=== PATIENT | male | born 1960 | race Two or more races ===

== ENCOUNTER 2020-07-10 11:30 | Emergency (ER) | payer MEDICAID, SELFPAY ==
--- NOTE | ~2020-07-10 | XR_ITS ---
EXAMINATION: LEFT SHOULDER AND LUMBAR SPINE X-RAY CLINICAL INFORMATION: Fall COMPARISON: Lumbar spine x-ray February 2011 TECHNIQUE: 3 views of the left shoulder and 3 views of the lumbar spine FINDINGS: Left shoulder: Bone alignment is normal. No fracture or dislocation is seen. Joint spaces are normal. Soft tissues are normal. Lumbar spine: There is mild curvature of the mid lumbar spine to the right. Bone alignment is otherwise normal. There is slight loss of the superior endplate of the L3 vertebral body questionable for a mild compression fracture. This does not appear acute but is new in the interval from 2011 exam. There is evidence of degenerative disc disease at L1-L2, L4-L5 and L5-S1. There is lower lumbar spine facet arthritis. There is evidence of atherosclerotic disease. XR/XR lumbar spine 2-3V IMPRESSION: Left shoulder: Unremarkable exam. Lumbar spine: Question mild L3 vertebral body compression fracture. This does not appear acute but is new in the interval from 2010. Multilevel degenerative disc disease and facet arthritis.
--- NOTE | ~2020-07-10 | US_ITS ---
EXAMINATION: US SCROTUM CLINICAL INFORMATION: Left testicle pain and swelling. COMPARISON: None TECHNIQUE: A sonogram of the scrotum was performed assessing marc-scale appearance and color Doppler flow. Spectral Doppler analysis of the arterial and venous flow were performed in the testes bilaterally. FINDINGS: RIGHT: Right testicle measures 4.4 x 1.7 x 2.4 cm, volume 9.5 mL. The right testis is diffusely heterogeneous. Question old injury. Spectral Doppler analysis of the arterial and venous flow is normal in the right testis. Right epididymal head is normal in size. No right hydrocele is seen. Right epididymal Doppler flow is normal. There are numerous varicose vessels visualized throughout the right scrotum consistent with varicocele. LEFT: Left testicle measures 4.5 x 2.7 x 3.1 cm, volume 20.1 mL. No focal testicular parenchymal lesions are visualized. Spectral Doppler analysis of the arterial and venous flow is increased in the left testis. Left epididymal head is enlarged in size. There is a small left epididymal head cyst measuring 0.3 x 0.3 x 0.4 cm. There is a small left hydrocele. No varicocele is seen. Left epididymal Doppler flow is increased. US/US scrotum doppler IMPRESSION: Enlarged left testis and epididymis with increased vascularity in the left testis and epididymis likely secondary to injury and/or inflammatory process. There is no testicular fracture or intratesticular hematoma. Heterogenous right testis with areas of ill-defined geographic areas suggestive of old injury. The vascularity appears normal. Normal right epididymis. Right varicocele. Small left hydrocele. Left epididymal head cyst. There is no scrotal wall thickening.
--- NOTE | ~2020-07-10 | XR_ITS ---
EXAMINATION: LEFT SHOULDER AND LUMBAR SPINE X-RAY CLINICAL INFORMATION: Fall COMPARISON: Lumbar spine x-ray February 2011 TECHNIQUE: 3 views of the left shoulder and 3 views of the lumbar spine FINDINGS: Left shoulder: Bone alignment is normal. No fracture or dislocation is seen. Joint spaces are normal. Soft tissues are normal. Lumbar spine: There is mild curvature of the mid lumbar spine to the right. Bone alignment is otherwise normal. There is slight loss of the superior endplate of the L3 vertebral body questionable for a mild compression fracture. This does not appear acute but is new in the interval from 2011 exam. There is evidence of degenerative disc disease at L1-L2, L4-L5 and L5-S1. There is lower lumbar spine facet arthritis. There is evidence of atherosclerotic disease. XR/XR shoulder LT min 2V IMPRESSION: Left shoulder: Unremarkable exam. Lumbar spine: Question mild L3 vertebral body compression fracture. This does not appear acute but is new in the interval from 2010. Multilevel degenerative disc disease and facet arthritis.
--- NOTE | ~2020-07-10 | US_ITS ---
EXAMINATION: US SCROTUM CLINICAL INFORMATION: Left testicle pain and swelling. COMPARISON: None TECHNIQUE: A sonogram of the scrotum was performed assessing marc-scale appearance and color Doppler flow. Spectral Doppler analysis of the arterial and venous flow were performed in the testes bilaterally. FINDINGS: RIGHT: Right testicle measures 4.4 x 1.7 x 2.4 cm, volume 9.5 mL. The right testis is diffusely heterogeneous. Question old injury. Spectral Doppler analysis of the arterial and venous flow is normal in the right testis. Right epididymal head is normal in size. No right hydrocele is seen. Right epididymal Doppler flow is normal. There are numerous varicose vessels visualized throughout the right scrotum consistent with varicocele. LEFT: Left testicle measures 4.5 x 2.7 x 3.1 cm, volume 20.1 mL. No focal testicular parenchymal lesions are visualized. Spectral Doppler analysis of the arterial and venous flow is increased in the left testis. Left epididymal head is enlarged in size. There is a small left epididymal head cyst measuring 0.3 x 0.3 x 0.4 cm. There is a small left hydrocele. No varicocele is seen. Left epididymal Doppler flow is increased. US/US scrotum IMPRESSION: Enlarged left testis and epididymis with increased vascularity in the left testis and epididymis likely secondary to injury and/or inflammatory process. There is no testicular fracture or intratesticular hematoma. Heterogenous right testis with areas of ill-defined geographic areas suggestive of old injury. The vascularity appears normal. Normal right epididymis. Right varicocele. Small left hydrocele. Left epididymal head cyst. There is no scrotal wall thickening.
[2020-07-10 11:42] VITALS: BP 168/77; PULSE 72; RESP 8; TEMP 36.8; O2SAT 96; BMI 39.1
[2020-07-10 14:00] VITALS: PULSE 89; RESP 18
--- NOTE | 2020-07-10 14:58 | ED_ITS ---
HPI - General Adult General Chief complaint: General Medical Stated complaint: BACK PAIN S/P FALL 5 DAYS AGO Time Seen by Provider: 07/10/20 11:34 History of Present Illness HPI narrative: Patient complains of pain in his lower back, left testicle and left shoulder after a fall where he tripped and fell down stairs a few days ago He did hit his head he has no neck pain he has no numbness weakness paresthesias he has no changes to bowel or bladder he has no burning with urination or f requency no fever no chills Related Data Previous Rx's Medication Instructions Recorded levofloxacin 500 mg PO DAILY 10 Days #10 tab 07/10/20 Allergies Allergy/AdvReac Type Severity Reaction Status Date / Time Penicillins [PENICILLINS] Allergy Unknown RASH Verified 07/10/20 11:45 Review of Systems Review of Systems: Positive for back pain left shoulder pain and left testicular pain and swelling The head is normocephalic atraumatic Neck is supple and nontender The chest is clear to auscultation without tenderness to the chest wall The abdomen soft nontender B genital exam the left testicle is swollen and tender, no hernia palpated The back head lower lumbar tenderness including midline tenderness, no CVA tenderness, no ecchymosis no rash no wound no redness Extremities is full range of motion in right arm both legs, gait is normal The left shoulder had some tenderness but no obvious deformity no ecchymosis and range of motion was almost full but limited on extension and abduction and external rotation Skin no rashes Neuro motor is 5/5 x4, gait and balance are normal, patient has symmetric and normal sensation in extremities PMFSH Past Medical History Medical History (Updated 07/10/20 @ 18:42 by JENARO Rebolledo) Diabetes High blood pressure High cholesterol Social History Social History Advance Directives: No Advance Directives Information Provided: No Physical Exam Vital Signs: Vital Signs: Last Vital Signs Temp 97.8 F 07/10/20 17:11 Pulse 65 07/10/20 17:11 Resp 16 07/10/20 17:11 BP 112/51 L 07/10/20 17:11 Pulse Ox 97 07/10/20 17:11 Body Mass Index 39.1 Course Course Course Narrative: Ultrasound showed epididymal inflammation and enlarged left testicle and epididymis with increased vascularity secondary to inflammation or inflammatory process Urine was positive with white cells so patient will be treated for possible epididymitis versus bruising to the testicle, there was no hematoma seen Lumbar spine x-ray did show a possible compression fracture so patient will be treated with analgesics Plan is to treat with antibiotics refer to urology for the epididymitis Follow with primary care doctor for compression fracture in the back At 18:00 case was signed out to physician dulce to confirm normal BUN and creatinine, normal renal from [facility] and patient will be discharged on Levaquin 500 pending renal function Medical Decision Making Lab Data Lab results reviewed: Yes I reviewed the patient's lab results. Result diagrams: 07/10/20 18:08 Labs: Lab Results 07/10/20 Range/Units 16:57 Urine Color YELLOW Urine Appearance CLEAR Urine pH 7.0 (5.0-8.0) Ur Specific Reasnor 1.015 (1.005-1.025) Urine Protein NEG (NEG-TRACE) MG/DL Urine Glucose (UA) NEG (NEG) MG/DL Urine Ketones NEG (NEG) MG/DL Urine Blood 2+ H (NEG) Urine Nitrite NEG (NEG) Ur Leukocyte Esterase 1+ H (NEG) Urine RBC 5-9 H (0) /HPF Urine WBC 10-14 H (0-4) /HPF Ur Squamous Epith Cells 1+ /LPF Urine Bacteria 3+ /LPF Discharge Plan Discharge Clinical Impression: Acute epididymitis Closed compression fracture of lumbosacral spine Qualifiers: Encounter type: initial encounter Qualified Code(s): S32.000A - Wedge compression fracture of unspecified lumbar vertebra, initial encounter for closed fracture Patient Disposition: Home, Self-Care Additional Instructions: We are starting antibiotics for epididymitis which is an infection We are giving pain medicine for the back pain Follow closely with primary doctor for physical therapy for the back and re- evaluation of the epididymitis Follow with urologist if you can get an appointment Return to ER any time for worsening pain fever vomiting any worse condition or any concerns you can use Tylenol or if needed oxycodone for pain Prescriptions: New levofloxacin 500 mg tablet 500 mg PO DAILY 10 Days Qty: 10 RF: 0 Referrals: Tyrone Hernández MD [Physician] - 2 days (Patient with left testicle pain and swelling with ultrasound showing epididymal inflammation being treated with Levaquin)
--- NOTE | 2020-07-10 16:10 | PC.NURSE ---
provider at bedside for re eval. pt up adlib to bathroom and back to room without any difficulty.
[2020-07-10 17:04] LABS: Glucose Urine UA NEG (NEG); Leukocyte Esterase Urine 1+ (NEG); Nitrite Urine NEG (NEG); Specific Gravity - Urine 1.015 (1.005-1.025); UACC Culture Trigger YES; Urine Blood 2+ (NEG); Urine Ketones NEG (NEG); Urine Protein NEG (NEG-TRACE)
[2020-07-10 17:09] LABS: Appearance Urine CLEAR; Color Urine YELLOW
[2020-07-10 17:11] VITALS: BP 112/51; PULSE 65; RESP 16; TEMP 36.6; O2SAT 97
[2020-07-10 17:14] LABS: Bacteria Urine 3+ /LPF; Squamous Epithelial Cell Urine 1+ /LPF
--- NOTE | 2020-07-10 17:15 | PC.NURSE ---
PT ASLEEP UPON ENTERING ROOM. EASILY AROUSED. VSS. WAITING URINE.
[2020-07-10 18:44] LABS: Blood Urea Nitrogen 9 mg/dL (9-16); Creatinine Clr Calc Pharmacy 125.7; Estimated Glomerular Filt Rate > 60
[2020-07-10] MEDS: levoFLOXacin 500 MG TABLET PO (19:32)
== END 2020-07-10 19:40 | disposition home or self-care (01) ==
PROVIDERS: Physician Assistant Medical; Emergency Provider Emergency Medicine
DX: S32.000A Wedge compression fracture of unspecified lumbar vertebra, initial encounter for closed fracture (principal); W10.8XXA Fall (on) (from) other stairs and steps, initial encounter; N45.1 Epididymitis; E11.9 Type 2 diabetes mellitus without complications; I10 Essential (primary) hypertension; Y93.89 Activity, other specified; Y92.018 Other place in single-family (private) house as the place of occurrence of the external cause; Y99.9 Unspecified external cause status
CPT/HCPCS: 36415; 72100; 73030; 76870; 81001; 81003; 82565; 84520; 87086; 87088; 87186; 93975; 99284

== ENCOUNTER 2020-11-22 15:08 | Outpatient (REF) | payer MEDICAID, SELFPAY ==
--- NOTE | ~2020-11-22 | MR_ITS ---
EXAMINATION: MR SHOULDER WITHOUT CONTRAST, LEFT CLINICAL INFORMATION: Pain over biceps insertion. Patient reports shoulder pain. COMPARISON: None. TECHNIQUE: MRI of the left shoulder was performed on a high-field 1.5 [employer]ia MRI scanner. FINDINGS: ROTATOR CUFF: Supraspinatus: There is a large insertional tear involving most, if not all, of the tendon anterior to posterior. There may be some posterior fibers still intact. The tear results in a tendon retraction and a resultant tendon gap measuring 3.5 cm medial to lateral and 3 cm anterior to posterior. There is no significant atrophy or fatty infiltration of the muscle. Scapularis: There is a full-thickness near-complete tear of the subscapularis tendon. Inferior fibers are still intact. The torn portion of the tendon is retracted approximately 1.9 cm medial to lateral with the distance of the tendon gap superior to inferior measuring approximately 1.7 cm. Mild atrophy and fatty infiltration of the muscle. Infraspinatus: Tendon intact. Mild atrophy and fatty infiltration of the muscle. Teres minor: Tendon intact. Mild atrophy and fatty infiltration of the muscle. BICEPS TENDON: There is medial intra-articular dislocation of the biceps likely related at least in part to the subscapularis tear. There is heterogeneity of the tendon at the level of the lesser tuberosity which is compatible with tendinosis and/or partial tearing. CORACOACROMIAL ARCH: There is mild arthrosis of the acromioclavicular joint. There is no subacromial spur. There is mild concavity of the undersurface of the acromion. BURSA: There is fluid in the bursa communicating with the joint through the rotator cuff tear. LABRUM/CAPSULE: Normal. GLENOHUMERAL JOINT: The humeral head is subluxed cephalad related to the rotator cuff defect nearly abutting the undersurface of the acromion. There is some cartilage loss throughout the humeral head without any focal defect. Findings indicative of mild glenohumeral arthrosis. There is a joint effusion and synovitis. MR/MR shoulder LT wo con IMPRESSION: Large insertional full-thickness tear involving most, if not all, of the supraspinatus tendon with minimal atrophy and fatty infiltration of the muscle. Near-complete insertional tear of the subscapularis tendon with mild atrophy and fatty infiltration of the muscle. Mild atrophy and fatty infiltration of the infraspinatus and teres minor muscles. Mild arthrosis of the acromioclavicular joint. Medially dislocated biceps likely at least in part related to subscapularis tear. Tendinosis and/or partial tearing of the biceps tendon at the level of the lesser tuberosity. No full-thickness tear or tendon retraction.
== END 2020-11-22 15:09 | disposition home or self-care (01) ==
LOC: HO.MRI 15:08
PROVIDERS: Visit Provider Emergency Medicine
DX: S46.212A Strain of muscle, fascia and tendon of other parts of biceps, left arm, initial encounter (principal)
CPT/HCPCS: 73221

== ENCOUNTER 2020-11-28 12:17 | Outpatient (REF) | payer MEDICAID, SELFPAY ==
--- NOTE | ~2020-11-28 | MR_ITS ---
EXAMINATION: MR HUMERUS WITHOUT CONTRAST, LEFT CLINICAL INFORMATION: Pain over biceps insertion point. Patient reports fall injury 2 months ago, left shoulder pain, decreased range of motion. COMPARISON: MR left shoulder 11/22/2020 TECHNIQUE: MRI of the humerus was performed using routine sequences on a high-field scanner. There is some motion artifact on multiple sequences. FINDINGS: The large tear of the supraspinatus tendon, full-thickness insertional tear of the subscapularis tendon, and moderate glenohumeral joint effusion are again noted but better evaluated on the previous MRI of the left shoulder. The proximal biceps tendon at the level of the proximal humerus and intra-articular portion is not clearly seen. This could be related to the significant motion artifact on the axial images as well as the large [id number]. I cannot exclude progression of a tear of the proximal tendon. This was previously medially dislocated and partially torn. The rest of the biceps muscle and tendon are intact to the radial tuberosity insertion site. There is some anterior subcutaneous edema, some which appears to be surrounding a superficial vein in the anterior upper arm, raises the possibility of superficial thrombophlebitis. MR/MR humerus LT wo con IMPRESSION: 1. Large tear of the supraspinatus tendon, full-thickness insertional tear of the subscapularis tendon, and moderate glenohumeral joint effusion are again noted but are better evaluated on the prior MRI of the shoulder. 2. The previously medially dislocated and partially torn long head of the biceps tendon is not well visualized on the present exam. This could be related to motion artifact and the large [id number] imaging. Progression of a tear cannot be excluded. A repeat MRI of the left shoulder may be helpful in further evaluation if clinically indicated. The rest of the biceps muscle and tendon appear intact to the radial tuberosity insertion site. 3. Findings suspicious of superficial thrombophlebitis involving an anterior subcutaneous vein.
== END 2020-11-28 12:18 | disposition home or self-care (01) ==
LOC: HO.MRI 12:17
PROVIDERS: Visit Provider Emergency Medicine
DX: S46.212A Strain of muscle, fascia and tendon of other parts of biceps, left arm, initial encounter (principal)
CPT/HCPCS: 73218

== ENCOUNTER 2022-04-17 09:38 | Inpatient (IN) | payer MEDICAID, SELFPAY ==
--- NOTE | ~2022-04-17 | XR_ITS ---
EXAMINATION: LEFT HIP AND AP PORTABLE CHEST. CLINICAL INFORMATION: Pain status post fall COMPARISON: None TECHNIQUE: AP portable chest. AP pelvis and 2 views of the left hip. FINDINGS: There is a comminuted intertrochanteric fracture of the left hip with some medial angulation of the major fracture fragment. No dislocation is evident. Hip spaces maintained. There is no evidence of acute fracture or diastases of the pelvis. Frontal view of the chest does not demonstrate any evidence of acute parenchymal disease, pneumothorax or pleural effusion. Heart normal size. No evidence of pulmonary edema. XR/XR hip LT w PEL1V IMPRESSION: Comminuted intertrochanteric fracture of the left hip. No acute parenchymal disease within the chest.
--- NOTE | ~2022-04-17 | XR_ITS ---
EXAMINATION: LEFT HIP AND AP PORTABLE CHEST. CLINICAL INFORMATION: Pain status post fall COMPARISON: None TECHNIQUE: AP portable chest. AP pelvis and 2 views of the left hip. FINDINGS: There is a comminuted intertrochanteric fracture of the left hip with some medial angulation of the major fracture fragment. No dislocation is evident. Hip spaces maintained. There is no evidence of acute fracture or diastases of the pelvis. Frontal view of the chest does not demonstrate any evidence of acute parenchymal disease, pneumothorax or pleural effusion. Heart normal size. No evidence of pulmonary edema. XR/XR chest 1V IMPRESSION: Comminuted intertrochanteric fracture of the left hip. No acute parenchymal disease within the chest.
--- NOTE | 2022-04-17 09:47 | ED_ITS ---
HPI - Fall General Chief Complaint: Extremity Injury, Lower Stated Complaint: Fall (16hours on floor), heroine use per EMS Time Seen by Provider: 04/17/22 09:45 Source: patient and EMS Mode of arrival: EMS Limitations: no limitations History of Present Illness HPI Narrative: 61-year-old male with history of IVDA, DM, history of UTI & epididymitis, history of falls who presents to the ER from home via EMS c/o severe left hip pain after he fell last night. Patient reports he was in his kitchen and went to open the fridge when he accidentally fell backwards onto his left hip. He was unable to get up off the floor and states he has been on the floor for 16 hours. He found a bag of heroin in his sweatpants pocket this morning and snorted it, he usually injects. His girlfriend found him on the kitchen floor and called 911. Patient states while on the floor he has not voided at all. He denies hitting his head, losing consciousness or sustaining any other injuries. MD complaint: fall Onset (ago): hour(s) (16) Fall from: standing Fall witnessed: no Place fall occurred: home Loss of consciousness: none Prolonged down time: yes Symptoms prior to fall: none Context: tripped/slipped and history of frequent falls Location of injury - extremities: left: thigh Severity: severe Severity scale (1-10): 10 Quality: sharp and aching Associated symptoms (after fall): unable to walk Related Data Home Medications Medication Instructions Recorded Confirmed amlodipine 10 mg tablet 1 tab PO DAILY 04/17/22 04/17/22 Allergies Allergy/AdvReac Type Severity Reaction Status Date / Time Penicillins [PENICILLINS] Allergy Unknown RASH Verified 07/10/20 11:45 Review of Systems Review of Systems: Constitutional: No Fever, No Chills ENT/Mouth: No sore throat, No Rhinorrhea, No Swallowing Difficulty Eyes: No Eye Pain, No Swelling, No Redness Cardiovascular: No Chest Pain, No SOB, No Orthopnea, No Edema Respiratory: No Cough, No Sputum, No Wheezing, No dyspnea Gastrointestinal: No Nausea, No Vomiting, No Diarrhea, No abdominal Pain Genitourinary: No Dysuria, No Urinary Frequency, No Hematuria Musculoskeletal: + joint pain, No Myalgias Skin: +Skin Lesions, No rash Neuro: No Weakness, No Numbness, No Dizziness, No Headache Psych: No Anxiety/Panic, No Depression Heme/Lymph: No Bruising, No Lymphadenopathy Endocrine: No Polyuria, No Polydipsia [facility] Past Medical History Medical History (Updated 04/17/22 @ 11:22 by JENARO Edmondson) Diabetes High blood pressure High cholesterol Social History Social History Advance Directives: No Physical Exam Vital Signs: Vital Signs: Last Vital Signs Temp 98.8 F 04/17/22 10:38 Pulse 73 04/17/22 10:38 Resp 14 04/17/22 10:38 BP 168/87 H 04/17/22 10:38 Pulse Ox 96 04/17/22 10:38 O2 Del Method 04/17/22 10:38 BMI result Body Mass Index 25.0 Appearance: Alert. Oriented X3. No acute distress. Intermittently falling asleep during interview. Eyes: Pupils equal, round and reactive to light. ENT: Pharynx normal. Neck: Normal inspection. Neck supple. CVS: Normal heart rate and rhythm. Pulses normal. Respiratory: No respiratory distress. Breath sounds normal. Abdomen: well healed horizontal surgical scar over the epigastric area, obese Soft and nontender. +BS x4 Skin: Skin warm and dry. Normal skin color. Normal skin turgor. No rashes. Extremities: left leg is shortened and externally rotated. hyperpigmentation of the bilateral lower legs with chronic venous stasis changes. bilateral UE with track martinez. Neuro: Oriented X 3. Course Course Course Narrative: 61 yo male with history of IVDA, DM on oral agents, HTN, coming in from home after a fall yesterday onto his left hip resulting in severe hip pain, unable to get up and ambulate. He was on the floor for 16 hours per EMS. He admits to using heroin today. He is falling asleep during interview but screams out in pain with any movement on the stretcher. On exam he has an externally rotated and shortened left lower extremity concern for hip fracture. X-rays and labs are pending. Reevaluation(s) Reevaluation #1: X-ray showing a comminuted inter trochanteric fracture of the left hip. Images were sent to orthopedic PA. medical workup still pending. Difficult stick to IV drug use. Reevaluation #2: Labs show elevated liver enzymes and bilirubin. No right upper quadrant pain, nontender on examination.. Will hold off on imaging for now. Will check hepatitis panel, given his IVDA. Orthopedics came to evaluate the patient at the bedside. Recommending medical admission. Hospitalist Darion texted for admission. Medications Administered Discontinued Medications Generic Name Dose Route Start Last Admin Trade Name Marcioq PRN Reason Stop Dose Admin Acetaminophen 975 mg 04/17/22 09:58 04/17/22 11:49 Acetaminophen 325 Mg Tablet PO 04/17/22 09:59 975 mg ONCE ONE Administration Sodium Chloride 1,000 mls @ 999 mls/hr 04/17/22 10:00 04/17/22 12:38 Ns IVCONT 04/17/22 11:00 Infused .Q1H1M GISSELL Infusion Medical Decision Making Consult Healthcare Provider Orthopedic JENARO Albright Lab Data MDM Lab Attestation statement: I reviewed the patient's lab results. Result Diagrams: 04/17/22 11:08 04/17/22 11:08 Labs: Lab Results 04/17/22 04/17/22 04/17/22 Range/Units 11:00 11:08 11:08 WBC 6.3 (4.8-10.8) X10*3/uL RBC 4.65 (4.60-5.80) X10*6/uL Hgb 13.8 L (14.0-18.0) g/dl Hct 41.9 L (42.0-52.0) % MCV 90.1 (80.0-98.0) fL MCH 29.7 (27.0-33.0) pg MCHC 32.9 (31.0-36.0) g/dl RDW 15.0 (11.0-16.0) % Plt Count 105 L (160-400) X10*3/uL MPV 9.8 (9.4-12.4) fL Immature Gran % (Auto) 0.5 H (0.0-0.4) % Neut % (Auto) 75.4 H (45-73) % Lymph % (Auto) 13.3 L (20-40) % Burnet % (Auto) 10.1 (2-11) % Eos % (Auto) 0.2 (0-4) % Baso % (Auto) 0.5 (0-2) % Lymph # (Auto) 0.8 L (1.2-4.9) X10*3/uL Burnet # (Auto) 0.6 (0.1-1.2) X10*3/uL Eos # (Auto) 0.0 (0.0-0.4) X10*3/uL Baso # (Auto) 0.0 (0.0-0.2) X10*3/uL Abs Immat Gran (auto) 0.03 (0.00-0.03) X10*3/uL Absolute Neuts (auto) 4.7 (2.0-8.3) x10*3/uL Absolute Nucleated RBC 0.000 (0.0-0.012) X10*3/uL Nucleated RBC % (auto) 0.0 (0.0-0.2) /100WBC Sodium 135 (135-145) mmol/L Potassium 3.9 (3.3-5.1) mmol/L Chloride 105 (96-108) mmol/L Carbon Dioxide 23 (22-29) mmol/L Anion Gap 11 L (12-20) BUN 11 (9-16) mg/dL Creatinine 0.75 (0.5-1.4) mg/dL Estim Creat Clear Calc 95.7 Estimated GFR > 60 Random Glucose 113 (60-115) mg/dL Calcium 8.4 (8.4-10.2) mg/dL Magnesium 1.8 (1.6-2.6) mg/dL Total Bilirubin 2.0 H (0.0-1.0) mg/dL Direct Bilirubin 1.0 H (0.0-0.5) mg/dL AST 39 H (5-37) U/L ALT 27 (0-40) U/L Alkaline Phosphatase 146 H (39-117) U/L Total Creatine Kinase 230 H (38-174) U/L Total Protein 8.1 H (6.5-8.0) g/dL Albumin 2.9 L (3.5-5.0) g/dL Ethyl Alcohol mg/dL COVID-19 ([facility]) Negative (Negative) COVID-19 Clin Com See Note 04/17/22 Range/Units 11:08 WBC (4.8-10.8) X10*3/uL RBC (4.60-5.80) X10*6/uL Hgb (14.0-18.0) g/dl Hct (42.0-52.0) % MCV (80.0-98.0) fL MCH (27.0-33.0) pg MCHC (31.0-36.0) g/dl RDW (11.0-16.0) % Plt Count (160-400) X10*3/uL MPV (9.4-12.4) fL Immature Gran % (Auto) (0.0-0.4) % Neut % (Auto) (45-73) % Lymph % (Auto) (20-40) % Burnet % (Auto) (2-11) % Eos % (Auto) (0-4) % Baso % (Auto) (0-2) % Lymph # (Auto) (1.2-4.9) X10*3/uL Burnet # (Auto) (0.1-1.2) X10*3/uL Eos # (Auto) (0.0-0.4) X10*3/uL Baso # (Auto) (0.0-0.2) X10*3/uL Abs Immat Gran (auto) (0.00-0.03) X10*3/uL Absolute Neuts (auto) (2.0-8.3) x10*3/uL Absolute Nucleated RBC (0.0-0.012) X10*3/uL Nucleated RBC % (auto) (0.0-0.2) /100WBC Sodium (135-145) mmol/L Potassium (3.3-5.1) mmol/L Chloride (96-108) mmol/L Carbon Dioxide (22-29) mmol/L Anion Gap (12-20) BUN (9-16) mg/dL Creatinine (0.5-1.4) mg/dL Estim Creat Clear Calc Estimated GFR Random Glucose (60-115) mg/dL Calcium (8.4-10.2) mg/dL Magnesium (1.6-2.6) mg/dL Total Bilirubin (0.0-1.0) mg/dL Direct Bilirubin (0.0-0.5) mg/dL AST (5-37) U/L ALT (0-40) U/L Alkaline Phosphatase (39-117) U/L Total Creatine Kinase (38-174) U/L Total Protein (6.5-8.0) g/dL Albumin (3.5-5.0) g/dL Ethyl Alcohol < 10 mg/dL COVID-19 ([facility]) (Negative) COVID-19 Clin Com Independent Interpretation I performed an independent interpretation of an: EKG Interpretation: Normal sinus rhythm, nonspecific ST and T-wave abnormality, heart rate 63 beats per minute, prolonged QT 464 ms, some artifact present Radiology Impression Discussion of test interpretation with radiology: I have reviewed the radiologist's reading. Radiologist Impression: Comminuted intertrochanteric fracture of the left hip. Prescription Management I considered prescription management with: Pain Medication Holding off on IV narcotics given heroin use. Lethargic. Critical Care Time Critical Care Time Critical Care Time: No Discharge Plan Discharge Clinical Impression: Closed intertrochanteric fracture of left hip Patient Disposition: Admitted As Inpatient
--- NOTE | 2022-04-17 10:13 | ECG_ITS ---
Test Reason : weak Blood Pressure : / mmHG Vent. Rate : 063 BPM Atrial Rate : 063 BPM P-R Int : 158 ms QRS Dur : 098 ms QT Int : 464 ms P-R-T Axes : 088 032 061 degrees QTc Int : 474 ms Normal sinus rhythm Nonspecific ST and T wave abnormality Prolonged QT Abnormal ECG No previous ECGs available Referred By: Taisha Harris Electronically Signed By:Alan Oropeza
--- NOTE | 2022-04-17 10:25 | PHA.MEDREC ---
Pharmacy Consult ? Medication Reconciliation Pharmacy has completed the medication reconciliation. Pt donavon historian, tells me he only takes one medication for blood pressure. Has not filled since January for 30 day supply.
--- NOTE | 2022-04-17 10:36 | PC.NURSE ---
pt comes to ED via EMS post fall with floor time of approximately 16 hours. Pt taken to radiology - badly broken hip. PA notified. Pt moved to bed 17. Will continue to monitor.
[2022-04-17 10:38] VITALS: BP 168/87; PULSE 73; RESP 14; TEMP 37.1; O2SAT 96; BMI 25.0
[2022-04-17 11:12] LABS: MANUAL DIFF FLAG NO
[2022-04-17 11:16] LABS: Basophils Percent Auto 0.5 % (0-2); Eosinophils Percent Auto 0.2 % (0-4); Hematocrit 41.9 % (42.0-52.0); Hemoglobin 13.8 g/dl (14.0-18.0); Imm Gran Abs Auto 0.03 X10*3/uL (0.00-0.03); Imm Gran Pct Auto 0.5 % (0.0-0.4); Lymphocytes Absolute Auto 0.8 X10*3/uL (1.2-4.9); Lymphocytes Percent Auto 13.3 % (20-40); Mean Corpuscular HGB Conc 32.9 g/dl (31.0-36.0); Mean Corpuscular Hemoglobin 29.7 pg (27.0-33.0); Mean Corpuscular Volume 90.1 fL (80.0-98.0); Mean Platelet Volume 9.8 fL (9.4-12.4); Monocytes Absolute Auto 0.6 X10*3/uL (0.1-1.2); Monocytes Percent Auto 10.1 % (2-11); Neutrophils Absolute Auto 4.7 x10*3/uL (2.0-8.3); Neutrophils Percent Auto 75.4 % (45-73); Platelet Count 105 X10*3/uL (160-400); Red Blood Count 4.65 X10*6/uL (4.60-5.80); White Blood Count 6.3 X10*3/uL (4.8-10.8)
[2022-04-17] MEDS: 0.9 % Sodium Chloride 1,000 ML 999 ML IVCONT (11:18)
[2022-04-17 11:31] LABS: COVID-19 Test Negative (Negative); IDNOW Serial# BCCEAD1C
[2022-04-17 11:36] LABS: Alanine Aminotransferase 27 U/L (0-40); Albumin Level 2.9 g/dL (3.5-5.0); Alkaline Phosphatase 146 U/L (39-117); Anion Gap 11 (12-20); Aspartate Amino Transferase 39 U/L (5-37); Blood Urea Nitrogen 11 mg/dL (9-16); Calcium 8.4 mg/dL (8.4-10.2); Carbon Dioxide 23 mmol/L (22-29); Chloride 105 mmol/L (96-108); Creatinine Clr Calc Pharmacy 95.7; Estimated Glomerular Filt Rate > 60; Glucose Random 113 mg/dL (60-115); Magnesium 1.8 mg/dL (1.6-2.6); Potassium 3.9 mmol/L (3.3-5.1); Sodium 135 mmol/L (135-145); Total Protein 8.1 g/dL (6.5-8.0)
[2022-04-17 11:48] LABS: Ethanol < 10 mg/dL
[2022-04-17] MEDS: Acetaminophen 325 MG TABLET 975 MG PO (11:49)
--- NOTE | 2022-04-17 12:12 | MHC.EDTECH ---
Aislinn placed a condom catheter on patient. Patient has a broken hip and the nurse felt this would help keep him out of pain.
--- NOTE | 2022-04-17 12:40 | PM.CNOR ---
History of Present Illness HPI Consult date: 04/17/22 Chief complaint: Hip Fx, IVDA Narrative: 61 yo male brought to the ED via EMS s/p fall 1 day ago. Per ED records he was in the kitchen and he fell, he was down for about 16 hours when his found him. He was unable to get up due to the pain . EMS was called and transported him to the ED. Workup in the ED was significant for subtrochanteric fracture of the left femur. He mentioned he did use a bag of heroin just prior to arrival. He states he lives at home with his and uses a cane for ambulation. He was admitted to the medical servie for further workup and orthopedics was consulted for further recommendations. Review of Systems Constitutional: Comments: per [facility] Past Medical History Medical History Diabetes High blood pressure High cholesterol Social History Social History (Updated 04/17/22 @ 15:14 by Eve Davila MD) Household Members: Spouse Housing: Apartment Do you presently have visiting nurse or other home services: No Patient Tobacco Use Status: Current everyday Tobacco user Smoked in Last 30 Days: Yes Patient Interested in Nicotine Replacement: No Use of substances other than those prescribed or required for medical reasons: Yes Substance Use Type: Opiates Substance Use Frequency: Daily Last Used Substance Other:: 04/16 Currently Displaying Signs/Symptoms of Drug Intoxication Withdrawal: No Have you been hit, kicked, punched, or otherwise hurt by someone within the past year? If so, by whom?: No Do you feel safe in your current relationship?: Yes Is there a partner from a previous relationship who is making you feel unsafe now?: No Advance Directives: No Do you have thoughts of harming others: None Do you have a plan to hurt others: No Plan Recently lost weight without trying: Unsure Nutrition Risks: No Nutritional Risk Meds Allergies Allergy/AdvReac Type Severity Reaction Status Date / Time Penicillins [PENICILLINS] Allergy Unknown RASH Verified 07/10/20 11:45 Active Medications: Current Medications Amlodipine Besylate (Amlodipine Besylate 10 Mg Tablet) 10 mg PO DAILY GISSELL; Protocol Pharmacy Consult (Consult Rx Perform Med Rec) 1 each MISCELLANE ONCE PRN PRN Reason: Consult order Home Medications Medication Instructions Recorded Confirmed Last Taken Type amlodipine 10 mg tablet 1 tab PO DAILY 04/17/22 04/17/22 Unknown History Physical Exam Vital Signs: Vital Signs: Last Vital Signs Temp 98.8 F 04/17/22 10:38 Pulse 73 04/17/22 10:38 Resp 14 04/17/22 10:38 BP 168/87 H 04/17/22 10:38 Pulse Ox 96 04/17/22 10:38 O2 Del Method 04/17/22 10:38 BMI result Body Mass Index 25.0 Const: General: cooperative, healthy appearing, comfortable and no acute distress Extrem: Other: Left lef normal to inspection, slightly edematous to the lower extremities with pulses intact. Pain with palpation to the left hip and painwith log roll. Unable to slr. Results Labs Result Diagrams: 04/17/22 11:08 04/17/22 11:08 Labs: Abnormal lab results 04/17/22 04/17/22 Range/Units 11:08 11:08 Hgb 13.8 L (14.0-18.0) g/dl Hct 41.9 L (42.0-52.0) % Plt Count 105 L (160-400) X10*3/uL Immature Gran % (Auto) 0.5 H (0.0-0.4) % Neut % (Auto) 75.4 H (45-73) % Lymph % (Auto) 13.3 L (20-40) % Lymph # (Auto) 0.8 L (1.2-4.9) X10*3/uL Anion Gap 11 L (12-20) Total Bilirubin 2.0 H (0.0-1.0) mg/dL Direct Bilirubin 1.0 H (0.0-0.5) mg/dL AST 39 H (5-37) U/L Alkaline Phosphatase 146 H (39-117) U/L Total Creatine Kinase 230 H (38-174) U/L Total Protein 8.1 H (6.5-8.0) g/dL Albumin 2.9 L (3.5-5.0) g/dL H & H 04/17/22 Range/Units 11:08 Hgb 13.8 L (14.0-18.0) g/dl Hct 41.9 L (42.0-52.0) % All other labs normal. Assessment and Plan (1) Closed intertrochanteric fracture of left hip: Status: Acute Plan I discussed the case with Dr Miner and explained the extent of the injury to the patient and options available which include surgical intervention. I explained the procedure in detail along with the length of recovery and rehab course. I explained the risk, benefits and alternatives. Risk including, but not limited to infection, blood clots, bleeding, non union or malunion and nerve/tissue damage to surrounding areas. I answered all their questions and with their understanding they have consented to move forward with Operative Fixation of the left hip . The patient will be T&S, med clearance obtained and NPO after midnight. Time Spent With Patient Time: Total time managing care of this patient today __20__ minutes. Procedures Date of Service Date of Service: 04/17/22
--- NOTE | 2022-04-17 15:11 | PM.IMHP ---
History of Present Illness Date of Service: 04/17/22 Chief Complaint: fall, L hip pain 61yo M with hx IDU, DM2, HTN, recurrent falls brought in by EMS with severe L hip pain after he fell in the kitchen last night after opening the refrigerator. No lightheadness or syncope and he did not hit is head. He was unable to get off the floor and was down on the ground for nearly 16 hours. He is in the habit of injecting 1 bag of heroin daily. He found a bag in his sweatpants pocket this morning and snorted it. His girlfriend eventually found him on the floor and called EMS. Endorses hip pain. Denies chest pain, cough, skin abscess or rash, fever, or chills. In the ED, he was found to have a L subtrochanteric femur fracture. Review of Systems Review of Systems: Yes all other systems are reviewed and are negative [facility] Medical History Diabetes High blood pressure High cholesterol Pertinent family history: Patient denies FHx of DM2 but he is not a good historian. Social History (Updated 04/17/22 @ 15:14 by Eve Davila MD) Use of substances other than those prescribed or required for medical reasons: Yes Substance Use Type: Heroin and IV Drugs Advance Directives: No Meds Allergies Allergy/AdvReac Type Severity Reaction Status Date / Time Penicillins [PENICILLINS] Allergy Unknown RASH Verified 07/10/20 11:45 Active Medications: Current Medications Amlodipine Besylate (Amlodipine Besylate 10 Mg Tablet) 10 mg PO DAILY GISSELL; Protocol Pharmacy Consult (Consult Rx Perform Med Rec) 1 each MISCELLANE ONCE PRN PRN Reason: Consult order Home Medications Medication Instructions Recorded Confirmed Last Taken Type amlodipine 10 mg tablet 1 tab PO DAILY 04/17/22 04/17/22 Unknown History Physical Exam Vital Signs and Narrative: Vital Signs: Last Vital Signs Temp 98.8 F 04/17/22 10:38 Pulse 73 04/17/22 10:38 Resp 14 04/17/22 10:38 BP 168/87 H 04/17/22 10:38 Pulse Ox 96 04/17/22 10:38 O2 Del Method 04/17/22 10:38 BMI result Body Mass Index 25.0 Gen: in no acute distress HEENT: sclera anicteric, moist mucus membranes Neck: supple Lungs: clear to auscultation bilaterally Heart: regular rate and rhythm, no murmurs Abd: soft, non-tender, non-distended Ext: no edema, L hip tenderness Skin: warm/well-perfused, multiple needle tracks/scars Neuro: alert and oriented x3, no focal findings Psych: appropriate affect Results Labs CBC and Chem 7: 04/17/22 11:08 04/17/22 11:08 Labs: Laboratory Results - last 24 hr 04/17/22 04/17/22 04/17/22 11:00 11:08 11:08 MCV 90.1 MCH 29.7 MCHC 32.9 RDW 15.0 Plt Count 105 L MPV 9.8 Immature Gran % (Auto) 0.5 H Neut % (Auto) 75.4 H Lymph % (Auto) 13.3 L [place] % (Auto) 10.1 Eos % (Auto) 0.2 Baso % (Auto) 0.5 Lymph # (Auto) 0.8 L [place] # (Auto) 0.6 Eos # (Auto) 0.0 Baso # (Auto) 0.0 Abs Immat Gran (auto) 0.03 Absolute Neuts (auto) 4.7 Absolute Nucleated RBC 0.000 Nucleated RBC % (auto) 0.0 Anion Gap 11 L Estim Creat Clear Calc 95.7 Estimated GFR > 60 Random Glucose 113 Calcium 8.4 Magnesium 1.8 Total Bilirubin 2.0 H Direct Bilirubin 1.0 H AST 39 H ALT 27 Alkaline Phosphatase 146 H Total Creatine Kinase 230 H Total Protein 8.1 H Albumin 2.9 L Ethyl Alcohol COVID-19 ([place]) Negative COVID-19 Clin Com See Note 04/17/22 11:08 MCV MCH MCHC RDW Plt Count MPV Immature Gran % (Auto) Neut % (Auto) Lymph % (Auto) [place] % (Auto) Eos % (Auto) Baso % (Auto) Lymph # (Auto) [place] # (Auto) Eos # (Auto) Baso # (Auto) Abs Immat Gran (auto) Absolute Neuts (auto) Absolute Nucleated RBC Nucleated RBC % (auto) Anion Gap Estim Creat Clear Calc Estimated GFR Random Glucose Calcium Magnesium Total Bilirubin Direct Bilirubin AST ALT Alkaline Phosphatase Total Creatine Kinase Total Protein Albumin Ethyl Alcohol < 10 COVID-19 ([place]) COVID-19 Clin Com Imaging Radiologist's Impressions: Impressions Chest X-Ray 04/17/22 10:19 IMPRESSION: Comminuted intertrochanteric fracture of the left hip. No acute parenchymal disease within the chest. Hip/Pelvis X-Ray 04/17/22 10:19 IMPRESSION: Comminuted intertrochanteric fracture of the left hip. No acute parenchymal disease within the chest. Assessment and Plan (1) Closed intertrochanteric fracture of left hip: Status: Acute Plan 61yo M with HTN, ?DM2, IDU presenting with subtrochanteric femur fracture on the left hip after falling. Daily injection heroin abuse. # subtrochanteric femur fx - admit to M/S, NPO after midnight for operative fixation in AM, pain control with APAP/oxycodone/morphine, PT and extended VTE ppx after operative fixation # HTN - amlodipine # DM2 - not on meds and pt states he doesn't have a PCP. check A1c, give correction-dose lispro # opioid abuse - screen HBV/HCV/HIV. Addiction Medicine consult. monitor for withdrawl # VTE ppx: SCDs # code: full I anticipate that the patient will stay at least 2 midnights as an inpatient in the hospital due to the above reasons. It is neither reasonable nor safe to care for them in a less acute setting. Time Spent With Patient Time: Total time managing care of this patient today ____ minutes. Quality Stroke Does the patient have a stroke diagnosis?: No VTE Prior VTE?: No VTE Risk Level:: Medical - moderate - high VTE Device Contraindication: N/A - Device Ordered VTE Drug Contraindication: N/A - Med Ordered
[2022-04-17 15:45] LABS: Appearance Urine Clear; Color Urine Yellow; Glucose Urine UA Negative (Negative); Leukocyte Esterase Urine Small (1+) (Negative); Nitrite Urine Positive (Negative); UMIC TRIGGER UACC YES; Urine Blood Small (1+) (Negative); Urine Ketones Negative (Negative); Urine Protein Negative (Neg-Trace)
[2022-04-17 15:53] LABS: Amphetamine Screen Urine Not Detected (Not Detect); Barbiturates, Urine Not Detected (Not Detect); Benzodiazepines Screen Urine Not Detected (Not Detect); Cannabinoid Screen Urine Not Detected (Not Detect); Cocaine Screen Urine POSITIVE (Not Detect); Fentanyl, urine POSITIVE (Not Detect); Opiate Screen Urine Not Detected (Not Detect); Phencyclidine Screen Urine Not Detected (Not Detect)
[2022-04-17 15:57] LABS: Bacteria Urine 4+ (None Seen); Hyaline Casts Urine 0-2 /LPF (0-2); Squamous Epithelial Cell Urine 0-2 /HPF (0-2); UACC Culture Trigger YES
[2022-04-17 16:00] VITALS: BP 168/89; PULSE 60; RESP 16; TEMP 36.8; O2SAT 95
[2022-04-17 16:02] LABS: Estimated Average Glucose 91 mg/dL; Hemoglobin A1c % 4.8 %
[2022-04-17 16:31] LABS: Glucose, Whole Blood 106 mg/dL (60-115)
--- NOTE | 2022-04-17 16:51 | HO.ADDICTCON ---
History of Present Illness Date of Service: 04/17/2022 Chief Complaint: Hip Fx, IVDA Reason for Consult: opioid use HPI Narrative: Patient is a 61 year old male currently medically admitted with femur fracture. Patient reported heroin use to provider and consult requested. Patient seen in room 17 of main ED while awaiting transfer to medical floor. Awake, alert and enaged in interview. Patient reports he is currently using btwn 1-2 bundles of heroin IV QD. Previously in treatment for OUD with methadone (unclear when--within the last several months) and states his dose was as 65mg QD Reporting withdrawal sx including chills, and sweats, restlessness, anxiety, nausea--patient also appearing uncomfortable when seen by this verse writer. Review of Systems Constitutional: Reports as per HPI Diagnostics Vital Signs (24Hr): Vital Signs - 24 hr 04/17/22 10:38 04/17/22 16:00 Temperature 98.8 F 98.3 F Pulse Rate 73 60 Respiratory Rate 14 16 Blood Pressure 168/87 H 168/89 H Pulse Oximetry 96 95 Oxygen Delivery Method Room Air Room Air BMI result Body Mass Index 25.0 Labs Results: 04/17/22 11:08 04/17/22 11:08 Labs: Laboratory Results - last 48 hr 04/17/22 04/17/22 04/17/22 11:00 11:08 11:08 WBC 6.3 RBC 4.65 Hgb 13.8 L Hct 41.9 L MCV 90.1 MCH 29.7 MCHC 32.9 RDW 15.0 Plt Count 105 L MPV 9.8 Immature Gran % (Auto) 0.5 H Neut % (Auto) 75.4 H Lymph % (Auto) 13.3 L [place] % (Auto) 10.1 Eos % (Auto) 0.2 Baso % (Auto) 0.5 Lymph # (Auto) 0.8 L [place] # (Auto) 0.6 Eos # (Auto) 0.0 Baso # (Auto) 0.0 Abs Immat Gran (auto) 0.03 Absolute Neuts (auto) 4.7 Absolute Nucleated RBC 0.000 Nucleated RBC % (auto) 0.0 Sodium 135 Potassium 3.9 Chloride 105 Carbon Dioxide 23 Anion Gap 11 L BUN 11 Creatinine 0.75 Estim Creat Clear Calc 95.7 Estimated GFR > 60 POC Glucose Random Glucose 113 Estimat Average Glucose Hemoglobin A1c % Calcium 8.4 Magnesium 1.8 Total Bilirubin 2.0 H Direct Bilirubin 1.0 H AST 39 H ALT 27 Alkaline Phosphatase 146 H Total Creatine Kinase 230 H Total Protein 8.1 H Albumin 2.9 L Urine Color Urine Appearance Urine pH Ur Specific [place] Urine Protein Urine Glucose (UA) Urine Ketones Urine Blood Urine Nitrite Ur Leukocyte Esterase Urine RBC Urine WBC Ur Squamous Epith Cells Urine Bacteria Hyaline Casts Urine Opiates Screen Urine Fentanyl Screen Ur Barbiturates Screen Ur Phencyclidine Scrn Ur Amphetamines Screen U Benzodiazepines Scrn Urine Cocaine Screen U Marijuana (THC) Screen Ethyl Alcohol COVID-19 ([place]) Negative COVID-19 [place] Com See Note 04/17/22 04/17/22 04/17/22 11:08 11:08 15:21 WBC RBC Hgb Hct MCV MCH MCHC RDW Plt Count MPV Immature Gran % (Auto) Neut % (Auto) Lymph % (Auto) [place] % (Auto) Eos % (Auto) Baso % (Auto) Lymph # (Auto) [place] # (Auto) Eos # (Auto) Baso # (Auto) Abs Immat Gran (auto) Absolute Neuts (auto) Absolute Nucleated RBC Nucleated RBC % (auto) Sodium Potassium Chloride Carbon Dioxide Anion Gap BUN Creatinine Estim Creat Clear Calc Estimated GFR POC Glucose Random Glucose Estimat Average Glucose 91 Hemoglobin A1c % 4.8 Calcium Magnesium Total Bilirubin Direct Bilirubin AST ALT Alkaline Phosphatase Total Creatine Kinase Total Protein Albumin Urine Color Yellow Urine Appearance Clear Urine pH 7.0 Ur Specific [place] 1.010 Urine Protein Negative Urine Glucose (UA) Negative Urine Ketones Negative Urine Blood Small (1+) H Urine Nitrite Positive H Ur Leukocyte Esterase Small (1+) H Urine RBC 3-5 H Urine WBC 6-10 H Ur Squamous Epith Cells 0-2 Urine Bacteria 4+ Hyaline Casts 0-2 Urine Opiates Screen Urine Fentanyl Screen Ur Barbiturates Screen Ur Phencyclidine Scrn Ur Amphetamines Screen U Benzodiazepines Scrn Urine Cocaine Screen U Marijuana (THC) Screen Ethyl Alcohol < 10 COVID-19 ([place]) COVID-19 [place] Com 04/17/22 04/17/22 15:21 16:26 WBC RBC Hgb Hct MCV MCH MCHC RDW Plt Count MPV Immature Gran % (Auto) Neut % (Auto) Lymph % (Auto) [place] % (Auto) Eos % (Auto) Baso % (Auto) Lymph # (Auto) [place] # (Auto) Eos # (Auto) Baso # (Auto) Abs Immat Gran (auto) Absolute Neuts (auto) Absolute Nucleated RBC Nucleated RBC % (auto) Sodium Potassium Chloride Carbon Dioxide Anion Gap BUN Creatinine Estim Creat Clear Calc Estimated GFR POC Glucose 106 Random Glucose Estimat Average Glucose Hemoglobin A1c % Calcium Magnesium Total Bilirubin Direct Bilirubin AST ALT Alkaline Phosphatase Total Creatine Kinase Total Protein Albumin Urine Color Urine Appearance Urine pH Ur Specific [place] Urine Protein Urine Glucose (UA) Urine Ketones Urine Blood Urine Nitrite Ur Leukocyte Esterase Urine RBC Urine WBC Ur Squamous Epith Cells Urine Bacteria Hyaline Casts Urine Opiates Screen Not Detected Urine Fentanyl Screen POSITIVE H Ur Barbiturates Screen Not Detected Ur Phencyclidine Scrn Not Detected Ur Amphetamines Screen Not Detected U Benzodiazepines Scrn Not Detected Urine Cocaine Screen POSITIVE H U Marijuana (THC) Screen Not Detected Ethyl Alcohol COVID-19 ([place]) COVID-19 Clin Com Imaging Radiology Impressions: ITS Impressions Chest X-Ray 04/17/22 10:19 IMPRESSION: Comminuted intertrochanteric fracture of the left hip. No acute parenchymal disease within the chest. Hip/Pelvis X-Ray 04/17/22 10:19 IMPRESSION: Comminuted intertrochanteric fracture of the left hip. No acute parenchymal disease within the chest. Mental Status Exam Mental Status Exam Patient Appearance: Unkempt Level of Consciousness: Awake and Appropriate Patient Behavior: Appropriate Mood Description: Anxious Affect Description: Anxious Medications Medications Current Medications Acetaminophen (Acetaminophen 325 Mg Tablet) 650 mg PO Q6H PRN PRN Reason: Pain, Mild (Pain Scale 1-3) Amlodipine Besylate (Amlodipine Besylate 10 Mg Tablet) 10 mg PO DAILY [facility]; Protocol Dextrose (Dextrose 50 % 25 Gm/50 Ml Syringe) 25 gm IVPUSH Q15M PRN; Protocol PRN Reason: per Hypoglycemia Standing Ord. Glucose (Glucose Gel 15 Gm Gel..Gram.) 15 gm PO Q15M PRN; Protocol PRN Reason: per Hypoglycemia Standing Ord. Insulin Human Lispro (Insulin Lispro 100 Unit/Ml 3 Ml Vial) 0 unit SUBCUT QIDACHS [facility]; Protocol Last Admin: 04/17/22 16:50 Dose: Not Given Methadone HCl (Methadone Hcl 20 Mg/2 Ml Oral.Conc) 30 mg PO DAILY [facility] Morphine Sulfate (Morphine Sulfate 4 Mg/Ml Cartridge) 4 mg IVPUSH Q4H PRN; Protocol PRN Reason: Pain, Severe (Pain Scale 7-10) Ondansetron HCl (Ondansetron Hcl 4 Mg/2 Ml Vial) 4 mg IVPUSH Q8H PRN PRN Reason: Nausea and Vomiting Oxycodone HCl (Oxycodone Hcl Immed Release 5 Mg Tablet) 5 mg PO Q6H PRN PRN Reason: Pain, Severe (Pain Scale 7-10) Pharmacy Consult (Consult Rx Perform Med Rec) 1 each MISCELLANE ONCE PRN PRN Reason: Consult order Sodium Chloride (0.9 % Sodium Chloride Flush 3 Ml Syringe) 3 ml IVFLUSH QSHIFT GISSELL Last Admin: 04/17/22 15:20 Dose: Not Given Allergies Allergies Allergy/AdvReac Type Severity Reaction Status Date / Time Penicillins [PENICILLINS] Allergy Unknown RASH Verified 07/10/20 11:45 Assessment & Plan Assessment & Plan (1) Opioid use disorder: Status: Acute Code(s): F11.90 - Opioid use, unspecified, uncomplicated Assessment and Plan: methadone 30mg now and tomorrow AM will continue to follow Total time managing care of this patient today _30___ minutes. PMFSH Past Medical History Medical History Diabetes High blood pressure High cholesterol Social History Social History (Updated 04/17/22 @ 15:14 by Eve Davila MD) Use of substances other than those prescribed or required for medical reasons: Yes Substance Use Type: Heroin and IV Drugs Advance Directives: No
[2022-04-17] MEDS: methADONE HCl 20 MG/2 ML ORAL.CONC 30 MG PO (17:21)
[2022-04-17] MEDS: 0.9 % Sodium Chloride Flush 3 ML SYRINGE IVFLUSH (17:22)
[2022-04-17 20:00] VITALS: BP 150/82; PULSE 67; RESP 20; TEMP 37.2; O2SAT 96
[2022-04-17 21:02] VITALS: RESP 18
[2022-04-17] MEDS: Morphine Sulfate 4 MG/ML CARTRIDGE IVPUSH (21:02)
[2022-04-17 21:03] LABS: Glucose, Whole Blood 118 mg/dL (60-115)
[2022-04-17 23:47] VITALS: BP 148/82; PULSE 65; RESP 18; TEMP 36.5; O2SAT 95
[2022-04-18] MEDS: Morphine Sulfate 4 MG/ML CARTRIDGE IVPUSH ×5 (01:17→22:04)
[2022-04-18 03:33] VITALS: BP 147/74; PULSE 67; RESP 16; TEMP 36.7; O2SAT 95
[2022-04-18 06:15] LABS: Hematocrit 40.3 % (42.0-52.0); Hemoglobin 13.5 g/dl (14.0-18.0); Mean Corpuscular HGB Conc 33.5 g/dl (31.0-36.0); Mean Corpuscular Hemoglobin 29.8 pg (27.0-33.0); Mean Platelet Volume 9.8 fL (9.4-12.4); Platelet Count 111 X10*3/uL (160-400); Red Blood Count 4.53 X10*6/uL (4.60-5.80); Red Cell Distribution Width 15.2 % (11.0-16.0); White Blood Count 8.2 X10*3/uL (4.8-10.8)
[2022-04-18 06:21] LABS: Anion Gap 12 (12-20); Blood Urea Nitrogen 11 mg/dL (9-16); Calcium 7.9 mg/dL (8.4-10.2); Carbon Dioxide 18 mmol/L (22-29); Chloride 110 mmol/L (96-108); Creatinine Clr Calc Pharmacy 102.5; Estimated Glomerular Filt Rate > 60; Glucose Random 108 mg/dL (60-115); Potassium 3.7 mmol/L (3.3-5.1); Sodium 136 mmol/L (135-145)
[2022-04-18 07:22] VITALS: BP 194/97; PULSE 61; RESP 18; TEMP 36.6; O2SAT 97
[2022-04-18 08:16] LABS: Glucose, Whole Blood 108 mg/dL (60-115)
--- NOTE | 2022-04-18 09:35 | MHC.CM.PN ---
PATIENT LIVES WITH SIGNIFICANT TOHER. HE IS INDEPENDENT WITH DLS. NO DME OR VNA NO COVID VACCINES HE IS ASKING FOR HIS METHADONE. RN AWARE. CM FOLLOWING
[2022-04-18] MEDS: methADONE HCl 20 MG/2 ML ORAL.CONC 30 MG PO (09:38)
[2022-04-18] MEDS: amLODIPine Besylate 10 MG TABLET PO (09:39)
[2022-04-18] MEDS: 0.9 % Sodium Chloride Flush 3 ML SYRINGE IVFLUSH ×2 (09:39→15:47)
[2022-04-18 10:40] LABS: HIV Num 1 7.13 S/CO (0.00-0.99)
--- NOTE | 2022-04-18 11:10 | MHC.RECOVRN ---
Attempted to meet with pt in 376 to discuss methadone initiation and assess for withdrawal. Pt sleeping soundly, snoring, does not wake to voice. Pt left to rest, will follow up later. Vicky Zeng APRN aware.
[2022-04-18 11:24] LABS: Glucose, Whole Blood 127 mg/dL (60-115)
[2022-04-18 11:35] VITALS: BP 182/80; PULSE 72; TEMP 36.2; O2SAT 94
[2022-04-18 12:39] LABS: HIV Num 3 6.93 S/CO
[2022-04-18 12:40] LABS: HIV AB/AG Reactive (Nonreactive)
--- NOTE | 2022-04-18 13:03 | P.PNIM_ITS ---
Subjective Subjective Date of Service: 04/18/22 Interval History: L groin pain controlled OR postponed til tomorrow due to +Utox Review of Systems Review of Systems: Yes all other systems are reviewed and are negative Physical Exam Vital Signs: Vital Signs: Last Vital Signs Temp 97.1 F 04/18/22 11:35 Pulse 72 04/18/22 11:35 Resp 18 04/18/22 07:22 BP 182/80 H 04/18/22 11:35 Pulse Ox 94 04/18/22 11:35 O2 Del Method 04/18/22 11:35 BMI result Body Mass Index 25.0 Gen: in no acute distress HEENT: sclera anicteric, moist mucus membranes Neck: supple Lungs: clear to auscultation bilaterally Heart: regular rate and rhythm, no murmurs Abd: soft, non-tender, non-distended Ext: no edema, L hip tenderness Skin: warm/well-perfused, multiple needle tracks/scars Neuro: alert and oriented x3, no focal findings Psych: appropriate affect Objective Data Active Medications Acetaminophen (Acetaminophen 325 Mg Tablet) 650 mg PO Q6H PRN PRN Reason: Pain, Mild (Pain Scale 1-3) Amlodipine Besylate (Amlodipine Besylate 10 Mg Tablet) 10 mg PO DAILY [facility]; Protocol Last Admin: 04/18/22 09:39 Dose: 10 mg Documented By: JESSE Dextrose (Dextrose 50 % 25 Gm/50 Ml Syringe) 25 gm IVPUSH Q15M PRN; Protocol PRN Reason: per Hypoglycemia Standing Ord. Glucose (Glucose Gel 15 Gm Gel..Gram.) 15 gm PO Q15M PRN; Protocol PRN Reason: per Hypoglycemia Standing Ord. Insulin Human Lispro (Insulin Lispro 100 Unit/Ml 3 Ml Vial) 0 unit SUBCUT QIDACHS [facility]; Protocol Last Admin: 04/18/22 11:21 Dose: Not Given Documented By: JESSE Non-Admin Reason: No Insulin Coverage Methadone HCl (Methadone Hcl 20 Mg/2 Ml Oral.Conc) 30 mg PO DAILY [facility] Last Admin: 04/18/22 09:38 Dose: 30 mg Documented By: JESSE Morphine Sulfate (Morphine Sulfate 4 Mg/Ml Cartridge) 4 mg IVPUSH Q4H PRN; Protocol PRN Reason: Pain, Severe (Pain Scale 7-10) Last Admin: 04/18/22 05:20 Dose: 4 mg Documented By: VALERIE Ondansetron HCl (Ondansetron Hcl 4 Mg/2 Ml Vial) 4 mg IVPUSH Q8H PRN PRN Reason: Nausea and Vomiting Oxycodone HCl (Oxycodone Hcl Immed Release 5 Mg Tablet) 5 mg PO Q6H PRN PRN Reason: Pain, Severe (Pain Scale 7-10) Pharmacy Consult (Consult Rx Perform Med Rec) 1 each MISCELLANE ONCE PRN PRN Reason: Consult order Sodium Chloride (0.9 % Sodium Chloride Flush 3 Ml Syringe) 3 ml IVFLUSH QSHIFT [facility] Last Admin: 04/18/22 09:39 Dose: 3 ml Documented By: JESSE Labs CBC & Chem 7: 04/18/22 05:25 04/18/22 05:25 Labs: Laboratory Results - last 24 hr 04/17/22 04/17/22 04/17/22 11:08 15:21 15:21 MCV MCH MCHC RDW Plt Count MPV Absolute Nucleated RBC Nucleated RBC % (auto) Anion Gap Estim Creat Clear Calc Estimated GFR POC Glucose Random Glucose Estimat Average Glucose 91 Hemoglobin A1c % 4.8 Calcium Urine Color Yellow Urine Appearance Clear Urine pH 7.0 Ur Specific [place] 1.010 Urine Protein Negative Urine Glucose (UA) Negative Urine Ketones Negative Urine Blood Small (1+) H Urine Nitrite Positive H Ur Leukocyte Esterase Small (1+) H Urine RBC 3-5 H Urine WBC 6-10 H Ur Squamous Epith Cells 0-2 Urine Bacteria 4+ Hyaline Casts 0-2 Urine Opiates Screen Not Detected Urine Fentanyl Screen POSITIVE H Ur Barbiturates Screen Not Detected Ur Phencyclidine Scrn Not Detected Ur Amphetamines Screen Not Detected U Benzodiazepines Scrn Not Detected Urine Cocaine Screen POSITIVE H U Marijuana (THC) Screen Not Detected HIV 1&2 Ab/P24 Ag 4thGn 04/17/22 04/17/22 04/18/22 16:26 20:53 05:25 MCV 89.0 MCH 29.8 MCHC 33.5 RDW 15.2 Plt Count 111 L MPV 9.8 Absolute Nucleated RBC 0.000 Nucleated RBC % (auto) 0.0 Anion Gap Estim Creat Clear Calc Estimated GFR POC Glucose 106 118 H Random Glucose Estimat Average Glucose Hemoglobin A1c % Calcium Urine Color Urine Appearance Urine pH Ur Specific [place] Urine Protein Urine Glucose (UA) Urine Ketones Urine Blood Urine Nitrite Ur Leukocyte Esterase Urine RBC Urine WBC Ur Squamous Epith Cells Urine Bacteria Hyaline Casts Urine Opiates Screen Urine Fentanyl Screen Ur Barbiturates Screen Ur Phencyclidine Scrn Ur Amphetamines Screen U Benzodiazepines Scrn Urine Cocaine Screen U Marijuana (THC) Screen HIV 1&2 Ab/P24 Ag 4thGn 04/18/22 04/18/22 04/18/22 05:25 05:25 07:25 MCV MCH MCHC RDW Plt Count MPV Absolute Nucleated RBC Nucleated RBC % (auto) Anion Gap 12 Estim Creat Clear Calc 102.5 Estimated GFR > 60 POC Glucose 108 Random Glucose 108 Estimat Average Glucose Hemoglobin A1c % Calcium 7.9 L Urine Color Urine Appearance Urine pH Ur Specific [place] Urine Protein Urine Glucose (UA) Urine Ketones Urine Blood Urine Nitrite Ur Leukocyte Esterase Urine RBC Urine WBC Ur Squamous Epith Cells Urine Bacteria Hyaline Casts Urine Opiates Screen Urine Fentanyl Screen Ur Barbiturates Screen Ur Phencyclidine Scrn Ur Amphetamines Screen U Benzodiazepines Scrn Urine Cocaine Screen U Marijuana (THC) Screen HIV 1&2 Ab/P24 Ag 4thGn Reactive H 04/18/22 11:20 MCV MCH MCHC RDW Plt Count MPV Absolute Nucleated RBC Nucleated RBC % (auto) Anion Gap Estim Creat Clear Calc Estimated GFR POC Glucose 127 H Random Glucose Estimat Average Glucose Hemoglobin A1c % Calcium Urine Color Urine Appearance Urine pH Ur Specific [place] Urine Protein Urine Glucose (UA) Urine Ketones Urine Blood Urine Nitrite Ur Leukocyte Esterase Urine RBC Urine WBC Ur Squamous Epith Cells Urine Bacteria Hyaline Casts Urine Opiates Screen Urine Fentanyl Screen Ur Barbiturates Screen Ur Phencyclidine Scrn Ur Amphetamines Screen U Benzodiazepines Scrn Urine Cocaine Screen U Marijuana (THC) Screen HIV 1&2 Ab/P24 Ag 4thGn Microbiology Microbiology Results: Microbiology 04/17/22 15:58 Urine Culture - Preliminary Urine clean catch - Urine marc top Culture in progress. Assessment and Plan (1) Closed intertrochanteric fracture of left hip: Status: Acute (2) Opioid use disorder: Status: Acute Plan d#2 61yo M with HTN, IDU presenting with subtrochanteric femur fracture on the left hip after falling.? Daily injection heroin abuse. # subtrochanteric femur fx - NPO after midnight for operative fixation in AM, pain control with APAP/oxycodone/morphine, PT and extended VTE ppx after operative fixation # HTN - amlodipine # opioid abuse - screen HBV/HCV/HIV pending [preliminary HIV Ab/Ag positive, awaiting immmunodifferentiation + RNA for confirmation]. Addiction Medicine consulted- started on methadone # VTE ppx: SCDs Time Spent With Patient Time: Total time managing care of this patient today ____ minutes. Quality Stroke Does the patient have a stroke diagnosis?: No VTE Prior VTE?: No VTE Risk Level:: Medical - moderate - high VTE Device Contraindication: N/A - Device Ordered VTE Drug Contraindication: N/A - Med Ordered
--- NOTE | 2022-04-18 15:09 | MHC.CM.PN ---
PLAN IS SURGICAL INTERVENTION ON Friday04/19/22
[2022-04-18 16:00] VITALS: BP 170/90; PULSE 68; RESP 18; TEMP 36.7; O2SAT 95
--- NOTE | 2022-04-18 18:03 | HO.ADDICTPRO ---
Subjective Subjective Date of Service: 04/18/22 Reason For Visit: Hip Fx, IVDA Interim History: Patient seen in follow up Asleep upon arrival, but wakes to voice Methadone 30mg QD started yesterday while in ED. patient reports it's not working , then appears to fall back to sleep. Opens eyes and asks when lunch is coming Did not appear to be experiencing any discomfort--not diaphoretic, not restless, and sleeping soundly for most of the morning per RN. Review of Systems Constitutional: Reports as per HPI Mental Status Exam Mental Status Exam Level of Consciousness: Drowsy Diagnostics Vital Signs (24Hr): Vital Signs - 24 hr 04/17/22 20:00 04/17/22 21:02 04/17/22 23:47 Temperature 99.0 F 97.7 F Pulse Rate 67 65 Respiratory Rate 20 18 18 Blood Pressure 150/82 H 148/82 H Pulse Oximetry 96 95 Oxygen Delivery Method Room Air Room Air 04/18/22 03:33 04/18/22 07:22 04/18/22 11:35 Temperature 98.1 F 97.9 F 97.1 F Pulse Rate 67 61 72 Respiratory Rate 16 18 Blood Pressure 147/74 H 194/97 H 182/80 H Pulse Oximetry 95 97 94 Oxygen Delivery Method Room Air Room Air Room Air 04/18/22 16:00 04/18/22 16:00 Temperature 98.1 F 98.1 F Pulse Rate 68 68 Respiratory Rate 18 18 Blood Pressure 170/90 H 170/90 H Pulse Oximetry 95 95 Oxygen Delivery Method Room Air Room Air BMI result Body Mass Index 25.0 Labs Results: 04/18/22 05:25 04/18/22 05:25 Labs: Laboratory Results - last 48 hr 04/17/22 04/17/22 04/17/22 11:00 11:08 11:08 WBC 6.3 RBC 4.65 Hgb 13.8 L Hct 41.9 L MCV 90.1 MCH 29.7 MCHC 32.9 RDW 15.0 Plt Count 105 L MPV 9.8 Immature Gran % (Auto) 0.5 H Neut % (Auto) 75.4 H Lymph % (Auto) 13.3 L [place] % (Auto) 10.1 Eos % (Auto) 0.2 Baso % (Auto) 0.5 Lymph # (Auto) 0.8 L [place] # (Auto) 0.6 Eos # (Auto) 0.0 Baso # (Auto) 0.0 Abs Immat Gran (auto) 0.03 Absolute Neuts (auto) 4.7 Absolute Nucleated RBC 0.000 Nucleated RBC % (auto) 0.0 Sodium 135 Potassium 3.9 Chloride 105 Carbon Dioxide 23 Anion Gap 11 L BUN 11 Creatinine 0.75 Estim Creat Clear Calc 95.7 Estimated GFR > 60 POC Glucose Random Glucose 113 Estimat Average Glucose Hemoglobin A1c % Calcium 8.4 Magnesium 1.8 Total Bilirubin 2.0 H Direct Bilirubin 1.0 H AST 39 H ALT 27 Alkaline Phosphatase 146 H Total Creatine Kinase 230 H Total Protein 8.1 H Albumin 2.9 L Urine Color Urine Appearance Urine pH Ur Specific [place] Urine Protein Urine Glucose (UA) Urine Ketones Urine Blood Urine Nitrite Ur Leukocyte Esterase Urine RBC Urine WBC Ur Squamous Epith Cells Urine Bacteria Hyaline Casts Urine Opiates Screen Urine Fentanyl Screen Ur Barbiturates Screen Ur Phencyclidine Scrn Ur Amphetamines Screen U Benzodiazepines Scrn Urine Cocaine Screen U Marijuana (THC) Screen Ethyl Alcohol COVID-19 ([place]) Negative COVID-19 Clin Com See Note HIV 1&2 Ab/P24 Ag 4thGn 04/17/22 04/17/22 04/17/22 11:08 11:08 15:21 WBC RBC Hgb Hct MCV MCH MCHC RDW Plt Count MPV Immature Gran % (Auto) Neut % (Auto) Lymph % (Auto) [place] % (Auto) Eos % (Auto) Baso % (Auto) Lymph # (Auto) [place] # (Auto) Eos # (Auto) Baso # (Auto) Abs Immat Gran (auto) Absolute Neuts (auto) Absolute Nucleated RBC Nucleated RBC % (auto) Sodium Potassium Chloride Carbon Dioxide Anion Gap BUN Creatinine Estim Creat Clear Calc Estimated GFR POC Glucose Random Glucose Estimat Average Glucose 91 Hemoglobin A1c % 4.8 Calcium Magnesium Total Bilirubin Direct Bilirubin AST ALT Alkaline Phosphatase Total Creatine Kinase Total Protein Albumin Urine Color Yellow Urine Appearance Clear Urine pH 7.0 Ur Specific [place] 1.010 Urine Protein Negative Urine Glucose (UA) Negative Urine Ketones Negative Urine Blood Small (1+) H Urine Nitrite Positive H Ur Leukocyte Esterase Small (1+) H Urine RBC 3-5 H Urine WBC 6-10 H Ur Squamous Epith Cells 0-2 Urine Bacteria 4+ Hyaline Casts 0-2 Urine Opiates Screen Urine Fentanyl Screen Ur Barbiturates Screen Ur Phencyclidine Scrn Ur Amphetamines Screen U Benzodiazepines Scrn Urine Cocaine Screen U Marijuana (THC) Screen Ethyl Alcohol < 10 COVID-19 ([place]) COVID-19 Clin Com HIV 1&2 Ab/P24 Ag 4thGn 04/17/22 04/17/22 04/17/22 15:21 16:26 20:53 WBC RBC Hgb Hct MCV MCH MCHC RDW Plt Count MPV Immature Gran % (Auto) Neut % (Auto) Lymph % (Auto) [place] % (Auto) Eos % (Auto) Baso % (Auto) Lymph # (Auto) [place] # (Auto) Eos # (Auto) Baso # (Auto) Abs Immat Gran (auto) Absolute Neuts (auto) Absolute Nucleated RBC Nucleated RBC % (auto) Sodium Potassium Chloride Carbon Dioxide Anion Gap BUN Creatinine Estim Creat Clear Calc Estimated GFR POC Glucose 106 118 H Random Glucose Estimat Average Glucose Hemoglobin A1c % Calcium Magnesium Total Bilirubin Direct Bilirubin AST ALT Alkaline Phosphatase Total Creatine Kinase Total Protein Albumin Urine Color Urine Appearance Urine pH Ur Specific [place] Urine Protein Urine Glucose (UA) Urine Ketones Urine Blood Urine Nitrite Ur Leukocyte Esterase Urine RBC Urine WBC Ur Squamous Epith Cells Urine Bacteria Hyaline Casts Urine Opiates Screen Not Detected Urine Fentanyl Screen POSITIVE H Ur Barbiturates Screen Not Detected Ur Phencyclidine Scrn Not Detected Ur Amphetamines Screen Not Detected U Benzodiazepines Scrn Not Detected Urine Cocaine Screen POSITIVE H U Marijuana (THC) Screen Not Detected Ethyl Alcohol COVID-19 ([place]) COVID-19 Clin Com HIV 1&2 Ab/P24 Ag 4thGn 04/18/22 04/18/22 04/18/22 05:25 05:25 05:25 WBC 8.2 RBC 4.53 L Hgb 13.5 L Hct 40.3 L MCV 89.0 MCH 29.8 MCHC 33.5 RDW 15.2 Plt Count 111 L MPV 9.8 Immature Gran % (Auto) Neut % (Auto) Lymph % (Auto) [place] % (Auto) Eos % (Auto) Baso % (Auto) Lymph # (Auto) [place] # (Auto) Eos # (Auto) Baso # (Auto) Abs Immat Gran (auto) Absolute Neuts (auto) Absolute Nucleated RBC 0.000 Nucleated RBC % (auto) 0.0 Sodium 136 Potassium 3.7 Chloride 110 H Carbon Dioxide 18 L Anion Gap 12 BUN 11 Creatinine 0.70 Estim Creat Clear Calc 102.5 Estimated GFR > 60 POC Glucose Random Glucose 108 Estimat Average Glucose Hemoglobin A1c % Calcium 7.9 L Magnesium Total Bilirubin Direct Bilirubin AST ALT Alkaline Phosphatase Total Creatine Kinase Total Protein Albumin Urine Color Urine Appearance Urine pH Ur Specific [place] Urine Protein Urine Glucose (UA) Urine Ketones Urine Blood Urine Nitrite Ur Leukocyte Esterase Urine RBC Urine WBC Ur Squamous Epith Cells Urine Bacteria Hyaline Casts Urine Opiates Screen Urine Fentanyl Screen Ur Barbiturates Screen Ur Phencyclidine Scrn Ur Amphetamines Screen U Benzodiazepines Scrn Urine Cocaine Screen U Marijuana (THC) Screen Ethyl Alcohol COVID-19 ([place]) COVID-19 Clin Com HIV 1&2 Ab/P24 Ag 4thGn Reactive H 04/18/22 04/18/22 04/18/22 07:25 11:20 16:19 WBC RBC Hgb Hct MCV MCH MCHC RDW Plt Count MPV Immature Gran % (Auto) Neut % (Auto) Lymph % (Auto) [place] % (Auto) Eos % (Auto) Baso % (Auto) Lymph # (Auto) [place] # (Auto) Eos # (Auto) Baso # (Auto) Abs Immat Gran (auto) Absolute Neuts (auto) Absolute Nucleated RBC Nucleated RBC % (auto) Sodium Potassium Chloride Carbon Dioxide Anion Gap BUN Creatinine Estim Creat Clear Calc Estimated GFR POC Glucose 108 127 H 138 H Random Glucose Estimat Average Glucose Hemoglobin A1c % Calcium Magnesium Total Bilirubin Direct Bilirubin AST ALT Alkaline Phosphatase Total Creatine Kinase Total Protein Albumin Urine Color Urine Appearance Urine pH Ur Specific [place] Urine Protein Urine Glucose (UA) Urine Ketones Urine Blood Urine Nitrite Ur Leukocyte Esterase Urine RBC Urine WBC Ur Squamous Epith Cells Urine Bacteria Hyaline Casts Urine Opiates Screen Urine Fentanyl Screen Ur Barbiturates Screen Ur Phencyclidine Scrn Ur Amphetamines Screen U Benzodiazepines Scrn Urine Cocaine Screen U Marijuana (THC) Screen Ethyl Alcohol COVID-19 ([place]) COVID-19 Clin Com HIV 1&2 Ab/P24 Ag 4thGn Imaging Radiology Impressions: ITS Impressions Chest X-Ray 04/17/22 10:19 IMPRESSION: Comminuted intertrochanteric fracture of the left hip. No acute parenchymal disease within the chest. Hip/Pelvis X-Ray 04/17/22 10:19 IMPRESSION: Comminuted intertrochanteric fracture of the left hip. No acute parenchymal disease within the chest. Medications Medications Current Medications Acetaminophen (Acetaminophen 325 Mg Tablet) 650 mg PO Q6H PRN PRN Reason: Pain, Mild (Pain Scale 1-3) Amlodipine Besylate (Amlodipine Besylate 10 Mg Tablet) 10 mg PO DAILY [facility]; Protocol Last Admin: 04/18/22 09:39 Dose: 10 mg Methadone HCl (Methadone Hcl 20 Mg/2 Ml Oral.Conc) 30 mg PO DAILY [facility] Last Admin: 04/18/22 09:38 Dose: 30 mg Morphine Sulfate (Morphine Sulfate 4 Mg/Ml Cartridge) 4 mg IVPUSH Q4H PRN; Protocol PRN Reason: Pain, Severe (Pain Scale 7-10) Last Admin: 04/18/22 13:54 Dose: 4 mg Ondansetron HCl (Ondansetron Hcl 4 Mg/2 Ml Vial) 4 mg IVPUSH Q8H PRN PRN Reason: Nausea and Vomiting Oxycodone HCl (Oxycodone Hcl Immed Release 5 Mg Tablet) 5 mg PO Q6H PRN PRN Reason: Pain, Severe (Pain Scale 7-10) Pharmacy Consult (Consult Rx Perform Med Rec) 1 each MISCELLANE ONCE PRN PRN Reason: Consult order Sodium Chloride (0.9 % Sodium Chloride Flush 3 Ml Syringe) 3 ml IVFLUSH QSHIFT [facility] Last Admin: 04/18/22 15:47 Dose: 3 ml Allergies Allergies Allergy/AdvReac Type Severity Reaction Status Date / Time Penicillins [PENICILLINS] Allergy Unknown RASH Verified 07/10/20 11:45 Assessment & Plan Assessment & Plan (1) Opioid use disorder: Status: Acute Code(s): F11.90 - Opioid use, unspecified, uncomplicated Assessment and Plan: continue methadone at current dose--no increase will continue to follow Total time managing care of this patient today ___15_ minutes.
[2022-04-18 19:32] VITALS: BP 174/88; PULSE 68; RESP 18; TEMP 36.7; O2SAT 96
--- NOTE | 2022-04-18 21:59 | PC.NURSE ---
elevated BP,patient takes amlodipine at home which is not ordered,Dr. Alcantar notified
[2022-04-18] MEDS: oxyCODONE HCl Immed Release 5 MG TABLET PO (22:49)
[2022-04-18 23:39] VITALS: BP 186/86; PULSE 79; RESP 18; TEMP 36.3; O2SAT 96
[2022-04-19] VITALS (28 sets, daily range): BP systolic 76–189; BP diastolic 43–111; PULSE 66–128; RESP 12–29; TEMP 36.1–37.4; O2SAT 92–98; BMI 35.9
[2022-04-19] MEDS: HYDROmorphone HCl 0.5 MG/0.5 ML SYRINGE IVPUSH ×4 (00:33→19:33)
[2022-04-19] MEDS: 0.9 % Sodium Chloride Flush 3 ML SYRINGE IVFLUSH ×2 (00:33→08:58)
[2022-04-19] MEDS: Morphine Sulfate 4 MG/ML CARTRIDGE IVPUSH ×3 (03:33→21:49)
[2022-04-19 06:28] LABS: Hematocrit 44.6 % (42.0-52.0); Hemoglobin 15.2 g/dl (14.0-18.0); Mean Corpuscular HGB Conc 34.1 g/dl (31.0-36.0); Mean Corpuscular Hemoglobin 29.8 pg (27.0-33.0); Mean Corpuscular Volume 87.5 fL (80.0-98.0); Mean Platelet Volume 10.1 fL (9.4-12.4); Platelet Count 117 X10*3/uL (160-400); White Blood Count 11.3 X10*3/uL (4.8-10.8)
[2022-04-19 06:48] LABS: Alanine Aminotransferase 25 U/L (0-40); Albumin Level 2.8 g/dL (3.5-5.0); Alkaline Phosphatase 144 U/L (39-117); Anion Gap 15 (12-20); Aspartate Amino Transferase 37 U/L (5-37); Bilirubin Total 1.5 mg/dL (0.0-1.0); Blood Urea Nitrogen 12 mg/dL (9-16); Calcium 8.1 mg/dL (8.4-10.2); Carbon Dioxide 15 mmol/L (22-29); Chloride 107 mmol/L (96-108); Creatinine Clr Calc Pharmacy 108.7; Estimated Glomerular Filt Rate > 60; Glucose Random 117 mg/dL (60-115); Potassium 4.2 mmol/L (3.3-5.1); Sodium 133 mmol/L (135-145); Total Protein 8.4 g/dL (6.5-8.0)
--- NOTE | 2022-04-19 08:16 | PM.EVENT ---
Event Note Date of Service: 04/19/22 Event Note: Met with patient this morning continues to have left hip pain I explained to him the r/b/a to the procedure and explained the use of IVDU can have on post op healing ie infection. He will remain NPO. PLan for IMn later today. Time Spent With Patient Time: Total time managing care of this patient today ____ minutes.
[2022-04-19] MEDS: methADONE HCl 20 MG/2 ML ORAL.CONC 30 MG PO (08:57)
[2022-04-19] MEDS: amLODIPine Besylate 10 MG TABLET PO (08:57)
[2022-04-19 09:34] LABS: HBS Num1 279.37 mIU/mL (0-7.99); HBc Num1 0.43 S/CO (0.00-0.79); HBsAGNum1 0.35 S/CO (0.00-0.99); Hepatitis A Antibody IgM 0.23 Index (0-0.79); Hepatitis B Core Antibody Nonreactive (Nonreactive); Hepatitis B Surface Antigen Negative (Negative); ~Hepatitis A Antibody IgM Nonreactive (Nonreactive); ~Hepatitis B Surface Antibody REACTIVE (Nonreactive); ~Hepatitis C Antibody Reactive (Nonreactive)
[2022-04-19] MEDS: oxyCODONE HCl Immed Release 5 MG TABLET PO (10:43)
--- NOTE | 2022-04-19 11:20 | HO.PM.IMPN ---
Subjective Subjective Date of Service: 04/19/22 Interval History: pain + opioid withdrawal controlled to OR today Review of Systems Review of Systems: Yes all other systems are reviewed and are negative Physical Exam Vital Signs: Vital Signs: Last Vital Signs Temp 97.4 F 04/19/22 07:44 Pulse 76 04/19/22 07:44 Resp 18 04/19/22 07:44 BP 189/98 H 04/19/22 07:44 Pulse Ox 93 04/19/22 07:44 O2 Del Method 04/19/22 07:44 BMI result Body Mass Index 25.0 Gen: in no acute distress HEENT: sclera anicteric, moist mucus membranes Neck: supple Lungs: clear to auscultation bilaterally Heart: regular rate and rhythm, no murmurs Abd: soft, non-tender, non-distended Ext: no edema, L hip tenderness Skin: warm/well-perfused, multiple needle tracks/scars Neuro: alert and oriented x3, no focal findings Psych: appropriate affect Objective Data Active Medications Acetaminophen (Acetaminophen 325 Mg Tablet) 650 mg PO Q6H PRN PRN Reason: Pain, Mild (Pain Scale 1-3) Amlodipine Besylate (Amlodipine Besylate 10 Mg Tablet) 10 mg PO DAILY [facility]; Protocol Last Admin: 04/19/22 08:57 Dose: 10 mg Documented By: GRACE Lactated Ringer's (Lr) 1,000 mls @ 125 mls/hr IVCONT .Q8H [facility] Last Admin: 04/19/22 08:57 Dose: 125 mls/hr Documented By: GRACE Methadone HCl (Methadone Hcl 20 Mg/2 Ml Oral.Conc) 30 mg PO DAILY [facility] Last Admin: 04/19/22 08:57 Dose: 30 mg Documented By: GRACE Morphine Sulfate (Morphine Sulfate 4 Mg/Ml Cartridge) 4 mg IVPUSH Q4H PRN; Protocol PRN Reason: Pain, Severe (Pain Scale 7-10) Last Admin: 04/19/22 08:57 Dose: 4 mg Documented By: GRACE Ondansetron HCl (Ondansetron Hcl 4 Mg/2 Ml Vial) 4 mg IVPUSH Q8H PRN PRN Reason: Nausea and Vomiting Oxycodone HCl (Oxycodone Hcl Immed Release 5 Mg Tablet) 5 mg PO Q6H PRN PRN Reason: Pain, Severe (Pain Scale 7-10) Last Admin: 04/19/22 10:43 Dose: 5 mg Documented By: GRACE Pharmacy Consult (Consult Rx Perform Med Rec) 1 each MISCELLANE ONCE PRN PRN Reason: Consult order Sodium Chloride (0.9 % Sodium Chloride Flush 3 Ml Syringe) 3 ml IVFLUSH QSHIFT [facility] Last Admin: 04/19/22 08:58 Dose: 3 ml Documented By: GRACE Labs CBC & Chem 7: 04/19/22 05:52 04/19/22 05:52 Labs: Laboratory Results - last 24 hr 04/18/22 04/18/22 04/18/22 05:25 11:20 16:19 MCV MCH MCHC RDW Plt Count MPV Absolute Nucleated RBC Nucleated RBC % (auto) Anion Gap Estim Creat Clear Calc Estimated GFR POC Glucose 127 H 138 H Random Glucose Calcium Total Bilirubin AST ALT Alkaline Phosphatase Total Protein Albumin HIV 1&2 Ab/P24 Ag 4thGn Reactive H 04/18/22 04/19/22 04/19/22 20:27 05:52 05:52 MCV 87.5 MCH 29.8 MCHC 34.1 RDW 15.0 Plt Count 117 L MPV 10.1 Absolute Nucleated RBC 0.000 Nucleated RBC % (auto) 0.0 Anion Gap 15 Estim Creat Clear Calc 108.7 Estimated GFR > 60 POC Glucose 114 Random Glucose 117 H Calcium 8.1 L Total Bilirubin 1.5 H AST 37 ALT 25 Alkaline Phosphatase 144 H Total Protein 8.4 H Albumin 2.8 L HIV 1&2 Ab/P24 Ag 4thGn 04/19/22 08:53 MCV MCH MCHC RDW Plt Count MPV Absolute Nucleated RBC Nucleated RBC % (auto) Anion Gap Estim Creat Clear Calc Estimated GFR POC Glucose 119 H Random Glucose Calcium Total Bilirubin AST ALT Alkaline Phosphatase Total Protein Albumin HIV 1&2 Ab/P24 Ag 4thGn Microbiology Microbiology Results: Microbiology 04/17/22 15:58 Urine Culture - Preliminary Urine clean catch - Urine marc top Culture in progress. Assessment and Plan (1) Closed intertrochanteric fracture of left hip: Status: Acute (2) Opioid use disorder: Status: Acute Plan d#3 61yo M with HTN, IDU presenting with subtrochanteric femur fracture on the left hip after falling.? Daily injection heroin abuse. # subtrochanteric femur fx - operative fixation today, pain control with APAP/oxycodone/morphine, PT and extended VTE ppx after operative fixation # HTN - amlodipine # preliminary HIV Ab/Ag screen positive - confirmatory immunoassay + RNA pending. per [facility] records, pt had negative HIV Ab/Ag on 07/18/21/ # opioid abuse - screen HBV/HCV pending - Addiction Medicine consulted- started on methadone # VTE ppx: SCDs Time Spent With Patient Time: Total time managing care of this patient today _26_ minutes. Quality Stroke Does the patient have a stroke diagnosis?: No VTE Prior VTE?: No VTE Risk Level:: Medical - moderate - high VTE Device Contraindication: N/A - Device Ordered VTE Drug Contraindication: N/A - Med Ordered
--- NOTE | 2022-04-19 12:11 | MHC.CM.PN ---
PT NOT YET READY FOR DC PLAN IS FOR OR TODAY DCP TBD PENDING PT EVAL [facility] AND [facility] REFERRALS OUT
--- NOTE | 2022-04-19 12:20 | PC.NURSE ---
no iv access upon arrival to preop. attempts on floor x2 for 2 rn's each - warming bilateral upper extremeties and bilat lower extremeties
--- NOTE | 2022-04-19 13:56 | PC.NURSE ---
unable to gain peripheral iv access by rns x [address] Kyle attempt x1 to R nect peripheral, therefore time out called per protocol after consent obtained from pt for central line insertion. Dr. Kyle performed L subclavian TLC inserted under ultrasound guidance at bedside. Felipe chinchilla RN and this RN at bedside as assist. dressing placed by Dr. Kyle with biopatch. all ports draw and fllush. stat pcxr ordered & done & visualized by Dr. Kyle. Ok to use per Dr. Kyle. LR w.o. per Dr. Kyle's verbal order. Dr. Miner at bedside, pt marked per protocol & consent obtained.
--- NOTE | 2022-04-19 14:56 | MHC.SHP ---
Pre-Procedural Eval Section A Date of Service: 04/19/22 The patient is an INPATIENT: Yes Changes since office visit: No Cold of Flu in the past 2 weeks, No New Medical Problems, No Changes in Medication and No Patient answered all questions The History & Physical has been completed within 30 days and I have reviewed it.: Yes Section B Chief Complaint: Hip Fx, IVDA Allergies: Allergies Allergy/AdvReac Type Severity Reaction Status Date / Time Penicillins [PENICILLINS] Allergy Unknown RASH Verified 07/10/20 11:45 Plan I have reviewed the history and physical and performed a pertinent physical examination on my patient. No changes have occurred unless specified. Time Spent With Patient Time: Total time managing care of this patient today ____ minutes.
--- NOTE | 2022-04-19 14:57 | PM.OP ---
Brief Operative Note Date of Service: 04/19/22 Pre-op diagnosis: Right hip fracture Post-op diagnosis: same Procedure: IMN right hip Implants: Strykler 125 deg [id number], 110mm hip screw and 40 mm distal interlock Surgeon: Calvin Miner MD Anesthesia: local and spinal Was an [employer] used for this Procedure?: No Estimated blood loss (mL): 150 IV fluids (mL): 500 Pathology: none sent Condition: stable Disposition: PACU
--- NOTE | 2022-04-19 15:32 | PC.NURSE ---
IV access infiltrated. 2 attempts each by 2 nurses to insert IV with no success. Short Stay aware.
--- NOTE | 2022-04-19 15:33 | HO.ANESPROP2 ---
HPI - Anesthesia Eval Consult details Narrative: For IM Nail, left hip fx PMFSH Active Problems Active Problems: All Active Problems (Updated 04/17/22 @ 16:57 by Vicky Zeng CNP) Opioid use disorder (Acute) Closed intertrochanteric fracture of left hip (Acute) Past Medical History Medical History Diabetes High blood pressure High cholesterol Family History Family history of problems with anesthesia: No Surgical History History of Problems with Anesthesia: No Social History Social History (Updated 04/17/22 @ 15:14 by Eve Davila MD) Household Members: Spouse Housing: Apartment Do you presently have visiting nurse or other home services: No Patient Tobacco Use Status: Current everyday Tobacco user Cigarettes Per Day: 6 Substance Use Type: Opiates service: No Current occupational status: unemployed Meds Allergies Allergy/AdvReac Type Severity Reaction Status Date / Time Penicillins [PENICILLINS] Allergy Unknown RASH Verified 07/10/20 11:45 Active Medications: Current Medications Acetaminophen (Acetaminophen 325 Mg Tablet) 650 mg PO Q6H PRN PRN Reason: Pain, Mild (Pain Scale 1-3) Amlodipine Besylate (Amlodipine Besylate 10 Mg Tablet) 10 mg PO DAILY [facility]; Protocol Last Admin: 04/19/22 08:57 Dose: 10 mg Lactated Ringer's (Lr) 1,000 mls @ 125 mls/hr IVCONT .Q8H [facility] Last Admin: 04/19/22 13:35 Dose: Not Given Methadone HCl (Methadone Hcl 20 Mg/2 Ml Oral.Conc) 30 mg PO DAILY [facility] Last Admin: 04/19/22 08:57 Dose: 30 mg Morphine Sulfate (Morphine Sulfate 4 Mg/Ml Cartridge) 4 mg IVPUSH Q4H PRN; Protocol PRN Reason: Pain, Severe (Pain Scale 7-10) Last Admin: 04/19/22 08:57 Dose: 4 mg Ondansetron HCl (Ondansetron Hcl 4 Mg/2 Ml Vial) 4 mg IVPUSH Q8H PRN PRN Reason: Nausea and Vomiting Oxycodone HCl (Oxycodone Hcl Immed Release 5 Mg Tablet) 5 mg PO Q6H PRN PRN Reason: Pain, Severe (Pain Scale 7-10) Last Admin: 04/19/22 10:43 Dose: 5 mg Pharmacy Consult (Consult Rx Perform Med Rec) 1 each MISCELLANE ONCE PRN PRN Reason: Consult order Sodium Chloride (0.9 % Sodium Chloride Flush 3 Ml Syringe) 3 ml IVFLUSH [facility] Last Admin: 04/19/22 08:58 Dose: 3 ml Home Medications Medication Instructions Recorded Confirmed Last Taken Type amlodipine 10 mg tablet 1 tab PO DAILY 04/17/22 04/17/22 Unknown History Exam Exam Date and Time: April 19, 2022 1533 Height,Weight and Vital Signs: Height 5 ft 6 in Weight 101.151 kg Last Vital Signs Temp 97.5 F 04/19/22 12:12 Pulse 72 04/19/22 12:12 Resp 18 04/19/22 12:12 BP 159/91 H 04/19/22 12:12 Pulse Ox 93 04/19/22 12:12 O2 Del Method 04/19/22 12:12 Pertinent Lab Results Pertinent Lab Results: Laboratory Tests 04/17/22 04/17/22 04/17/22 11:00 11:08 11:08 WBC 6.3 RBC 4.65 Hgb 13.8 L Hct 41.9 L MCV 90.1 MCH 29.7 MCHC 32.9 RDW 15.0 Plt Count 105 L MPV 9.8 Immature Gran % (Auto) 0.5 H Neut % (Auto) 75.4 H Lymph % (Auto) 13.3 L [place] % (Auto) 10.1 Eos % (Auto) 0.2 Baso % (Auto) 0.5 Lymph # (Auto) 0.8 L [place] # (Auto) 0.6 Eos # (Auto) 0.0 Baso # (Auto) 0.0 Abs Immat Gran (auto) 0.03 Absolute Neuts (auto) 4.7 Absolute Nucleated RBC 0.000 Nucleated RBC % (auto) 0.0 Sodium 135 Potassium 3.9 Chloride 105 Carbon Dioxide 23 Anion Gap 11 L BUN 11 Creatinine 0.75 Estim Creat Clear Calc 95.7 Estimated GFR > 60 POC Glucose Random Glucose 113 Estimat Average Glucose Hemoglobin A1c % Calcium 8.4 Magnesium 1.8 Total Bilirubin 2.0 H Direct Bilirubin 1.0 H AST 39 H ALT 27 Alkaline Phosphatase 146 H Total Creatine Kinase 230 H Total Protein 8.1 H Albumin 2.9 L Urine Color Urine Appearance Urine pH Ur Specific [place] Urine Protein Urine Glucose (UA) Urine Ketones Urine Blood Urine Nitrite Ur Leukocyte Esterase Urine RBC Urine WBC Ur Squamous Epith Cells Urine Bacteria Hyaline Casts Urine Opiates Screen Urine Fentanyl Screen Ur Barbiturates Screen Ur Phencyclidine Scrn Ur Amphetamines Screen U Benzodiazepines Scrn Urine Cocaine Screen U Marijuana (THC) Screen Ethyl Alcohol COVID-19 ([place]) Negative COVID-19 Clin Com See Note Hepatitis A IgM Ab Hep Bs Antigen Hep Bs Antibody Hep B Core Total Ab Hepatitis C Ab (EIA) HIV 1&2 Ab/P24 Ag 4thGn 04/17/22 04/17/22 04/17/22 11:08 11:08 11:08 WBC RBC Hgb Hct MCV MCH MCHC RDW Plt Count MPV Immature Gran % (Auto) Neut % (Auto) Lymph % (Auto) [place] % (Auto) Eos % (Auto) Baso % (Auto) Lymph # (Auto) [place] # (Auto) Eos # (Auto) Baso # (Auto) Abs Immat Gran (auto) Absolute Neuts (auto) Absolute Nucleated RBC Nucleated RBC % (auto) Sodium Potassium Chloride Carbon Dioxide Anion Gap BUN Creatinine Estim Creat Clear Calc Estimated GFR POC Glucose Random Glucose Estimat Average Glucose 91 Hemoglobin A1c % 4.8 Calcium Magnesium Total Bilirubin Direct Bilirubin AST ALT Alkaline Phosphatase Total Creatine Kinase Total Protein Albumin Urine Color Urine Appearance Urine pH Ur Specific [place] Urine Protein Urine Glucose (UA) Urine Ketones Urine Blood Urine Nitrite Ur Leukocyte Esterase Urine RBC Urine WBC Ur Squamous Epith Cells Urine Bacteria Hyaline Casts Urine Opiates Screen Urine Fentanyl Screen Ur Barbiturates Screen Ur Phencyclidine Scrn Ur Amphetamines Screen U Benzodiazepines Scrn Urine Cocaine Screen U Marijuana (THC) Screen Ethyl Alcohol < 10 COVID-19 ([place]) COVID-19 Clin Com Hepatitis A IgM Ab Nonreactive Hep Bs Antigen Negative Hep Bs Antibody REACTIVE Hep B Core Total Ab Nonreactive Hepatitis C Ab (EIA) Reactive H HIV 1&2 Ab/P24 Ag 4thGn 04/17/22 04/17/22 04/17/22 15:21 15:21 16:26 WBC RBC Hgb Hct MCV MCH MCHC RDW Plt Count MPV Immature Gran % (Auto) Neut % (Auto) Lymph % (Auto) [place] % (Auto) Eos % (Auto) Baso % (Auto) Lymph # (Auto) [place] # (Auto) Eos # (Auto) Baso # (Auto) Abs Immat Gran (auto) Absolute Neuts (auto) Absolute Nucleated RBC Nucleated RBC % (auto) Sodium Potassium Chloride Carbon Dioxide Anion Gap BUN Creatinine Estim Creat Clear Calc Estimated GFR POC Glucose 106 Random Glucose Estimat Average Glucose Hemoglobin A1c % Calcium Magnesium Total Bilirubin Direct Bilirubin AST ALT Alkaline Phosphatase Total Creatine Kinase Total Protein Albumin Urine Color Yellow Urine Appearance Clear Urine pH 7.0 Ur Specific [place] 1.010 Urine Protein Negative Urine Glucose (UA) Negative Urine Ketones Negative Urine Blood Small (1+) H Urine Nitrite Positive H Ur Leukocyte Esterase Small (1+) H Urine RBC 3-5 H Urine WBC 6-10 H Ur Squamous Epith Cells 0-2 Urine Bacteria 4+ Hyaline Casts 0-2 Urine Opiates Screen Not Detected Urine Fentanyl Screen POSITIVE H Ur Barbiturates Screen Not Detected Ur Phencyclidine Scrn Not Detected Ur Amphetamines Screen Not Detected U Benzodiazepines Scrn Not Detected Urine Cocaine Screen POSITIVE H U Marijuana (THC) Screen Not Detected Ethyl Alcohol COVID-19 ([place]) COVID-19 Clin Com Hepatitis A IgM Ab Hep Bs Antigen Hep Bs Antibody Hep B Core Total Ab Hepatitis C Ab (EIA) HIV 1&2 Ab/P24 Ag 4thGn 04/17/22 04/18/22 04/18/22 20:53 05:25 05:25 WBC 8.2 RBC 4.53 L Hgb 13.5 L Hct 40.3 L MCV 89.0 MCH 29.8 MCHC 33.5 RDW 15.2 Plt Count 111 L MPV 9.8 Immature Gran % (Auto) Neut % (Auto) Lymph % (Auto) [place] % (Auto) Eos % (Auto) Baso % (Auto) Lymph # (Auto) [place] # (Auto) Eos # (Auto) Baso # (Auto) Abs Immat Gran (auto) Absolute Neuts (auto) Absolute Nucleated RBC 0.000 Nucleated RBC % (auto) 0.0 Sodium 136 Potassium 3.7 Chloride 110 H Carbon Dioxide 18 L Anion Gap 12 BUN 11 Creatinine 0.70 Estim Creat Clear Calc 102.5 Estimated GFR > 60 POC Glucose 118 H Random Glucose 108 Estimat Average Glucose Hemoglobin A1c % Calcium 7.9 L Magnesium Total Bilirubin Direct Bilirubin AST ALT Alkaline Phosphatase Total Creatine Kinase Total Protein Albumin Urine Color Urine Appearance Urine pH Ur Specific [place] Urine Protein Urine Glucose (UA) Urine Ketones Urine Blood Urine Nitrite Ur Leukocyte Esterase Urine RBC Urine WBC Ur Squamous Epith Cells Urine Bacteria Hyaline Casts Urine Opiates Screen Urine Fentanyl Screen Ur Barbiturates Screen Ur Phencyclidine Scrn Ur Amphetamines Screen U Benzodiazepines Scrn Urine Cocaine Screen U Marijuana (THC) Screen Ethyl Alcohol COVID-19 ([place]) COVID-19 Clin Com Hepatitis A IgM Ab Hep Bs Antigen Hep Bs Antibody Hep B Core Total Ab Hepatitis C Ab (EIA) HIV 1&2 Ab/P24 Ag 4thGn 04/18/22 04/18/22 04/18/22 05:25 07:25 11:20 WBC RBC Hgb Hct MCV MCH MCHC RDW Plt Count MPV Immature Gran % (Auto) Neut % (Auto) Lymph % (Auto) [place] % (Auto) Eos % (Auto) Baso % (Auto) Lymph # (Auto) [place] # (Auto) Eos # (Auto) Baso # (Auto) Abs Immat Gran (auto) Absolute Neuts (auto) Absolute Nucleated RBC Nucleated RBC % (auto) Sodium Potassium Chloride Carbon Dioxide Anion Gap BUN Creatinine Estim Creat Clear Calc Estimated GFR POC Glucose 108 127 H Random Glucose Estimat Average Glucose Hemoglobin A1c % Calcium Magnesium Total Bilirubin Direct Bilirubin AST ALT Alkaline Phosphatase Total Creatine Kinase Total Protein Albumin Urine Color Urine Appearance Urine pH Ur Specific [place] Urine Protein Urine Glucose (UA) Urine Ketones Urine Blood Urine Nitrite Ur Leukocyte Esterase Urine RBC Urine WBC Ur Squamous Epith Cells Urine Bacteria Hyaline Casts Urine Opiates Screen Urine Fentanyl Screen Ur Barbiturates Screen Ur Phencyclidine Scrn Ur Amphetamines Screen U Benzodiazepines Scrn Urine Cocaine Screen U Marijuana (THC) Screen Ethyl Alcohol COVID-19 ([place]) COVID-19 Clin Com Hepatitis A IgM Ab Hep Bs Antigen Hep Bs Antibody Hep B Core Total Ab Hepatitis C Ab (EIA) HIV 1&2 Ab/P24 Ag 4thGn Reactive H 04/18/22 04/18/22 04/19/22 16:19 20:27 05:52 WBC 11.3 H RBC 5.10 Hgb 15.2 Hct 44.6 MCV 87.5 MCH 29.8 MCHC 34.1 RDW 15.0 Plt Count 117 L MPV 10.1 Immature Gran % (Auto) Neut % (Auto) Lymph % (Auto) [place] % (Auto) Eos % (Auto) Baso % (Auto) Lymph # (Auto) [place] # (Auto) Eos # (Auto) Baso # (Auto) Abs Immat Gran (auto) Absolute Neuts (auto) Absolute Nucleated RBC 0.000 Nucleated RBC % (auto) 0.0 Sodium Potassium Chloride Carbon Dioxide Anion Gap BUN Creatinine Estim Creat Clear Calc Estimated GFR POC Glucose 138 H 114 Random Glucose Estimat Average Glucose Hemoglobin A1c % Calcium Magnesium Total Bilirubin Direct Bilirubin AST ALT Alkaline Phosphatase Total Creatine Kinase Total Protein Albumin Urine Color Urine Appearance Urine pH Ur Specific [place] Urine Protein Urine Glucose (UA) Urine Ketones Urine Blood Urine Nitrite Ur Leukocyte Esterase Urine RBC Urine WBC Ur Squamous Epith Cells Urine Bacteria Hyaline Casts Urine Opiates Screen Urine Fentanyl Screen Ur Barbiturates Screen Ur Phencyclidine Scrn Ur Amphetamines Screen U Benzodiazepines Scrn Urine Cocaine Screen U Marijuana (THC) Screen Ethyl Alcohol COVID-19 ([place]) COVID-19 Clin Com Hepatitis A IgM Ab Hep Bs Antigen Hep Bs Antibody Hep B Core Total Ab Hepatitis C Ab (EIA) HIV 1&2 Ab/P24 Ag 4thGn 04/19/22 04/19/22 05:52 08:53 WBC RBC Hgb Hct MCV MCH MCHC RDW Plt Count MPV Immature Gran % (Auto) Neut % (Auto) Lymph % (Auto) [place] % (Auto) Eos % (Auto) Baso % (Auto) Lymph # (Auto) [place] # (Auto) Eos # (Auto) Baso # (Auto) Abs Immat Gran (auto) Absolute Neuts (auto) Absolute Nucleated RBC Nucleated RBC % (auto) Sodium 133 L Potassium 4.2 Chloride 107 Carbon Dioxide 15 L Anion Gap 15 BUN 12 Creatinine 0.66 Estim Creat Clear Calc 108.7 Estimated GFR > 60 POC Glucose 119 H Random Glucose 117 H Estimat Average Glucose Hemoglobin A1c % Calcium 8.1 L Magnesium Total Bilirubin 1.5 H Direct Bilirubin AST 37 ALT 25 Alkaline Phosphatase 144 H Total Creatine Kinase Total Protein 8.4 H Albumin 2.8 L Urine Color Urine Appearance Urine pH Ur Specific [place] Urine Protein Urine Glucose (UA) Urine Ketones Urine Blood Urine Nitrite Ur Leukocyte Esterase Urine RBC Urine WBC Ur Squamous Epith Cells Urine Bacteria Hyaline Casts Urine Opiates Screen Urine Fentanyl Screen Ur Barbiturates Screen Ur Phencyclidine Scrn Ur Amphetamines Screen U Benzodiazepines Scrn Urine Cocaine Screen U Marijuana (THC) Screen Ethyl Alcohol COVID-19 ([place]) COVID-19 Clin Com Hepatitis A IgM Ab Hep Bs Antigen Hep Bs Antibody Hep B Core Total Ab Hepatitis C Ab (EIA) HIV 1&2 Ab/P24 Ag 4thGn Airway Mallampati Class: I TM Dist: >3cm Neck ROM: Full Loose/Missing/Broken Teeth: Yes Heart: ok Lungs: ok Assessment and Plan Assessment Anesthesia Assessment: Anesthesia Plan Discussed and Chart Reviewed Final Anesthetic Review Family History of Problems with Anesthesia: No History of Problems with Anesthesia: No NPO: Yes ASA Class: III Final Preanesthetic Review: No Changes in Pt Med Stat, Meds/Allgs Chart Reviewed, Consent Obtained/Reviewed and Anes Risks/Benef Reviewed Patient Risk: Intermediate Procedure Risk: Low Anesthetic Plan Anesthetic Plan: Spinal (Mult attempts at IV access, including right EJ. Unable. Central line placed in [place] (separate procedure).) and Agree w/ Assess. and Plan Disposition: Standard PACU
[2022-04-19] MEDS: Phenylephrine HCL 20 MG in 0.9 % Sodium Chloride 250 ML 38.24 MG IVCONT (15:44)
--- NOTE | 2022-04-19 16:08 | MHC.RECOVRN ---
Attempted to meet with pt. Pt off unit.
--- NOTE | 2022-04-19 16:47 | PM.ANESPN ---
Subjective Subjective Date of Service: 04/19/22 Interval history: Mr. Mathis went into Afib during surgery. He's stable in PACU, HR 90-105 in Afib. Good BP. I echo'd him, LV and RV look fairly normal, valvular dopplers unremarkable, unable to image atria. IVC 2.0cm w 25% insp collapse. I spoke with Dr. Oropeza. He suggests taking no action now. Can't give amiodarone bec QTc is too long. The patient is already on the medical service. Will tx to [facility]. I spoke with JENARO Park. Dr. Oropeza is hoping that he will convert back to SR on his own. Physical Exam Vital Signs: Vital Signs: Last Vital Signs Temp 97 F 04/19/22 16:36 Pulse 102 H 04/19/22 16:36 Resp 16 04/19/22 16:36 BP 140/89 H 04/19/22 16:36 Pulse Ox 95 04/19/22 16:36 O2 Del Method 04/19/22 16:36 BMI result Body Mass Index 35.9 Progress Note: A&P Time Spent With Patient Time: Total time managing care of this patient today ____ minutes. Progress Note: Quality Stroke Does the patient have a stroke diagnosis?: No Procedures Date of Service Date of Service: 04/19/22
--- NOTE | 2022-04-19 16:54 | PM.PROC ---
Brief Operative Note Date of procedure: 04/19/22 Pre-op diagnosis: Lack of venous access Post-op diagnosis: same Procedure: PROCEDURE:? Insertion left supraclavicular subclavian central venous line. INDICATION:? Lack of IV access. Preop IM Nail for left hip fracture. ANESTHESIA:? Local PROCEDURE:? Vascular ultrasound was used to examine the left side.? A large compressible subclavaian vein was noted, as was the subclav artery. The left upper chest and neck were widely prepped and draped in full sterile fashion.? Local anesthesia was applied to the infraclavic subclavian area.? The left subclav vein was unable to be cannulated on two passes of the 18 gauge thin wall.? The infraclavic approach was abandoned. The supraclavic subclav vein was located again via US. Local was applied to the insertion site. The supraclavic subclav vein was cannulated on the first pass of the 18 g thin wall under US guidance. The wire was threaded and then a 7 Thai, 20 cm triple-lumen catheter was advanced into the vein up to 17cm via the Seldinger technique without incident.? There was good blood return x3.? The 2-piece fixation device was attached to the catheter and then sutured x2 with 3 0 silk.? A Biopatch and dry sterile dressing were applied. CXR showed the line in good position with no PTX. The patient tolerated the procedure well w no complications. Anesthesia: local Surgeon: Thuan Kyle
[2022-04-19] MEDS: Lactated Ringers 1,000 ML 125 ML IVCONT (21:58)
[2022-04-20] VITALS (8 sets, daily range): BP systolic 140–178; BP diastolic 60–96; PULSE 68–95; RESP 15–18; TEMP 36.1–36.9; O2SAT 91–94
--- NOTE | 2022-04-20 | ECG_ITS ---
Test Reason : cp Blood Pressure : / mmHG Vent. Rate : 057 BPM Atrial Rate : 057 BPM P-R Int : 156 ms QRS Dur : 102 ms QT Int : 510 ms P-R-T Axes : 002 -04 111 degrees QTc Int : 496 ms Sinus bradycardia Minimal voltage criteria for LVH, may be normal variant ( [place] product ) Inferior infarct , age undetermined ST & T wave abnormality, consider anterolateral ischemia Abnormal ECG When compared with ECG of 19-APR-2022 15:25, No significant changes seen Referred By: Eve Davila Electronically Signed By:IVANNA CASTELLANOS MD
[2022-04-20] MEDS: Morphine Sulfate 4 MG/ML CARTRIDGE IVPUSH ×6 (01:53→23:53)
--- NOTE | 2022-04-20 02:07 | PC.NURSE ---
Patient transferred to Room 450 from PACU around 2044, patient is alert and oriented x4, reports 10/10 left hip pain, medicated per mar, IVF started per mar.
[2022-04-20] MEDS: Lactated Ringers 1,000 ML 125 ML IVCONT ×3 (05:39→20:16)
[2022-04-20 07:06] LABS: Hematocrit 41.1 % (42.0-52.0); Mean Corpuscular HGB Conc 34.1 g/dl (31.0-36.0); Mean Corpuscular Hemoglobin 29.9 pg (27.0-33.0); Mean Corpuscular Volume 87.8 fL (80.0-98.0); Mean Platelet Volume 10.1 fL (9.4-12.4); Platelet Count 141 X10*3/uL (160-400); Red Blood Count 4.68 X10*6/uL (4.60-5.80); Red Cell Distribution Width 15.2 % (11.0-16.0); White Blood Count 12.6 X10*3/uL (4.8-10.8)
[2022-04-20 08:10] LABS: Anion Gap 11 (12-20); Blood Urea Nitrogen 13 mg/dL (9-16); Calcium 7.9 mg/dL (8.4-10.2); Carbon Dioxide 21 mmol/L (22-29); Chloride 107 mmol/L (96-108); Creatinine Clr Calc Pharmacy 136.2; Estimated Glomerular Filt Rate > 60; Glucose Random 110 mg/dL (60-115); Magnesium 1.8 mg/dL (1.6-2.6); Potassium 3.2 mmol/L (3.3-5.1); Sodium 136 mmol/L (135-145)
--- NOTE | 2022-04-20 09:51 | HO.POSTANES ---
Post Anesthesia Evaluation Post Anesthesia Evaluation Vital Signs: Vital Signs Temp Pulse Resp BP Pulse Ox O2 Del Method 04/20/22 07:16 97.4 F 93 16 166/96 H 92 Room Air 04/20/22 05:41 18 04/20/22 02:50 98.5 F 95 15 144/81 H 91 L Room Air 04/20/22 01:53 16 04/19/22 23:35 99.4 F 96 16 164/98 H 95 Room Air Anesthesia: Spinal Mental Status: Awake Pain Control: Satisfactory (requires higher doses) Nausea/Vomiting: None Hydration: Adequate Anesthesia-Related Issues: No Anes. Related Issues
[2022-04-20] MEDS: methADONE HCl 20 MG/2 ML ORAL.CONC 30 MG PO (10:33)
--- NOTE | 2022-04-20 11:24 | HO.PM.IMPN ---
Subjective Subjective Date of Service: 04/20/22 Interval History: Hip pain improved after IMN L hip Went into AF with ventricular rate in 90s-100s in PACU, converted to NSR Denies hx AF No palpitations or lightheadedness Review of Systems Review of Systems: Yes all other systems are reviewed and are negative Physical Exam Vital Signs: Vital Signs: Last Vital Signs Temp 97.4 F 04/20/22 07:16 Pulse 93 04/20/22 07:16 Resp 16 04/20/22 07:16 BP 166/96 H 04/20/22 07:16 Pulse Ox 92 04/20/22 07:16 O2 Del Method 04/20/22 07:16 BMI result Body Mass Index 35.9 Gen: in no acute distress HEENT: sclera anicteric, moist mucus membranes Neck: supple Lungs: clear to auscultation bilaterally Heart: regular rate and rhythm, no murmurs Abd: soft, non-tender, non-distended Ext: no edema, L hip dressing dry Skin: warm/well-perfused, multiple needle tracks/scars Neuro: alert and oriented x3, no focal findings Psych: appropriate affect Objective Data Active Medications Acetaminophen (Acetaminophen 325 Mg Tablet) 650 mg PO Q6H PRN PRN Reason: Pain, Mild (Pain Scale 1-3) Fentanyl (Fentanyl Citrate/Pf 100 Mcg/2 Ml Vial) 50 mcg IVPUSH Q5M PRN; Protocol PRN Reason: Pain, Severe (Pain Scale 7-10) Hydromorphone HCl (Hydromorphone Hcl 0.5 Mg/0.5 Ml Syringe) 0.5 mg IVPUSH Q5M PRN; Protocol PRN Reason: Pain, Severe (Pain Scale 7-10) Last Admin: 04/19/22 19:33 Dose: 0.5 mg Documented By: DEBRA Lactated Ringer's (Lr) 1,000 mls @ 125 mls/hr IVCONT .Q8H [facility] Last Admin: 04/20/22 05:39 Dose: 125 mls/hr Documented By: KALPANA Methadone HCl (Methadone Hcl 20 Mg/2 Ml Oral.Conc) 30 mg PO DAILY [facility] Last Admin: 04/20/22 10:33 Dose: 30 mg Documented By: SUYAPA Metoprolol Succinate (Metoprolol Succinate Er 25 Mg Tab.Er.24h) 25 mg PO BID [facility]; Protocol Last Admin: 04/20/22 10:34 Dose: 25 mg Documented By: SUYAPA Morphine Sulfate (Morphine Sulfate 4 Mg/Ml Cartridge) 4 mg IVPUSH Q4H PRN; Protocol PRN Reason: Pain, Severe (Pain Scale 7-10) Last Admin: 04/20/22 05:41 Dose: 4 mg Documented By: KALPANA Ondansetron HCl (Ondansetron Hcl 4 Mg/2 Ml Vial) 4 mg IVPUSH Q8H PRN PRN Reason: Nausea and Vomiting Ondansetron HCl (Ondansetron Hcl 4 Mg/2 Ml Vial) 4 mg IVPUSH ONCE PRN PRN Reason: Nausea and Vomiting Oxycodone HCl (Oxycodone Hcl Immed Release 5 Mg Tablet) 5 mg PO Q6H PRN PRN Reason: Pain, Severe (Pain Scale 7-10) Last Admin: 04/19/22 10:43 Dose: 5 mg Documented By: GRACE Pharmacy Consult (Consult Rx Perform Med Rec) 1 each MISCELLANE ONCE PRN PRN Reason: Consult order Sodium Chloride (0.9 % Sodium Chloride Flush 3 Ml Syringe) [facility] Admin: 04/20/22 10:33 Dose: Not Given Documented By: SUYAPA Non-Admin Reason: IV Running Labs CBC & Chem 7: 04/20/22 06:07 04/20/22 06:07 Labs: Laboratory Results - last 24 hr 04/17/22 04/20/22 04/20/22 11:08 06:07 06:07 MCV 87.8 MCH 29.9 MCHC 34.1 RDW 15.2 Plt Count 141 L MPV 10.1 Absolute Nucleated RBC 0.000 Nucleated RBC % (auto) 0.0 Anion Gap 11 L Estim Creat Clear Calc 136.2 Estimated GFR > 60 Random Glucose 110 Calcium 7.9 L Magnesium 1.8 Hepatitis A IgM Ab Nonreactive Hep Bs Antigen Negative Hep Bs Antibody REACTIVE Hep B Core Total Ab Nonreactive Hepatitis C Ab (EIA) Reactive H Microbiology Microbiology Results: Microbiology 04/17/22 15:58 Urine Culture - Preliminary Urine clean catch - Urine marc top Gram negative sebastien Assessment and Plan (1) Closed intertrochanteric fracture of left hip: Status: Acute (2) Opioid use disorder: Status: Acute Plan d#4 61yo M with HTN, IDU presenting with subtrochanteric femur fracture on the left hip after falling.? Daily injection heroin abuse. # subtrochanteric femur fx - POD#1 IMN L femur - pain control with APAP/oxycodone/morphine - PT and extended VTE ppx after cleared by Ortho # paroxysmal AF - converted to NSR. Metoprolol succinate, echocardiogram, cardiology consultation. # hypoK - replete, recheck level in AM # HTN - changed amlodipine to metoprolol succinate # preliminary HIV Ab/Ag screen positive - confirmatory immunoassay + RNA pending. per [facility] records, pt had negative HIV Ab/Ag on 07/18/21 # HCV Ab positive - RNA pending # opioid abuse - Addiction Medicine consulted- started on methadone # VTE ppx: SCDs Time Spent With Patient Time: Total time managing care of this patient today _26___ minutes. Quality Stroke Does the patient have a stroke diagnosis?: No VTE Prior VTE?: No VTE Risk Level:: Medical - moderate - high VTE Device Contraindication: N/A - Device Ordered VTE Drug Contraindication: N/A - Med Ordered
--- NOTE | 2022-04-20 13:09 | PM.CNCAR ---
History of Present Illness History of Present Illness Date of Service: 04/20/22 Requesting physician: Thuan Kyle Chief complaint: Hip Fx, IVDA, PAF Narrative: [age] gentleman who came for closed intertrochanteric fracture of the left hip. He is status post surgery at this stage. In the PACU he developed atrial fibrillation with rapid ventricular response. He was given amiodarone 150 mg x1. It appears that since he has been on the floor he has reverted back to sinus rhythm. He is denying any chest pain or shortness of breath. He has history of hypertension and takes amlodipine at home. Overall denying any active cardiovascular issues at this stage. [facility] Past Medical History Medical History Diabetes High blood pressure High cholesterol Social History Social History (Updated 04/17/22 @ 15:14 by Eve Davila MD) Household Members: Spouse Housing: Apartment Do you presently have visiting nurse or other home services: No Patient Tobacco Use Status: Current everyday Tobacco user Cigarettes Per Day: 6 Substance Use Type: Opiates service: No Current occupational status: unemployed Meds Allergies Allergy/AdvReac Type Severity Reaction Status Date / Time Penicillins [PENICILLINS] Allergy Unknown RASH Verified 07/10/20 11:45 Active Medications: Current Medications Acetaminophen (Acetaminophen 325 Mg Tablet) 650 mg PO Q6H PRN PRN Reason: Pain, Mild (Pain Scale 1-3) Fentanyl (Fentanyl Citrate/Pf 100 Mcg/2 Ml Vial) 50 mcg IVPUSH Q5M PRN; Protocol PRN Reason: Pain, Severe (Pain Scale 7-10) Hydromorphone HCl (Hydromorphone Hcl 0.5 Mg/0.5 Ml Syringe) 0.5 mg IVPUSH Q5M PRN; Protocol PRN Reason: Pain, Severe (Pain Scale 7-10) Last Admin: 04/19/22 19:33 Dose: 0.5 mg Lactated Ringer's (Lr) 1,000 mls @ 125 mls/hr IVCONT .Q8H [facility] Last Admin: 04/20/22 05:39 Dose: 125 mls/hr Methadone HCl (Methadone Hcl 20 Mg/2 Ml Oral.Conc) 30 mg PO DAILY [facility] Last Admin: 04/20/22 10:33 Dose: 30 mg Metoprolol Succinate (Metoprolol Succinate Er 25 Mg Tab.Er.24h) 25 mg PO BID [facility]; Protocol Last Admin: 04/20/22 10:34 Dose: 25 mg Morphine Sulfate (Morphine Sulfate 4 Mg/Ml Cartridge) 4 mg IVPUSH Q4H PRN; Protocol PRN Reason: Pain, Severe (Pain Scale 7-10) Last Admin: 04/20/22 11:32 Dose: 4 mg Ondansetron HCl (Ondansetron Hcl 4 Mg/2 Ml Vial) 4 mg IVPUSH Q8H PRN PRN Reason: Nausea and Vomiting Ondansetron HCl (Ondansetron Hcl 4 Mg/2 Ml Vial) 4 mg IVPUSH ONCE PRN PRN Reason: Nausea and Vomiting Oxycodone HCl (Oxycodone Hcl Immed Release 5 Mg Tablet) 5 mg PO Q6H PRN PRN Reason: Pain, Severe (Pain Scale 7-10) Last Admin: 04/19/22 10:43 Dose: 5 mg Pharmacy Consult (Consult Rx Perform Med Rec) 1 each MISCELLANE ONCE PRN PRN Reason: Consult order Sodium Chloride (0.9 % Sodium Chloride Flush 3 Ml Syringe) 3 ml IVFLUSH QSHIFT [facility] Last Admin: 04/20/22 10:33 Dose: Not Given Home Medications Medication Instructions Recorded Confirmed Last Taken Type amlodipine 10 mg tablet 1 tab PO DAILY 04/17/22 04/17/22 Unknown History Physical Exam Vital Signs: Vital Signs: Last Vital Signs Temp 97.4 F 04/20/22 07:16 Pulse 93 04/20/22 07:16 Resp 16 04/20/22 07:16 BP 166/96 H 04/20/22 07:16 Pulse Ox 92 04/20/22 07:16 O2 Del Method 04/20/22 07:16 BMI result Body Mass Index 35.9 GENERAL APPEARANCE: in no acute distress, pleasant. NECK: no carotid bruit, no jugular venous distention. SKIN: no suspicious lesions, warm and dry. HEART: no murmurs, regular rate and rhythm. LUNGS: clear to auscultation bilaterally. ABDOMEN: soft, nontender. EXTREMITIES: no edema. PERIPHERAL PULSES: equal. NEUROLOGIC: No gross deficits, AAO X 3 Objective Labs and Meds Result diagrams: 04/20/22 06:07 04/20/22 06:07 Lab results: Laboratory Results - last 24 hr 04/20/22 04/20/22 06:07 06:07 WBC 12.6 H RBC 4.68 Hgb 14.0 Hct 41.1 L MCV 87.8 MCH 29.9 MCHC 34.1 RDW 15.2 Plt Count 141 L MPV 10.1 Absolute Nucleated RBC 0.000 Nucleated RBC % (auto) 0.0 Sodium 136 Potassium 3.2 L D Chloride 107 Carbon Dioxide 21 L Anion Gap 11 L BUN 13 Creatinine 0.65 Estim Creat Clear Calc 136.2 Estimated GFR > 60 Random Glucose 110 Calcium 7.9 L Magnesium 1.8 Imaging Radiologist's impression: Impressions Chest X-Ray 04/19/22 13:50 IMPRESSION: 1. Left subclavian central venous catheter terminates over the mid SVC. No pneumothorax. 2. Bronchial wall thickening noted which could be associated with a small airways process. Guidance Fluoroscopy 04/19/22 15:11 IMPRESSION: Imaging guidance utilized for procedure. For details regarding procedure and findings please refer to the operative report. Assessment and Plan (1) PAF (paroxysmal atrial fibrillation): Status: Acute Plan 61-year-old gentleman who developed paroxysmal atrial fibrillation after surgery for left hip fracture. He was given 150 mg of amiodarone in the PACU. It appears he has reverted back to sinus rhythm at this stage. His overall chads Vasc score is 1. Does not need anticoagulation at this stage. His blood pressure is elevated. He is on amlodipine which should be continued. Would recommend starting him on carvedilol 3.125 mg twice a day. Can be discharged from cardiovascular point of view and can follow up with us in the office. Thank you for allowing me to participate in the care of your patient. Please feel free to contact me if you have any questions. Time Spent With Patient Time: Total time managing care of this patient today ____ minutes. Procedures Date of Service Date of Service: 04/20/22
[2022-04-20] MEDS: Enoxaparin Sodium 40 MG/0.4 ML SYRINGE SUBCUT (15:57)
--- NOTE | 2022-04-21 | ECG_ITS ---
Test Reason : cp Blood Pressure : / mmHG Vent. Rate : 063 BPM Atrial Rate : 063 BPM P-R Int : 156 ms QRS Dur : 098 ms QT Int : 490 ms P-R-T Axes : -03 012 106 degrees QTc Int : 501 ms Normal sinus rhythm Minimal voltage criteria for LVH, may be normal variant ( [place] product ) T wave abnormality, consider anterolateral ischemia Prolonged QT Abnormal ECG When compared with ECG of 19-APR-2022 15:25, Sinus rhythm has replaced Atrial fibrillation Vent. rate has decreased BY [address] less depressed in Anterior leads T wave inversion now evident in Anterior leads Referred By: Eve Davila Electronically Signed By:IVANNA CASTELLANOS MD
--- NOTE | 2022-04-21 00:06 | PM.PNORT ---
Subjective Subjective Date of Service: 04/21/22 Interval history: POD1 left hip IMN no overnight events resting in bed, has pain. worked with PT but limited woth what he was anle to tolerate Physical Exam Vital Signs: Vital Signs: Last Vital Signs Temp 97.8 F 04/20/22 23:21 Pulse 68 04/20/22 23:21 Resp 16 04/20/22 23:21 BP 178/80 H 04/20/22 23:21 Pulse Ox 94 04/20/22 23:21 O2 Del Method 04/20/22 23:21 BMI result Body Mass Index 35.9 Const: General: cooperative, healthy appearing and no acute distress Resp: Effort & Inspection: normal respiratory effort and able to speak in complete sentences Cardio: Rate: regular rate Peripheral pulses: Peripheral pulses 2+ throughout GI: Palpation (GI): Soft to palpation Skin: General skin exam: no rashes or lesions noted Extrem: Other: incision clean dry and intact. Sara intact. No erythema or effusion. Calf supple nontender. Neurovascularly intact. Procedures Date of Service Date of Service: 04/20/22 Progress Note: A&P Assessment and plan (1) Hip fracture, intertrochanteric: Status: Acute Assessment and Plan: Continue pain mgmnt Begin lovenox for dvt ppx begin PT /OT for lt hip IMN Dispo planning-Pending PT eval, pain mgmnt Time Spent With Patient Time: Total time managing care of this patient today ____ minutes. Quality Stroke Does the patient have a stroke diagnosis?: No VTE Prior VTE?: No VTE Risk Level:: Medical - moderate - high VTE Device Contraindication: N/A - Device Ordered VTE Drug Contraindication: N/A - Med Ordered
[2022-04-21] MEDS: Lactated Ringers 1,000 ML 125 ML IVCONT (04:40)
[2022-04-21] MEDS: Morphine Sulfate 4 MG/ML CARTRIDGE IVPUSH ×4 (04:41→19:44)
[2022-04-21 06:52] LABS: Hematocrit 41.9 % (42.0-52.0); Hemoglobin 14.4 g/dl (14.0-18.0); Mean Corpuscular HGB Conc 34.4 g/dl (31.0-36.0); Mean Corpuscular Hemoglobin 30.3 pg (27.0-33.0); Mean Corpuscular Volume 88.2 fL (80.0-98.0); Mean Platelet Volume 10.5 fL (9.4-12.4); Platelet Count 138 X10*3/uL (160-400); Red Blood Count 4.75 X10*6/uL (4.60-5.80); Red Cell Distribution Width 15.2 % (11.0-16.0); White Blood Count 11.5 X10*3/uL (4.8-10.8)
[2022-04-21 07:12] VITALS: BP 136/95; PULSE 65; RESP 18; TEMP 36.4; O2SAT 93
[2022-04-21 07:13] LABS: Anion Gap 10 (12-20); Blood Urea Nitrogen 11 mg/dL (9-16); Carbon Dioxide 20 mmol/L (22-29); Chloride 107 mmol/L (96-108); Creatinine Clr Calc Pharmacy 155.4; Estimated Glomerular Filt Rate > 60; Glucose Random 104 mg/dL (60-115); Magnesium 1.7 mg/dL (1.6-2.6); Potassium 3.6 mmol/L (3.3-5.1); Sodium 133 mmol/L (135-145)
[2022-04-21] MEDS: methADONE HCl 20 MG/2 ML ORAL.CONC 30 MG PO (09:49)
[2022-04-21] MEDS: 0.9 % Sodium Chloride Flush 3 ML SYRINGE IVFLUSH ×2 (09:50→17:39)
--- NOTE | 2022-04-21 12:32 | HO.PM.IMPN ---
Subjective Subjective Date of Service: 04/21/22 Interval History: c/o hip pain, did very little with PT yesterday due to pain no further AF Review of Systems Review of Systems: Yes all other systems are reviewed and are negative Physical Exam Vital Signs: Vital Signs: Last Vital Signs Temp 97.6 F 04/21/22 07:12 Pulse 65 04/21/22 07:12 Resp 18 04/21/22 07:12 BP 136/95 H 04/21/22 07:12 Pulse Ox 93 04/21/22 07:12 O2 Del Method 04/21/22 07:12 BMI result Body Mass Index 35.9 Gen: in no acute distress HEENT: sclera anicteric, moist mucus membranes Neck: supple Lungs: clear to auscultation bilaterally Heart: regular rate and rhythm, no murmurs Abd: soft, non-tender, non-distended Ext: no edema, L hip dressing dry Skin: warm/well-perfused, multiple needle tracks/scars Neuro: alert and oriented x3, no focal findings Psych: appropriate affect Objective Data Active Medications Acetaminophen (Acetaminophen 325 Mg Tablet) 650 mg PO Q6H PRN PRN Reason: Pain, Mild (Pain Scale 1-3) Carvedilol (Carvedilol 3.125 Mg Tablet) 3.125 mg PO BID [facility]; Protocol Last Admin: 04/21/22 09:49 Dose: 3.125 mg Documented By: JORDAN Enoxaparin Sodium (Enoxaparin Sodium 40 Mg/0.4 Ml Syringe) 40 mg SUBCUT Q24H [facility] Last Admin: 04/20/22 15:57 Dose: 40 mg Documented By: SUYAPA Methadone HCl (Methadone Hcl 20 Mg/2 Ml Oral.Conc) 30 mg PO DAILY [facility] Last Admin: 04/21/22 09:49 Dose: 30 mg Documented By: JORDAN Morphine Sulfate (Morphine Sulfate 4 Mg/Ml Cartridge) 4 mg IVPUSH Q4H PRN; Protocol PRN Reason: Pain, Severe (Pain Scale 7-10) Last Admin: 04/21/22 09:49 Dose: 4 mg Documented By: JORDAN Ondansetron HCl (Ondansetron Hcl 4 Mg/2 Ml Vial) 4 mg IVPUSH Q8H PRN PRN Reason: Nausea and Vomiting Oxycodone HCl (Oxycodone Hcl Immed Release 5 Mg Tablet) 5 mg PO Q6H PRN PRN Reason: Pain, Severe (Pain Scale 7-10) Last Admin: 04/19/22 10:43 Dose: 5 mg Documented By: GRACE Pharmacy Consult (Consult Rx Perform Med Rec) 1 each MISCELLANE ONCE PRN PRN Reason: Consult order Sodium Chloride (0.9 % Sodium Chloride Flush 3 Ml Syringe) 3 ml IVFLUSH QSHIFT [facility] Last Admin: 04/21/22 09:50 Dose: 3 ml Documented By: JORDAN Labs CBC & Chem 7: 04/21/22 05:57 04/21/22 05:57 Labs: Laboratory Results - last 24 hr 04/21/22 04/21/22 05:57 05:57 MCV 88.2 MCH 30.3 MCHC 34.4 RDW 15.2 Plt Count 138 L MPV 10.5 Absolute Nucleated RBC 0.000 Nucleated RBC % (auto) 0.0 Anion Gap 10 L Estim Creat Clear Calc 155.4 Estimated GFR > 60 Random Glucose 104 Calcium 8.0 L Magnesium 1.7 Microbiology Microbiology Results: Microbiology 04/17/22 15:58 Urine Culture - Final Urine clean catch - Urine marc top Escherichia coli Assessment and Plan (1) Closed intertrochanteric fracture of left hip: Status: Acute (2) Opioid use disorder: Status: Acute Plan d#5 61yo M with HTN, IDU presenting with subtrochanteric femur fracture on the left hip after falling.? Daily injection heroin abuse. # subtrochanteric femur fx - POD#2 IMN L femur - pain control with APAP/oxycodone/morphine - PT and extended VTE ppx with LMWH for 28-35d # paroxysmal AF - converted to NSR. Metoprolol succinate. TTE pending. [id number] 1, no AC indicated # hypoK - repleted # HTN - changed amlodipine to metoprolol succinate # preliminary HIV Ab/Ag screen positive - confirmatory immunoassay + RNA pending. per [facility] records, pt had negative HIV Ab/Ag on 07/18/21 # HCV Ab positive - RNA pending # opioid abuse - Addiction Medicine consulted- started on methadone # VTE ppx: SCDs # dispo: STR In my clinical judgment, the patient requires continued inpatient hospitalization for the following reasons: postop care Time Spent With Patient Time: Total time managing care of this patient today __30__ minutes. Quality Stroke Does the patient have a stroke diagnosis?: No VTE Prior VTE?: No VTE Risk Level:: Medical - moderate - high VTE Device Contraindication: N/A - Device Ordered VTE Drug Contraindication: N/A - Med Ordered
[2022-04-21 16:00] VITALS: BP 160/98; PULSE 64; RESP 16; TEMP 36.4; O2SAT 95
[2022-04-21] MEDS: oxyCODONE HCl Immed Release 5 MG TABLET PO (17:39)
[2022-04-21] MEDS: Enoxaparin Sodium 40 MG/0.4 ML SYRINGE SUBCUT (17:39)
[2022-04-21 19:38] VITALS: BP 172/98; PULSE 63; RESP 15; TEMP 36.3; O2SAT 95
--- NOTE | 2022-04-21 19:40 | PM.PNCARD ---
Subjective Subjective Date of Service: 04/21/22 Interval history: Seen and examined at bedside. Background of heroin and cocaine use. Last used 1 week ago. Had runs of wide complex rhythm. Asymptomatic. Physical Exam Vital Signs: Last Vital Signs Temp 97.5 F 04/21/22 16:00 Pulse 64 04/21/22 16:00 Resp 16 04/21/22 16:00 BP 160/98 H 04/21/22 16:00 Pulse Ox 95 04/21/22 16:00 O2 Del Method 04/21/22 16:00 BMI result Body Mass Index 35.9 GENERAL APPEARANCE: in no acute distress, pleasant. NECK: no carotid bruit, no jugular venous distention. SKIN: no suspicious lesions, warm and dry. HEART: no murmurs, regular rate and rhythm. LUNGS: clear to auscultation bilaterally. ABDOMEN: soft, nontender. EXTREMITIES: no edema. PERIPHERAL PULSES: equal. NEUROLOGIC: No gross deficits, AAO X 3 Objective Labs and Meds Result diagrams: 04/21/22 05:57 04/21/22 05:57 Lab results: Laboratory Results - last 24 hr 04/21/22 04/21/22 05:57 05:57 WBC 11.5 H RBC 4.75 Hgb 14.4 Hct 41.9 L MCV 88.2 MCH 30.3 MCHC 34.4 RDW 15.2 Plt Count 138 L MPV 10.5 Absolute Nucleated RBC 0.000 Nucleated RBC % (auto) 0.0 Sodium 133 L Potassium 3.6 Chloride 107 Carbon Dioxide 20 L Anion Gap 10 L BUN 11 Creatinine 0.57 Estim Creat Clear Calc 155.4 Estimated GFR > 60 Random Glucose 104 Calcium 8.0 L Magnesium 1.7 Progress Note: A&P Assessment and plan (1) PAF (paroxysmal atrial fibrillation): Status: Acute Plan 61 male with PAF after hip surgery. back in sinus. Developed accelerated idioventricular rhythm on Tele. No symptoms. Cocaine and heroin abuse. Will check echo to assess LV. Monitor electrolytes. Coreg. Time Spent With Patient Time: Total time managing care of this patient today ____ minutes. Progress Note: Quality Stroke Does the patient have a stroke diagnosis?: No Procedures Date of Service Date of Service: 04/21/22
[2022-04-21 19:44] VITALS: RESP 18
[2022-04-21] MEDS: amLODIPine Besylate 2.5 MG TABLET PO (19:44)
[2022-04-22] VITALS: BP 168/94; PULSE 67; RESP 20; TEMP 36.6; O2SAT 97
[2022-04-22 03:40] VITALS: RESP 16
[2022-04-22] MEDS: Morphine Sulfate 4 MG/ML CARTRIDGE IVPUSH ×4 (03:40→19:49)
[2022-04-22 07:46] VITALS: BP 160/90; PULSE 62; RESP 20; TEMP 36.4; O2SAT 94
--- NOTE | 2022-04-22 08:02 | CA_ITS ---
Transthoracic Echocardiogram Patient (Last, First, Middle): Justice Mathis, Gender: Male Date of : 1960 Age: 61 Procedure Date: 04/22/2022 Procedure Type: Transthoracic Echocardiogram [place] [facility] [place]: 167.64 cm Weight: 101.15 kg BSA: 2.09 m2 Heart Rate: bpm BP: 160 / 90 mmHg Lye Machine Operator: RUTH Referring MD: Eve Davila MD Symptoms: af Study Quality: Technically Difficult, contrast used Conclusions: - Normal left ventricular cavity size. There is normal left ventricular wall thickness. The left ventricular systolic function is low normal. The visually estimated ejection fraction is between 50-55%. - The apical lateral and mid anterolateral segments are hypokinetic. - Normal right ventricular cavity size and systolic function. - There is mild dilatation of the sinuses of Valsalva measuring 3.97 cm and mild dilatation of the ascending aorta measuring 3.60 cm. Findings Procedure Information Contrast agent, definity, is being given per protocol without apparent complications. Left Ventricle Normal left ventricular cavity size. There is normal left ventricular wall thickness. The left ventricular systolic function is low normal. The visually estimated ejection fraction is between 50-55%. There is evidence of regional wall motion abnormalities. Abnormal diastolic function is noted. Spectral Doppler is indicative of an impaired relaxation filling pattern. E/E prime ratio is between 8 and 15 consistent with indeterminate filling pressures. Wall Motion Rest Echo Findings The apical lateral and mid anterolateral segments are hypokinetic. Right Ventricle Normal right ventricular cavity size and systolic function. Atria The left atrium is mildly dilated. Aortic Valve The aortic valve was not well visualized. There is no aortic valve stenosis. There is no aortic valve regurgitation. Mitral Valve Likely normal mitral valve structure and function. There is trace mitral valve regurgitation. There is no mitral valve stenosis. Pulmonic Valve The pulmonic valve was not well visualized. Tricuspid Valve Likely normal tricuspid valve structure and function. Normal right atrial pressure. There is no evidence of pulmonary hypertension. Great Vessels The pulmonary artery was not well visualized. There is mild dilatation of the sinuses of Valsalva measuring 3.97 cm and mild dilatation of the ascending aorta measuring 3.60 cm. Venous The inferior vena cava is dilated and collapses greater than 50% with inspiration. Pericardium/Pleural There is no evidence of pericardial effusion. Prior Study Comparison No prior study available for comparison. Measurements 2D Linear Measurements IVSd: 0.97 0.6-0.9/0.6-1.0 cm LVIDd: 5.32 3.9-5.3/4.2-5.9 cm LVIDd Index: 2.55 2.4-3.2/2.2-3.1 cm/m2 LVIDs: 3.47 2.0-3.6 cm LVPWd: 1.03 0.7-1.1 cm LV Mass: 250.65 67-162/88-224 g LV Mass Index: 119.93 43-95/49-115 g/m2 LVOT Diam: 2.10 3.0+(-)1.3 cm 2D Systolic Function EF 4C: 48.30 >55% EF 2C: 64.70 >55% EF BiP: 57.40 >55% Mitral Valve MV Pk E: 0.44 MV PK A: 0.78 MV Decel Time: 368.00 E/A: 0.60 E'Lateral: 8.38 E'Medial: 4.79 E/E' Med: 9.10 E/E' Lat: 5.20 PHT: 108.00 MVA PHT: 2.04 Decel [place]: 1.19 Aortic Valve AoV Pk Rafa: 1.42 AoV Mn Rafa: 1.01 AoV VTI: 0.30 AoV Pk Grad: 8.00 Aov Mn Grad: 5.00 DORENE Cont.VTI: 1.95 LVOT LVOT Pk Rafa: 0.85 LVOT Mn Rafa: 0.59 LVOT VTI: 0.17 LVOT Pk Grad: 3.00 LVOT Mn Grad: 2.00 LVOT Diam: 2.10 LVOT Area: 3.46 Diastolic Function MV Pk E: 0.44 MV Pk A: 0.78 E/A: 0.60 E'Medial: 4.79 E/E' Med: 9.10 E' Laterial: 8.38 E/E' Lat: 5.20 Right Ventricle TAPSE (mm): 28.50 TVS' Rafa: 14.40 Tricuspid Valve TR Pk Rafa: 1.36 TR Pk Grad: 7.00 RA Press: 8.00 RVSP: 15.00 Great Vessels Aorta Sinus of Valsalva: 3.97 2.0-3.[address] [place]: 2.93 1.7-3.4 cm Ao Asc: 3.60 2.1-3.4 cm Updated in Other Vendor System with Status of Final Alan Oropeza MD electronically signed on 04/23/2022 9:43:00 AM with status of Final
[2022-04-22] MEDS: methADONE HCl 20 MG/2 ML ORAL.CONC 30 MG PO (08:12)
[2022-04-22] MEDS: amLODIPine Besylate 2.5 MG TABLET PO (08:12)
[2022-04-22] MEDS: 0.9 % Sodium Chloride Flush 3 ML SYRINGE IVFLUSH ×4 (08:19→19:49)
[2022-04-22 08:51] LABS: Anion Gap 11 (12-20); Blood Urea Nitrogen 15 mg/dL (9-16); Calcium 8.1 mg/dL (8.4-10.2); Carbon Dioxide 20 mmol/L (22-29); Chloride 106 mmol/L (96-108); Creatinine Clr Calc Pharmacy 138.4; Estimated Glomerular Filt Rate > 60; Glucose Random 107 mg/dL (60-115); Magnesium 1.9 mg/dL (1.6-2.6); Potassium 3.9 mmol/L (3.3-5.1); Sodium 133 mmol/L (135-145)
[2022-04-22 09:49] VITALS: BP 160/90; PULSE 62; O2SAT 94
--- NOTE | 2022-04-22 10:36 | HO.PM.IMPN ---
Subjective Subjective Date of Service: 04/22/22 Interval History: difficulty ambulating due to hip pain pain at rest controlled evening of 04/20: had brief episode of accelerated idioventricular rhythm without symptoms or hemodynamic compromise. has not recurred. Review of Systems Review of Systems: Yes all other systems are reviewed and are negative Physical Exam Vital Signs: Vital Signs: Last Vital Signs Temp 97.6 F 04/22/22 07:46 Pulse 62 04/22/22 09:49 Resp 20 04/22/22 07:46 BP 160/90 H 04/22/22 09:49 Pulse Ox 94 04/22/22 09:49 O2 Del Method 04/22/22 07:46 BMI result Body Mass Index 35.9 Gen: in no acute distress HEENT: sclera anicteric, moist mucus membranes Neck: supple Lungs: clear to auscultation bilaterally Heart: regular rate and rhythm, no murmurs Abd: soft, non-tender, non-distended Ext: no edema, L hip dressing dry Skin: warm/well-perfused, multiple needle tracks/scars Neuro: alert and oriented x3, no focal findings Psych: appropriate affect Objective Data Active Medications Acetaminophen (Acetaminophen 325 Mg Tablet) 650 mg PO Q6H PRN PRN Reason: Pain, Mild (Pain Scale 1-3) Amlodipine Besylate (Amlodipine Besylate 2.5 Mg Tablet) 2.5 mg PO DAILY [facility]; Protocol Last Admin: 04/22/22 08:12 Dose: 2.5 mg Documented By: ERLINDA Carvedilol (Carvedilol 3.125 Mg Tablet) 3.125 mg PO BID [facility]; Protocol Last Admin: 04/22/22 08:12 Dose: 3.125 mg Documented By: ERLINDA Enoxaparin Sodium (Enoxaparin Sodium 40 Mg/0.4 Ml Syringe) 40 mg SUBCUT Q24H [facility] Last Admin: 04/21/22 17:39 Dose: 40 mg Documented By: JORDAN Methadone HCl (Methadone Hcl 20 Mg/2 Ml Oral.Conc) 30 mg PO DAILY [facility] Last Admin: 04/22/22 08:12 Dose: 30 mg Documented By: ERLINDA Morphine Sulfate (Morphine Sulfate 4 Mg/Ml Cartridge) 4 mg IVPUSH Q4H PRN; Protocol PRN Reason: Pain, Severe (Pain Scale 7-10) Last Admin: 04/22/22 08:19 Dose: 4 mg Documented By: ERLINDA Ondansetron HCl (Ondansetron Hcl 4 Mg/2 Ml Vial) 4 mg IVPUSH Q8H PRN PRN Reason: Nausea and Vomiting Oxycodone HCl (Oxycodone Hcl Immed Release 5 Mg Tablet) 5 mg PO Q6H PRN PRN Reason: Pain, Severe (Pain Scale 7-10) Last Admin: 04/21/22 17:39 Dose: 5 mg Documented By: JORDAN Pharmacy Consult (Consult Rx Perform Med Rec) 1 each MISCELLANE ONCE PRN PRN Reason: Consult order Sodium Chloride (0.9 % Sodium Chloride Flush 3 Ml Syringe) 3 ml IVFLUSH QSHIFT [facility] Last Admin: 04/22/22 08:19 Dose: 3 ml Documented By: ERLINDA Labs CBC & Chem 7: 04/21/22 05:57 04/22/22 08:18 Labs: Laboratory Results - last 24 hr 04/22/22 08:18 Anion Gap 11 L Estim Creat Clear Calc 138.4 Estimated GFR > 60 Random Glucose 107 Calcium 8.1 L Magnesium 1.9 Assessment and Plan (1) Closed intertrochanteric fracture of left hip: Status: Acute (2) Opioid use disorder: Status: Acute Plan d#6 61yo M with HTN, IDU presenting with subtrochanteric femur fracture on the left hip after falling.? Daily injection heroin abuse. # subtrochanteric femur fx - POD#3 IMN L femur - pain control with APAP/oxycodone/morphine - PT - LMWH x 1 mo for VTE px # paroxysmal AF # accelerated idioventricular rhythm, also paroxysmal - currently NSR. increase carvedilol - TTE pending, Cardiology following - [id number] 1, no AC indicated # hypoK - repleted # HTN - increase carvedilol and continue amlodipine # preliminary HIV Ab/Ag screen positive - confirmatory immunoassay + RNA pending. per [facility] records, pt had negative HIV Ab/Ag on 07/18/21 # HCV Ab positive - RNA pending # opioid abuse - Addiction Medicine consulted- started on methadone # VTE ppx: SCDs # dispo: STR likely in next 1-2d In my clinical judgment, the patient requires continued inpatient hospitalization for the following reasons: postop care, pending HIV confirmatory test Time Spent With Patient Time: Total time managing care of this patient today ____ minutes. Quality Stroke Does the patient have a stroke diagnosis?: No VTE Prior VTE?: No VTE Risk Level:: Medical - moderate - high VTE Device Contraindication: N/A - Device Ordered VTE Drug Contraindication: N/A - Med Ordered
[2022-04-22] MEDS: oxyCODONE HCl Immed Release 5 MG TABLET PO ×2 (11:18→22:11)
[2022-04-22 15:01] VITALS: BP 176/94; PULSE 72; RESP 16; TEMP 36; O2SAT 94
[2022-04-22] MEDS: Enoxaparin Sodium 40 MG/0.4 ML SYRINGE SUBCUT (15:25)
[2022-04-22 19:36] VITALS: BP 174/82; PULSE 66; RESP 18; TEMP 36.1; O2SAT 95
[2022-04-22] MEDS: carvediloL 3.125 MG TABLET 6.25 MG PO (19:48)
[2022-04-23] VITALS: BP 163/89; PULSE 67; RESP 20; TEMP 36.6; O2SAT 93
[2022-04-23] MEDS: Morphine Sulfate 4 MG/ML CARTRIDGE IVPUSH ×6 (00:03→21:19)
--- NOTE | 2022-04-23 07:17 | PM.PNORT ---
Subjective Subjective Date of Service: 04/23/22 Interval history: POD4 s/p left hip IM Nail. Patient resting comfortably in bed. No overnight events. Pain appears to be managed however patient reports left hip pain. No additional complaints. Physical Exam Vital Signs: Vital Signs: Last Vital Signs Temp 97.9 F 04/23/22 00:00 Pulse 67 04/23/22 00:00 Resp 20 04/23/22 00:00 BP 163/89 H 04/23/22 00:00 Pulse Ox 93 04/23/22 00:00 O2 Del Method 04/23/22 00:00 BMI result Body Mass Index 35.9 Const: General: cooperative, healthy appearing and no acute distress Resp: Effort & Inspection: normal respiratory effort and able to speak in complete sentences Cardio: Rate: regular rate Peripheral pulses: Peripheral pulses 2+ throughout GI: Palpation (GI): Soft to palpation Skin: Lesions: no lesions Rashes: no rashes Extrem: Other: Left hip dressings are c/d/i. Able to dorsiflex and plantarflex. NVI. Procedures Date of Service Date of Service: 04/23/22 Progress Note: A&P Assessment and plan (1) Hip fracture, intertrochanteric: Status: Acute Assessment and Plan: Continue pain mgmnt Continue dvt ppx LMWH per medicine recommendations Continue PT for left hip IM Nail - WBAT Dispo planning-Pain mgmnt, HIV confirmatory test, medical clearance (2) PAF (paroxysmal atrial fibrillation): Status: Acute (3) Closed intertrochanteric fracture of left hip: Status: Acute (4) Opioid use disorder: Status: Acute Time Spent With Patient Time: Total time managing care of this patient today ____ minutes. Quality Stroke Does the patient have a stroke diagnosis?: No VTE Prior VTE?: No VTE Risk Level:: Medical - moderate - high VTE Device Contraindication: N/A - Device Ordered VTE Drug Contraindication: N/A - Med Ordered
[2022-04-23 07:29] VITALS: BP 163/87; PULSE 66; RESP 20; TEMP 36.6; O2SAT 96
[2022-04-23] MEDS: carvediloL 3.125 MG TABLET 6.25 MG PO ×2 (08:51→21:18)
[2022-04-23] MEDS: methADONE HCl 20 MG/2 ML ORAL.CONC 30 MG PO (08:52)
[2022-04-23] MEDS: 0.9 % Sodium Chloride Flush 3 ML SYRINGE IVFLUSH ×3 (08:52→21:23)
[2022-04-23] MEDS: amLODIPine Besylate 2.5 MG TABLET PO (08:52)
--- NOTE | 2022-04-23 11:52 | MHC.RECOVRN ---
Met with pt in 450 to follow up regarding methadone titration. Pt sitting in chair, awake, alert, very calm, appears comfortable, easily engages in conversation. Pt reports pain has been manageable. Does not appear to be in withdrawal. Pt reports desire to increase methadone dose. Pt requesting 50 mg (is currently at 30 mg). Pt educated regarding methadone titration while inpatient. Pt reports using heroin, 1 bundle daily, IV, x 1.5/2 months as well as cocaine, $20, IV, daily. Pt reports last engaging with OTP approx 1 year ago, had been at 65 mg. Per RN, pt had been sleeping a lot yesterday but was not sedated. Discussed with Vicky Zeng APRN.
--- NOTE | 2022-04-23 12:26 | HO.PM.IMPN ---
Subjective Subjective Date of Service: 04/23/22 Interval History: Hip pain still an issue per patient; utilizing Oxy around the clock Review of Systems Denies chest pain Denies nausea vomiting diarrhea Denies shortness of breath Denies fever chills Physical Exam Vital Signs: Vital Signs: Last Vital Signs Temp 97.8 F 04/23/22 07:29 Pulse 66 04/23/22 07:29 Resp 20 04/23/22 07:29 BP 163/87 H 04/23/22 07:29 Pulse Ox 96 04/23/22 07:29 O2 Del Method 04/23/22 07:29 BMI result Body Mass Index 35.9 Const: Other: No acute distress Resp: Other: Clear to auscultation bilaterally no rales rhonchi or wheezes Cardio: Other: No S4; positive S1-S2; no S3 murmurs rubs or gallops Extrem: Other: No edema bilaterally Objective Data Active Medications Acetaminophen (Acetaminophen 325 Mg Tablet) 650 mg PO Q6H PRN PRN Reason: Pain, Mild (Pain Scale 1-3) Amlodipine Besylate (Amlodipine Besylate 2.5 Mg Tablet) 2.5 mg PO DAILY [facility]; Protocol Last Admin: 04/23/22 08:52 Dose: 2.5 mg Documented By: ERLINDA Carvedilol (Carvedilol 3.125 Mg Tablet) 6.25 mg PO BID [facility]; Protocol Last Admin: 04/23/22 08:51 Dose: 6.25 mg Documented By: ERLINDA Enoxaparin Sodium (Enoxaparin Sodium 40 Mg/0.4 Ml Syringe) 40 mg SUBCUT Q24H [facility] Last Admin: 04/22/22 15:25 Dose: 40 mg Documented By: ERLINDA Methadone HCl (Methadone Hcl 20 Mg/2 Ml Oral.Conc) 30 mg PO DAILY [facility] Last Admin: 04/23/22 08:52 Dose: 30 mg Documented By: ERLINDA Morphine Sulfate (Morphine Sulfate 4 Mg/Ml Cartridge) 4 mg IVPUSH Q4H PRN; Protocol PRN Reason: Pain, Severe (Pain Scale 7-10) Last Admin: 04/23/22 08:51 Dose: 4 mg Documented By: ERLINDA Ondansetron HCl (Ondansetron Hcl 4 Mg/2 Ml Vial) 4 mg IVPUSH Q8H PRN PRN Reason: Nausea and Vomiting Oxycodone HCl (Oxycodone Hcl Immed Release 5 Mg Tablet) 5 mg PO Q6H PRN PRN Reason: Pain, Severe (Pain Scale 7-10) Last Admin: 04/22/22 22:11 Dose: 5 mg Documented By: JACQUELINE Pharmacy Consult (Consult Rx Perform Med Rec) 1 each MISCELLANE ONCE PRN PRN Reason: Consult order Sodium Chloride (0.9 % Sodium Chloride Flush 3 Ml Syringe) 3 ml IVFLUSH QSHIFT [facility] Last Admin: 04/23/22 08:52 Dose: 3 ml Documented By: ERLINDA Labs CBC & Chem 7: 04/21/22 05:57 04/22/22 08:18 Assessment and Plan (1) Closed intertrochanteric fracture of left hip: Status: Acute (2) Opioid use disorder: Status: Acute (3) PAF (paroxysmal atrial fibrillation): Status: Acute Plan 61yo M with HTN, IDU presenting with subtrochanteric femur fracture on the left hip after falling.? Daily injection heroin abuse. 1.Subtrochanteric femur fx - POD#3 IMN L femur - pain control with APAP/oxycodone/morphine - PT.. Needs placement - LMWH x 1 mo for VTE px 2.Paroxysmal AF -echo without acute findings -continue current therapies 3.HTN -improved control with changes. -adjust as indicated 4.Preliminary HIV Ab/Ag screen positive - confirmatory immunoassay + RNA pending. 5. HCV Ab positive - RNA pending 6.Opioid abuse - Addiction Medicine consulted- started on methadone Full code Lovenox In my clinical judgment, the patient requires continued inpatient hospitalization for the following reasons: postop care, pending HIV confirmatory test Time Spent With Patient Time: Total time managing care of this patient today ____ minutes. Quality Stroke Does the patient have a stroke diagnosis?: No VTE Prior VTE?: No VTE Risk Level:: Medical - moderate - high VTE Device Contraindication: N/A - Device Ordered VTE Drug Contraindication: N/A - Med Ordered
[2022-04-23 15:08] VITALS: BP 139/81; PULSE 72; RESP 18; TEMP 36.8; O2SAT 94
--- NOTE | 2022-04-23 17:06 | P.PNADD_ITS ---
Subjective Subjective Date of Service: 04/23/22 Reason For Visit: Hip Fx, IVDA, PAF Interim History: Patient seen in follow up Has been receiving methadone 30mg QD Today patient much more awake, able to engage in interview Sitting up in bed, eating ice cream. Reporting pain is well managed, however feels he is still experiencing some opioid withdrawals including chills, joint pain and body aches. Requesting methadone increase. Review of Systems Constitutional: Reports as per HPI Mental Status Exam Mental Status Exam Patient Appearance: Appropriate Patient Orientation: Person, Place, Time and Situation Level of Consciousness: Awake and Appropriate Patient Behavior: Appropriate, Talkative and Cooperative Diagnostics Vital Signs (24Hr): Vital Signs - 24 hr 04/22/22 19:36 04/23/22 00:00 04/23/22 07:29 Temperature 96.9 F 97.9 F 97.8 F Pulse Rate 66 67 66 Respiratory Rate 18 20 20 Blood Pressure 174/82 H 163/89 H 163/87 H Pulse Oximetry 95 93 96 Oxygen Delivery Method Room Air Room Air Room Air 04/23/22 15:08 Temperature 98.3 F Pulse Rate 72 Respiratory Rate 18 Blood Pressure 139/81 Pulse Oximetry 94 Oxygen Delivery Method Room Air BMI result Body Mass Index 35.9 Labs Results: 04/21/22 05:57 04/22/22 08:18 Labs: Laboratory Results - last 48 hr 04/22/22 08:18 Sodium 133 L Potassium 3.9 Chloride 106 Carbon Dioxide 20 L Anion Gap 11 L BUN 15 Creatinine 0.64 Estim Creat Clear Calc 138.4 Estimated GFR > 60 Random Glucose 107 Calcium 8.1 L Magnesium 1.9 Imaging Radiology Impressions: ITS Impressions Chest X-Ray 04/17/22 10:19 IMPRESSION: Comminuted intertrochanteric fracture of the left hip. No acute parenchymal disease within the chest. Hip/Pelvis X-Ray 04/17/22 10:19 IMPRESSION: Comminuted intertrochanteric fracture of the left hip. No acute parenchymal disease within the chest. Chest X-Ray 04/19/22 13:50 IMPRESSION: 1. Left subclavian central venous catheter terminates over the mid SVC. No pneumothorax. 2. Bronchial wall thickening noted which could be associated with a small airways process. Guidance Fluoroscopy 04/19/22 15:11 IMPRESSION: Imaging guidance utilized for procedure. For details regarding procedure and findings please refer to the operative report. Medications Medications Current Medications Acetaminophen (Acetaminophen 325 Mg Tablet) 650 mg PO Q6H PRN PRN Reason: Pain, Mild (Pain Scale 1-3) Amlodipine Besylate (Amlodipine Besylate 2.5 Mg Tablet) 2.5 mg PO DAILY [facility]; Protocol Last Admin: 04/23/22 08:52 Dose: 2.5 mg Carvedilol (Carvedilol 3.125 Mg Tablet) 6.25 mg PO BID [facility]; Protocol Last Admin: 04/23/22 08:51 Dose: 6.25 mg Enoxaparin Sodium (Enoxaparin Sodium 40 Mg/0.4 Ml Syringe) 40 mg SUBCUT Q24H [facility] Last Admin: 04/22/22 15:25 Dose: 40 mg Methadone HCl (Methadone Hcl 20 Mg/2 Ml Oral.Conc) 40 mg PO DAILY [facility] Morphine Sulfate (Morphine Sulfate 4 Mg/Ml Cartridge) 4 mg IVPUSH Q4H PRN; Protocol PRN Reason: Pain, Severe (Pain Scale 7-10) Last Admin: 04/23/22 12:59 Dose: 4 mg Ondansetron HCl (Ondansetron Hcl 4 Mg/2 Ml Vial) 4 mg IVPUSH Q8H PRN PRN Reason: Nausea and Vomiting Oxycodone HCl (Oxycodone Hcl Immed Release 5 Mg Tablet) 5 mg PO Q6H PRN PRN Reason: Pain, Severe (Pain Scale 7-10) Last Admin: 04/22/22 22:11 Dose: 5 mg Pharmacy Consult (Consult Rx Perform Med Rec) 1 each MISCELLANE ONCE PRN PRN Reason: Consult order Sodium Chloride (0.9 % Sodium Chloride Flush 3 Ml Syringe) 3 ml IVFLUSH QSHIFT [facility] Last Admin: 04/23/22 08:52 Dose: 3 ml Allergies Allergies Allergy/AdvReac Type Severity Reaction Status Date / Time Penicillins [PENICILLINS] Allergy Unknown RASH Verified 07/10/20 11:45 Assessment & Plan Assessment & Plan (1) Opioid use disorder: Status: Acute Code(s): F11.90 - Opioid use, unspecified, uncomplicated Assessment and Plan: * methadone increase to 40mg QD 04/24 * will continue to follow Total time managing care of this patient today __25__ minutes.
[2022-04-23] MEDS: Enoxaparin Sodium 40 MG/0.4 ML SYRINGE SUBCUT (17:15)
[2022-04-23 19:36] VITALS: BP 155/96; PULSE 89; RESP 18; TEMP 37.1; O2SAT 98
[2022-04-23 23:44] VITALS: BP 152/91; PULSE 73; RESP 15; TEMP 36.7; O2SAT 93
[2022-04-24] MEDS: Morphine Sulfate 4 MG/ML CARTRIDGE IVPUSH ×5 (01:23→20:15)
[2022-04-24] MEDS: oxyCODONE HCl Immed Release 5 MG TABLET PO ×2 (02:34→08:48)
[2022-04-24 04:15] VITALS: BP 135/82; PULSE 69; RESP 17; TEMP 36; O2SAT 95
--- NOTE | 2022-04-24 07:30 | P.CDIC_ITS ---
CDI Concurrent Query Documentation Clarification: PHYSICIAN'S DOCUMENTATION REQUEST Date of Query: 04/24/22 0731 Patient Name: Justice Mathis Admit Date: 04/17/22 Dear Doctor, A review of the medical record indicates additional documentation may be needed. Please review below and update the documentation accordingly. Risk Factors/Clinical Indicators/Treatments Per H&P 04/17/22: Hip/Pelvis X-Ray? 04/17/22 10:19 IMPRESSION: Comminuted intertrochanteric fracture of the left hip Per Brief Operative note 04/19/22: Brief Operative Note Date of Service: 04/19/22 Pre-op diagnosis: Right hip fracture Post-op diagnosis: same Procedure: IMN right hip Based on the above, could you clarify in the Progress Notes the laterality of the appropriate diagnosis that supports the above abnormalities and additional evaluation, monitoring, and/or treatment rendered: * Comminuted intertrochanteric fracture of the left hip with IMN left hip * Comminuted intertrochanteric fracture of the right hip with IMN right hip * Labs indicate a diagnosis of (please specify) * Other (please specify) * Unable to determine Use of terms such as suspected, likely, concern for, or probable (associated with a specific diagnosis that is being evaluated, monitored, or treated as if it exists) are acceptable and can be coded in the inpatient setting, when documented at the time of discharge. Thank you, Seble Restrepo RN Extension: [phone] Please use your independent medical judgment in providing your response. THIS QUERY IS PART OF THE PERMANENT MEDICAL RECORD
[2022-04-24 08:00] VITALS: BP 153/85; PULSE 72; RESP 16; TEMP 36.7; O2SAT 94
[2022-04-24] MEDS: amLODIPine Besylate 2.5 MG TABLET PO (08:48)
[2022-04-24] MEDS: carvediloL 3.125 MG TABLET 6.25 MG PO ×2 (08:48→20:15)
[2022-04-24] MEDS: 0.9 % Sodium Chloride Flush 3 ML SYRINGE IVFLUSH ×2 (08:49→15:53)
[2022-04-24] MEDS: methADONE HCl 20 MG/2 ML ORAL.CONC 40 MG PO (08:49)
[2022-04-24 11:57] VITALS: BP 153/85; PULSE 72; O2SAT 94
--- NOTE | 2022-04-24 13:16 | MHC.CM.PN ---
Per ROUNDS discussion, Patient is medically cleared for dc. [facility] (only real option d/t Methadone)is following for bed availability. CM will follow.
--- NOTE | 2022-04-24 14:41 | MHC.RECOVRN ---
This headline writer met w/ patient, patient alert, sitting in chair, watching t.v. Pt reports doing good on Methadone, patient interested in increase tomorrow. Patient states Methadone has been helping. Pt states currently has some back pain. Provider aware.
--- NOTE | 2022-04-24 15:06 | P.PNIM_ITS ---
Subjective Subjective Date of Service: 04/24/22 Interval History: Hip pain still an issue per patient Review of Systems Denies chest pain Denies nausea vomiting diarrhea Denies shortness of breath Denies fever chills Physical Exam Vital Signs: Vital Signs: Last Vital Signs Temp 98.1 F 04/24/22 08:00 Pulse 72 04/24/22 11:57 Resp 16 04/24/22 08:00 BP 153/85 H 04/24/22 11:57 Pulse Ox 94 04/24/22 11:57 O2 Del Method 04/24/22 08:00 BMI result Body Mass Index 35.9 Const: Other: No acute distress Resp: Other: Clear to auscultation bilaterally no rales rhonchi or wheezes Cardio: Other: No S4; positive S1-S2; no S3 murmurs rubs or gallops Extrem: Other: No edema bilaterally Objective Data Active Medications Acetaminophen (Acetaminophen 325 Mg Tablet) 650 mg PO Q6H PRN PRN Reason: Pain, Mild (Pain Scale 1-3) Amlodipine Besylate (Amlodipine Besylate 2.5 Mg Tablet) 2.5 mg PO DAILY [facility]; Protocol Last Admin: 04/24/22 08:48 Dose: 2.5 mg Documented By: ERLINDA Carvedilol (Carvedilol 3.125 Mg Tablet) 6.25 mg PO BID [facility]; Protocol Last Admin: 04/24/22 08:48 Dose: 6.25 mg Documented By: ERLINDA Enoxaparin Sodium (Enoxaparin Sodium 40 Mg/0.4 Ml Syringe) 40 mg SUBCUT Q24H [facility] Last Admin: 04/23/22 17:15 Dose: 40 mg Documented By: ERLINDA Methadone HCl (Methadone Hcl 20 Mg/2 Ml Oral.Conc) 40 mg PO DAILY [facility] Last Admin: 04/24/22 08:49 Dose: 40 mg Documented By: ERLINDA Morphine Sulfate (Morphine Sulfate 4 Mg/Ml Cartridge) 4 mg IVPUSH Q4H PRN; Protocol PRN Reason: Pain, Severe (Pain Scale 7-10) Last Admin: 04/24/22 10:08 Dose: 4 mg Documented By: ERLINDA Ondansetron HCl (Ondansetron Hcl 4 Mg/2 Ml Vial) 4 mg IVPUSH Q8H PRN PRN Reason: Nausea and Vomiting Oxycodone HCl (Oxycodone Hcl Immed Release 5 Mg Tablet) 5 mg PO Q6H PRN PRN Reason: Pain, Severe (Pain Scale 7-10) Last Admin: 04/24/22 08:48 Dose: 5 mg Documented By: ERLINDA Pharmacy Consult (Consult Rx Perform Med Rec) 1 each MISCELLANE ONCE PRN PRN Reason: Consult order Sodium Chloride (0.9 % Sodium Chloride Flush 3 Ml Syringe) 3 ml IVFLUSH QSHIFT [facility] Last Admin: 04/24/22 08:49 Dose: 3 ml Documented By: ERLINDA Labs CBC & Chem 7: 04/21/22 05:57 04/22/22 08:18 Assessment and Plan (1) Hip fracture, intertrochanteric: Status: Acute (2) PAF (paroxysmal atrial fibrillation): Status: Acute Plan 61yo M with HTN, IDU presenting with subtrochanteric femur fracture on the left hip after falling.? Daily injection heroin abuse. 1.Subtrochanteric femur fx - POD#4 IMN L femur - pain control with APAP/oxycodone/morphine - PT.. Needs placement - LMWH x 1 mo for VTE px 2.Paroxysmal AF -echo without acute findings -continue current therapies 3.HTN -improved control with changes. -adjust as indicated 4.Preliminary HIV Ab/Ag screen positive - confirmatory immunoassay + RNA pending. 5. HCV Ab positive - RNA pending 6.Opioid abuse - Addiction Medicine consulted- started on methadone Full code Lovenox In my clinical judgment, the patient requires continued inpatient hospita lization for the following reasons: postop care, pending HIV confirmatory test Time Spent With Patient Time: Total time managing care of this patient today ____ minutes. Quality Stroke Does the patient have a stroke diagnosis?: No VTE Prior VTE?: No VTE Risk Level:: Medical - moderate - high VTE Device Contraindication: N/A - Device Ordered VTE Drug Contraindication: N/A - Med Ordered
[2022-04-24 15:43] VITALS: BP 153/88; PULSE 90; RESP 17; TEMP 36.6; O2SAT 97
[2022-04-24] MEDS: Enoxaparin Sodium 40 MG/0.4 ML SYRINGE SUBCUT (15:44)
[2022-04-24 20:44] LABS: HCV Log PCR 4.61 Log IU/mL (NOT DETECTED); HepC Viral Load 41100 IU/mL (NOT DETECTED)
[2022-04-24 23:47] VITALS: BP 143/77; PULSE 71; RESP 18; TEMP 37.4; O2SAT 94
--- NOTE | 2022-04-25 | ECG_ITS ---
Test Reason : cp Blood Pressure : / mmHG Vent. Rate : 071 BPM Atrial Rate : 071 BPM P-R Int : 152 ms QRS Dur : 098 ms QT Int : 430 ms P-R-T Axes : 070 027 103 degrees QTc Int : 467 ms Normal sinus rhythm Possible Inferior infarct (cited on or before 21-APR-2022) Abnormal ECG When compared with ECG of 21-APR-2022 14:24, T wave inversion no longer evident in Anterior leads Referred By: Audie Alcantar Electronically Signed By:IVANNA CASTELLANOS MD
[2022-04-25] MEDS: Morphine Sulfate 4 MG/ML CARTRIDGE IVPUSH ×5 (00:22→21:04)
[2022-04-25] MEDS: oxyCODONE HCl Immed Release 5 MG TABLET PO ×3 (03:40→19:17)
[2022-04-25 07:56] VITALS: BP 150/86; PULSE 66; RESP 12; TEMP 36.8; O2SAT 95
[2022-04-25] MEDS: amLODIPine Besylate 2.5 MG TABLET PO (08:38)
[2022-04-25] MEDS: carvediloL 3.125 MG TABLET 6.25 MG PO ×2 (08:38→21:04)
[2022-04-25] MEDS: methADONE HCl 20 MG/2 ML ORAL.CONC 45 MG PO (08:39)
[2022-04-25] MEDS: 0.9 % Sodium Chloride Flush 3 ML SYRINGE IVFLUSH ×3 (08:39→21:05)
--- NOTE | 2022-04-25 10:42 | MHC.RECOVRN ---
This fiction and nonfiction prose writer met w/ patient, patient was alert, sitting up in bed, eating breakfast. Pt states feels better after receiving MTD dose today. Patient reports around 1/2am in the evening, body aches and upset stomach. Patient requesting dose increase. Patient states prior to hospitalization in the past was taking 65mg and increasing to 75mg.
--- NOTE | 2022-04-25 11:11 | HO.PM.IMPN ---
Subjective Subjective Date of Service: 04/25/22 Interval History: Hip pain still an issue per patient; utilizing morphine every 4 hours Review of Systems Denies chest pain Denies nausea vomiting diarrhea Denies shortness of breath Denies fever chills Physical Exam Vital Signs: Vital Signs: Last Vital Signs Temp 98.3 F 04/25/22 07:56 Pulse 66 04/25/22 07:56 Resp 12 04/25/22 07:56 BP 150/86 H 04/25/22 07:56 Pulse Ox 95 04/25/22 07:56 O2 Del Method 04/25/22 07:56 BMI result Body Mass Index 35.9 Const: Other: No acute distress Resp: Other: Clear to auscultation bilaterally no rales rhonchi or wheezes Cardio: Other: No S4; positive S1-S2; no S3 murmurs rubs or gallops Extrem: Other: No edema bilaterally Objective Data Active Medications Acetaminophen (Acetaminophen 325 Mg Tablet) 650 mg PO Q6H PRN PRN Reason: Pain, Mild (Pain Scale 1-3) Amlodipine Besylate (Amlodipine Besylate 2.5 Mg Tablet) 2.5 mg PO DAILY [facility]; Protocol Last Admin: 04/25/22 08:38 Dose: 2.5 mg Documented By: ADELAIDA Carvedilol (Carvedilol 3.125 Mg Tablet) 6.25 mg PO BID [facility]; Protocol Last Admin: 04/25/22 08:38 Dose: 6.25 mg Documented By: ADELAIDA Enoxaparin Sodium (Enoxaparin Sodium 40 Mg/0.4 Ml Syringe) 40 mg SUBCUT Q24H [facility] Last Admin: 04/24/22 15:44 Dose: 40 mg Documented By: ERLINDA Methadone HCl (Methadone Hcl 20 Mg/2 Ml Oral.Conc) 45 mg PO DAILY [facility] Last Admin: 04/25/22 08:39 Dose: 45 mg Documented By: ADELAIDA Morphine Sulfate (Morphine Sulfate 4 Mg/Ml Cartridge) 4 mg IVPUSH Q4H PRN; Protocol PRN Reason: Pain, Severe (Pain Scale 7-10) Last Admin: 04/25/22 08:40 Dose: 4 mg Documented By: ADELAIDA Ondansetron HCl (Ondansetron Hcl 4 Mg/2 Ml Vial) 4 mg IVPUSH Q8H PRN PRN Reason: Nausea and Vomiting Oxycodone HCl (Oxycodone Hcl Immed Release 5 Mg Tablet) 5 mg PO Q6H PRN PRN Reason: Pain, Severe (Pain Scale 7-10) Last Admin: 04/25/22 03:40 Dose: 5 mg Documented By: BECKY Pharmacy Consult (Consult Rx Perform Med Rec) 1 each MISCELLANE ONCE PRN PRN Reason: Consult order Sodium Chloride (0.9 % Sodium Chloride Flush 3 Ml Syringe) 3 ml IVFLUSH QSHIFT [facility] Last Admin: 04/25/22 08:39 Dose: 3 ml Documented By: ADELAIDA Labs CBC & Chem 7: 04/21/22 05:57 04/22/22 08:18 Labs: Laboratory Results - last 24 hr 04/21/22 05:57 Hep C Viral Load 25920 H Hep C Viral Load Log 4.61 H Assessment and Plan (1) Hip fracture, intertrochanteric: Status: Acute (2) PAF (paroxysmal atrial fibrillation): Status: Acute Plan 61yo M with HTN, IDU presenting with subtrochanteric femur fracture on the left hip after falling.? Daily injection heroin abuse. 1.Subtrochanteric femur fx - POD#5 IMN L femur - pain control with APAP/oxycodone/morphine.. Wean to off starting q.6 today - PT.. Needs placement - LMWH x 1 mo for VTE px 2.Paroxysmal AF -echo without acute findings -continue current therapies 3.HTN -improved control with changes. -adjust as indicated 4.Preliminary HIV Ab/Ag screen positive - confirmatory immunoassay + RNA pending. 5. HCV Ab positive - RNA pending 6.Opioid abuse - Addiction Medicine consulted- started on methadone Full code Lovenox In my clinical judgment, the patient requires continued inpatient hospitalization for the following reasons: postop care, pending HIV confirmatory test Time Spent With Patient Time: Total time managing care of this patient today ____ minutes. Quality Stroke Does the patient have a stroke diagnosis?: No VTE Prior VTE?: No VTE Risk Level:: Medical - moderate - high VTE Device Contraindication: N/A - Device Ordered VTE Drug Contraindication: N/A - Med Ordered
[2022-04-25] MEDS: Enoxaparin Sodium 40 MG/0.4 ML SYRINGE SUBCUT (14:57)
[2022-04-25 14:58] VITALS: BP 123/73; PULSE 68; RESP 17; TEMP 36.3; O2SAT 92
[2022-04-25 20:57] VITALS: BP 142/80; PULSE 70
[2022-04-25 21:56] LABS: Troponin-I High Sensitivity 7.3 ng/L (<3.5-35.0)
[2022-04-25 23:58] VITALS: BP 148/88; PULSE 77; RESP 18; TEMP 37.2; O2SAT 92
[2022-04-26] MEDS: Morphine Sulfate 4 MG/ML CARTRIDGE IVPUSH ×2 (04:04→10:13)
[2022-04-26 08:00] VITALS: BP 146/79; PULSE 62; RESP 16; TEMP 36.6; O2SAT 96
[2022-04-26] MEDS: carvediloL 3.125 MG TABLET 6.25 MG PO ×2 (08:30→21:56)
[2022-04-26] MEDS: methADONE HCl 20 MG/2 ML ORAL.CONC 45 MG PO (08:31)
[2022-04-26] MEDS: oxyCODONE HCl Immed Release 5 MG TABLET PO (08:33)
[2022-04-26] MEDS: amLODIPine Besylate 2.5 MG TABLET PO (08:34)
[2022-04-26 09:32] VITALS: BP 146/79; PULSE 62; O2SAT 96
[2022-04-26] MEDS: 0.9 % Sodium Chloride Flush 3 ML SYRINGE IVFLUSH ×2 (10:14→17:27)
[2022-04-26 10:17] VITALS: RESP 16
--- NOTE | 2022-04-26 10:23 | MHC.RECOVRN ---
This proposal manager writer sent referral to [facility] per patient request, [facility] clinic confirmed referral was received.
[2022-04-26 11:44] LABS: HIV 1 Antibody NEGATIVE; HIV 2 Antibody NEGATIVE
--- NOTE | 2022-04-26 14:00 | MHC.RECOVRN ---
This screen writer met w/ patient, patient sitting up in recliner watching t.v. Patient reports withdrawal symptoms in the night, difficulty sleeping. Patient reporting runny nose, bodyaches all night. Provider aware.
--- NOTE | 2022-04-26 14:05 | P.PNIM_ITS ---
Subjective Subjective Date of Service: 04/26/22 Interval History: Pain control improved. Awaiting placement Review of Systems Denies chest pain Denies nausea vomiting diarrhea Denies shortness of breath Denies fever chills Physical Exam Vital Signs: Vital Signs: Last Vital Signs Temp 97.9 F 04/26/22 08:00 Pulse 62 04/26/22 09:32 Resp 16 04/26/22 10:17 BP 146/79 H 04/26/22 09:32 Pulse Ox 96 04/26/22 09:32 O2 Del Method 04/26/22 08:00 BMI result Body Mass Index 35.9 Const: Other: No acute distress Resp: Other: Clear to auscultation bilaterally no rales rhonchi or wheezes Cardio: Other: No S4; positive S1-S2; no S3 murmurs rubs or gallops Extrem: Other: No edema bilaterally Objective Data Active Medications Acetaminophen (Acetaminophen 325 Mg Tablet) 650 mg PO Q6H PRN PRN Reason: Pain, Mild (Pain Scale 1-3) Amlodipine Besylate (Amlodipine Besylate 2.5 Mg Tablet) 2.5 mg PO DAILY [facility]; Protocol Last Admin: 04/26/22 08:34 Dose: 2.5 mg Documented By: JACINTA Carvedilol (Carvedilol 3.125 Mg Tablet) 6.25 mg PO BID [facility]; Protocol Last Admin: 04/26/22 08:30 Dose: 6.25 mg Documented By: JACINTA Enoxaparin Sodium (Enoxaparin Sodium 40 Mg/0.4 Ml Syringe) 40 mg SUBCUT Q24H [facility] Last Admin: 04/25/22 14:57 Dose: 40 mg Documented By: ADELAIDA Methadone HCl (Methadone Hcl 20 Mg/2 Ml Oral.Conc) 45 mg PO DAILY [facility] Last Admin: 04/26/22 08:31 Dose: 45 mg Documented By: JACINTA Comments: 15mg wasted Ondansetron HCl (Ondansetron Hcl 4 Mg/2 Ml Vial) 4 mg IVPUSH Q8H PRN PRN Reason: Nausea and Vomiting Oxycodone HCl (Oxycodone Hcl Immed Release 5 Mg Tablet) 10 mg PO Q4H PRN PRN Reason: Pain, Moderate (Pain Scale 4-6 Pharmacy Consult (Consult Rx Perform Med Rec) 1 each MISCELLANE ONCE PRN PRN Reason: Consult order Sodium Chloride (0.9 % Sodium Chloride Flush 3 Ml Syringe) 3 ml IVFLUSH QSHIFT [facility] Last Admin: 04/26/22 10:14 Dose: 3 ml Documented By: JACINTA Labs CBC & Chem 7: 04/21/22 05:57 04/22/22 08:18 Labs: Laboratory Results - last 24 hr 04/18/22 04/25/22 05:25 21:12 Troponin I High Sens 7.3 HIV-1 Antibody NEGATIVE HIV-1 RNA, Qual (TMA) SEE NOTE HIV-2 Antibody NEGATIVE Assessment and Plan (1) Hip fracture, intertrochanteric: Status: Acute (2) PAF (paroxysmal atrial fibrillation): Status: Acute (3) Opioid use disorder: Status: Acute Plan 61yo M with HTN, IDU presenting with subtrochanteric femur fracture on the left hip after falling.? Daily injection heroin abuse. 1.Subtrochanteric femur fx - POD6 IMN L femur - pain control improved. Will DC morphine in favor of oxycodone - PT.. Needs placement - LMWH x 1 mo for VTE px 2.Paroxysmal AF -echo without acute findings -continue current therapies 3.HTN -improved control with changes. -adjust as indicated 4.Preliminary HIV Ab/Ag screen positive - confirmatory immunoassay + RNA pending. 5. HCV Ab positive -viral load of 4.61 log 6.Opioid abuse - Addiction Medicine consulted- started on methadone Full code Lovenox In my clinical judgment, the patient requires continued inpatient hospitalization for the following reasons: postop care, pending HIV confirmatory test Time Spent With Patient Time: Total time managing care of this patient today ____ minutes. Quality Stroke Does the patient have a stroke diagnosis?: No VTE Prior VTE?: No VTE Risk Level:: Medical - moderate - high VTE Device Contraindication: N/A - Device Ordered VTE Drug Contraindication: N/A - Med Ordered
--- NOTE | 2022-04-26 15:06 | MHC.CM.PN ---
per rounds pt ready for dc when bed becomes avalaible
[2022-04-26 15:26] VITALS: BP 131/79; PULSE 72; RESP 18; TEMP 36.9; O2SAT 95
--- NOTE | 2022-04-26 15:34 | PC.NURSE ---
Reviewed current orders for Tele and left TLC with Dr. Hobbs. Orders to D/C both therapies.
[2022-04-26] MEDS: Enoxaparin Sodium 40 MG/0.4 ML SYRINGE SUBCUT (17:26)
[2022-04-26] MEDS: oxyCODONE HCl Immed Release 5 MG TABLET 10 MG PO ×2 (18:40→22:41)
[2022-04-26 21:55] VITALS: BP 138/69; PULSE 78
[2022-04-26 23:08] VITALS: BP 130/76; PULSE 74; RESP 18; TEMP 37.3; O2SAT 95
[2022-04-27] MEDS: oxyCODONE HCl Immed Release 5 MG TABLET 10 MG PO ×4 (03:23→20:43)
[2022-04-27 07:08] VITALS: BP 124/72; PULSE 66; RESP 20; TEMP 36.8; O2SAT 94
[2022-04-27] MEDS: carvediloL 3.125 MG TABLET 6.25 MG PO ×2 (08:16→20:43)
[2022-04-27] MEDS: methADONE HCl 20 MG/2 ML ORAL.CONC 55 MG PO (08:16)
[2022-04-27] MEDS: amLODIPine Besylate 2.5 MG TABLET PO (08:16)
[2022-04-27 13:28] VITALS: BP 124/72; PULSE 66; O2SAT 94
--- NOTE | 2022-04-27 13:57 | PC.NURSE ---
report received from overnight RN, multimedia manager per JUN. pt c/o pain to L hip, multimedia manager with good relief per pt. Call harvey within reach, bed alarm on, encouraged to call for assistance
[2022-04-27] MEDS: Enoxaparin Sodium 40 MG/0.4 ML SYRINGE SUBCUT (15:07)
--- NOTE | 2022-04-27 15:07 | P.PNIM_ITS ---
Subjective Subjective Date of Service: 04/27/22 Interval History: Pain control adequate off morphine. Awaiting placement Review of Systems Denies chest pain Denies nausea vomiting diarrhea Denies shortness of breath Denies fever chills Physical Exam Vital Signs: Vital Signs: Last Vital Signs Temp 98.2 F 04/27/22 07:08 Pulse 66 04/27/22 13:28 Resp 20 04/27/22 07:08 BP 124/72 04/27/22 13:28 Pulse Ox 94 04/27/22 13:28 O2 Del Method 04/27/22 07:08 BMI result Body Mass Index 35.9 Const: Other: No acute distress Resp: Other: Clear to auscultation bilaterally no rales rhonchi or wheezes Cardio: Other: No S4; positive S1-S2; no S3 murmurs rubs or gallops Extrem: Other: No edema bilaterally Objective Data Active Medications Acetaminophen (Acetaminophen 325 Mg Tablet) 650 mg PO Q6H PRN PRN Reason: Pain, Mild (Pain Scale 1-3) Amlodipine Besylate (Amlodipine Besylate 2.5 Mg Tablet) 2.5 mg PO DAILY [facility]; Protocol Last Admin: 04/27/22 08:16 Dose: 2.5 mg Documented By: NATALIO Carvedilol (Carvedilol 3.125 Mg Tablet) 6.25 mg PO BID [facility]; Protocol Last Admin: 04/27/22 08:16 Dose: 6.25 mg Documented By: NATALIO Enoxaparin Sodium (Enoxaparin Sodium 40 Mg/0.4 Ml Syringe) 40 mg SUBCUT Q24H [facility] Last Admin: 04/26/22 17:26 Dose: 40 mg Documented By: BROOneyda Methadone HCl (Methadone Hcl 20 Mg/2 Ml Oral.Conc) 55 mg PO DAILY [facility] Last Admin: 04/27/22 08:16 Dose: 55 mg Documented By: NATALIO Ondansetron HCl (Ondansetron Hcl 4 Mg/2 Ml Vial) 4 mg IVPUSH Q8H PRN PRN Reason: Nausea and Vomiting Oxycodone HCl (Oxycodone Hcl Immed Release 5 Mg Tablet) 10 mg PO Q4H PRN PRN Reason: Pain, Moderate (Pain Scale 4-6 Last Admin: 04/27/22 08:16 Dose: 10 mg Documented By: NATALIO Pharmacy Consult (Consult Rx Perform Med Rec) 1 each MISCELLANE ONCE PRN PRN Reason: Consult order Sodium Chloride (0.9 % Sodium Chloride Flush 3 Ml Syringe) 3 ml IVFLUSH QSHIFT [facility] Last Admin: 04/27/22 08:16 Dose: 3 ml Documented By: NATALIO Labs CBC & Chem 7: 04/21/22 05:57 04/22/22 08:18 Assessment and Plan (1) Hip fracture, intertrochanteric: Status: Acute (2) PAF (paroxysmal atrial fibrillation): Status: Acute (3) Closed intertrochanteric fracture of left hip: Status: Acute Plan 61yo M with HTN, IDU presenting with subtrochanteric femur fracture on the left hip after falling.? Daily injection heroin abuse. 1.Subtrochanteric femur fx - POD7 IMN L femur - pain control absent - PT.. Needs placement - LMWH x 1 mo for VTE px 2.Paroxysmal AF -echo without acute findings -continue current therapies 3.HTN -improved control with changes. -adjust as indicated 4.Preliminary HIV Ab/Ag screen positive - confirmatory immunoassay + RNA pending. 5. HCV Ab positive -viral load of 4.61 log 6.Opioid abuse - Addiction Medicine consulted- started on methadone Full code Lovenox In my clinical judgment, the patient requires continued inpatient hospitalization for the following reasons: postop care, pending HIV confirmatory test Time Spent With Patient Time: Total time managing care of this patient today ____ minutes. Quality Stroke Does the patient have a stroke diagnosis?: No VTE Prior VTE?: No VTE Risk Level:: Medical - moderate - high VTE Device Contraindication: N/A - Device Ordered VTE Drug Contraindication: N/A - Med Ordered
[2022-04-27 15:32] VITALS: BP 143/81; PULSE 67; RESP 19; TEMP 36.2; O2SAT 95
[2022-04-27 16:12] VITALS: RESP 16
[2022-04-27 20:42] VITALS: BP 122/74; PULSE 71; RESP 16; TEMP 36.8; O2SAT 96
[2022-04-28] VITALS (8 sets, daily range): BP systolic 109–135; BP diastolic 68–73; PULSE 64–76; RESP 16–20; TEMP 36.3–37.1; O2SAT 92–96
[2022-04-28] MEDS: oxyCODONE HCl Immed Release 5 MG TABLET 10 MG PO ×5 (00:53→21:32)
[2022-04-28] MEDS: amLODIPine Besylate 2.5 MG TABLET PO (08:31)
[2022-04-28] MEDS: carvediloL 3.125 MG TABLET 6.25 MG PO ×2 (08:31→21:35)
[2022-04-28] MEDS: methADONE HCl 20 MG/2 ML ORAL.CONC 55 MG PO (08:32)
--- NOTE | 2022-04-28 11:51 | P.PNIM_ITS ---
Subjective Subjective Date of Service: 04/28/22 Interval History: hip pain controlled no other complaints Review of Systems Review of Systems: Yes all other systems are reviewed and are negative Physical Exam Vital Signs: Vital Signs: Last Vital Signs Temp 97.4 F 04/28/22 07:26 Pulse 68 04/28/22 08:39 Resp 20 04/28/22 07:26 BP 117/68 04/28/22 07:26 Pulse Ox 96 04/28/22 07:26 O2 Del Method 04/28/22 07:26 BMI result Body Mass Index 35.9 Gen: in no acute distress HEENT: sclera anicteric, moist mucus membranes Neck: supple Lungs: clear to auscultation bilaterally Heart: regular rate and rhythm, no murmurs Abd: soft, non-tender, non-distended, obese Ext: no edema, L hip incision intact Skin: warm/well-perfused Neuro: alert and oriented x3, no focal findings Psych: appropriate affect Objective Data Active Medications Acetaminophen (Acetaminophen 325 Mg Tablet) 650 mg PO Q6H PRN PRN Reason: Pain, Mild (Pain Scale 1-3) Amlodipine Besylate (Amlodipine Besylate 2.5 Mg Tablet) 2.5 mg PO DAILY [facility]; Protocol Last Admin: 04/28/22 08:31 Dose: 2.5 mg Documented By: SHON Carvedilol (Carvedilol 3.125 Mg Tablet) 6.25 mg PO BID [facility]; Protocol Last Admin: 04/28/22 08:31 Dose: 6.25 mg Documented By: SHON Enoxaparin Sodium (Enoxaparin Sodium 40 Mg/0.4 Ml Syringe) 40 mg SUBCUT Q24H [facility] Last Admin: 04/27/22 15:07 Dose: 40 mg Documented By: NATALIO Methadone HCl (Methadone Hcl 20 Mg/2 Ml Oral.Conc) 55 mg PO DAILY [facility] Last Admin: 04/28/22 08:32 Dose: 55 mg Documented By: SHON Ondansetron HCl (Ondansetron Hcl 4 Mg/2 Ml Vial) 4 mg IVPUSH Q8H PRN PRN Reason: Nausea and Vomiting Oxycodone HCl (Oxycodone Hcl Immed Release 5 Mg Tablet) 10 mg PO Q4H PRN PRN Reason: Pain, Moderate (Pain Scale 4-6 Last Admin: 04/28/22 10:31 Dose: 10 mg Documented By: SHON Pharmacy Consult (Consult Rx Perform Med Rec) 1 each MISCELLANE ONCE PRN PRN Reason: Consult order Sodium Chloride (0.9 % Sodium Chloride Flush 3 Ml Syringe) 3 ml IVFLUSH QSHIFT [facility] Last Admin: 04/28/22 08:20 Dose: Not Given Documented By: SHON Non-Admin Reason: No Access Labs CBC & Chem 7: 04/21/22 05:57 04/22/22 08:18 Assessment and Plan (1) Hip fracture, intertrochanteric: Status: Acute (2) PAF (paroxysmal atrial fibrillation): Status: Acute (3) Closed intertrochanteric fracture of left hip: Status: Acute Plan d#12 61yo M with HTN, IDU presenting with subtrochanteric femur fracture on the left hip after falling.? Daily injection heroin abuse. # subtrochanteric femur fx - POD #9 IMN L femur - pain under control - PT -> STR - LMWH x 1 mo for VTE ppx # paroxysmal AF + AIVR - TTE with RWMA, will need outpt ischemic workup - continue carvedilol - [id number] 1, no AC indicated # HTN - continue amlodipine + carvedilol # preliminary HIV Ab/Ag screen positive - immunoassay negative, RNA pending to rule out acute HIV # chronic HCV - outpt treatment # OUD - Addiction Medicine consulted, on methadone # VTE ppx: LMWH # dispo: awaiting STR In my clinical judgment, the patient requires continued inpatient hospitalization for the following reasons: postop care, placement Time Spent With Patient Time: Total time managing care of this patient today _30__ minutes. Quality Stroke Does the patient have a stroke diagnosis?: No VTE Prior VTE?: No VTE Risk Level:: Medical - moderate - high VTE Device Contraindication: N/A - Device Ordered VTE Drug Contraindication: N/A - Med Ordered
[2022-04-28] MEDS: Enoxaparin Sodium 40 MG/0.4 ML SYRINGE SUBCUT (14:27)
[2022-04-29] MEDS: oxyCODONE HCl Immed Release 5 MG TABLET 10 MG PO ×4 (01:07→18:16)
[2022-04-29] MEDS: 0.9 % Sodium Chloride Flush 3 ML SYRINGE IVFLUSH (01:14)
[2022-04-29 03:15] VITALS: BP 120/65; PULSE 74; TEMP 37.1; O2SAT 95
[2022-04-29 07:40] VITALS: BP 117/63; PULSE 78; RESP 20; TEMP 36.8; O2SAT 93
[2022-04-29] MEDS: amLODIPine Besylate 2.5 MG TABLET PO (07:41)
[2022-04-29] MEDS: carvediloL 3.125 MG TABLET 6.25 MG PO ×2 (07:41→20:07)
[2022-04-29] MEDS: methADONE HCl 20 MG/2 ML ORAL.CONC 55 MG PO (07:43)
--- NOTE | 2022-04-29 09:48 | P.PNIM_ITS ---
Subjective Subjective Date of Service: 04/29/22 Interval History: hip pain controlled Review of Systems Review of Systems: Yes all other systems are reviewed and are negative Physical Exam 2 Vital Signs: Vital Signs: Last Vital Signs Temp 98.3 F 04/29/22 07:40 Pulse 78 04/29/22 07:40 Resp 20 04/29/22 07:40 BP 117/63 04/29/22 07:40 Pulse Ox 93 04/29/22 07:40 O2 Del Method 04/29/22 07:40 BMI result Body Mass Index 35.9 Gen: in no acute distress HEENT: sclera anicteric, moist mucus membranes Neck: supple Lungs: clear to auscultation bilaterally Heart: regular rate and rhythm, no murmurs Abd: soft, non-tender, non-distended, obese Ext: no edema, L hip incision intact Skin: warm/well-perfused Neuro: alert and oriented x3, no focal findings Psych: appropriate affect Objective Data Active Medications Acetaminophen (Acetaminophen 325 Mg Tablet) 650 mg PO Q6H PRN PRN Reason: Pain, Mild (Pain Scale 1-3) Amlodipine Besylate (Amlodipine Besylate 2.5 Mg Tablet) 2.5 mg PO DAILY [facility]; Protocol Last Admin: 04/29/22 07:41 Dose: 2.5 mg Documented By: JACQUELINE Carvedilol (Carvedilol 3.125 Mg Tablet) 6.25 mg PO BID [facility]; Protocol Last Admin: 04/29/22 07:41 Dose: 6.25 mg Documented By: JACQUELINE Enoxaparin Sodium (Enoxaparin Sodium 40 Mg/0.4 Ml Syringe) 40 mg SUBCUT Q24H [facility] Last Admin: 04/28/22 14:27 Dose: 40 mg Documented By: ELISA Methadone HCl (Methadone Hcl 20 Mg/2 Ml Oral.Conc) 55 mg PO DAILY [facility] Last Admin: 04/29/22 07:43 Dose: 55 mg Documented By: JACQUELINE Ondansetron HCl (Ondansetron Hcl 4 Mg/2 Ml Vial) 4 mg IVPUSH Q8H PRN PRN Reason: Nausea and Vomiting Oxycodone HCl (Oxycodone Hcl Immed Release 5 Mg Tablet) 10 mg PO Q4H PRN PRN Reason: Pain, Moderate (Pain Scale 4-6 Last Admin: 04/29/22 05:50 Dose: 10 mg Documented By: ELISA Pharmacy Consult (Consult Rx Perform Med Rec) 1 each MISCELLANE ONCE PRN PRN Reason: Consult order Sodium Chloride (0.9 % Sodium Chloride Flush 3 Ml Syringe) 3 ml IVFLUSH QSHIFT [facility] Last Admin: 04/29/22 07:42 Dose: Not Given Documented By: JACQUELINE Non-Admin Reason: No Access Labs CBC & Chem 7: 04/21/22 05:57 04/22/22 08:18 Assessment and Plan (1) Hip fracture, intertrochanteric: Status: Acute (2) PAF (paroxysmal atrial fibrillation): Status: Acute (3) Closed intertrochanteric fracture of left hip: Status: Acute Plan d#13 61yo M with HTN, IDU [heroin] presenting with subtrochanteric femur fracture on the left hip after falling # subtrochanteric femur fx - POD #10 IMN L femur - pain under control - PT: STR - LMWH x 1 mo postop for VTE ppx # paroxysmal AF + AIVR - TTE with RWMA, will need outpt Cardiology f/u for ischemic workup - continue carvedilol - [id number] 1, no AC indicated # HTN - continue amlodipine + carvedilol # preliminary HIV Ab/Ag screen positive - immunoassay negative, RNA pending to rule out acute HIV # chronic HCV - outpt treatment # OUD - Addiction Medicine consulted, on methadone # VTE ppx: LMWH # dispo: awaiting STR In my clinical judgment, the patient requires continued inpatient hospitalization for the following reasons: postop care, placement Time Spent With Patient Time: Total time managing care of this patient today __25__ minutes. Quality Stroke Does the patient have a stroke diagnosis?: No VTE Prior VTE?: No VTE Risk Level:: Medical - moderate - high VTE Device Contraindication: N/A - Device Ordered VTE Drug Contraindication: N/A - Med Ordered
--- NOTE | 2022-04-29 13:42 | MHC.RECOVRN ---
Met with pt this morning to follow up regarding methadone titration. Pt sitting in bed, asleep, wakes to voice. Pt states I got my methadone and I can't keep my eyes open. Pt left to rest. Referral has been sent to [facility]. Must be given last dose letter prior to dc.
--- NOTE | 2022-04-29 14:12 | MHC.CM.PN ---
EMR REVIEWED, PT REAMINS FOR POST OP CARE AND PLACEMENT. REFERRAL TO [facility] SENT. AWAITING RESPONSE. CM WILL CONTINUE TO FOLLOW.
[2022-04-29 15:09] VITALS: BP 132/78; PULSE 77; RESP 20; TEMP 36.6; O2SAT 92
[2022-04-29] MEDS: Enoxaparin Sodium 40 MG/0.4 ML SYRINGE SUBCUT (16:09)
[2022-04-29] MEDS: Calcium Carbonate 750 MG TAB.CHEW PO (18:20)
[2022-04-29] MEDS: Famotidine 20 MG TABLET PO (20:08)
[2022-04-29 22:53] VITALS: BP 114/60; PULSE 72; RESP 19; TEMP 36.5; O2SAT 91
[2022-04-30] MEDS: oxyCODONE HCl Immed Release 5 MG TABLET 10 MG PO ×3 (00:19→21:37)
[2022-04-30 07:27] VITALS: BP 121/73; PULSE 63; RESP 20; TEMP 36.3; O2SAT 94
--- NOTE | 2022-04-30 07:45 | PM.PNORT ---
Subjective Subjective Date of Service: 04/30/22 Interval history: s/p left hip IMN no overnight events has not been getting out of bed as often with PT denies sob, cp, palpitations Physical Exam Vital Signs: Vital Signs: Last Vital Signs Temp 97.4 F 04/30/22 07:27 Pulse 63 04/30/22 07:27 Resp 20 04/30/22 07:27 BP 121/73 04/30/22 07:27 Pulse Ox 94 04/30/22 07:27 O2 Del Method 04/30/22 07:27 BMI result Body Mass Index 35.9 Const: General: cooperative, healthy appearing and no acute distress Resp: Effort & Inspection: normal respiratory effort and able to speak in complete sentences Cardio: Rate: regular rate Peripheral pulses: Peripheral pulses 2+ throughout GI: Palpation (GI): Soft to palpation Skin: General skin exam: no rashes or lesions noted Extrem: Other: left hip incision clean ,. dry and intact. No erythema, mild edema. NVI. Procedures Date of Service Date of Service: 04/30/22 Progress Note: A&P Assessment and plan (1) Hip fracture, intertrochanteric: Status: Acute Assessment and Plan: carol removed today continue lovenox x4 more weeks continue PT/OT wbat - gait training f/u with ortho in 4 weeks for post op xrays Time Spent With Patient Time: Total time managing care of this patient today ____ minutes. Quality Stroke Does the patient have a stroke diagnosis?: No VTE Prior VTE?: No VTE Risk Level:: Medical - moderate - high VTE Device Contraindication: N/A - Device Ordered VTE Drug Contraindication: N/A - Med Ordered
[2022-04-30] MEDS: amLODIPine Besylate 2.5 MG TABLET PO (08:42)
[2022-04-30] MEDS: Famotidine 20 MG TABLET PO ×2 (08:42→21:37)
[2022-04-30] MEDS: methADONE HCl 20 MG/2 ML ORAL.CONC 55 MG PO (08:42)
[2022-04-30] MEDS: carvediloL 3.125 MG TABLET 6.25 MG PO ×2 (08:42→21:37)
--- NOTE | 2022-04-30 11:17 | HO.PM.IMPN ---
Subjective Subjective Date of Service: 04/30/22 Interval History: hip pain controlled awaiting STR placement Review of Systems Review of Systems: Yes all other systems are reviewed and are negative Physical Exam Vital Signs: Vital Signs: Last Vital Signs Temp 97.4 F 04/30/22 07:27 Pulse 63 04/30/22 07:27 Resp 20 04/30/22 07:27 BP 121/73 04/30/22 07:27 Pulse Ox 94 04/30/22 07:27 O2 Del Method 04/30/22 07:27 BMI result Body Mass Index 35.9 Gen: in no acute distress HEENT: sclera anicteric, moist mucus membranes Neck: supple Lungs: clear to auscultation bilaterally Heart: regular rate and rhythm, no murmurs Abd: soft, non-tender, non-distended, obese Ext: no edema, L hip incision intact Skin: warm/well-perfused Neuro: alert and oriented x3, no focal findings Psych: appropriate affect Objective Data Active Medications Acetaminophen (Acetaminophen 325 Mg Tablet) 650 mg PO Q6H PRN PRN Reason: Pain, Mild (Pain Scale 1-3) Amlodipine Besylate (Amlodipine Besylate 2.5 Mg Tablet) 2.5 mg PO DAILY [facility]; Protocol Last Admin: 04/30/22 08:42 Dose: 2.5 mg Documented By: LEX Calcium Carbonate (Calcium Carbonate 750 Mg Tab.Chew) 750 mg PO Q4H PRN PRN Reason: herat burn Last Admin: 04/29/22 18:20 Dose: 750 mg Documented By: JAILYN Carvedilol (Carvedilol 3.125 Mg Tablet) 6.25 mg PO BID [facility]; Protocol Last Admin: 04/30/22 08:42 Dose: 6.25 mg Documented By: LEX Enoxaparin Sodium (Enoxaparin Sodium 40 Mg/0.4 Ml Syringe) 40 mg SUBCUT Q24H [facility] Last Admin: 04/29/22 16:09 Dose: 40 mg Documented By: SUKHDEV Famotidine (Famotidine 20 Mg Tablet) 20 mg PO BID [facility] Last Admin: 04/30/22 08:42 Dose: 20 mg Documented By: LEX Methadone HCl (Methadone Hcl 20 Mg/2 Ml Oral.Conc) 55 mg PO DAILY [facility] Last Admin: 04/30/22 08:42 Dose: 55 mg Documented By: LEX Ondansetron HCl (Ondansetron Hcl 4 Mg/2 Ml Vial) 4 mg IVPUSH Q8H PRN PRN Reason: Nausea and Vomiting Oxycodone HCl (Oxycodone Hcl Immed Release 5 Mg Tablet) 10 mg PO Q4H PRN PRN Reason: Pain, Moderate (Pain Scale 4-6 Last Admin: 04/30/22 00:19 Dose: 10 mg Documented By: MARC Pharmacy Consult (Consult Rx Perform Med Rec) 1 each MISCELLANE ONCE PRN PRN Reason: Consult order Sodium Chloride (0.9 % Sodium Chloride Flush 3 Ml Syringe) 3 ml IVFLUSH QSHIFT [facility] Last Admin: 04/30/22 11:01 Dose: Not Given Documented By: LEX Non-Admin Reason: No Access Labs CBC & Chem 7: 04/21/22 05:57 04/22/22 08:18 Assessment and Plan (1) Hip fracture, intertrochanteric: Status: Acute (2) PAF (paroxysmal atrial fibrillation): Status: Acute (3) Closed intertrochanteric fracture of left hip: Status: Acute Plan d#14 61yo M with HTN, IDU [heroin] presenting with subtrochanteric femur fracture on the left hip after falling # subtrochanteric femur fx - POD #11 IMN L femur - pain under control - ortho: carol out today - PT: STR, WBAT - LMWH x 1 mo postop for VTE ppx # paroxysmal AF + AIVR - TTE with RWMA, will need outpt Cardiology f/u for ischemic workup - continue carvedilol - [id number] 1, no AC indicated # HTN - continue amlodipine + carvedilol # preliminary HIV Ab/Ag screen positive - immunoassay negative, RNA pending to rule out acute HIV # chronic HCV - outpt treatment # OUD - Addiction Medicine consulted, on methadone # VTE ppx: LMWH # dispo: awaiting STR In my clinical judgment, the patient requires continued inpatient hospitalization for the following reasons: postop care, placement Time Spent With Patient Time: Total time managing care of this patient today ___25_ minutes. Quality Stroke Does the patient have a stroke diagnosis?: No VTE Prior VTE?: No VTE Risk Level:: Medical - moderate - high VTE Device Contraindication: N/A - Device Ordered VTE Drug Contraindication: N/A - Med Ordered
--- NOTE | 2022-04-30 12:05 | MHC.CM.PN ---
Patient is medically cleared for dc and PT is recommending STR. R/T Patient's Methadone, his SNF choices are limited; [facility] is following and a referral was also made to [facility]. CM will follow.
[2022-04-30 15:11] VITALS: BP 143/79; PULSE 70; RESP 17; TEMP 36.7; O2SAT 94
[2022-04-30] MEDS: Enoxaparin Sodium 40 MG/0.4 ML SYRINGE SUBCUT (16:32)
--- NOTE | 2022-04-30 17:05 | P.PNADD_ITS ---
Subjective Subjective Date of Service: 04/30/22 Reason For Visit: Hip Fx, IVDA, PAF Interim History: Patient seen in follow up Methadone currently at 55mg QD Patient requesting dose be increased by another 10mg Patient noted to be drowsy when seen by this gag writer earlier in AM and by [facility] RN over the weekend. Appearing comfortable in recliner, eating all of his meals. States he has withdrawal sx in the evening and is unable to sleep as a result. Review of Systems Constitutional: Reports as per HPI Mental Status Exam Mental Status Exam Patient Appearance: Appropriate Level of Consciousness: Awake and Drowsy Mood Description: Calm Affect Description: Calm Diagnostics Vital Signs (24Hr): Vital Signs - 24 hr 04/29/22 22:53 04/30/22 07:27 04/30/22 15:11 Temperature 97.7 F 97.4 F 98.1 F Pulse Rate 72 63 70 Respiratory Rate 19 20 17 Blood Pressure 114/60 121/73 143/79 H Pulse Oximetry 91 L 94 94 Oxygen Delivery Method Room Air Room Air Room Air BMI result Body Mass Index 35.9 Labs Results: 04/21/22 05:57 04/22/22 08:18 Imaging Radiology Impressions: ITS Impressions Chest X-Ray 04/17/22 10:19 IMPRESSION: Comminuted intertrochanteric fracture of the left hip. No acute parenchymal disease within the chest. Hip/Pelvis X-Ray 04/17/22 10:19 IMPRESSION: Comminuted intertrochanteric fracture of the left hip. No acute parenchymal disease within the chest. Chest X-Ray 04/19/22 13:50 IMPRESSION: 1. Left subclavian central venous catheter terminates over the mid SVC. No pneumothorax. 2. Bronchial wall thickening noted which could be associated with a small airways process. Guidance Fluoroscopy 04/19/22 15:11 IMPRESSION: Imaging guidance utilized for procedure. For details regarding procedure and findings please refer to the operative report. Medications Medications Current Medications Acetaminophen (Acetaminophen 325 Mg Tablet) 650 mg PO Q6H PRN PRN Reason: Pain, Mild (Pain Scale 1-3) Amlodipine Besylate (Amlodipine Besylate 2.5 Mg Tablet) 2.5 mg PO DAILY [facility]; Protocol Last Admin: 04/30/22 08:42 Dose: 2.5 mg Calcium Carbonate (Calcium Carbonate 750 Mg Tab.Chew) 750 mg PO Q4H PRN PRN Reason: herat burn Last Admin: 04/29/22 18:20 Dose: 750 mg Carvedilol (Carvedilol 3.125 Mg Tablet) 6.25 mg PO BID [facility]; Protocol Last Admin: 04/30/22 08:42 Dose: 6.25 mg Enoxaparin Sodium (Enoxaparin Sodium 40 Mg/0.4 Ml Syringe) 40 mg SUBCUT Q24H [facility] Last Admin: 04/30/22 16:32 Dose: 40 mg Famotidine (Famotidine 20 Mg Tablet) 20 mg PO BID [facility] Last Admin: 04/30/22 08:42 Dose: 20 mg Methadone HCl (Methadone Hcl 20 Mg/2 Ml Oral.Conc) 55 mg PO DAILY [facility] Last Admin: 04/30/22 08:42 Dose: 55 mg Ondansetron HCl (Ondansetron Hcl 4 Mg/2 Ml Vial) 4 mg IVPUSH Q8H PRN PRN Reason: Nausea and Vomiting Oxycodone HCl (Oxycodone Hcl Immed Release 5 Mg Tablet) 10 mg PO Q4H PRN PRN Reason: Pain, Moderate (Pain Scale 4-6 Last Admin: 04/30/22 16:32 Dose: 10 mg Pharmacy Consult (Consult Rx Perform Med Rec) 1 each MISCELLANE ONCE PRN PRN Reason: Consult order Sodium Chloride (0.9 % Sodium Chloride Flush 3 Ml Syringe) 3 ml IVFLUSH QSHIFT [facility] Last Admin: 04/30/22 11:01 Dose: Not Given Allergies Allergies Allergy/AdvReac Type Severity Reaction Status Date / Time Penicillins [PENICILLINS] Allergy Unknown RASH Verified 07/10/20 11:45 Assessment & Plan Assessment & Plan (1) Opioid use disorder: Status: Acute Code(s): F11.90 - Opioid use, unspecified, uncomplicated Assessment and Plan: * will hold at this dose for now given patients presentation * will continue to follow Total time managing care of this patient today __25__ minutes.
[2022-04-30 23:29] VITALS: BP 136/77; PULSE 79; RESP 20; TEMP 36.6; O2SAT 95
[2022-05-01] MEDS: oxyCODONE HCl Immed Release 5 MG TABLET 10 MG PO ×2 (03:01→10:05)
[2022-05-01 07:49] VITALS: BP 130/71; PULSE 76; RESP 12; TEMP 36.4; O2SAT 94
[2022-05-01] MEDS: amLODIPine Besylate 2.5 MG TABLET PO (09:05)
[2022-05-01] MEDS: methADONE HCl 20 MG/2 ML ORAL.CONC 55 MG PO (09:05)
[2022-05-01] MEDS: Famotidine 20 MG TABLET PO ×2 (09:05→20:13)
[2022-05-01] MEDS: carvediloL 3.125 MG TABLET 6.25 MG PO ×2 (10:05→20:13)
--- NOTE | 2022-05-01 10:05 | HO.PM.IMPN ---
Subjective Subjective Date of Service: 05/01/22 Interval History: ongoing hip pain needs prolonged rehab; see PT note no other complaints Review of Systems Review of Systems: Yes all other systems are reviewed and are negative Physical Exam Vital Signs: Vital Signs: Last Vital Signs Temp 97.6 F 05/01/22 07:49 Pulse 76 05/01/22 07:49 Resp 12 05/01/22 07:49 BP 130/71 05/01/22 07:49 Pulse Ox 94 05/01/22 07:49 O2 Del Method 05/01/22 07:49 BMI result Body Mass Index 35.9 Gen: in no acute distress HEENT: sclera anicteric, moist mucus membranes Neck: supple Lungs: clear to auscultation bilaterally Heart: regular rate and rhythm, no murmurs Abd: soft, non-tender, non-distended, obese Ext: no edema, L hip incision intact Skin: warm/well-perfused Neuro: alert and oriented x3, no focal findings Psych: appropriate affect Objective Data Active Medications Acetaminophen (Acetaminophen 325 Mg Tablet) 650 mg PO Q6H PRN PRN Reason: Pain, Mild (Pain Scale 1-3) Amlodipine Besylate (Amlodipine Besylate 2.5 Mg Tablet) 2.5 mg PO DAILY [facility]; Protocol Last Admin: 05/01/22 09:05 Dose: 2.5 mg Documented By: SHON Calcium Carbonate (Calcium Carbonate 750 Mg Tab.Chew) 750 mg PO Q4H PRN PRN Reason: herat burn Last Admin: 04/29/22 18:20 Dose: 750 mg Documented By: JAILYN Carvedilol (Carvedilol 3.125 Mg Tablet) 6.25 mg PO BID [facility]; Protocol Last Admin: 04/30/22 21:37 Dose: 6.25 mg Documented By: ARYA Enoxaparin Sodium (Enoxaparin Sodium 40 Mg/0.4 Ml Syringe) 40 mg SUBCUT Q24H [facility] Last Admin: 04/30/22 16:32 Dose: 40 mg Documented By: LEX Famotidine (Famotidine 20 Mg Tablet) 20 mg PO BID [facility] Last Admin: 05/01/22 09:05 Dose: 20 mg Documented By: SHON Methadone HCl (Methadone Hcl 20 Mg/2 Ml Oral.Conc) 55 mg PO DAILY [facility] Last Admin: 05/01/22 09:05 Dose: 55 mg Documented By: SHON Ondansetron HCl (Ondansetron Hcl 4 Mg/2 Ml Vial) 4 mg IVPUSH Q8H PRN PRN Reason: Nausea and Vomiting Oxycodone HCl (Oxycodone Hcl Immed Release 5 Mg Tablet) 10 mg PO Q4H PRN PRN Reason: Pain, Moderate (Pain Scale 4-6 Last Admin: 05/01/22 03:01 Dose: 10 mg Documented By: ELISA Pharmacy Consult (Consult Rx Perform Med Rec) 1 each MISCELLANE ONCE PRN PRN Reason: Consult order Sodium Chloride (0.9 % Sodium Chloride Flush 3 Ml Syringe) 3 ml IVFLUSH QSHIFT [facility] Last Admin: 05/01/22 09:06 Dose: 3 ml Documented By: SHON Labs CBC & Chem 7: 04/21/22 05:57 04/22/22 08:18 Labs: Laboratory Results - last 24 hr 04/26/22 13:30 Ref Lab Test Result SEE NOTE Assessment and Plan (1) Hip fracture, intertrochanteric: Status: Acute (2) PAF (paroxysmal atrial fibrillation): Status: Acute (3) Closed intertrochanteric fracture of left hip: Status: Acute Plan d#15 61yo M with HTN, IDU [heroin] presenting with subtrochanteric femur fracture on the left hip after falling # subtrochanteric femur fx - POD #12 IMN L femur - pain under control - ortho: carol out 04/30/22 - PT: STR, WBAT - LMWH x 1 mo postop for VTE ppx # paroxysmal AF + AIVR - TTE with RWMA, will need outpt Cardiology f/u for ischemic workup - continue carvedilol - [id number] 1, no AC indicated # HTN - continue amlodipine + carvedilol # preliminary HIV Ab/Ag screen positive - immunoassay negative, RNA from 04/26/22 negative, so this is a false-positive test # chronic HCV - outpt treatment # OUD - Addiction Medicine consulted, on methadone # VTE ppx: LMWH # dispo: awaiting STR In my clinical judgment, the patient requires continued inpatient hospitalization for the following reasons: postop care, placement Time Spent With Patient Time: Total time managing care of this patient today __26__ minutes. Quality Stroke Does the patient have a stroke diagnosis?: No VTE Prior VTE?: No VTE Risk Level:: Medical - moderate - high VTE Device Contraindication: N/A - Device Ordered VTE Drug Contraindication: N/A - Med Ordered
--- NOTE | 2022-05-01 14:50 | MHC.CM.PN ---
pt dc ready when bed avlaiabler no bed so far for pt
[2022-05-01 14:53] LABS: HIV RNA PCR Qn Copies NOT DETECTED copies/mL (NOT DETECTED); HIV RNA PCR Qn Log Copies NOT DETECTED (NOT DETECTED)
[2022-05-01 15:05] VITALS: BP 137/79; PULSE 74; RESP 20; TEMP 36.1; O2SAT 93
[2022-05-01] MEDS: Enoxaparin Sodium 40 MG/0.4 ML SYRINGE SUBCUT (16:15)
[2022-05-01 23:31] VITALS: BP 127/75; PULSE 75; RESP 15; TEMP 37.2; O2SAT 95
[2022-05-02 03:41] VITALS: BP 120/72; PULSE 77; RESP 15; O2SAT 93
[2022-05-02 07:47] VITALS: BP 129/73; PULSE 75; RESP 20; TEMP 36.6; O2SAT 93
[2022-05-02] MEDS: Famotidine 20 MG TABLET PO ×2 (08:44→19:31)
[2022-05-02] MEDS: carvediloL 3.125 MG TABLET 6.25 MG PO ×2 (08:44→19:30)
[2022-05-02] MEDS: methADONE HCl 20 MG/2 ML ORAL.CONC 55 MG PO (08:45)
[2022-05-02] MEDS: amLODIPine Besylate 2.5 MG TABLET PO (08:45)
[2022-05-02] MEDS: Acetaminophen 325 MG TABLET 650 MG PO (08:47)
[2022-05-02] MEDS: Enoxaparin Sodium 40 MG/0.4 ML SYRINGE SUBCUT (14:02)
--- NOTE | 2022-05-02 14:52 | HO.PM.IMPN ---
Subjective Subjective Date of Service: 05/02/22 Interval History: Offers no acute complaints,has discomfort at site of umbilical hernia, denies nausea, vomiting,moving bowels, tolerating diet denies abdominal distension no other acute issues overnight, no fevers no chills no lightheadedness or dizziness. Review of Systems Review of Systems: Yes all other systems are reviewed and are negative Physical Exam Vital Signs: Vital Signs: Last Vital Signs Temp 97.9 F 05/02/22 07:47 Pulse 75 05/02/22 07:47 Resp 20 05/02/22 07:47 BP 129/73 05/02/22 07:47 Pulse Ox 93 05/02/22 07:47 O2 Del Method 05/02/22 07:47 BMI result Body Mass Index 35.9 Const: Other: Gen: in no acute distress HEENT: sclera anicteric, moist mucus membranes Neck: supple Lungs: clear to auscultation bilaterally Heart: regular rate and rhythm, no murmurs Abd: soft, non-tender, non-distended, obese, protruded umbilicus, no strangulated hernia, bowel sounds audible Ext: no edema, L hip incision intact Skin: warm/well-perfused Neuro: alert and oriented x3, no focal findings Psych: appropriate affect Objective Data Active Medications Acetaminophen (Acetaminophen 325 Mg Tablet) 650 mg PO Q6H PRN PRN Reason: Pain, Mild (Pain Scale 1-3) Last Admin: 05/02/22 08:47 Dose: 650 mg Documented By: PEDRO Amlodipine Besylate (Amlodipine Besylate 2.5 Mg Tablet) 2.5 mg PO DAILY [facility]; Protocol Last Admin: 05/02/22 08:45 Dose: 2.5 mg Documented By: PEDRO Calcium Carbonate (Calcium Carbonate 750 Mg Tab.Chew) 750 mg PO Q4H PRN PRN Reason: herat burn Last Admin: 04/29/22 18:20 Dose: 750 mg Documented By: JAILYN Carvedilol (Carvedilol 3.125 Mg Tablet) 6.25 mg PO BID [facility]; Protocol Last Admin: 05/02/22 08:44 Dose: 6.25 mg Documented By: PEDRO Enoxaparin Sodium (Enoxaparin Sodium 40 Mg/0.4 Ml Syringe) 40 mg SUBCUT Q24H [facility] Last Admin: 05/02/22 14:02 Dose: 40 mg Documented By: PEDRO Famotidine (Famotidine 20 Mg Tablet) 20 mg PO BID [facility] Last Admin: 05/02/22 08:44 Dose: 20 mg Documented By: PEDRO Methadone HCl (Methadone Hcl 20 Mg/2 Ml Oral.Conc) 55 mg PO DAILY [facility] Last Admin: 05/02/22 08:45 Dose: 55 mg Documented By: PEDRO Ondansetron HCl (Ondansetron Hcl 4 Mg/2 Ml Vial) 4 mg IVPUSH Q8H PRN PRN Reason: Nausea and Vomiting Pharmacy Consult (Consult Rx Perform Med Rec) 1 each MISCELLANE ONCE PRN PRN Reason: Consult order Sodium Chloride (0.9 % Sodium Chloride Flush 3 Ml Syringe) 3 ml IVFLUSH QSHIFT [facility] Last Admin: 05/02/22 13:45 Dose: Not Given Documented By: PEDRO Non-Admin Reason: No Access Labs CBC & Chem 7: 04/21/22 05:57 04/22/22 08:18 Labs: Laboratory Results - last 24 hr 04/28/22 08:08 HIV-1 RNA copies/mL NOT DETECTED HIV-1 RNA logcopies/mL NOT DETECTED Assessment and Plan (1) Hip fracture, intertrochanteric: Status: Acute (2) PAF (paroxysmal atrial fibrillation): Status: Acute (3) Closed intertrochanteric fracture of left hip: Status: Acute Plan d#15 61yo M with HTN, IDU [heroin] presenting with subtrochanteric femur fracture on the left hip after falling # Left subtrochanteric femur fx - POD #13 IMN L femur - pain under control - ortho: carol out 04/30/22 - PT: STR, WBAT - LMWH x 1 mo postop for VTE ppx # paroxysmal AF + AIVR - TTE with RWMA, will need outpt Cardiology f/u for ischemic workup - continue carvedilol, [id number] 1, no AC indicated # HTN - stable blood pressure, continue amlodipine + carvedilol # preliminary HIV Ab/Ag screen positive - immunoassay negative, RNA from 04/26/22 negative, so this is a false-positive test # chronic HCV - outpt treatment # OUD - Addiction Medicine consulted, on methadone # VTE ppx: LMWH # dispo: awaiting STR In my clinical judgment, the patient requires continued inpatient hospitalization for the following reasons: postop care, placement Time Spent With Patient Time: Total time managing care of this patient today ____ minutes. Quality Stroke Does the patient have a stroke diagnosis?: No VTE Prior VTE?: No VTE Risk Level:: Medical - moderate - high VTE Device Contraindication: N/A - Device Ordered VTE Drug Contraindication: N/A - Med Ordered
[2022-05-02 14:59] VITALS: BP 124/81; PULSE 69; RESP 20; TEMP 36.7; O2SAT 94
[2022-05-02 18:58] VITALS: BP 126/72; PULSE 72; RESP 20; TEMP 36.7; O2SAT 93
[2022-05-02 23:08] VITALS: BP 115/75; PULSE 71; RESP 20; TEMP 36.8; O2SAT 95
[2022-05-03] MEDS: Acetaminophen 325 MG TABLET 650 MG PO ×2 (06:46→21:11)
[2022-05-03 07:26] VITALS: BP 133/80; PULSE 74; RESP 20; TEMP 37; O2SAT 96
[2022-05-03 07:33] LABS: Glucose, Whole Blood 102 mg/dL (60-115)
[2022-05-03] MEDS: methADONE HCl 20 MG/2 ML ORAL.CONC 55 MG PO (09:22)
[2022-05-03] MEDS: amLODIPine Besylate 2.5 MG TABLET PO (09:22)
[2022-05-03] MEDS: carvediloL 3.125 MG TABLET 6.25 MG PO ×2 (09:22→21:13)
[2022-05-03] MEDS: Famotidine 20 MG TABLET PO ×2 (09:22→21:13)
[2022-05-03] MEDS: Calcium Carbonate 750 MG TAB.CHEW PO (09:31)
[2022-05-03 10:21] VITALS: BP 133/80; PULSE 74; O2SAT 96
--- NOTE | 2022-05-03 11:55 | HO.PM.IMPN ---
Subjective Subjective Date of Service: 05/03/22 Interval History: Complaining of discomfort mid abdomen, no nausea no vomiting no constipation, participating with physical therapy no acute events overnight. Review of Systems Review of Systems: Yes all other systems are reviewed and are negative Physical Exam Vital Signs: Vital Signs: Last Vital Signs Temp 98.6 F 05/03/22 07:26 Pulse 74 05/03/22 10:21 Resp 20 05/03/22 07:26 BP 133/80 05/03/22 10:21 Pulse Ox 96 05/03/22 10:21 O2 Del Method 05/03/22 07:26 BMI result Body Mass Index 35.9 Const: Other: Gen: in no acute distress HEENT: sclera anicteric, moist mucus membranes Neck: supple Lungs: clear to auscultation bilaterally Heart: regular rate and rhythm, no murmurs Abd: soft, non-distended, obese, protruded umbilicus, no strangulated hernia, bowel sounds audible Ext: no edema, L hip incision intact Skin: warm/well-perfused Neuro: alert and oriented x3, no focal findings Psych: appropriate affect ? Objective Data Active Medications Acetaminophen (Acetaminophen 325 Mg Tablet) 650 mg PO Q6H PRN PRN Reason: Pain, Mild (Pain Scale 1-3) Last Admin: 05/03/22 06:46 Dose: 650 mg Documented By: JAC Amlodipine Besylate (Amlodipine Besylate 2.5 Mg Tablet) 2.5 mg PO DAILY [facility]; Protocol Last Admin: 05/03/22 09:22 Dose: 2.5 mg Documented By: PEDRO Calcium Carbonate (Calcium Carbonate 750 Mg Tab.Chew) 750 mg PO Q4H PRN PRN Reason: herat burn Last Admin: 05/03/22 09:31 Dose: 750 mg Documented By: PEDRO Carvedilol (Carvedilol 3.125 Mg Tablet) 6.25 mg PO BID [facility]; Protocol Last Admin: 05/03/22 09:22 Dose: 6.25 mg Documented By: PEDRO Enoxaparin Sodium (Enoxaparin Sodium 40 Mg/0.4 Ml Syringe) 40 mg SUBCUT Q24H [facility] Last Admin: 05/02/22 14:02 Dose: 40 mg Documented By: PEDRO Famotidine (Famotidine 20 Mg Tablet) 20 mg PO BID [facility] Last Admin: 05/03/22 09:22 Dose: 20 mg Documented By: PEDRO Methadone HCl (Methadone Hcl 20 Mg/2 Ml Oral.Conc) 55 mg PO DAILY [facility] Last Admin: 05/03/22 09:22 Dose: 55 mg Documented By: PEDRO Ondansetron HCl (Ondansetron Hcl 4 Mg/2 Ml Vial) 4 mg IVPUSH Q8H PRN PRN Reason: Nausea and Vomiting Pharmacy Consult (Consult Rx Perform Med Rec) 1 each MISCELLANE ONCE PRN PRN Reason: Consult order Sodium Chloride (0.9 % Sodium Chloride Flush 3 Ml Syringe) 3 ml IVFLUSH QSHIFT [facility] Last Admin: 05/03/22 09:22 Dose: Not Given Documented By: PEDRO Non-Admin Reason: No Access Labs 04/21/22 05:57 04/22/22 08:18 Labs: Laboratory Results - last 24 hr 05/03/22 07:29 POC Glucose 102 Assessment and Plan (1) Hip fracture, intertrochanteric: Status: Acute (2) PAF (paroxysmal atrial fibrillation): Status: Acute (3) Opioid use disorder: Status: Acute (4) Closed intertrochanteric fracture of left hip: Status: Acute Plan 61yo M with HTN,? IDU [heroin] presenting with subtrochanteric femur fracture on the left hip after falling # Left subtrochanteric femur fx - POD #14 IMN L femur, pain under control, for carol out 04/30/22 - PT: STR, WBAT - LMWH x 1 mo postop for VTE ppx # paroxysmal AF + AIVR - TTE with RWMA, will need outpt Cardiology f/u for ischemic workup - continue carvedilol, [id number] 1, no AC indicated # HTN - stable blood pressure, continue amlodipine + carvedilol # preliminary HIV Ab/Ag screen positive - immunoassay negative, RNA from 04/26/22 negative, so this is a false-positive test # chronic HCV - outpt treatment # OUD - Addiction Medicine consulted, on methadone # chronic umblical hernia recommend to avoid straining, outpatient surgical follow-up # VTE ppx: LMWH # dispo: awaiting STR In my clinical judgment, the patient requires continued inpatient hospitalization for the following reasons: postop care, placement Time Spent With Patient Time: Total time managing care of this patient today ____ minutes. Quality Stroke Does the patient have a stroke diagnosis?: No VTE Prior VTE?: No VTE Risk Level:: Medical - moderate - high VTE Device Contraindication: N/A - Device Ordered VTE Drug Contraindication: N/A - Med Ordered
[2022-05-03] MEDS: Enoxaparin Sodium 40 MG/0.4 ML SYRINGE SUBCUT (13:49)
[2022-05-03 15:34] VITALS: BP 127/71; PULSE 72; RESP 19; TEMP 36.5; O2SAT 94
[2022-05-03 19:03] VITALS: BP 118/74; PULSE 69; RESP 19; TEMP 36.4; O2SAT 96
[2022-05-03 21:14] VITALS: BP 113/64; PULSE 66
[2022-05-04 00:45] VITALS: BP 127/73; PULSE 72; RESP 18; TEMP 36.7; O2SAT 94
[2022-05-04 08:00] VITALS: BP 130/78; PULSE 62; RESP 18; TEMP 36.1; O2SAT 96
[2022-05-04] MEDS: Famotidine 20 MG TABLET PO ×2 (08:45→20:23)
[2022-05-04] MEDS: carvediloL 3.125 MG TABLET 6.25 MG PO ×2 (08:45→20:23)
[2022-05-04] MEDS: methADONE HCl 20 MG/2 ML ORAL.CONC 55 MG PO (08:45)
[2022-05-04] MEDS: amLODIPine Besylate 2.5 MG TABLET PO (08:45)
--- NOTE | 2022-05-04 10:31 | P.PNIM_ITS ---
Subjective Subjective Date of Service: 05/04/22 Interval History: Patient complaining of lack of sleep has chronic sleeping problem, no other acute issues, tolerating diet with no nausea, no vomiting, no abdominal pain, moving bowels, no shortness of breath, no urinary symptoms. Review of Systems Review of Systems: Yes all other systems are reviewed and are negative Physical Exam Vital Signs: Vital Signs: Last Vital Signs Temp 97 F 05/04/22 08:00 Pulse 62 05/04/22 08:00 Resp 18 05/04/22 08:00 BP 130/78 05/04/22 08:00 Pulse Ox 96 05/04/22 08:00 O2 Del Method 05/04/22 08:00 BMI result Body Mass Index 35.9 Const: Other: Gen: in no acute distress HEENT: sclera anicteric, moist mucus membranes Neck: supple Lungs: clear to auscultation bilaterally Heart: regular rate and rhythm, no murmurs Abd: soft, non-distended, obese, protruded umbilicus, no strangulated hernia, bowel sounds audible Ext: no edema, L hip incision intact Skin: warm/well-perfused Neuro: alert and oriented x3, no focal findings Psych: appropriate affect ? Objective Data Active Medications Acetaminophen (Acetaminophen 325 Mg Tablet) 650 mg PO Q6H PRN PRN Reason: Pain, Mild (Pain Scale 1-3) Last Admin: 05/03/22 21:11 Dose: 650 mg Documented By: MARYLIN Amlodipine Besylate (Amlodipine Besylate 2.5 Mg Tablet) 2.5 mg PO DAILY [facility]; Protocol Last Admin: 05/04/22 08:45 Dose: 2.5 mg Documented By: JORDAN Calcium Carbonate (Calcium Carbonate 750 Mg Tab.Chew) 750 mg PO Q4H PRN PRN Reason: herat burn Last Admin: 05/03/22 09:31 Dose: 750 mg Documented By: PEDRO Carvedilol (Carvedilol 3.125 Mg Tablet) 6.25 mg PO BID [facility]; Protocol Last Admin: 05/04/22 08:45 Dose: 6.25 mg Documented By: JORDAN Enoxaparin Sodium (Enoxaparin Sodium 40 Mg/0.4 Ml Syringe) 40 mg SUBCUT Q24H [facility] Last Admin: 05/03/22 13:49 Dose: 40 mg Documented By: PEDRO Famotidine (Famotidine 20 Mg Tablet) 20 mg PO BID [facility] Last Admin: 05/04/22 08:45 Dose: 20 mg Documented By: JORDAN Methadone HCl (Methadone Hcl 20 Mg/2 Ml Oral.Conc) 55 mg PO DAILY [facility] Last Admin: 05/04/22 08:45 Dose: 55 mg Documented By: JORDAN Ondansetron HCl (Ondansetron Hcl 4 Mg/2 Ml Vial) 4 mg IVPUSH Q8H PRN PRN Reason: Nausea and Vomiting Pharmacy Consult (Consult Rx Perform Med Rec) 1 each MISCELLANE ONCE PRN PRN Reason: Consult order Sodium Chloride (0.9 % Sodium Chloride Flush 3 Ml Syringe) 3 ml IVFLUSH QSHIFT [facility] Last Admin: 05/04/22 08:46 Dose: Not Given Documented By: JORDAN Non-Admin Reason: No Access Labs 04/21/22 05:57 04/22/22 08:18 Assessment and Plan (1) Hip fracture, intertrochanteric: Status: Acute (2) PAF (paroxysmal atrial fibrillation): Status: Acute (3) Opioid use disorder: Status: Acute (4) Closed intertrochanteric fracture of left hip: Status: Acute Plan 61yo M with HTN,? IDU [heroin] presenting with subtrochanteric femur fracture on the left hip after falling # Left subtrochanteric femur fx - POD #15 IMN L femur, pain under control, carol out 04/30/22 - PT: STR, WBAT - LMWH x 1 mo postop for VTE ppx # paroxysmal AF + AIVR echo showed right wall motion abnormality, recommend outpatient ischemic workup, - continue carvedilol, [id number] 1, no AC indicated # insomnia will add melatonin # HTN - stable blood pressure, continue amlodipine + carvedilol # preliminary HIV Ab/Ag screen positive - immunoassay negative, RNA from 04/26/22 negative, so this is a false-positive test # chronic HCV - outpt treatment # OUD - Addiction Medicine consulted, on methadone # chronic umblical hernia recommend to avoid straining, outpatient surgical follow-up # VTE ppx: LMWH # dispo: awaiting STR In my clinical judgment, the patient requires continued inpatient hospitalization for the following reasons: postop care, placement Time Spent With Patient Time: Total time managing care of this patient today ____ minutes. Quality Stroke Does the patient have a stroke diagnosis?: No VTE Prior VTE?: No VTE Risk Level:: Medical - moderate - high VTE Device Contraindication: N/A - Device Ordered VTE Drug Contraindication: N/A - Med Ordered
[2022-05-04 14:12] VITALS: BP 130/78; PULSE 62; O2SAT 96
[2022-05-04 16:00] VITALS: BP 142/78; PULSE 76; RESP 20; TEMP 36.6; O2SAT 96
[2022-05-04] MEDS: Enoxaparin Sodium 40 MG/0.4 ML SYRINGE SUBCUT (16:26)
[2022-05-04] MEDS: Melatonin 3 MG TABLET 6 MG PO (20:23)
[2022-05-04 20:26] VITALS: BP 135/73; PULSE 71
[2022-05-05 08:00] VITALS: BP 133/81; PULSE 66; RESP 18; TEMP 36.5; O2SAT 95
[2022-05-05] MEDS: Famotidine 20 MG TABLET PO ×2 (09:42→20:29)
[2022-05-05] MEDS: carvediloL 3.125 MG TABLET 6.25 MG PO ×2 (09:42→20:29)
[2022-05-05] MEDS: amLODIPine Besylate 2.5 MG TABLET PO (09:42)
[2022-05-05] MEDS: methADONE HCl 20 MG/2 ML ORAL.CONC 55 MG PO (09:43)
[2022-05-05] MEDS: Acetaminophen 325 MG TABLET 650 MG PO (09:46)
--- NOTE | 2022-05-05 09:55 | P.PNIM_ITS ---
Subjective Subjective Date of Service: 05/05/22 Interval History: Complaining of hip pain, no nausea, no vomiting, no abdominal pain, tolerating diet, moving bowels, took melatonin last night still unable to sleep, has been ambulating to bathroom no other acute issues overnight. Review of Systems Review of Systems: Yes all other systems are reviewed and are negative Physical Exam Vital Signs: Vital Signs: Last Vital Signs Temp 97.7 F 05/05/22 08:00 Pulse 66 05/05/22 08:00 Resp 18 05/05/22 08:00 BP 133/81 05/05/22 08:00 Pulse Ox 95 05/05/22 08:00 O2 Del Method 05/05/22 08:00 BMI result Body Mass Index 35.9 Const: Other: Gen: in no acute distress HEENT: sclera anicteric, moist mucus membranes Neck: supple Lungs: clear to auscultation bilaterally Heart: regular rate and rhythm, no murmurs Abd: soft, non-distended, obese, protruded umbilicus, no strangulated hernia, bowel sounds audible Ext: no edema, L hip incision intact Skin: warm/well-perfused Neuro: alert and oriented x3, no focal findings Psych: appropriate affect Objective Data Active Medications Acetaminophen (Acetaminophen 325 Mg Tablet) 650 mg PO Q6H PRN PRN Reason: Pain, Mild (Pain Scale 1-3) Last Admin: 05/05/22 09:46 Dose: 650 mg Documented By: JORDAN Amlodipine Besylate (Amlodipine Besylate 2.5 Mg Tablet) 2.5 mg PO DAILY [facility]; Protocol Last Admin: 05/05/22 09:42 Dose: 2.5 mg Documented By: JORDAN Calcium Carbonate (Calcium Carbonate 750 Mg Tab.Chew) 750 mg PO Q4H PRN PRN Reason: herat burn Last Admin: 05/03/22 09:31 Dose: 750 mg Documented By: PEDRO Carvedilol (Carvedilol 3.125 Mg Tablet) 6.25 mg PO BID [facility]; Protocol Last Admin: 05/05/22 09:42 Dose: 6.25 mg Documented By: JORDAN Enoxaparin Sodium (Enoxaparin Sodium 40 Mg/0.4 Ml Syringe) 40 mg SUBCUT Q24H [facility] Last Admin: 05/04/22 16:26 Dose: 40 mg Documented By: JORDAN Famotidine (Famotidine 20 Mg Tablet) 20 mg PO BID [facility] Last Admin: 05/05/22 09:42 Dose: 20 mg Documented By: JORDAN Melatonin (Melatonin 3 Mg Tablet) 6 mg PO BEDTIME [facility] Last Admin: 05/04/22 20:23 Dose: 6 mg Documented By: MARYLIN Methadone HCl (Methadone Hcl 20 Mg/2 Ml Oral.Conc) 55 mg PO DAILY [facility] Last Admin: 05/05/22 09:43 Dose: 55 mg Documented By: JORDAN Ondansetron HCl (Ondansetron Hcl 4 Mg/2 Ml Vial) 4 mg IVPUSH Q8H PRN PRN Reason: Nausea and Vomiting Pharmacy Consult (Consult Rx Perform Med Rec) 1 each MISCELLANE ONCE PRN PRN Reason: Consult order Sodium Chloride (0.9 % Sodium Chloride Flush 3 Ml Syringe) 3 ml IVFLUSH QSHIFT [facility] Last Admin: 05/05/22 08:01 Dose: Not Given Documented By: JORDAN Non-Admin Reason: No Access Labs 04/21/22 05:57 04/22/22 08:18 Assessment and Plan (1) Hip fracture, intertrochanteric: Status: Acute (2) PAF (paroxysmal atrial fibrillation): Status: Acute (3) Opioid use disorder: Status: Acute (4) Closed intertrochanteric fracture of left hip: Status: Acute Plan 61yo M with HTN,? IDU [heroin] presenting with subtrochanteric femur fracture on the left hip after falling # Left subtrochanteric femur fx - POD #16 IMN L femur, surgery done on 04/19, pain under control, carol out 04/30/22 - PT: STR, WBAT - LMWH x 1 mo postop for VTE ppx # paroxysmal AF + AIVR echo showed right wall motion abnormality, recommend outpatient ischemic workup, no chest pain, no shortness - continue carvedilol, [id number] 1, no AC indicated # insomnia melatonin given with no good affect give temazepam # HTN - stable blood pressure, continue amlodipine + carvedilol # preliminary HIV Ab/Ag screen positive - immunoassay negative, RNA from 04/26/22 negative, so this is a false-positive test # chronic HCV - outpt treatment # OUD - Addiction Medicine consulted, on methadone # chronic umblical hernia recommend to avoid straining, outpatient surgical follow-up # VTE ppx: LMWH # dispo: awaiting STR In my clinical judgment, the patient requires continued inpatient hospitalization for the following reasons: postop care, placement Time Spent With Patient Time: Total time managing care of this patient today ____ minutes. Quality Stroke Does the patient have a stroke diagnosis?: No VTE Prior VTE?: No VTE Risk Level:: Medical - moderate - high VTE Device Contraindication: N/A - Device Ordered VTE Drug Contraindication: N/A - Med Ordered
[2022-05-05 15:36] VITALS: BP 139/88; PULSE 70; RESP 17; TEMP 36.7; O2SAT 95
[2022-05-05] MEDS: Enoxaparin Sodium 40 MG/0.4 ML SYRINGE SUBCUT (16:30)
[2022-05-05] MEDS: Temazepam 15 MG CAPSULE PO (20:29)
[2022-05-06] VITALS (7 sets, daily range): BP systolic 125–146; BP diastolic 70–86; PULSE 70–85; RESP 18–72; TEMP 36.7–37.1; O2SAT 91–97
[2022-05-06] MEDS: amLODIPine Besylate 2.5 MG TABLET PO (10:30)
[2022-05-06] MEDS: Famotidine 20 MG TABLET PO ×2 (10:30→19:15)
[2022-05-06] MEDS: methADONE HCl 20 MG/2 ML ORAL.CONC 55 MG PO (10:30)
[2022-05-06] MEDS: carvediloL 3.125 MG TABLET 6.25 MG PO ×2 (10:30→19:15)
--- NOTE | 2022-05-06 14:09 | MHC.CM.PN ---
pt ,made arrangements form his brother to,pick him up,today at 530 or 6 pt given last dose letter for his methadone
[2022-05-06] MEDS: Enoxaparin Sodium 40 MG/0.4 ML SYRINGE SUBCUT (14:48)
--- NOTE | 2022-05-06 16:37 | PC.NURSE ---
Pt is being discharge with lovenox injection at home, teaching was done at the bedside , pt was able to practice to inject lovenox to the artificially made injection site at the bedside. pt feels confident to inject medication for himself at home . Sites for injections were reviewed with the patient with understanding
--- NOTE | 2022-05-06 17:18 | P.DS_ITS ---
DS: Providers Provider Date of Service: 05/06/22 Date of admission: 04/17/22 15:07 Primary care physician: [facility] Consults: 04/17/22 12:21 Consult to Orthopedics Routine Consulting Provider: [facility] Reason for consultation: hip fx 04/17/22 14:48 Addiction Medicine Routine Consulting Provider: Addiction Covering Reason for consultation: heroinabuse 04/19/22 16:36 Consult to Cardiology Routine Consulting Provider: Alan Oropeza Reason for consultation: New Afib Has provider been notified: Yes DS: Diagnosis Discharge Diagnosis (1) Hip fracture, intertrochanteric: Status: Acute (2) PAF (paroxysmal atrial fibrillation): Status: Acute (3) Opioid use disorder: Status: Acute (4) Closed intertrochanteric fracture of left hip: Status: Acute DS: Summary Hospital Course Hospital Course: Date of Service: 04/17/22 Chief Complaint: fall, L hip pain 61yo M with hx IDU, DM2, HTN, recurrent falls brought in by EMS with severe L hip pain after he fell in the kitchen last night after opening the refrigerator.? No lightheadness or syncope and he did not hit is head.? He was unable to get off the floor and was down on the ground for nearly 16 hours.? He is in the habit of injecting 1 bag of heroin daily.? He found a bag in his swe atpants pocket this morning and snorted it.? His girlfriend eventually found him on the floor and called EMS.? Endorses hip pain.? Denies chest pain, cough, skin abscess or rash, fever, or chills.? In the ED, he was found to have a L subtrochanteric femur fracture. Hospital course 61yo M with HTN,? IDU [heroin] presenting with subtrochanteric femur fracture on the left hip after falling # Left subtrochanteric femur fx, patient underwent left hip surgery on 04/16, pain under good control carol were removed on 04/30/2022 patient is being followed by Physical therapy, patient is able to ambulate with walker Physical therapy initially recommended short-term rehab, but since rehab but was not available patient wishes to be discharged home, therefore will discharge home with outpatient physical therapy since patient is not bed bound cannot arrange VNA services, patient received teaching to self administer Lovenox that he will require for total 4 weeks last dose May 16 # in PACU patient noted to have paroxysmal atrial fibrillation patient treated with amiodarone 150 mg and he converted back to sinus rhythm, later patient noted to have accelerated idioventricular rhythm , an echo showed right wall motion abnormality, patient seen by supervisor press room they recommend outpatient ischemic workup, patient denied chest pain no shortness of breath recommend to continue Coreg twice daily [id number] 1, no AC indicated # insomnia continue temazepam # HTN stable blood pressure, continue amlodipine 2.5 mg and carvedilol # preliminary HIV Ab/Ag screen positive, immunoassay negative, RNA from 04/26/22 negative, so this is a false-positive test # chronic HCV - outpt treatment # OUD, Addiction Medicine consulted, continue on methadone # chronic umblical hernia recommend to avoid straining, outpatient surgical follow-up. Time Spent with Patient Time attestation: Total time managing care of this patient today ____ minutes. Discharge coordination time: Greater than 30 minutes Quality: Safe Use of Opioids Does Pt have an Active Cancer Diagnosis on the Problem List?: No Quality: Stroke Does the patient have a stroke diagnosis?: No Physical Exam Vital Signs: Vital Signs: Last Vital Signs Temp 98.6 F 05/06/22 15:24 Pulse 76 05/06/22 15:24 Resp 18 05/06/22 15:24 BP 134/77 05/06/22 15:24 Pulse Ox 93 05/06/22 15:24 O2 Del Method 05/06/22 15:24 BMI result Body Mass Index 35.9 Const: Other: Gen: Awake alert, in no acute distress HEENT: sclera anicteric, moist mucus membranes Neck: supple Lungs: clear to auscultation bilaterally Heart: regular rate and rhythm, no murmurs Abd: soft, non-distended, obese, protruded umbilicus, no strangulated hernia, bowel sounds audible Ext: no edema, L hip incision intact Neuro: alert and oriented x3, no focal findings Psych: appropriate affect Discharge Plan Discharge Anticipated Discharge Date/Time: 05/06/22 16:01 Patient Disposition: Home, Self-Care Discharge Diagnosis: Left subtrochanteric femur fracture status post surgery April 19 Paroxysmal atrial fibrillation Chronic hepatitis-C Referrals: [facility] [Primary Care Provider] - 1 Week Low Albright PA-C [Physician Musical Instrument Supervisor] - 2 Weeks (05/02/22 3:15 [facility] Low Albright PA-C) Discharge Medications: New amlodipine 2.5 mg Tablet 2.5 mg PO DAILY Qty: 30 0RF Protocol: Hold for SBP< HOLD for SBP < : 90 carvedilol 3.125 mg Tablet 6.25 mg PO BID Qty: 60 0RF Protocol: Hold for SBP/HR < HOLD for SBP < : 90 HOLD for HR < : 60 temazepam 15 mg Capsule 15 mg PO BEDTIME Qty: 30 0RF enoxaparin 40 mg/0.4 mL Syringe 40 mg subcut Q24H Qty: 4 0RF Rx Instructions: give for 10 more days omeprazole 20 mg capsule,delayed release(DR/EC) 20 mg PO DAILY Qty: 30 0RF Discontinued amlodipine 10 mg tablet 1 tab PO DAILY Discharge Orders: Discharge Order (Routine); Ordered 05/06/22 Ordered By: Ally Morfin Diet: Regular diet Activity on Discharge: Use cane or walker Stand Alone Forms: Patient Portal Discharge page Care Plan Goals: Call primary care physician to arrange for outpatient physical therapy, continue methadone as before Health Concerns: Restore function of joint Plan of Treatment: Physical Therapy Pain management DVT prophylaxix take lovenox thru 05/16 Assessment: Gait training, strengthening, ADLs Continue Lovenox for dvt ppx x6 weeks Keep dressing clean,dry and intact-no showering or tub baths Follow up with Orthopedics in 2 weeks
--- NOTE | 2022-05-06 18:41 | PC.NURSE ---
there is no transportation for the pt rosa m to go home ,
--- NOTE | 2022-05-06 18:51 | HO.PM.IMPN ---
Subjective Subjective Date of Service: 05/06/22 Interval History: Offers no acute complaints was unable to participate in PT since needed to move bowel, wishes to go home, family will provide care, slept well with temazepam, denies nausea vomiting abdominal pain, no constipation moving bowels, no other acute issues no recurrent episodes of atrial fibrillation. Review of Systems Review of Systems: Yes all other systems are reviewed and are negative Physical Exam Vital Signs: Vital Signs: Last Vital Signs Temp 98.6 F 05/06/22 15:24 Pulse 76 05/06/22 15:24 Resp 18 05/06/22 15:24 BP 134/77 05/06/22 15:24 Pulse Ox 93 05/06/22 15:24 O2 Del Method 05/06/22 15:24 BMI result Body Mass Index 35.9 Const: Other: Gen: in no acute distress HEENT: sclera anicteric, moist mucus membranes Neck: supple Lungs: clear to auscultation bilaterally Heart: regular rate and rhythm, no murmurs Abd: soft, non-distended, obese, protruded umbilicus, no strangulated hernia, bowel sounds audible Ext: no edema, L hip incision intact Skin: warm/well-perfused Neuro: alert and oriented x3, no focal findings Psych: appropriate affect Objective Data Active Medications Acetaminophen (Acetaminophen 325 Mg Tablet) 650 mg PO Q6H PRN PRN Reason: Pain, Mild (Pain Scale 1-3) Last Admin: 05/05/22 09:46 Dose: 650 mg Documented By: JORDAN Amlodipine Besylate (Amlodipine Besylate 2.5 Mg Tablet) 2.5 mg PO DAILY [facility]; Protocol Last Admin: 05/06/22 10:30 Dose: 2.5 mg Documented By: JAIME Calcium Carbonate (Calcium Carbonate 750 Mg Tab.Chew) 750 mg PO Q4H PRN PRN Reason: herat burn Last Admin: 05/03/22 09:31 Dose: 750 mg Documented By: PEDRO Carvedilol (Carvedilol 3.125 Mg Tablet) 6.25 mg PO BID [facility]; Protocol Last Admin: 05/06/22 10:30 Dose: 6.25 mg Documented By: JAIME Enoxaparin Sodium (Enoxaparin Sodium 40 Mg/0.4 Ml Syringe) 40 mg SUBCUT Q24H [facility] Last Admin: 05/06/22 14:48 Dose: 40 mg Documented By: N-SOFFA Famotidine (Famotidine 20 Mg Tablet) 20 mg PO BID [facility] Last Admin: 05/06/22 10:30 Dose: 20 mg Documented By: N-SOFFA Methadone HCl (Methadone Hcl 20 Mg/2 Ml Oral.Conc) 55 mg PO DAILY [facility] Last Admin: 05/06/22 10:30 Dose: 55 mg Documented By: N-SOFFA Ondansetron HCl (Ondansetron Hcl 4 Mg/2 Ml Vial) 4 mg IVPUSH Q8H PRN PRN Reason: Nausea and Vomiting Pharmacy Consult (Consult Rx Perform Med Rec) 1 each MISCELLANE ONCE PRN PRN Reason: Consult order Sodium Chloride (0.9 % Sodium Chloride Flush 3 Ml Syringe) 3 ml IVFLUSH QSHIFT [facility] Last Admin: 05/06/22 17:39 Dose: Not Given Documented By: SUKHDEV Non-Admin Reason: No Access Temazepam (Temazepam 15 Mg Capsule) 15 mg PO BEDTIME [facility] Last Admin: 05/05/22 20:29 Dose: 15 mg Documented By: JAC Labs 04/21/22 05:57 04/22/22 08:18 Assessment and Plan (1) Hip fracture, intertrochanteric: Status: Acute (2) PAF (paroxysmal atrial fibrillation): Status: Acute Plan 61yo M with HTN,? IDU [heroin] presenting with subtrochanteric femur fracture on the left hip after falling # Left subtrochanteric femur fx - POD #17 IMN L femur, surgery done on 04/19, pain under control, carol out 04/30/22 - PT: STR, WBAT - LMWH x 1 mo postop for VTE ppx # paroxysmal AF + AIVR echo showed right wall motion abnormality, recommend outpatient ischemic workup, no chest pain, no shortness - continue carvedilol, [id number] 1, no AC indicated # insomnia? good affect with with temazepam # HTN - stable blood pressure, continue amlodipine + carvedilol # preliminary HIV Ab/Ag screen positive - immunoassay negative, RNA from 04/26/22 negative, so this is a false-positive test # chronic HCV - outpt treatment # OUD - Addiction Medicine consulted, on methadone # chronic umblical hernia recommend to avoid straining, outpatient surgical follow-up # VTE ppx: LMWH # dispo: awaiting STR In my clinical judgment, the patient requires continued inpatient hospitalization for the following reasons: postop care, patient was scheduled to leave home but has no right so will be discharged home tomorrow. Time Spent With Patient Time: Total time managing care of this patient today ____ minutes. Quality Stroke Does the patient have a stroke diagnosis?: No VTE Prior VTE?: No VTE Risk Level:: Medical - moderate - high VTE Device Contraindication: N/A - Device Ordered VTE Drug Contraindication: N/A - Med Ordered
[2022-05-06] MEDS: Temazepam 15 MG CAPSULE PO (19:15)
[2022-05-07 03:24] VITALS: BP 130/74; PULSE 79; RESP 16; TEMP 36.8; O2SAT 94
[2022-05-07 07:50] VITALS: BP 142/76; PULSE 75; RESP 20; TEMP 36.7; O2SAT 95
[2022-05-07] MEDS: methADONE HCl 20 MG/2 ML ORAL.CONC 55 MG PO (07:51)
[2022-05-07] MEDS: Acetaminophen 325 MG TABLET 650 MG PO ×2 (07:51→22:39)
[2022-05-07] MEDS: carvediloL 3.125 MG TABLET 6.25 MG PO ×2 (07:51→22:36)
[2022-05-07] MEDS: amLODIPine Besylate 2.5 MG TABLET PO (07:51)
[2022-05-07] MEDS: Famotidine 20 MG TABLET PO ×2 (07:51→22:37)
[2022-05-07] MEDS: Enoxaparin Sodium 40 MG/0.4 ML SYRINGE SUBCUT (13:28)
[2022-05-07 15:40] VITALS: BP 125/65; PULSE 76; RESP 18; TEMP 37.1; O2SAT 93
--- NOTE | 2022-05-07 15:47 | P.PNIM_ITS ---
Subjective Subjective Date of Service: 05/08/22 Interval History: Offers no acute complaints was unable to participate in PT Wants to go home but as per family his home less cannot come home. Actually is actually IV Review of Systems denies chest pain or sob or abd pain or nausea or vomitin Physical Exam Vital Signs: Vital Signs: Last Vital Signs Temp 98.7 F 05/07/22 15:40 Pulse 76 05/07/22 15:40 Resp 18 05/07/22 15:40 BP 125/65 05/07/22 15:40 Pulse Ox 93 05/07/22 15:40 O2 Del Method 05/07/22 15:40 BMI result Body Mass Index 35.9 Gen: in no acute distress Lungs: clear to auscultation bilaterally Heart: regular rate and rhythm, no murmurs Abd: soft, non-distended, obese, protruded umbilicus, no strangulated hernia, bowel sounds audible Ext: no edema, L hip incision intact Skin: warm/well-perfused Neuro: alert and oriented x3, no focal findings Psych: appropriate affect Objective Data Active Medications Acetaminophen (Acetaminophen 325 Mg Tablet) 650 mg PO Q6H PRN PRN Reason: Pain, Mild (Pain Scale 1-3) Last Admin: 05/07/22 07:51 Dose: 650 mg Documented By: PEDRO Amlodipine Besylate (Amlodipine Besylate 2.5 Mg Tablet) 2.5 mg PO DAILY [facility]; Protocol Last Admin: 05/07/22 07:51 Dose: 2.5 mg Documented By: PEDRO Calcium Carbonate (Calcium Carbonate 750 Mg Tab.Chew) 750 mg PO Q4H PRN PRN Reason: herat burn Last Admin: 05/03/22 09:31 Dose: 750 mg Documented By: PEDRO Carvedilol (Carvedilol 3.125 Mg Tablet) 6.25 mg PO BID [facility]; Protocol Last Admin: 05/07/22 07:51 Dose: 6.25 mg Documented By: PEDRO Enoxaparin Sodium (Enoxaparin Sodium 40 Mg/0.4 Ml Syringe) 40 mg SUBCUT Q24H [facility] Last Admin: 05/07/22 13:28 Dose: 40 mg Documented By: PEDRO Famotidine (Famotidine 20 Mg Tablet) 20 mg PO BID [facility] Last Admin: 05/07/22 07:51 Dose: 20 mg Documented By: PEDRO Methadone HCl (Methadone Hcl 20 Mg/2 Ml Oral.Conc) 55 mg PO DAILY [facility] Last Admin: 05/07/22 07:51 Dose: 55 mg Documented By: PEDRO Ondansetron HCl (Ondansetron Hcl 4 Mg/2 Ml Vial) 4 mg IVPUSH Q8H PRN PRN Reason: Nausea and Vomiting Pharmacy Consult (Consult Rx Perform Med Rec) 1 each MISCELLANE ONCE PRN PRN Reason: Consult order Sodium Chloride (0.9 % Sodium Chloride Flush 3 Ml Syringe) 3 ml IVFLUSH QSHIFT [facility] Last Admin: 05/07/22 13:17 Dose: Not Given Documented By: PEDRO Non-Admin Reason: No Access Temazepam (Temazepam 15 Mg Capsule) 15 mg PO BEDTIME [facility] Last Admin: 05/06/22 19:15 Dose: 15 mg Documented By: ANTHONYMAT Labs 04/21/22 05:57 04/22/22 08:18 Assessment and Plan (1) Hip fracture, intertrochanteric: Status: Acute (2) Opioid use disorder: Status: Acute Plan 61yo M with HTN,? IDU [heroin] presenting with subtrochanteric femur fracture on the left hip after falling # Left subtrochanteric femur fx - POD #17 IMN L femur, surgery done on 04/19, pain under control, carol out 04/30/22 - PT: STR, WBAT - LMWH x 1 mo postop for VTE ppx # paroxysmal AF + AIVR echo showed right wall motion abnormality, recommend outpatient ischemic workup, no chest pain, no shortness - continue carvedilol, [id number] 1, no AC indicated # insomnia? good affect with with temazepam # HTN - stable blood pressure, continue amlodipine + carvedilol # preliminary HIV Ab/Ag screen positive - immunoassay negative, RNA from 04/26/22 negative, so this is a false-positive test # chronic HCV - outpt treatment # OUD - Addiction Medicine consulted, on methadone # chronic umblical hernia recommend to avoid straining, outpatient surgical follow-up # VTE ppx: LMWH # dispo: awaiting STR, safe dischrage , d/w family -family does not want him b ack -need safe discharge Time Spent With Patient Time: Total time managing care of this patient today ____ minutes. Quality Stroke Does the patient have a stroke diagnosis?: No VTE Prior VTE?: No VTE Risk Level:: Medical - moderate - high VTE Device Contraindication: N/A - Device Ordered VTE Drug Contraindication: N/A - Med Ordered
--- NOTE | 2022-05-07 15:56 | MHC.CM.PN ---
pt set for dc home family unwilling to take pt amb cancelled unable to locate a str or a vna for pt
[2022-05-07 19:59] VITALS: BP 135/63; PULSE 77; RESP 18; TEMP 37.1; O2SAT 97
[2022-05-07] MEDS: Temazepam 15 MG CAPSULE PO (22:37)
[2022-05-07 23:30] VITALS: BP 145/82; PULSE 71; RESP 14; TEMP 37.2; O2SAT 98
[2022-05-07] MEDS: 0.9 % Sodium Chloride Flush 3 ML SYRINGE IVFLUSH (23:41)
[2022-05-08 04:27] VITALS: BP 111/66; PULSE 74; RESP 16; TEMP 37.1; O2SAT 94
[2022-05-08 08:00] VITALS: BP 120/78; PULSE 74; RESP 16; TEMP 36.9; O2SAT 97
[2022-05-08] MEDS: amLODIPine Besylate 2.5 MG TABLET PO (08:58)
[2022-05-08] MEDS: methADONE HCl 20 MG/2 ML ORAL.CONC 55 MG PO (08:58)
[2022-05-08] MEDS: carvediloL 3.125 MG TABLET 6.25 MG PO ×2 (08:58→21:35)
[2022-05-08] MEDS: Famotidine 20 MG TABLET PO ×2 (08:58→21:38)
[2022-05-08 10:56] VITALS: BP 128/76; PULSE 70; RESP 17; TEMP 37; O2SAT 95
--- NOTE | 2022-05-08 12:09 | P.F2F_ITS ---
Service Date Service Date: 05/08/22 Encounter Date of encounter: 05/08/22 Encounter: for PT post hip fracture Reasons for Services Signs and symptoms assessed: hip pain Reason for physical therapy: home safety and mobility, therapeutic exercises, restore joint function, gait/transfer training, assess need for DME, ADL training, energy conservation and other MD Overseeing Care: Messi Castellon Homebound: Leaving the home is medically contraindicated at this time without the asist of a device and/or another person due th the listed conditions above and below. Reason homebound: weakness related to hospital stay Homebound supporting statement: Patient had a fracture-status post surgery, patient need help with PT . Certification: Based on the above findings, I certify that this patient is confined to the home and needs intermittent half-way care, physical therapy and/or speech therapy, or continues to need occupational therapy. The patient is under my care, and I have initiated the establishment of the plan of care. The patient will be followed by a physician who will periodically review the plan of care. Time Spent With Patient Time: Total time managing care of this patient today ____ minutes.
[2022-05-08] MEDS: Enoxaparin Sodium 40 MG/0.4 ML SYRINGE SUBCUT (13:17)
[2022-05-08] MEDS: Acetaminophen 325 MG TABLET 650 MG PO (13:17)
--- NOTE | 2022-05-08 13:31 | MHC.CM.PN ---
pt to be dcd home to [address] [place] [address] to followed up with gavin anderson for home physical therapy amb booked for 2 pt given last dose methadone letter .
--- NOTE | 2022-05-08 14:35 | MHC.RECOVRN ---
This sign writer letterer or painter met w/ patient, patient was nude at the bedside, only bedsheet covering part of body. Patient was difficult to engage, confused, eyes closing during questioning. Discussed last dose letter placed with d/c paperwork and MTD referral being sent to [facility]. Patient verbalized understanding. Patient reports is not feeling sleepy, patient report is not feeling fatigued. Patient states is feeling confused about transport.
--- NOTE | 2022-05-08 14:55 | MHC.CM.PN ---
Silvia hughes spoke with risk who says it is pts home and needs to return family would need to evict him,raman booked for 2 ,raman 9You was planning on calling to make sure [facility]ya would let him in!!!!.at this time working on [facility] asked [facility] team to set up methadone for [facility] admisntration aware
[2022-05-08 15:25] VITALS: BP 130/70; PULSE 82; RESP 17; TEMP 36.8; O2SAT 97
--- NOTE | 2022-05-08 16:13 | HO.PM.IMPN ---
Subjective Subjective Date of Service: 05/11/22 Interval History: follow up hip fx Review of Systems no new c/o No fever or chest pain or shortness of breath or abdominal pain Physical Exam Vital Signs: Vital Signs: Last Vital Signs Temp 98.2 F 05/08/22 15:25 Pulse 82 05/08/22 15:25 Resp 17 05/08/22 15:25 BP 130/70 05/08/22 15:25 Pulse Ox 97 05/08/22 15:25 O2 Del Method 05/08/22 15:25 BMI result Body Mass Index 35.9 ?Gen: in no acute distress Lungs: clear to auscultation bilaterally Heart: regular rate and rhythm, no murmurs Abd: soft, non-distended, obese, protruded umbilicus, no strangulated hernia, bowel sounds audible Ext: no edema, L hip incision intact Skin: warm/well-perfused Neuro: alert and oriented x3, no focal findings Psych: appropriate affect Objective Data Active Medications Acetaminophen (Acetaminophen 325 Mg Tablet) 650 mg PO Q6H PRN PRN Reason: Pain, Mild (Pain Scale 1-3) Last Admin: 05/08/22 13:17 Dose: 650 mg Documented By: PEDRO Amlodipine Besylate (Amlodipine Besylate 2.5 Mg Tablet) 2.5 mg PO DAILY [facility]; Protocol Last Admin: 05/08/22 08:58 Dose: 2.5 mg Documented By: PEDRO Calcium Carbonate (Calcium Carbonate 750 Mg Tab.Chew) 750 mg PO Q4H PRN PRN Reason: herat burn Last Admin: 05/03/22 09:31 Dose: 750 mg Documented By: PEDRO Carvedilol (Carvedilol 3.125 Mg Tablet) 6.25 mg PO BID [facility]; Protocol Last Admin: 05/08/22 08:58 Dose: 6.25 mg Documented By: PEDRO Enoxaparin Sodium (Enoxaparin Sodium 40 Mg/0.4 Ml Syringe) 40 mg SUBCUT Q24H [facility] Last Admin: 05/08/22 13:17 Dose: 40 mg Documented By: PEDRO Famotidine (Famotidine 20 Mg Tablet) 20 mg PO BID [facility] Last Admin: 05/08/22 08:58 Dose: 20 mg Documented By: PEDRO Methadone HCl (Methadone Hcl 20 Mg/2 Ml Oral.Conc) 55 mg PO DAILY [facility] Last Admin: 05/08/22 08:58 Dose: 55 mg Documented By: PEDRO Ondansetron HCl (Ondansetron Hcl 4 Mg/2 Ml Vial) 4 mg IVPUSH Q8H PRN PRN Reason: Nausea and Vomiting Pharmacy Consult (Consult Rx Perform Med Rec) 1 each MISCELLANE ONCE PRN PRN Reason: Consult order Sodium Chloride (0.9 % Sodium Chloride Flush 3 Ml Syringe) 3 ml IVFLUSH QSHIFT [facility] Last Admin: 05/08/22 13:19 Dose: Not Given Documented By: PDERO Non-Admin Reason: No Access Temazepam (Temazepam 15 Mg Capsule) 15 mg PO BEDTIME [facility] Last Admin: 05/07/22 22:37 Dose: 15 mg Documented By: JACQUELINE Labs 04/21/22 05:57 04/22/22 08:18 Assessment and Plan (1) Hip fracture, intertrochanteric: Status: Acute (2) Opioid use disorder: Status: Acute Plan 61yo M with HTN,? IDU [heroin] presenting with subtrochanteric femur fracture on the left hip after falling # Left subtrochanteric femur fx - POD #17 IMN L femur, surgery done on 04/19, pain under control, carol out 04/30/22 - PT: STR, WBAT - LMWH x 1 mo postop for VTE ppx # paroxysmal AF + AIVR echo showed right wall motion abnormality, recommend outpatient ischemic workup, no chest pain, no shortness - continue carvedilol, [id number] 1, no AC indicated # insomnia? good affect with with temazepam # HTN - stable blood pressure, continue amlodipine + carvedilol # preliminary HIV Ab/Ag screen positive - immunoassay negative, RNA from 04/26/22 negative, so this is a false-positive test # chronic HCV - outpt treatment # OUD - Addiction Medicine consulted, on methadone # chronic umblical hernia recommend to avoid straining, outpatient surgical follow-up # VTE ppx: LMWH # dispo: awaiting discharge home. Time Spent With Patient Time: Total time managing care of this patient today ____ minutes. Quality Stroke Does the patient have a stroke diagnosis?: No VTE Prior VTE?: No VTE Risk Level:: Medical - moderate - high VTE Device Contraindication: N/A - Device Ordered VTE Drug Contraindication: N/A - Med Ordered
[2022-05-08] MEDS: Temazepam 15 MG CAPSULE PO (21:36)
[2022-05-08 23:10] VITALS: BP 127/88; PULSE 76; RESP 17; TEMP 36.6; O2SAT 96
[2022-05-09] MEDS: 0.9 % Sodium Chloride Flush 3 ML SYRINGE IVFLUSH ×2 (01:06→09:57)
--- NOTE | 2022-05-09 02:00 | PC.NURSE ---
CARE ASSUMED 01:00....RESTING WITH EYES CLOSED...RESPIRATIONS EASY..NO COMPLAINTS
--- NOTE | 2022-05-09 07:05 | MHC.CM.PN ---
LATE ENTRY 05/08/22 1600: This quality analyst/technical writer spoke with Risk Management in regards to patient returning home and family not accepting. Patient is to return home as he has been medically cleared and recommended home PT. It is the residence where patient was living prior to hospitalization. Transportation was booked for 2PM, ambulance company expressed concerns regarding transporting patient home due to weakness, patient sleeping during conversation, access to apartment and need for ambulance service to transport home. Plan to hold on discharge and determine plan on 05/09. @ 1605 this quality analyst/technical writer was notified that patient's was at bedside with patient. Meet with patient, , SW and 2 RN's to discuss discharge plan. Patient and in agreement that patient will return tomorrow (05/09) @ 12PM with Maya LINDA. Apartment address was confirmed. Patient's is in electric wheelchair and is able to access the apartment, therefore resolving issue of ambulance company getting access to apartment.
[2022-05-09 07:06] VITALS: BP 124/75; PULSE 68; RESP 17; TEMP 37.1; O2SAT 99
--- NOTE | 2022-05-09 09:02 | MHC.CM.PN ---
DC summary and face to face have been sent to [facility] and they have been notified that Patient will dc to home today at noon via BLS.
[2022-05-09] MEDS: methADONE HCl 20 MG/2 ML ORAL.CONC 55 MG PO (09:57)
[2022-05-09] MEDS: Famotidine 20 MG TABLET PO (09:57)
[2022-05-09] MEDS: carvediloL 3.125 MG TABLET 6.25 MG PO (09:57)
[2022-05-09] MEDS: amLODIPine Besylate 2.5 MG TABLET PO (09:57)
--- NOTE | 2022-05-15 09:40 | W.PM.OPN ---
Operative Note Operative Note Date of Service: 04/19/22 Narrative: Date of Service: 04/19/22 Pre-op diagnosis: Right hip fracture Post-op diagnosis: same Procedure: IMN right hip Implants: Strykler 125 deg [id number], 110mm hip screw and 40 mm distal interlock Surgeon: Calvin Miner MD Anesthesia: local and spinal Was an Development Mechanic used for this Procedure?: No Estimated blood loss (mL): 150 IV fluids (mL): 500 Pathology: none sent Condition: stable Disposition: PACU Procedure in detail: Patient was brought to the operating room and prepped and draped in standard sterile fashion. Time-out was called to identify proper site procedure proper surgeon and IV antibiotics per weight were administered. He was positioned on the fracture table and a traction and slight internal rotation were performed and biplanar fluoroscopy confirmed initial fracture reduction. I then made a stab incision proximal to the greater trochanter in using a guidewire made a entry point just lateral to the tip of the greater trochanter and placed a guidewire into the femoral metadiaphysis. I then over-reamed with 15 mm Reamer placed my ball-tip guidewire down distally in the femur and measured my length. I selected a 125 deg [id number] nail and reamed up to a 13. I then inserted the nail without difficulty. I then turned my attention to the hip screw where I used a guidewire and a tip apex distance of less than 1.5 measured a 110mm hip screw. I then pre drilled and placed a hip screw using biplanar fluoroscopy. Once I was satisfied with the position of the hip screw I turned my attention to the distal aspect of the nail. Using perfect [place] technique I placed 1 static distal interlocking screw in standard AO technique. I then removed all I then placed my set screw proximally and removed all extraneous instrumentation. Final biplanar radiographs were taken. I was satisfied with the position of the hardware and the fracture reduction. I think copiously irrigated closed with absorbable sutures carol and injected 30 mL of into the area of the incisions. Traction was let down patient was placed in sterile dressing awakened from anesthesia brought to recovery room stable condition there were no known complications.
== END 2022-05-09 12:16 | disposition home health service (06) | DRG 308 ==
LOC: HO.ED 12:46 → HO.EDOVER 15:23 → HO.S3 15:45 → HO.IMC 04-19 19:20
PROVIDERS: Hospitalist; Internal Medicine; Orthopaedic Surgery; Physician Assistant; Admitting Provider Family Medicine; Emergency Provider Student in an Organized Health Care Education/Training Program; PCP Internal Medicine; Visit Provider Internal Medicine
PROC: 0QS636Z Reposition Right Upper Femur with Intramedullary Internal Fixation Device, Percutaneous Approach (ICD-10-PCS; principal; 2022-04-19 13:00)
DX: S72.142A Displaced intertrochanteric fracture of left femur, initial encounter for closed fracture (principal); B18.2 Chronic viral hepatitis C; E11.9 Type 2 diabetes mellitus without complications; E78.00 Pure hypercholesterolemia, unspecified; I10 Essential (primary) hypertension; F11.20 Opioid dependence, uncomplicated; I48.0 Paroxysmal atrial fibrillation; E87.6 Hypokalemia; K42.9 Umbilical hernia without obstruction or gangrene; I97.191 Other postprocedural cardiac functional disturbances following other surgery; F17.210 Nicotine dependence, cigarettes, uncomplicated; W18.30XA Fall on same level, unspecified, initial encounter; Z20.822 Contact with and (suspected) exposure to COVID-19; Z71.6 Tobacco abuse counseling; Z88.0 Allergy status to penicillin; Z79.82 Long term (current) use of aspirin; Z79.899 Other long term (current) drug therapy
CPT/HCPCS: 36415; 71045; 73502; 80048; 80053; 80076; 80307; 81001; 82077; 82550; 82947; 83036; 83735; 84484; 85025; 85027; 86701; 86702; 86704; 86706; 86709; 86803; 87086; 87186; 87340; 87389; 87522; 87536; 87635; 93005; 93306; 96360; 97110; 97116; 97161; 97166; 97530; 97535; 99285; C1713; C1769; J0690; J1170; J1650; J2250; J2270; J2370; J2795; J3010; Q9957

== ENCOUNTER 2022-05-12 18:06 | Emergency (ER) | payer MEDICAID, SELFPAY ==
--- NOTE | ~2022-05-12 | XR_ITS ---
EXAMINATION: XR HIP, LEFT CLINICAL INFORMATION: Hip fracture. Status post IMN. COMPARISON: Fluoroscopy-guided left hip 04/19/2022. TECHNIQUE: Two views of the left hip. FINDINGS: There is an intramedullary femoral sebastien and a nail stabilizing intertrochanteric fracture. Moderate callus formation is seen No dislocation visualized. The soft tissues are normal. XR/XR hip LT w PEL1V IMPRESSION: Stabilized left hip intertrochanteric fracture with intramedullary femoral sebastien and a nail. No prosthetic loosening seen.
[2022-05-12 18:27] VITALS: BP 162/90; PULSE 72; PULSE 73; RESP 18; TEMP 36.8; O2SAT 95; O2SAT 96; BMI 25.8
--- NOTE | 2022-05-12 18:52 | ED_ITS ---
HPI - General Adult General Chief complaint: Failure to Thrive Stated complaint: Visit? post surgery per EMS (bad patch) Time Seen by Provider: 05/12/22 18:51 Source: patient and family Mode of arrival: EMS History of Present Illness HPI narrative: Patient is status post left hip IMN on 04/19 comes here as unable to get the physical therapy at home patient able to ambulate to the bathroom of his own unable to get his methadone is on wheelchair comes here for social reasons says his family sent him here per family patient is not able to take care of himself lying in the bed for few days has not taken shower and nobody at home to help him Related Data Home Medications Medication Instructions Recorded Confirmed albuterol sulfate 90 mcg/actuation 2 puff inhalation wheezing 05/13/22 aerosol inhaler (Proventil HFA) aspirin 81 mg tablet,delayed 1 tab PO DAILY 05/13/22 05/13/22 release budesonide-formoterol HFA 160 2 puff inhalation 05/13/22 mcg-4.5 mcg/actuation aerosol inhaler (Symbicort) hydrochlorothiazide 25 mg tablet 1 tab PO DAILY 05/13/22 05/13/22 Previous Rx's Medication Instructions Recorded amlodipine 2.5 mg tablet 2.5 mg PO DAILY #30 tabs 05/06/22 carvedilol 3.125 mg tablet 6.25 mg PO BID #60 tabs 05/06/22 enoxaparin 40 mg/0.4 mL 40 mg (0.4 mL) subcut Q24H #4 mL 05/06/22 subcutaneous syringe omeprazole 20 mg capsule,delayed 20 mg PO DAILY #30 caps 05/06/22 release temazepam 15 mg capsule 15 mg PO BEDTIME #30 caps 05/06/22 walker #1 ea 05/07/22 Allergies Allergy/AdvReac Type Severity Reaction Status Date / Time Penicillins [PENICILLINS] Allergy Unknown RASH Verified 07/10/20 11:45 Review of Systems Review of Systems: Yes all other systems are reviewed and are negative PMFSH Past Medical History Medical History Diabetes High blood pressure High cholesterol Social History Social History Household Members: Spouse Housing: Apartment Do you presently have visiting nurse or other home services: No Alcohol intake: unknown Patient Tobacco Use Status: Current everyday Tobacco user Cigarettes Per Day: 6 Substance Use Type: Opiates Advance Directives: No Advance Directives Information Provided: Yes service: No Current occupational status: unemployed Physical Exam ED Vital Signs: Vital Signs - 24 hr 05/12/22 18:27 05/12/22 19:32 05/12/22 19:32 Temperature 98.2 F 98.1 F Pulse Rate 73 72 Respiratory Rate 18 12 Blood Pressure 143/87 H Pulse Oximetry 95 96 96 Oxygen Delivery Method Room Air Room Air Room Air 05/12/22 22:47 05/13/22 00:13 Temperature 98.5 F 97.5 F Pulse Rate 67 66 Respiratory Rate 12 12 Blood Pressure 130/81 135/84 Pulse Oximetry 94 95 Oxygen Delivery Method Room Air Room Air BMI result Body Mass Index 25.8 Appearance: Alert. Oriented X3. No acute distress. Eyes: PERRLA, No Nystagmus ENT: Pharynx normal. Oral Mucosa moist Neck: Normal inspection. Neck supple. CVS: Normal heart rate and rhythm. Pulses normal. Respiratory: No respiratory distress. Equal air entry bilateral, no wheezing/rales/rhonchi Abdomen: Soft and nontender. Bowel sounds are present, no mass palpable, no CVA tenderness Skin: Skin warm and dry. Normal skin color. Normal skin turgor. Extremities: No lower extremity edema. No calf tenderness healed surgical scars good range of movement of left hip no significant swelling or tenderness Neuro: Oriented X 3. No motor deficit. No sensory deficit.No cerebellar signs , cranial nerves II-XII intact Medications Administered Discontinued Medications Generic Name Dose Route Start Last Admin Trade Name Freq PRN Reason Stop Dose Admin Sodium Chloride 1,000 mls @ 999 mls/hr 05/12/22 19:39 05/12/22 21:19 Ns IV 05/12/22 20:39 Infused .Q1H1M ONE Infusion Methadone HCl 60 mg 05/12/22 19:39 05/12/22 20:00 Methadone Hcl 20 Mg/2 Ml Oral.Conc PO 05/12/22 19:40 60 mg ONCE ONE Administration Medical Decision Making Medical Decision Making MDM Narrative: Patient unable to be managed at home her home situation is on wheelchair unable to get OT and PT at home will get case management involved for placement Lab Data MDM Lab Attestation statement: I reviewed the patient's lab results. 05/12/22 19:53 05/12/22 19:53 Labs: Lab Results 05/12/22 05/12/22 05/12/22 Range/Units 19:53 19:53 19:53 WBC 5.0 (4.8-10.8) X10*3/uL RBC 4.46 L (4.60-5.80) X10*6/uL Hgb 13.8 L (14.0-18.0) g/dl Hct 41.6 L (42.0-52.0) % MCV 93.3 (80.0-98.0) fL MCH 30.9 (27.0-33.0) pg MCHC 33.2 (31.0-36.0) g/dl RDW 15.4 (11.0-16.0) % Plt Count 121 L (160-400) X10*3/uL MPV 9.9 (9.4-12.4) fL Immature Gran % (Auto) 0.4 (0.0-0.4) % Neut % (Auto) 46.1 (45-73) % Lymph % (Auto) 34.1 (20-40) % Sandoval % (Auto) 12.1 H (2-11) % Eos % (Auto) 6.9 H (0-4) % Baso % (Auto) 0.4 (0-2) % Lymph # (Auto) 1.7 (1.2-4.9) X10*3/uL Sandoval # (Auto) 0.6 (0.1-1.2) X10*3/uL Eos # (Auto) 0.4 (0.0-0.4) X10*3/uL Baso # (Auto) 0.0 (0.0-0.2) X10*3/uL Abs Immat Gran (auto) 0.02 (0.00-0.03) X10*3/uL Absolute Neuts (auto) 2.3 (2.0-8.3) x10*3/uL Absolute Nucleated RBC 0.000 (0.0-0.012) X10*3/uL Nucleated RBC % (auto) 0.0 (0.0-0.2) /100WBC Sodium 138 (135-145) mmol/L Potassium 4.2 (3.3-5.1) mmol/L Chloride 109 H (96-108) mmol/L Carbon Dioxide 22 (22-29) mmol/L Anion Gap 11 L (12-20) BUN 16 (9-16) mg/dL Creatinine 0.89 (0.5-1.4) mg/dL Estim Creat Clear Calc 83.5 Estimated GFR > 60 Random Glucose 136 H (60-115) mg/dL Calcium 8.3 L (8.4-10.2) mg/dL Magnesium 1.9 (1.6-2.6) mg/dL Total Bilirubin 1.3 H (0.0-1.0) mg/dL AST 48 H (5-37) U/L ALT 32 (0-40) U/L Alkaline Phosphatase 192 H (39-117) U/L Total Protein 7.8 (6.5-8.0) g/dL Albumin 2.5 L (3.5-5.0) g/dL COVID-19 (ALEXA) Negative (Negative) COVID-19 Clin Com See Note Discharge Plan Discharge Clinical Impression: Closed intertrochanteric fracture of left hip, Weakness Patient Disposition: Still a Patient Prescriptions: No Action aspirin 81 mg tablet,delayed release (DR/EC) 1 tab PO DAILY hydrochlorothiazide 25 mg tablet 1 tab PO DAILY albuterol sulfate [Proventil HFA] 90 mcg/actuation HFA aerosol inhaler 2 puff inhalation budesonide-formoterol [Symbicort] 160-4.5 mcg/actuation HFA aerosol inhaler 2 puff INHALATION amlodipine 2.5 mg Tablet 2.5 mg PO DAILY Qty: 30 0RF Protocol: Hold for SBP< HOLD for SBP < : 90 carvedilol 3.125 mg Tablet 6.25 mg PO BID Qty: 60 0RF Protocol: Hold for SBP/HR < HOLD for SBP < : 90 HOLD for HR < : 60 temazepam 15 mg Capsule 15 mg PO BEDTIME Qty: 30 0RF enoxaparin 40 mg/0.4 mL Syringe 40 mg subcut Q24H Qty: 4 0RF Rx Instructions: give for 10 more days omeprazole 20 mg capsule,delayed release(DR/EC) 20 mg PO DAILY Qty: 30 0RF (LEENA) manrpeet Nicolasc See Rx Instructions .ROUTE .MEDSULY Qty: 1 0RF Rx Instructions: As directed
--- NOTE | 2022-05-12 19:15 | PC.NURSE ---
Assumed care for pt. at bedside. Called pts , Jerica ([phone]), who directed this keno writer / runner to speak with her sister, Anne-Marie Christianson ([phone]), who is Jerica's caregiver. nAne-Marie reports caring for pts , Jerica, who is wheelchair bound, and being unable to care for this patient. Anne-Marie reports pt is unable to care for himself at home and is unable to do own ADL's. And that Jerica is unable to assist pt with ADL's as she herself requires assistance. Both Jerica and Anne-Marie agree that pt cannot return home at this time because no one is able to provide care/assistance. Anne-Marie also reports pt has not showered or left the bed to obtain meals or medications in the last three days. This information shared with pt. Pt reports desire to relocate to a facility that will provide assistance with ADL's as pt is unable to return home. aware.
[2022-05-12 19:32] VITALS: BP 143/87; PULSE 72; RESP 12; TEMP 36.7; O2SAT 96
--- NOTE | 2022-05-12 19:36 | PC.NURSE ---
Pt aox4. Reports left hip surgery performed Mar 2022. Surgical site appears well approximated, no drainage and no evidence of infection. Bilateral pedal pulses present. +CMS.
[2022-05-12] MEDS: 0.9 % Sodium Chloride 1,000 ML 999 ML IV (19:54)
[2022-05-12] MEDS: methADONE HCl 20 MG/2 ML ORAL.CONC 60 MG PO (20:00)
[2022-05-12 20:06] LABS: Basophils Percent Auto 0.4 % (0-2); Hemoglobin 13.8 g/dl (14.0-18.0); Imm Gran Abs Auto 0.02 X10*3/uL (0.00-0.03); Imm Gran Pct Auto 0.4 % (0.0-0.4); Mean Platelet Volume 9.9 fL (9.4-12.4); PLT CLUMP 1; Red Cell Distribution Width 15.4 % (11.0-16.0); SCAN SMEAR FLAG 1
[2022-05-12 20:08] LABS: Eosinophils Absolute Auto 0.4 X10*3/uL (0.0-0.4); Eosinophils Percent Auto 6.9 % (0-4); Hematocrit 41.6 % (42.0-52.0); Lymphocytes Absolute Auto 1.7 X10*3/uL (1.2-4.9); Lymphocytes Percent Auto 34.1 % (20-40); Mean Corpuscular HGB Conc 33.2 g/dl (31.0-36.0); Mean Corpuscular Hemoglobin 30.9 pg (27.0-33.0); Mean Corpuscular Volume 93.3 fL (80.0-98.0); Monocytes Absolute Auto 0.6 X10*3/uL (0.1-1.2); Monocytes Percent Auto 12.1 % (2-11); Neutrophils Absolute Auto 2.3 x10*3/uL (2.0-8.3); Neutrophils Percent Auto 46.1 % (45-73); Red Blood Count 4.46 X10*6/uL (4.60-5.80)
[2022-05-12 20:15] LABS: MANUAL DIFF FLAG NO; Platelet Count 121 X10*3/uL (160-400)
[2022-05-12 20:17] LABS: COVID-19 Test Negative (Negative); IDNOW Serial# 16C4AD1C
[2022-05-12 20:23] LABS: Alanine Aminotransferase 32 U/L (0-40); Albumin Level 2.5 g/dL (3.5-5.0); Alkaline Phosphatase 192 U/L (39-117); Anion Gap 11 (12-20); Aspartate Amino Transferase 48 U/L (5-37); Bilirubin Total 1.3 mg/dL (0.0-1.0); Blood Urea Nitrogen 16 mg/dL (9-16); Calcium 8.3 mg/dL (8.4-10.2); Carbon Dioxide 22 mmol/L (22-29); Chloride 109 mmol/L (96-108); Creatinine Clr Calc Pharmacy 83.5; Estimated Glomerular Filt Rate > 60; Glucose Random 136 mg/dL (60-115); Magnesium 1.9 mg/dL (1.6-2.6); Potassium 4.2 mmol/L (3.3-5.1); Sodium 138 mmol/L (135-145); Total Protein 7.8 g/dL (6.5-8.0)
[2022-05-12 22:47] VITALS: BP 130/81; PULSE 67; RESP 12; TEMP 36.9; O2SAT 94
--- NOTE | 2022-05-13 00:09 | PC.NURSE ---
Med req completed.
[2022-05-13 00:13] VITALS: BP 135/84; PULSE 66; RESP 12; TEMP 36.4; O2SAT 95
[2022-05-13 02:24] VITALS: BP 143/88; PULSE 68; RESP 14; O2SAT 96
--- NOTE | 2022-05-13 02:29 | PC.NURSE ---
Pt awake, aox3. Eating and drinking at the bedside in no apparent distress. VSS. Pt aware of plan of care. Will continue to monitor.
[2022-05-13 06:29] VITALS: BP 133/79; PULSE 60; RESP 12; TEMP 36.8; O2SAT 96
--- NOTE | 2022-05-13 08:08 | PC.NURSE ---
Addendum entered by Chantale Paz 05/13/22 11:16: Confirmed with CM; pt is a standby assist to commode to reduce re-injury to hip. Pt is a set up assist with ADLs. Pt is able to feed self w/o issue. Addendum entered by Chantale Pza 05/13/22 11:11: Due to STR recommendation and medical clearance. IV removed from Left hand. Pt tolerating PO well. Addendum entered by Chantale Paz 05/13/22 10:01: PT reccommending STR. Addendum entered by Chantale Paz 05/13/22 09:09: PT aware of patient and preforming eval. Addendum entered by Chantale Paz 05/13/22 08:47: attempted x 2 to verify methadone dose at [facility]. Clinic is closed due to MLK holiday. Original Note: notified of completed home med rec. Awaiting verification now.
[2022-05-13 08:12] LABS: Glucose, Whole Blood 88 mg/dL (60-115)
[2022-05-13] MEDS: carvediloL 3.125 MG TABLET 6.25 MG PO ×2 (09:18→20:50)
[2022-05-13] MEDS: amLODIPine Besylate 2.5 MG TABLET PO (09:19)
[2022-05-13] MEDS: Omeprazole 20 MG CAPSULE.DR PO (09:19)
[2022-05-13] MEDS: Aspirin Enteric Coated 81 MG TABLET.DR PO (09:19)
[2022-05-13] MEDS: hydroCHLOROthiazide 25 MG TABLET PO (09:19)
[2022-05-13] MEDS: Enoxaparin Sodium 40 MG/0.4 ML SYRINGE SUBCUT (09:20)
[2022-05-13 09:30] VITALS: BP 133/79; PULSE 60; O2SAT 96
--- NOTE | 2022-05-13 10:46 | MHC.CM.ED ---
Received case management consult overnight. Patient came to the ER due to failure to thrive at home. Patient was discharged home from [facility] on 05/09/2022. [facility] was scheduled to start care today. Physical therapy is recommending STR. Anticipate patient will be difficult to place due to not receiving any Covid vaccines and being on Methadone. Patient receives Methadone from [facility]. Referral broadcasted within 50 miles to all facilities that accept Methadone patients. Continue to monitor for d/c needs.
[2022-05-13 14:00] VITALS: RESP 18
--- NOTE | 2022-05-13 14:27 | MHC.RECOVRN ---
Pt last received methadone at [facility] on 05/09 and planned to follow up with [facility] upon discharge. Unclear if pt presented to OTP. Pt returned to [facility] on 05/12. Pt okay to resume last dose if appropriate. RN aware.
--- NOTE | 2022-05-13 15:01 | PC.NURSE ---
Addendum entered by Chantale Paz 05/13/22 15:33: Methadone dose administered. Plan: contact will be made to [facility] to verify methadone dose when it opens tomorrow 05/14 Addendum entered by Chantale Paz 05/13/22 15:04: Contact made to pharmacy notifying of recommendations from christ mckeno from addiction medicine. Original Note: Methodone remains unverified by pharmacy
[2022-05-13] MEDS: methADONE HCl 20 MG/2 ML ORAL.CONC 60 MG PO (15:30)
[2022-05-13 19:38] VITALS: BP 113/78; PULSE 66; RESP 20; TEMP 36.4; O2SAT 94
--- NOTE | 2022-05-13 19:52 | PC.NURSE ---
report received from AUDIE Kenyon pt is alert and oriented resting in bed comfortably no signs of acute distress notice breathing equally unlabored
--- NOTE | 2022-05-13 20:19 | MHC.CM.ED ---
CM met with patient. STR recommended. Pt agreeable. D/C from [facility] 05/09. Hip Fx & surgical repair. Pt requested home PT at that time and [facility] accepted patient. According to the patient, they were coming last week and he could not meet with them because he had to go to get his methadone. [facility] was supposed to come today, but he came to the ED instead. Now is agreeable to STR. Family cannot care for him; uses a motorized wheelchair. Pt lives with . Has walker and cane. [facility] has not started service yet. No other services. Pt gets methadone at [facility] in [place]. Pt uses [facility] for transportation. Pt is unvaccinated. HCP reviewed, completed and signed. Copies given. Uploaded into [facility] Delivery [facility] and Care Port. HCP/brother Jero Mathis ([phone]). PASRR level 1 screened in. Will fax in am. Referrals placed by previous CM. No bed offers yet. CM to follow for discharge planning.
[2022-05-13] MEDS: Temazepam 15 MG CAPSULE PO (20:50)
[2022-05-14 00:30] VITALS: BP 119/76; PULSE 64; RESP 14; O2SAT 97
--- NOTE | 2022-05-14 02:58 | PC.NURSE ---
Pt sleeping at the bedside in no apparent distress. Breaths are even and unlabored with equal chest rises. Will continue to monitor.
--- NOTE | 2022-05-14 04:01 | PC.NURSE ---
Pt awake at the bedside in no apparent distress. Aox3. Request food and liquids. Aware of plan of care. Will continue to monitor.
[2022-05-14 05:34] VITALS: BP 119/78; PULSE 65; RESP 12; O2SAT 94
[2022-05-14] MEDS: Omeprazole 20 MG CAPSULE.DR PO (05:36)
[2022-05-14] MEDS: Enoxaparin Sodium 40 MG/0.4 ML SYRINGE SUBCUT (07:32)
[2022-05-14] MEDS: amLODIPine Besylate 2.5 MG TABLET PO (07:33)
[2022-05-14] MEDS: Aspirin Enteric Coated 81 MG TABLET.DR PO (07:33)
[2022-05-14] MEDS: hydroCHLOROthiazide 25 MG TABLET PO (07:33)
[2022-05-14] MEDS: carvediloL 3.125 MG TABLET 6.25 MG PO ×2 (07:33→21:33)
[2022-05-14 07:52] VITALS: BP 142/75; PULSE 67; RESP 18; TEMP 36.4; O2SAT 91
[2022-05-14] MEDS: methADONE HCl 20 MG/2 ML ORAL.CONC 60 MG PO (08:42)
--- NOTE | 2022-05-14 08:56 | PC.NURSE ---
Watching tv, resting comfortably in bed. Requesting coffee and food.
[2022-05-14 14:26] VITALS: BP 135/80; PULSE 64; RESP 20; TEMP 37; O2SAT 93
--- NOTE | 2022-05-14 16:20 | MHC.CM.ED ---
[facility] following. No bed available yet. PASRR level 2 exemption letter obtained, uploaded and placed on chart. Pt aware that there are no bed offers yet.
[2022-05-14] MEDS: Temazepam 15 MG CAPSULE PO (21:33)
[2022-05-14 22:35] VITALS: BP 124/75; PULSE 65; O2SAT 94
[2022-05-15] MEDS: Omeprazole 20 MG CAPSULE.DR PO (05:52)
[2022-05-15 06:00] VITALS: BP 148/86; PULSE 92; RESP 16; TEMP 36.6; O2SAT 96
[2022-05-15] MEDS: Fluticasone/Vilanterol 200/25 BLST.W.DEV 1 PUFF INHALE (08:33)
[2022-05-15] MEDS: Albuterol Sulfate 90 MCG 8 GM INHALER 2 PUFF INHALE ×2 (08:33→21:36)
[2022-05-15 08:49] VITALS: BP 144/74; PULSE 61; RESP 18; TEMP 36.7; O2SAT 96
[2022-05-15] MEDS: hydroCHLOROthiazide 25 MG TABLET PO (08:58)
[2022-05-15] MEDS: carvediloL 3.125 MG TABLET 6.25 MG PO ×2 (08:58→21:40)
[2022-05-15] MEDS: Enoxaparin Sodium 40 MG/0.4 ML SYRINGE SUBCUT (08:58)
[2022-05-15] MEDS: Aspirin Enteric Coated 81 MG TABLET.DR PO (08:59)
[2022-05-15] MEDS: amLODIPine Besylate 2.5 MG TABLET PO (08:59)
[2022-05-15] MEDS: methADONE HCl 20 MG/2 ML ORAL.CONC 60 MG PO (11:17)
--- NOTE | 2022-05-15 12:46 | MHC.CM.ED ---
Patient remains in ER overflow unit. [facility] is still following patient but doesn't have a bed available today. Continue to monitor for d/c needs.
--- NOTE | 2022-05-15 14:55 | PC.NURSE ---
patient alert, oriented x4. able to make needs known. using bedside urinal, reports weakness since hip fracture. able to change position on own. call harvey within reach.
[2022-05-15 15:52] VITALS: BP 107/76; PULSE 72; RESP 18; TEMP 36.7; O2SAT 96
--- NOTE | 2022-05-15 19:35 | PC.NURSE ---
report received from Adela RN - patient resting comfortably on stretcher. no apparent distress. will continue to monitor
[2022-05-15 21:05] VITALS: BP 119/76; PULSE 73; RESP 17; TEMP 36.4; O2SAT 96
[2022-05-15] MEDS: Temazepam 15 MG CAPSULE PO (21:40)
[2022-05-16] VITALS (8 sets, daily range): BP systolic 115–136; BP diastolic 66–79; PULSE 64–76; RESP 14–20; TEMP 36.1–37.9; O2SAT 90–96
[2022-05-16] MEDS: Albuterol Sulfate 90 MCG 8 GM INHALER 2 PUFF INHALE ×2 (00:59→20:03)
[2022-05-16] MEDS: Omeprazole 20 MG CAPSULE.DR PO (06:32)
[2022-05-16] MEDS: Aspirin Enteric Coated 81 MG TABLET.DR PO (08:39)
[2022-05-16] MEDS: amLODIPine Besylate 2.5 MG TABLET PO (08:39)
[2022-05-16] MEDS: carvediloL 3.125 MG TABLET 6.25 MG PO ×2 (08:39→21:14)
[2022-05-16] MEDS: hydroCHLOROthiazide 25 MG TABLET PO (08:39)
[2022-05-16] MEDS: methADONE HCl 20 MG/2 ML ORAL.CONC 60 MG PO (08:39)
[2022-05-16] MEDS: Enoxaparin Sodium 40 MG/0.4 ML SYRINGE SUBCUT (08:39)
--- NOTE | 2022-05-16 08:51 | MHC.CM.ED ---
Patient remains in ER. No bed offers have been made at this time. Per Eliane at [facility], patient has been with them in the past and is a Corporate denial. T/W spoke with jayleen Mcwilliams at [facility]. Clinicals sent via email. Waiting to hear from [facility] if they have a male bed today. Continue to monitor for d/c needs.
[2022-05-16] MEDS: Temazepam 15 MG CAPSULE PO (21:14)
[2022-05-17 05:28] VITALS: BP 155/87; PULSE 62; RESP 17; TEMP 36.7; O2SAT 95
--- NOTE | 2022-05-17 05:32 | MHC.EDTECH ---
Pt given bed bath. Pt bed linen and gown changed. Pt given warm blanket and call harvey placed in reach
[2022-05-17 06:00] VITALS: PULSE 62; RESP 17; O2SAT 95
[2022-05-17] MEDS: Albuterol Sulfate 90 MCG 8 GM INHALER 2 PUFF INHALE (06:00)
[2022-05-17] MEDS: Omeprazole 20 MG CAPSULE.DR PO (07:00)
--- NOTE | 2022-05-17 07:02 | PC.NURSE ---
Patient sleeping easily aroused, AOx 4 neuros intact. Patient reports continued pain left hip + CSM noted. Denies chest pain or SOB no distress noted.
[2022-05-17 08:12] VITALS: BP 132/82; PULSE 65; RESP 16; O2SAT 93
[2022-05-17] MEDS: Enoxaparin Sodium 40 MG/0.4 ML SYRINGE SUBCUT (08:13)
[2022-05-17] MEDS: Aspirin Enteric Coated 81 MG TABLET.DR PO (08:14)
[2022-05-17] MEDS: hydroCHLOROthiazide 25 MG TABLET PO (08:14)
[2022-05-17] MEDS: carvediloL 3.125 MG TABLET 6.25 MG PO ×2 (08:14→21:47)
[2022-05-17] MEDS: amLODIPine Besylate 2.5 MG TABLET PO (08:14)
[2022-05-17] MEDS: methADONE HCl 20 MG/2 ML ORAL.CONC 60 MG PO (08:15)
--- NOTE | 2022-05-17 10:34 | PC.NURSE ---
Patient sleeping easily aroussed no distress or discomfort noted awaiting dispo will CTM
--- NOTE | 2022-05-17 14:03 | PC.NURSE ---
Patient tolerated PO food and fluids resting comfortably no distress noted will CTM
--- NOTE | 2022-05-17 14:04 | MHC.CM.ED ---
Patient remains in ER. [facility] does not have a bed today. Continue to monitor for d/c needs.
[2022-05-17 15:04] VITALS: BP 138/81; PULSE 100; RESP 14; TEMP 37.7; O2SAT 92
--- NOTE | 2022-05-17 16:07 | MHC.CM.ED ---
Pt updated on continuing bed search and that [facility] is following. Pt reminded that many facilities do not take patients on methadone. Pt agreeable to continued bed search. CM following for discahrge planning.
--- NOTE | 2022-05-17 16:25 | PC.NURSE ---
Patient resting comfortably no distess noted will CTM
--- NOTE | 2022-05-17 18:39 | PC.NURSE ---
Patient resting comfortably no ditress noted will CTM.
--- NOTE | 2022-05-17 19:47 | PC.NURSE ---
assumed care of pt pt alert and oriented pt on bed nelson and call harvey placed within reach attempted to get pt off of bedpan, pt refused will continue to encourage pt to take break from being on bedpan moisturizer on feet applied d/t dry/flaky skin and pt expressing discomfort no apparent distress, watching tv while resting quietly on bedpan
[2022-05-17] MEDS: Temazepam 15 MG CAPSULE PO (21:47)
[2022-05-17 21:48] VITALS: BP 135/77; PULSE 69; RESP 16; TEMP 37.1; O2SAT 95
--- NOTE | 2022-05-17 21:58 | PC.NURSE ---
vs assessed meds administered per JUN pt resting quietly while watching tv, no apparent distress
--- NOTE | 2022-05-18 01:53 | PC.NURSE ---
pt resting quietly, while watching tv; no apparent distress
[2022-05-18 06:11] VITALS: BP 131/80; PULSE 57; RESP 16; TEMP 36.6; O2SAT 94
--- NOTE | 2022-05-18 06:17 | PC.NURSE ---
pt has insomnia and had difficulty falling asleep, took meds for insomnia at around 2100 per JUN, fell asleep recently; holding omeprazole at this time
--- NOTE | 2022-05-18 07:42 | PC.NURSE ---
Pt sleeping at this time, respirations even and unlabored.
[2022-05-18 09:43] VITALS: BP 147/79; PULSE 67; RESP 18; O2SAT 94
[2022-05-18] MEDS: methADONE HCl 20 MG/2 ML ORAL.CONC 60 MG PO (09:44)
[2022-05-18] MEDS: amLODIPine Besylate 2.5 MG TABLET PO (09:45)
[2022-05-18] MEDS: Aspirin Enteric Coated 81 MG TABLET.DR PO (09:45)
[2022-05-18] MEDS: Enoxaparin Sodium 40 MG/0.4 ML SYRINGE SUBCUT (09:45)
[2022-05-18] MEDS: carvediloL 3.125 MG TABLET 6.25 MG PO ×2 (09:45→20:07)
[2022-05-18] MEDS: hydroCHLOROthiazide 25 MG TABLET PO (09:45)
[2022-05-18 12:52] VITALS: BP 133/74; PULSE 62; RESP 18; TEMP 36.9; O2SAT 92
--- NOTE | 2022-05-18 14:20 | PC.NURSE ---
patient alert, oriented x4. able to make needs known. resting comfortably in bed watching tv. using bedside urinal. call harvey within reach
[2022-05-18 15:23] VITALS: BP 138/79; PULSE 62; RESP 18; TEMP 36.9; O2SAT 95
[2022-05-18] MEDS: Temazepam 15 MG CAPSULE PO (20:07)
--- NOTE | 2022-05-18 20:09 | PC.NURSE ---
Assumed care for pt. Pt aox4. Breaths are even and unlabored with equal chest rises. HR 66. Resting at the bedside. Medicated as ordered. Assisted with making a phone call to . No apparent distress noted. Pt aware of plan of care. Will continue to monitor.
[2022-05-18 22:37] VITALS: BP 139/84; PULSE 69; RESP 12; TEMP 37.2; O2SAT 94
[2022-05-19] MEDS: Albuterol Sulfate 90 MCG 8 GM INHALER 2 PUFF INHALE (00:32)
--- NOTE | 2022-05-19 02:35 | PC.NURSE ---
Pt awake, aox4 singing at the bedside in no apparent distress. Bed linen changed and food provided. Will continue to monitor.
[2022-05-19 05:19] VITALS: BP 131/86; PULSE 60; RESP 15; TEMP 37.6; O2SAT 94
--- NOTE | 2022-05-19 05:20 | MHC.EDTECH ---
PT setup with bed bath supplies to wash himself up. PT instructed to ring call harvey for assistance if needed
[2022-05-19] MEDS: Omeprazole 20 MG CAPSULE.DR PO (05:56)
--- NOTE | 2022-05-19 05:57 | MHC.EDTECH ---
PT was able to successfully give himself a bed bath. Supplies cleaned and put back. PT bed linen changed. PT given warm blankets and call harvey placed in reach.
[2022-05-19] MEDS: amLODIPine Besylate 2.5 MG TABLET PO (09:14)
[2022-05-19] MEDS: carvediloL 3.125 MG TABLET 6.25 MG PO ×2 (09:14→21:54)
[2022-05-19] MEDS: hydroCHLOROthiazide 25 MG TABLET PO (09:14)
[2022-05-19] MEDS: Aspirin Enteric Coated 81 MG TABLET.DR PO (09:15)
[2022-05-19] MEDS: Enoxaparin Sodium 40 MG/0.4 ML SYRINGE SUBCUT (09:15)
[2022-05-19] MEDS: methADONE HCl 20 MG/2 ML ORAL.CONC 60 MG PO (09:16)
--- NOTE | 2022-05-19 12:40 | MHC.CM.ED ---
[facility] UPDATED. NO BED OFFERS OF THIS NOTE
[2022-05-19 14:25] VITALS: BP 133/86; PULSE 63; RESP 12; O2SAT 94
[2022-05-19 16:00] VITALS: BP 128/75; PULSE 58; RESP 16; TEMP 36.8; O2SAT 95
--- NOTE | 2022-05-19 16:00 | MHC.EDTECH ---
THIS PCT ASSUMED CARE OF PATIENT AT 1500 ,VITALS SIGN TAKEN AT 1600 ,PATIENT WATCHING TELEVISION ,I ASKED PATIENT IF HE NEEDED ANYTHING ,PATIENT SAID YES A PHONE TO CALL HIS ,CALL PELAEZ WITHIN REACH ,URINAL EMPTY FRESH ICE WATER GIVEN .
--- NOTE | 2022-05-19 17:58 | MHC.EDTECH ---
1800 ROUNDING DONE ,PATIENT AWAKE WATCHING TELEVISION , SAID HE FINE DOES NOT NEED ANYTHING AT THIS TIME .
[2022-05-19 21:55] VITALS: BP 134/77; PULSE 64; RESP 16
--- NOTE | 2022-05-19 22:59 | PC.NURSE ---
late entry- pt medicated according to jun. pt assisted with emptying urinal and use of portable phone at this time. pt positioned to back at this time. no new requests
[2022-05-20 00:16] VITALS: BP 118/70; PULSE 64; RESP 14; TEMP 36.4; O2SAT 93
[2022-05-20] MEDS: Omeprazole 20 MG CAPSULE.DR PO (06:46)
[2022-05-20 06:59] VITALS: BP 124/76; PULSE 74; RESP 12; TEMP 36.6; O2SAT 96
[2022-05-20 08:19] VITALS: BP 113/81; PULSE 61; RESP 16; TEMP 36.4; O2SAT 94
--- NOTE | 2022-05-20 08:33 | MHC.CM.ED ---
Patient currently in the ER overflow unit. [facility] is reviewing to see if they have a male bed. Referral sent to all 3 local rehabs and to the 3 LTAC facilities within 50 miles. Continue to monitor for d/c needs.
[2022-05-20] MEDS: Aspirin Enteric Coated 81 MG TABLET.DR PO (08:57)
[2022-05-20] MEDS: hydroCHLOROthiazide 25 MG TABLET PO (08:57)
[2022-05-20] MEDS: amLODIPine Besylate 2.5 MG TABLET PO (08:57)
[2022-05-20] MEDS: methADONE HCl 20 MG/2 ML ORAL.CONC 60 MG PO (08:58)
[2022-05-20] MEDS: Enoxaparin Sodium 40 MG/0.4 ML SYRINGE SUBCUT (08:58)
[2022-05-20] MEDS: carvediloL 6.25 MG TABLET PO ×2 (11:03→20:55)
[2022-05-20 16:49] VITALS: BP 133/87; PULSE 61; RESP 18; O2SAT 95
[2022-05-20 16:51] LABS: Glucose, Whole Blood 93 mg/dL (60-115)
[2022-05-20] MEDS: Albuterol Sulfate 90 MCG 8 GM INHALER 2 PUFF INHALE (20:18)
[2022-05-21] VITALS (7 sets, daily range): BP systolic 116–149; BP diastolic 71–89; PULSE 58–74; RESP 16–18; TEMP 36.2–36.9; O2SAT 94–97
--- NOTE | 2022-05-21 | MHC.EDTECH ---
this pct assumed care of patient at 2300 ,0000 vitals sign taken ,this pct asked patient if he needed anything ,patient said yes an ice cream ice cream given ,urinal empty 300 ml output ,call harvey within reach ,patient in good sprits watching television .
[2022-05-21] MEDS: Albuterol Sulfate 90 MCG 8 GM INHALER 2 PUFF INHALE ×3 (00:10→20:12)
--- NOTE | 2022-05-21 00:27 | PC.NURSE ---
this rn assumed care of pt at 2300. pt resting comfortable in bed watching tv. pt requested ice cream. ice cream given.
--- NOTE | 2022-05-21 02:00 | MHC.EDTECH ---
0200 ROUNDING DONE ,PATIENT SLEEPING .
--- NOTE | 2022-05-21 04:04 | MHC.EDTECH ---
0400 rounding done ,patient sleeping .
--- NOTE | 2022-05-21 05:56 | MHC.EDTECH ---
0600 rounding and vitals sign done ,patient awake watching the news ,asked for ice cream and warm blanket ,out put 400 ml empty ,call harvey within reach .
[2022-05-21] MEDS: Omeprazole 20 MG CAPSULE.DR PO (06:28)
[2022-05-21] MEDS: Fluticasone/Vilanterol 200/25 BLST.W.DEV 1 PUFF INHALE (08:11)
[2022-05-21] MEDS: methADONE HCl 20 MG/2 ML ORAL.CONC 60 MG PO (08:20)
[2022-05-21] MEDS: Aspirin Enteric Coated 81 MG TABLET.DR PO (08:21)
[2022-05-21] MEDS: amLODIPine Besylate 2.5 MG TABLET PO (08:21)
[2022-05-21] MEDS: Enoxaparin Sodium 40 MG/0.4 ML SYRINGE SUBCUT (08:21)
[2022-05-21] MEDS: carvediloL 6.25 MG TABLET PO ×2 (08:21→20:12)
[2022-05-21] MEDS: hydroCHLOROthiazide 25 MG TABLET PO (08:21)
--- NOTE | 2022-05-21 13:00 | PC.NURSE ---
PT A+O x4, VSS, PT DENIES PAIN. MEDS GIVEN DOCUMENTED.
--- NOTE | 2022-05-21 20:15 | PC.NURSE ---
Addendum entered by Makenzie Mchugh RN 05/22/22 06:56: Report given to AUDIE Blancas Original Note: report received from AUDIE Reid pt is alert and oriented resting in bed no signs of acute distress notice breathing equally unlabored
--- NOTE | 2022-05-21 20:37 | MHC.CM.ED ---
CM met with patient. Pt offers no complaints. Updated on bed search. No bed offers, [facility] still following. Request for bed in Care Port. Will continue to monitor bed search for discharge planning.
[2022-05-22] MEDS: traMADoL HCL 50 MG TABLET PO (01:36)
[2022-05-22 04:30] VITALS: BP 123/72; PULSE 57; RESP 17; TEMP 36.6; O2SAT 94
[2022-05-22] MEDS: Omeprazole 20 MG CAPSULE.DR PO (05:31)
[2022-05-22 09:08] VITALS: BP 143/83; PULSE 62; RESP 14; TEMP 36.1; O2SAT 95
[2022-05-22] MEDS: Aspirin Enteric Coated 81 MG TABLET.DR PO (09:21)
[2022-05-22] MEDS: methADONE HCl 20 MG/2 ML ORAL.CONC 60 MG PO (09:21)
[2022-05-22] MEDS: amLODIPine Besylate 2.5 MG TABLET PO (09:21)
[2022-05-22] MEDS: hydroCHLOROthiazide 25 MG TABLET PO (09:21)
[2022-05-22] MEDS: Enoxaparin Sodium 40 MG/0.4 ML SYRINGE SUBCUT (09:21)
[2022-05-22] MEDS: carvediloL 6.25 MG TABLET PO ×2 (09:21→20:41)
--- NOTE | 2022-05-22 09:25 | MHC.EDTECH ---
Call received from arpit Macdonald ([phone]). Has info regarding admission placement to [facility]. Info relayed to Radha Anne Signing Teacher
--- NOTE | 2022-05-22 16:25 | MHC.CM.ED ---
CM received a call from Torres munson, who wanted to speak with CM regarding some information he had about [facility]. CM returned call ([phone]). No answer and mailbox full. Unable to leave message. [facility]- no appropriate bed per liaison in Care Port.Still waiting for [facility].
[2022-05-22 17:28] VITALS: BP 120/81; PULSE 64; RESP 16; TEMP 36.7; O2SAT 94
[2022-05-22] MEDS: Albuterol Sulfate 90 MCG 8 GM INHALER 2 PUFF INHALE ×2 (20:41→23:44)
[2022-05-22] MEDS: Acetaminophen 325 MG TABLET 650 MG PO (21:29)
[2022-05-22] MEDS: diphenhydrAMINE HCL 25 MG CAPSULE PO (21:59)
[2022-05-22 22:00] VITALS: BP 134/80; PULSE 65; RESP 18; TEMP 36.7; O2SAT 94
--- NOTE | 2022-05-22 23:18 | PC.NURSE ---
Pt brought to bathroom via wheelchair. Pt was able to transfer from bed to wheelchair with minimal assistance.
[2022-05-23] VITALS: BP 149/87; PULSE 72; RESP 16; TEMP 36.8; O2SAT 94
[2022-05-23] MEDS: Omeprazole 20 MG CAPSULE.DR PO (05:36)
[2022-05-23 06:00] VITALS: BP 110/70; PULSE 60; RESP 16; TEMP 36.4; O2SAT 94
[2022-05-23] MEDS: carvediloL 6.25 MG TABLET PO ×2 (08:02→21:01)
[2022-05-23] MEDS: Aspirin Enteric Coated 81 MG TABLET.DR PO (08:02)
[2022-05-23] MEDS: hydroCHLOROthiazide 25 MG TABLET PO (08:03)
[2022-05-23] MEDS: amLODIPine Besylate 2.5 MG TABLET PO (08:03)
[2022-05-23] MEDS: Enoxaparin Sodium 40 MG/0.4 ML SYRINGE SUBCUT (08:04)
[2022-05-23] MEDS: methADONE HCl 20 MG/2 ML ORAL.CONC 60 MG PO (08:04)
--- NOTE | 2022-05-23 13:48 | MHC.CM.ED ---
Patient remains in ER. [facility] does not expect a male bed to be available before Friday. Continue to monitor for d/c needs.
[2022-05-23 15:00] VITALS: PULSE 61; RESP 18; O2SAT 94
[2022-05-23] MEDS: Albuterol Sulfate 90 MCG 8 GM INHALER 2 PUFF INHALE (15:00)
[2022-05-23 16:28] VITALS: BP 114/72; PULSE 61; TEMP 36.4; O2SAT 98
[2022-05-23 20:13] VITALS: BP 121/76; PULSE 81; RESP 18; TEMP 36.4; O2SAT 96
--- NOTE | 2022-05-23 20:14 | MHC.EDTECH ---
pt is resting watching tv, vitals were taken and his urinal was emptied he was also given 2 jellos to eat
[2022-05-23] MEDS: diphenhydrAMINE HCL 25 MG CAPSULE 50 MG PO (21:26)
--- NOTE | 2022-05-23 22:03 | PC.NURSE ---
Assumed care of pt. approx. 1900. Pt. A&O*3, follows commands, CARTWRIGHT weakly. +pulses, warm, - edema. LS dim. bilaterally, remains on RA. +BS*4, soft, NT/ND, obese. Umbilical hernia noted; non-tender. Voids in urinal. Tolerating po well; snacks provided. Note bilateral arm scarring, hardening; intact, no breaks noted. Bilateral lower extremities darkened, pruritic, scratches noted. Skin care provided to assist with comfort. Immediate care needs addressed. Encouraged to use call harvey. Watching television. Requested something for sleep ; recvd one time dose benadryl to assist.
--- NOTE | 2022-05-24 00:22 | MHC.EDTECH ---
pt is up still watching tv 2 ice creams were given
--- NOTE | 2022-05-24 03:15 | MHC.EDTECH ---
pt is resting quietly, dosing off and on
[2022-05-24] MEDS: Omeprazole 20 MG CAPSULE.DR PO (05:52)
[2022-05-24 05:55] VITALS: BP 131/77; PULSE 59; RESP 17; TEMP 36.7; O2SAT 96
--- NOTE | 2022-05-24 06:08 | MHC.EDTECH ---
pt urinal was emptied and vitals were taken
[2022-05-24 08:25] VITALS: BP 159/80; PULSE 63; RESP 16; O2SAT 96
[2022-05-24] MEDS: Aspirin Enteric Coated 81 MG TABLET.DR PO (08:27)
[2022-05-24] MEDS: hydroCHLOROthiazide 25 MG TABLET PO (08:27)
[2022-05-24] MEDS: carvediloL 6.25 MG TABLET PO ×2 (08:27→20:28)
[2022-05-24] MEDS: methADONE HCl 20 MG/2 ML ORAL.CONC 60 MG PO (08:27)
[2022-05-24] MEDS: Enoxaparin Sodium 40 MG/0.4 ML SYRINGE SUBCUT (08:27)
[2022-05-24] MEDS: amLODIPine Besylate 2.5 MG TABLET PO (08:28)
--- NOTE | 2022-05-24 10:20 | PC.NURSE ---
alert, oriented x4. able to make needs known. ate 100% of breakfast, now sleeping. chest rise and fall equal and unlabored. call harvey within reach
[2022-05-24 14:17] VITALS: BP 112/66; PULSE 57; RESP 14; TEMP 36.5; O2SAT 96
--- NOTE | 2022-05-24 19:33 | PC.NURSE ---
assumed cared of patient at 1900 - patient is resting comfortably on stretcher. no apparent distress. call harvey within reach, ringing appropriately. will continue to monitor
[2022-05-24] MEDS: Albuterol Sulfate 90 MCG 8 GM INHALER 2 PUFF INHALE (20:37)
--- NOTE | 2022-05-24 21:02 | MHC.CM.ED ---
CM attempted to meet with patient to review updates with patient. Pt sleeping. [facility] may have both male and female beds on Friday. CM following for d/c planning
--- NOTE | 2022-05-24 21:10 | PC.NURSE ---
patient given 2 puffs of albuterol inhaler with bedtime meds per request. no apparent distress. will continue to monitor
[2022-05-24 22:33] VITALS: BP 117/65; PULSE 63; TEMP 36.7; O2SAT 94
[2022-05-25] MEDS: Aspirin Enteric Coated 81 MG TABLET.DR PO (08:12)
[2022-05-25] MEDS: methADONE HCl 20 MG/2 ML ORAL.CONC 60 MG PO (08:12)
[2022-05-25] MEDS: Enoxaparin Sodium 40 MG/0.4 ML SYRINGE SUBCUT (08:12)
[2022-05-25] MEDS: amLODIPine Besylate 2.5 MG TABLET PO (08:13)
[2022-05-25] MEDS: carvediloL 6.25 MG TABLET PO ×2 (08:13→20:36)
[2022-05-25] MEDS: hydroCHLOROthiazide 25 MG TABLET PO (08:13)
[2022-05-25] MEDS: Omeprazole 20 MG CAPSULE.DR PO (08:13)
[2022-05-25 08:16] VITALS: BP 120/78; PULSE 57; RESP 18; TEMP 36.2; O2SAT 95
--- NOTE | 2022-05-25 08:36 | MHC.CM.PN ---
PT IN NEED OF STR PLACEMENT REFERRALS BROADCASTED BARRIERS INCLUDE METHADONE AND UNVACCINATED STATUS CURRENTLY THERE IS ONLY ONE SNF FOLLOWING, [facility] UPDATES SENT TO SNF HOWEVER THEY DO NOT EXPECT BED OPENINGS PRIOR TO NEXT WEEK
[2022-05-25 15:33] VITALS: BP 114/74; PULSE 54; O2SAT 97
[2022-05-25 20:30] VITALS: BP 126/83; PULSE 66
[2022-05-25 22:29] VITALS: BP 147/82; PULSE 64; O2SAT 93
--- NOTE | 2022-05-26 05:14 | PC.NURSE ---
Pt complained that he is feeling very anxious throughout the night and unable to get any meaningful sleep. Pt stated that he is having a very hard time falling asleep while he is here in the hospital. This RN reached out to ED provider to request antianxiety meds to help the pt rest.
[2022-05-26] MEDS: LORazepam 1 MG TABLET PO ×2 (05:39→22:12)
[2022-05-26] MEDS: Omeprazole 20 MG CAPSULE.DR PO (05:39)
[2022-05-26 06:06] VITALS: BP 145/85; PULSE 58; RESP 18; TEMP 36.4; O2SAT 92
--- NOTE | 2022-05-26 06:07 | MHC.EDTECH ---
PT Urinal emptied at 400cc. PT offered materials for bed bath alongside assistance but PT Refused. Pt given warm blanket and call harvey in reach
[2022-05-26] MEDS: Aspirin Enteric Coated 81 MG TABLET.DR PO (08:38)
[2022-05-26] MEDS: carvediloL 6.25 MG TABLET PO ×2 (08:38→21:01)
[2022-05-26] MEDS: amLODIPine Besylate 2.5 MG TABLET PO (08:38)
[2022-05-26] MEDS: hydroCHLOROthiazide 25 MG TABLET PO (08:38)
[2022-05-26] MEDS: Enoxaparin Sodium 40 MG/0.4 ML SYRINGE SUBCUT (08:39)
[2022-05-26] MEDS: methADONE HCl 20 MG/2 ML ORAL.CONC 60 MG PO (08:39)
[2022-05-26 16:00] VITALS: BP 110/70; PULSE 82; RESP 16; TEMP 36.6; O2SAT 96
--- NOTE | 2022-05-26 16:13 | MHC.EDTECH ---
this pct assumed care of pt at 1500 ,pt vitals sign taken ,pt in good sprits joking around with me ,and watching television ,urinal empty 400 ml ,fresh water given ,call harvey within reach .
--- NOTE | 2022-05-26 16:30 | MHC.EDTECH ---
PATIENT HAD A SUN BUTTER AND JELLY SANDWICH AND ORANGE JUICE FOR SNACK .
--- NOTE | 2022-05-26 19:00 | MHC.EDTECH ---
PATIENT ATE 100 % OF TURKEY DINNER ,DRANK 480 ML JUICE AND MILK ,URINAL EMPTY 300 ML .
[2022-05-26 20:00] VITALS: BP 112/74; PULSE 74; RESP 16; TEMP 36.9; O2SAT 97
--- NOTE | 2022-05-26 20:20 | MHC.EDTECH ---
THIS PCT OFFER PATIENT TO WASH UP ,BUT PATIENT REFUSED .
--- NOTE | 2022-05-26 22:16 | MHC.EDTECH ---
patient went to the bathroom with a wheeled chair ,had a medium bowel ,also he washed himself up ,had ice cream for bedtime snack .
[2022-05-27] MEDS: Omeprazole 20 MG CAPSULE.DR PO (06:56)
[2022-05-27] MEDS: methADONE HCl 20 MG/2 ML ORAL.CONC 60 MG PO (10:28)
[2022-05-27] MEDS: Enoxaparin Sodium 40 MG/0.4 ML SYRINGE SUBCUT (10:28)
[2022-05-27] MEDS: amLODIPine Besylate 2.5 MG TABLET PO (10:28)
[2022-05-27] MEDS: carvediloL 6.25 MG TABLET PO ×2 (10:28→20:15)
[2022-05-27] MEDS: Aspirin Enteric Coated 81 MG TABLET.DR PO (10:28)
[2022-05-27] MEDS: hydroCHLOROthiazide 25 MG TABLET PO (10:28)
[2022-05-27 10:39] VITALS: BP 110/58; PULSE 70; RESP 18; TEMP 36.8; O2SAT 94
--- NOTE | 2022-05-27 11:57 | PC.NURSE ---
pts at bedside. pt resting comfortably, no complaints at this time.
--- NOTE | 2022-05-27 13:27 | MHC.CM.ED ---
Patient remains in ER overflow unit. Waiting to hear from [facility] if they have a male bed today. Continue to monitor for d/c needs.
[2022-05-27 18:46] VITALS: BP 99/63; PULSE 66; RESP 16; TEMP 36.7; O2SAT 94
[2022-05-28 05:57] VITALS: BP 108/63; PULSE 62; RESP 16; TEMP 36.4; O2SAT 97
[2022-05-28] MEDS: Omeprazole 20 MG CAPSULE.DR PO (06:53)
--- NOTE | 2022-05-28 08:03 | PC.NURSE ---
pt at bedside
[2022-05-28] MEDS: amLODIPine Besylate 2.5 MG TABLET PO (08:53)
[2022-05-28] MEDS: methADONE HCl 20 MG/2 ML ORAL.CONC 60 MG PO (08:53)
[2022-05-28] MEDS: hydroCHLOROthiazide 25 MG TABLET PO (08:53)
[2022-05-28] MEDS: Aspirin Enteric Coated 81 MG TABLET.DR PO (08:53)
[2022-05-28] MEDS: carvediloL 6.25 MG TABLET PO ×2 (08:53→21:03)
[2022-05-28] MEDS: Enoxaparin Sodium 40 MG/0.4 ML SYRINGE SUBCUT (08:53)
[2022-05-28 09:08] VITALS: BP 121/61; PULSE 65; TEMP 36.4; O2SAT 94
--- NOTE | 2022-05-28 09:56 | MHC.CM.ED ---
Patient remains in ER overflow. [facility] doesn't have a male bed today. Waiting to hear from [facility] if they have a male bed available. Continue to monitor for d/c needs.
--- NOTE | 2022-05-28 14:17 | PC.NURSE ---
pt laying in bed, repositioning self. requesting food hourly. pt is very demanding and not willing to participate in care much. attempting to get pt to stand to use urinal etc and pt does not want to. currently eating lunch with no distress noted. plan for [facility] when a male bed is available- per cm d/t vax status and medication (methadone) placement is limited.
--- NOTE | 2022-05-28 18:54 | PC.NURSE ---
pt ate 100% of dinner
[2022-05-28 19:08] VITALS: BP 139/74; PULSE 66; RESP 16; TEMP 36.3; O2SAT 95
--- NOTE | 2022-05-28 20:17 | PC.NURSE ---
Assumed care of pt. at 1900. At that time pt. was asleep in bed, respirations even and unlabored, no distress noted. Pt. currently awake, up briefly to use urinal and is sitting up in bed. Will continue to monitor.
[2022-05-28] MEDS: Albuterol Sulfate 90 MCG 8 GM INHALER 2 PUFF INHALE (22:41)
[2022-05-28 22:58] VITALS: BP 128/79; PULSE 60; RESP 18; TEMP 36.4; O2SAT 96
--- NOTE | 2022-05-28 22:58 | PC.NURSE ---
Pt. asking about being able to leave here. Spoke with pt. about waiting on a bed opening at [facility]. Pt. also reporting pain in his hip and feeling like his methadone dose wasn't helping and he was just feeling not great . This RN reached out to charge nurse to speak with provider about some pain meds and meds to help. Will continue to monitor and f/u with charge master coordinator and/or provider.
--- NOTE | 2022-05-29 00:44 | PC.NURSE ---
Pt. requesting a snack. Provided pt. with pudding and icecream per his request.
[2022-05-29] MEDS: Acetaminophen 325 MG TABLET 975 MG PO (01:12)
[2022-05-29] MEDS: LORazepam 0.5 MG TABLET PO ×2 (01:12→23:13)
--- NOTE | 2022-05-29 02:37 | MHC.EDTECH ---
pt rang requested tuna sandwich and apple juice
--- NOTE | 2022-05-29 02:44 | PC.NURSE ---
Pt. awake in bed, asking for the time. Pt. requested a sandwich and some juice. Provided to pt. Will continue to monitor.
[2022-05-29 05:13] VITALS: BP 128/74; PULSE 69; RESP 16; TEMP 36.6; O2SAT 96
[2022-05-29] MEDS: Enoxaparin Sodium 40 MG/0.4 ML SYRINGE SUBCUT (08:07)
[2022-05-29] MEDS: Omeprazole 20 MG CAPSULE.DR PO (08:08)
[2022-05-29] MEDS: carvediloL 6.25 MG TABLET PO ×2 (08:08→21:22)
[2022-05-29] MEDS: hydroCHLOROthiazide 25 MG TABLET PO (08:08)
[2022-05-29] MEDS: amLODIPine Besylate 2.5 MG TABLET PO (08:08)
[2022-05-29] MEDS: Aspirin Enteric Coated 81 MG TABLET.DR PO (08:08)
[2022-05-29] MEDS: methADONE HCl 20 MG/2 ML ORAL.CONC 60 MG PO (08:08)
[2022-05-29 20:43] VITALS: BP 130/75; PULSE 63; RESP 18; TEMP 36.4; O2SAT 95
--- NOTE | 2022-05-29 21:34 | PC.NURSE ---
Assumed care of pt. at 1900. Pt. sleeping at that time. Pt. awoke and asked for phone to call home. Pt. medication compliant. Pt. up and requesting w/c to go to bathroom. Will continue to monitor.
[2022-05-29] MEDS: Ibuprofen 600 MG TABLET PO (23:12)
--- NOTE | 2022-05-29 23:39 | PC.NURSE ---
Pt. was reporting pain in his hip at a 9/10. Pt. also reporting some anxiety and difficulty sleeping. Medicated with ibuprofen and ativan per JUN. Pt. now sleeping in room, respirations even and unlabored. No distress noted.
--- NOTE | 2022-05-30 04:52 | PC.NURSE ---
Pt. currently sleeping. Respirations even and unlabored. No distress noted. Will continue to monitor.
[2022-05-30 05:43] VITALS: BP 128/81; PULSE 68; RESP 18; TEMP 36.3; O2SAT 96
[2022-05-30] MEDS: Omeprazole 20 MG CAPSULE.DR PO (06:18)
[2022-05-30] MEDS: methADONE HCl 20 MG/2 ML ORAL.CONC 60 MG PO (07:57)
[2022-05-30] MEDS: Enoxaparin Sodium 40 MG/0.4 ML SYRINGE SUBCUT (07:57)
[2022-05-30] MEDS: hydroCHLOROthiazide 25 MG TABLET PO (07:58)
[2022-05-30] MEDS: carvediloL 6.25 MG TABLET PO ×2 (07:58→20:12)
[2022-05-30] MEDS: Aspirin Enteric Coated 81 MG TABLET.DR PO (07:58)
[2022-05-30] MEDS: amLODIPine Besylate 2.5 MG TABLET PO (08:27)
--- NOTE | 2022-05-30 09:02 | PC.NURSE ---
Patient resting comfortably neuros intact no respiratory distress noted. + CSM noted in BLE. AOx 4 neuros intact patient tolerted PO food and fluids will CTM
--- NOTE | 2022-05-30 09:47 | MHC.CM.ED ---
Patient remains in ER overflow. [facility] still does not have a male bed avaialable. Continue to monitor for d/c needs.
[2022-05-30 14:00] VITALS: BP 143/80; PULSE 62; RESP 12; TEMP 36.5; O2SAT 96
--- NOTE | 2022-05-30 17:53 | PC.NURSE ---
Patient sitting on edge of bed watching tv no distress noted will CTM
--- NOTE | 2022-05-30 19:21 | MHC.EDTECH ---
patient ate 100 % of pork dinner ,drank 600 ml fluids .
[2022-05-30 20:00] VITALS: BP 143/77; PULSE 73; RESP 16; TEMP 36.8; O2SAT 97
[2022-05-30] MEDS: LORazepam 1 MG TABLET PO (20:12)
--- NOTE | 2022-05-30 22:36 | MHC.EDTECH ---
2200 rounding done ,pt sleeping ,call harvey with in reach .
--- NOTE | 2022-05-30 22:38 | MHC.EDTECH ---
1000 ml urine empty on my shift .
[2022-05-31 02:37] VITALS: BP 139/76; PULSE 68; RESP 18; TEMP 36.5; O2SAT 95
--- NOTE | 2022-05-31 02:38 | MHC.EDTECH ---
pt is tossing and turning still awake dosing off here and there
[2022-05-31] MEDS: Omeprazole 20 MG CAPSULE.DR PO (05:32)
[2022-05-31 09:28] VITALS: BP 144/82; PULSE 66; RESP 18; TEMP 36.8; O2SAT 96
[2022-05-31] MEDS: amLODIPine Besylate 2.5 MG TABLET PO (09:30)
[2022-05-31] MEDS: Aspirin Enteric Coated 81 MG TABLET.DR PO (09:30)
[2022-05-31] MEDS: carvediloL 6.25 MG TABLET PO ×2 (09:30→21:00)
[2022-05-31] MEDS: methADONE HCl 20 MG/2 ML ORAL.CONC 60 MG PO (09:30)
[2022-05-31] MEDS: hydroCHLOROthiazide 25 MG TABLET PO (09:30)
[2022-05-31] MEDS: Enoxaparin Sodium 40 MG/0.4 ML SYRINGE SUBCUT (09:30)
--- NOTE | 2022-05-31 11:58 | PC.NURSE ---
alert, oriented x4. able to make needs known. resting comfortably in bed watching tv. no signs of distress noted. call harvey within reach
[2022-05-31 14:00] VITALS: BP 104/74; PULSE 61; RESP 18; TEMP 36.4; O2SAT 93
--- NOTE | 2022-05-31 14:03 | MHC.CM.ED ---
PT CONTINUES TO AWAIT SNF PLACEMENT [facility] FOLLOWING HOWEVER THEY HAVE NO BEDS AT THIS TIME REFERRAL UPDATED AND EXPANDED BARRIERS INCLUDE METHADONE MAINTENANCE TREATMENT AND NOT BEING COVID VAX
--- NOTE | 2022-05-31 15:44 | MHC.EDTECH ---
Assist patient to B/R in wheelchair and back to bed. Wiped patients bedside table. Brought patient fresh ice water and warm blanket.
[2022-05-31 20:48] VITALS: BP 139/85; PULSE 71; RESP 20; TEMP 36.7; O2SAT 93
--- NOTE | 2022-05-31 21:01 | PC.NURSE ---
Pt medicated per JUN. Message sent to Dr. Bee r/t pt reports he has difficulty sleeping at night also has 9/10 LLQ abdominal pain.
[2022-05-31] MEDS: LORazepam 1 MG TABLET PO (23:59)
--- NOTE | 2022-06-01 00:06 | PC.NURSE ---
Pt reports unable to fall asleep would like medication to aid with sleep. Dr. Lau aware. Pt medicated per JUN.
[2022-06-01 01:11] VITALS: BP 141/78; PULSE 60; RESP 14; TEMP 36.4; O2SAT 96
[2022-06-01] MEDS: Omeprazole 20 MG CAPSULE.DR PO (07:35)
[2022-06-01] MEDS: amLODIPine Besylate 2.5 MG TABLET PO (08:52)
[2022-06-01] MEDS: hydroCHLOROthiazide 25 MG TABLET PO (08:52)
[2022-06-01] MEDS: carvediloL 6.25 MG TABLET PO ×2 (08:52→20:27)
[2022-06-01] MEDS: Aspirin Enteric Coated 81 MG TABLET.DR PO (08:52)
[2022-06-01] MEDS: methADONE HCl 20 MG/2 ML ORAL.CONC 60 MG PO (08:53)
[2022-06-01] MEDS: Enoxaparin Sodium 40 MG/0.4 ML SYRINGE SUBCUT (08:53)
[2022-06-01 09:04] VITALS: BP 146/82; PULSE 69; RESP 14; TEMP 36.7; O2SAT 99
--- NOTE | 2022-06-01 13:52 | MHC.CM.ED ---
Patient remains in ER. [facility] still does not have a bed available. Continue to monitor for d/c needs.
[2022-06-01 16:12] VITALS: BP 144/70; PULSE 74; RESP 16; TEMP 36.2; O2SAT 98
--- NOTE | 2022-06-01 16:13 | MHC.EDTECH ---
this pct assumed care of pt at 1500 ,pt sleeping ,vitals sign taken .
[2022-06-01] MEDS: Cyclobenzaprine HCl 5 MG TABLET PO (18:16)
--- NOTE | 2022-06-01 19:36 | MHC.EDTECH ---
patient ate 100 % of dinner drank,600 ml fluids ,urinal empty 550 ml .
[2022-06-01 20:00] VITALS: BP 141/80; PULSE 72; RESP 16; TEMP 36.7; O2SAT 98
--- NOTE | 2022-06-01 20:27 | PC.NURSE ---
Addendum entered by Makenzie Mchugh RN 06/02/22 06:56: Report given to AUDIE Vasquez Original Note: Report received from AUDIE Farr pt alert and oriented resting in bed breathing equally unlabored no signs of acute distress notice
--- NOTE | 2022-06-02 | MHC.EDTECH ---
0000 rounding done pt sleeping ,400 ml out put empty .
--- NOTE | 2022-06-02 00:30 | MHC.EDTECH ---
pt rang call harvey and ask for food was given a ham sandwich and water .
[2022-06-02 06:24] VITALS: BP 135/74; PULSE 70; RESP 18; TEMP 36.9; O2SAT 97
[2022-06-02] MEDS: Omeprazole 20 MG CAPSULE.DR PO (06:29)
--- NOTE | 2022-06-02 07:39 | PC.NURSE ---
meal tray provided
[2022-06-02] MEDS: methADONE HCl 20 MG/2 ML ORAL.CONC 60 MG PO (08:30)
[2022-06-02] MEDS: Enoxaparin Sodium 40 MG/0.4 ML SYRINGE SUBCUT (08:32)
[2022-06-02] MEDS: Aspirin Enteric Coated 81 MG TABLET.DR PO (08:38)
[2022-06-02] MEDS: Acetaminophen 325 MG TABLET 975 MG PO ×2 (08:38→21:46)
[2022-06-02] MEDS: amLODIPine Besylate 2.5 MG TABLET PO (08:38)
[2022-06-02] MEDS: hydroCHLOROthiazide 25 MG TABLET PO (08:38)
[2022-06-02] MEDS: carvediloL 6.25 MG TABLET PO ×2 (08:39→21:47)
--- NOTE | 2022-06-02 10:22 | MHC.CM.ED ---
Patient remains in ER overflow. Her Zayra at [facility], anticipate to have male bed available this week. Continue to monitor for d/c needs.
--- NOTE | 2022-06-02 10:56 | PC.NURSE ---
Pt received 1115 Tylenol dose early as he did not receive 0515 dose and was requesting it.
[2022-06-02 11:00] VITALS: BP 119/70; PULSE 68; RESP 16; TEMP 36.5; O2SAT 92
--- NOTE | 2022-06-02 11:04 | PC.NURSE ---
Pt O2 92% while asleep
--- NOTE | 2022-06-02 13:50 | PC.NURSE ---
Pt provided with lunch
[2022-06-02 15:14] VITALS: BP 140/86; PULSE 63; RESP 16; O2SAT 95
--- NOTE | 2022-06-02 19:36 | PC.NURSE ---
report received from Karen BRONSON - assumed care of patient at 1900. patient standing up with walker next to bed. requesting to go to bathroom but states he needs the wheelchair. this RN encouraged patient use his walker to ambulate to bathroom since he is standing with no issues, encouraging strengthening the hip. patient states it is hard and still hurts to walk. agreement made that patient be wheel chaired to bathroom and then attempt to use walker to ambulate back to room with the assistance of this RN and PCT.
[2022-06-02] MEDS: Cyclobenzaprine HCl 5 MG TABLET PO (21:47)
--- NOTE | 2022-06-02 22:27 | PC.NURSE ---
patient saying he cant sleep and he is anxious. MD aware. 1mg ativan po ordered
[2022-06-02] MEDS: LORazepam 1 MG TABLET PO (22:30)
[2022-06-03 06:12] VITALS: BP 108/72; PULSE 67; RESP 18; TEMP 36.6; O2SAT 94
[2022-06-03] MEDS: hydroCHLOROthiazide 25 MG TABLET PO (08:39)
[2022-06-03] MEDS: Enoxaparin Sodium 40 MG/0.4 ML SYRINGE SUBCUT (08:41)
[2022-06-03] MEDS: Aspirin Enteric Coated 81 MG TABLET.DR PO (08:41)
[2022-06-03] MEDS: methADONE HCl 20 MG/2 ML ORAL.CONC 60 MG PO (08:42)
[2022-06-03] MEDS: carvediloL 6.25 MG TABLET PO ×2 (08:43→21:41)
[2022-06-03] MEDS: amLODIPine Besylate 2.5 MG TABLET PO (08:43)
[2022-06-03] MEDS: Omeprazole 20 MG CAPSULE.DR PO (09:45)
--- NOTE | 2022-06-03 10:55 | MHC.CM.ED ---
PT CONTINUES TO AWAIT SNF PLACEMENT REFERRAL BROADCASTED [facility] IS THE ONLY SNF WILLING TO FOLLOW SNF HAS NO MALE BEDS TODAY CM WILL CONTINUE TO UPDATE/EXPAND REFERRAL
--- NOTE | 2022-06-03 11:52 | MHC.EDTECH ---
Attempted to assist patient to the restroom. Care Home to the restroom patient began to drag his right foot. I immediately got a wheel chair and put patient in it at which time he said he no longer needed to urinate. I Return patient to bedside in the wheel chair, he transferred himself from the wheel chair back into the bed using his walker. Eulalia Molina
[2022-06-03 12:08] VITALS: BP 101/73; PULSE 72; RESP 16; O2SAT 93
--- NOTE | 2022-06-03 12:15 | PC.NURSE ---
PT OUT OF BED, AMBULATED W/WALKER, DENIES PAIN, VSS, MEDS GIVEN DOCUMENTED.
[2022-06-03] MEDS: Acetaminophen 325 MG TABLET 975 MG PO ×2 (13:31→23:36)
[2022-06-03 14:45] VITALS: BP 129/77; PULSE 68; RESP 16; TEMP 37.1; O2SAT 93
--- NOTE | 2022-06-03 17:46 | MHC.CM.ED ---
[facility] continues to follow. No male beds. Will check in am. PT re-eval and daily PT ordered. Pt remains difficult to place d/t methadone and unvaccinated status. CM to follow for discharge planning.
[2022-06-03 21:37] VITALS: BP 116/68; PULSE 61; RESP 17; TEMP 36.9; O2SAT 93
[2022-06-03] MEDS: Cyclobenzaprine HCl 5 MG TABLET PO (21:57)
[2022-06-04] MEDS: Omeprazole 20 MG CAPSULE.DR PO (05:57)
[2022-06-04] MEDS: Acetaminophen 325 MG TABLET 975 MG PO (05:57)
[2022-06-04 06:19] VITALS: BP 116/66; PULSE 62; RESP 18; TEMP 36.6; O2SAT 94
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
[2022-06-04 07:52] VITALS: BP 98/57; PULSE 63; RESP 16; TEMP 36.6; O2SAT 96
[2022-06-04] MEDS: methADONE HCl 20 MG/2 ML ORAL.CONC 60 MG PO (08:59)
[2022-06-04] MEDS: hydroCHLOROthiazide 25 MG TABLET PO (09:01)
[2022-06-04] MEDS: carvediloL 6.25 MG TABLET PO (09:01)
[2022-06-04] MEDS: Enoxaparin Sodium 40 MG/0.4 ML SYRINGE SUBCUT (09:01)
[2022-06-04] MEDS: Aspirin Enteric Coated 81 MG TABLET.DR PO (09:02)
[2022-06-04] MEDS: amLODIPine Besylate 2.5 MG TABLET PO (09:40)
== END 2022-06-04 13:19 | disposition home or self-care (01) ==
PROVIDERS: Emergency Provider Internal Medicine; PCP Internal Medicine
DX: S72.142A Displaced intertrochanteric fracture of left femur, initial encounter for closed fracture (principal); S72.002A Fracture of unspecified part of neck of left femur, initial encounter for closed fracture; M97.02XA Periprosthetic fracture around internal prosthetic left hip joint, initial encounter; F41.9 Anxiety disorder, unspecified; G47.00 Insomnia, unspecified; F51.9 Sleep disorder not due to a substance or known physiological condition, unspecified; F17.210 Nicotine dependence, cigarettes, uncomplicated; F11.90 Opioid use, unspecified, uncomplicated; R26.81 Unsteadiness on feet; X58.XXXA Exposure to other specified factors, initial encounter; Y93.9 Activity, unspecified; Y92.9 Unspecified place or not applicable; Y99.9 Unspecified external cause status; Z20.822 Contact with and (suspected) exposure to COVID-19; Z20.828 Contact with and (suspected) exposure to other viral communicable diseases; Z71.6 Tobacco abuse counseling; Z79.899 Other long term (current) drug therapy
CPT/HCPCS: 73502; 80053; 82947; 83735; 85025; 87635; 96360; 96372; 97110; 97116; 97162; 97530; 99285; J1650

== ENCOUNTER 2022-07-08 09:50 | Outpatient (REF) | payer MEDICAID, SELFPAY ==
--- NOTE | ~2022-07-08 | XR_ITS ---
EXAMINATION: XR HIP WITH PELVIS, LEFT CLINICAL INFORMATION: Pain in left hip. COMPARISON: Left hip 05/31/2022. TECHNIQUE: Two views of the left hip. AP pelvis one view FINDINGS: AP pelvis and left hip: There is an intramedullary femoral sebastien and a left hip screw stabilizing an old, healed femoral neck fracture. There is exuberant callus formation along the inferior aspect. There is a lucency seen traversing the femoral neck, question of recurrent fracture, artifact or unhealed, old fracture. It is new since the last exam. The femoral head is normal. There is no hardware malfunction or loosening. Mild arthritic changes with loss of joint space of the right hip joint is noted. XR/XR hip LT w PEL1V IMPRESSION: There is an intramedullary femoral sebastien and a nail stabilizing an old femoral neck fracture. There is a transverse lucency seen traversing the neck, suspicious for a new fracture, artifact or recurrence. The lucency is new since the last study. There is exuberant callus formation seen along the inferior aspect of the femoral neck. Mild degenerative changes of the right hip joint. No bony abnormality. Recommend CT left hip for further evaluation.
== END 2022-07-08 09:51 | disposition home or self-care (01) ==
LOC: HO.HOSX 09:50
PROVIDERS: Visit Provider Physician Assistant
DX: S72.142D Displaced intertrochanteric fracture of left femur, subsequent encounter for closed fracture with routine healing (principal)
CPT/HCPCS: 73502

== ENCOUNTER 2022-08-08 13:23 | Emergency (ER) | payer MEDICAID, SELFPAY ==
[2022-08-08 13:44] VITALS: BP 128/79; PULSE 92; RESP 16; TEMP 36.6; O2SAT 95; BMI 34.9
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
--- NOTE | 2022-08-08 19:05 | PC.NURSE ---
Report received from Salma BRONSON. Pt resting quietly in stretcher with eyes closed. Respirations even and unlabored. No acute distress noted.
[2022-08-08 19:37] VITALS: BP 131/81; PULSE 76; RESP 17; TEMP 36.6; O2SAT 95
[2022-08-09 00:23] VITALS: BP 112/65; PULSE 67; RESP 18; TEMP 36.9; O2SAT 96
[2022-08-09] MEDS: Naloxone HCl Nasal TAKE HOME 4 MG SPRAY NOSTRILALT (01:37)
--- NOTE | 2022-08-09 02:35 | PC.NURSE ---
Rishi arranged for pt and all personal belongings returned to pt at this time.
== END 2022-08-09 02:35 | disposition home or self-care (01) ==
PROVIDERS: Emergency Provider Emergency Medicine; PCP Internal Medicine
DX: T40.1X1A Poisoning by heroin, accidental (unintentional), initial encounter (principal); Y92.9 Unspecified place or not applicable; F17.210 Nicotine dependence, cigarettes, uncomplicated; Z71.6 Tobacco abuse counseling; Z71.51 Drug abuse counseling and surveillance of drug abuser
CPT/HCPCS: 99283

== ENCOUNTER 2022-08-30 13:54 | Inpatient (IN) | payer MEDICAID, SELFPAY ==
--- NOTE | ~2022-08-30 | US_ITS ---
EXAMINATION: US ABDOMEN LIMITED CLINICAL INFORMATION: Right upper quadrant pain. COMPARISON: CT abdomen/pelvis performed earlier today. TECHNIQUE: Real-time imaging of the right upper quadrant abdominal viscera. FINDINGS: PANCREAS: Normal. LIVER: Cirrhotic liver morphology. No intrahepatic biliary ductal dilatation or discrete focal liver lesion. GALLBLADDER: Cholecystectomy. COMMON BILE DUCT: Dilated measuring 0.9 cm in diameter, nonspecific in a post cholecystectomy state. RIGHT KIDNEY: No hydronephrosis. No renal calculi or focal parenchymal lesions. The kidney measures 10.8 cm in maximum dimension. FREE FLUID: Small volume of ascites. US/US abdomen limited IMPRESSION: 1. Cirrhotic liver morphology with small volume of ascites. 2. Mild dilatation of the common bile duct, nonspecific but likely related with post cholecystectomy state.
--- NOTE | ~2022-08-30 | XR_ITS ---
EXAMINATION: XR HIP, LEFT CLINICAL INFORMATION: Pain, fall COMPARISON: 07/08/2022 TECHNIQUE: Two views of the left hip. FINDINGS: A long stem intramedullary sebastien and cannulated screw transfix an old fracture of the left femoral neck. Heterotopic ossification is present. The left femoral head remains located in the acetabulum and the hardware intact and unchanged. Degenerative changes are noted in the lumbar spine and right hip. No acute fracture is detected. XR/XR hip LT w PEL1V IMPRESSION: Stable appearance of metallic hardware in the left hip transfixing an old fracture of the left femoral neck.
--- NOTE | ~2022-08-30 | CT_ITS ---
EXAMINATION: CT ABDOMEN AND PELVIS WITHOUT CONTRAST CLINICAL INFORMATION: Central abdomen pain. History of hernia. Nausea, vomiting, diarrhea COMPARISON: None available. TECHNIQUE: Multidetector volumetric imaging was performed from the superior aspect of the liver through the pubic symphysis. Sagittal and coronal reformatted images were obtained on the technologist's workstation. This CT examination was performed using dose optimization techniques as appropriate, variously including the following: *Automated exposure control *Adjustment of mA and/or kV according to patient size (this includes techniques or standardized protocols for targeted exams where dose is matched to indication/reason for exam; i.e. 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 There are surgical clips in the right upper quadrant. There are gas-filled distended small bowel loops in the central abdomen. There is relative elevation the right hemidiaphragm. The spine is abnormal. LUNG BASES: There is thickening of the distal esophagus. Possibilities include a hernia, or varices. LIVER, GALLBLADDER, AND BILIARY TREE: The right lobe of the liver measures approximately 16.3 cm. This is close to the mean expected. The liver contour is irregular/nodular. Study was performed without IV contrast. No large focal lesion. There are surgical clips in the expected region of the gallbladder. PANCREAS: The pancreas is somewhat atrophic. No large mass. SPLEEN: The spleen measures at least 13.3 cm. This is between 1 and 2 standard deviations above the mean expected. No definite focal lesion ADRENAL GLANDS: No suspicious mass KIDNEYS AND URETERS: There is no dilation of the urinary collecting system on either side. No opaque urinary calculus. BLADDER: No focal abnormality of the bladder. The bladder is not well-distended GASTROINTESTINAL TRACT: There is fluid within the colon which is abnormal. There are dilated fluid and gas-filled loops of small bowel in the central abdomen. There is an umbilical hernia which contains intermediate density. There are some less distended distal small bowel loops. There is a suggestion of some changing caliber in the right lower quadrant No convincing evidence of pneumoperitoneum or pneumatosis. ABDOMINAL WALL: There is a umbilical hernia which contains some fat and intermediate density. LYMPH NODES: No measurably enlarged lymph nodes. There is a small amount of intraperitoneal fluid. VASCULAR: There is no abdominal aortic aneurysm. There is atherosclerotic calcification. There may be some upper abdominal venous collaterals. PELVIC VISCERA: Coarse calcifications in the prostate. OSSEOUS STRUCTURES: There is exaggerated thoracolumbar kyphosis. There is at least moderate volume loss at multiple levels in the lower thoracic and lumbar spine. There are proliferative changes. There are posttraumatic changes in the left proximal femur. There is been instrumentation. There is some heterotopic new bone formation. Suspect osteopenia. Suspect healed posterolateral right lower rib fractures CT/CT abdomen pelvis wo IV con IMPRESSION: Study limited by motion and lack of IV contrast. Abnormal liver with morphology suggestive of cirrhosis. Mild splenomegaly and some ascites. There are distended small bowel loops. Some degree of bowel obstruction could be present. There is a midline umbilical hernia. Multiple compression deformities in the spine which appears significantly worsened when compared to lateral view of the lumbar spine 07/10/20 Fleischner guidelines were followed.
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
[2022-08-30 14:12] VITALS: BP 128/86; BP 147/90; PULSE 78; PULSE 87; RESP 18; TEMP 35.8; O2SAT 94; BMI 26.6
[2022-08-30 14:45] LABS: Hematocrit 44.1 % (42.0-52.0); Hemoglobin 15.2 g/dl (14.0-18.0); Mean Corpuscular HGB Conc 34.5 g/dl (31.0-36.0); Mean Corpuscular Hemoglobin 31.1 pg (27.0-33.0); Mean Corpuscular Volume 90.4 fL (80.0-98.0); Mean Platelet Volume 11.9 fL (9.4-12.4); Red Blood Count 4.88 X10*6/uL (4.60-5.80); Red Cell Distribution Width 14.6 % (11.0-16.0); White Blood Count 25.5 X10*3/uL (4.8-10.8)
[2022-08-30 14:58] LABS: Alanine Aminotransferase 16 U/L (0-40); Albumin Level 2.6 g/dL (3.5-5.0); Alkaline Phosphatase 109 U/L (39-117); Anion Gap 11 (12-20); Aspartate Amino Transferase 24 U/L (5-37); Bilirubin Direct 2.3 mg/dL (0.0-0.5); Bilirubin Total 3.9 mg/dL (0.0-1.0); Blood Urea Nitrogen 18 mg/dL (9-16); Calcium 8.2 mg/dL (8.4-10.2); Carbon Dioxide 28 mmol/L (22-29); Chloride 108 mmol/L (96-108); Creatinine Clr Calc Pharmacy 77.3; Estimated Glomerular Filt Rate > 60; Glucose Random 110 mg/dL (60-115); Lipase 10 U/L (8-78); Magnesium 1.8 mg/dL (1.6-2.6); Sodium 144 mmol/L (135-145); Total Protein 6.6 g/dL (6.5-8.0)
[2022-08-30 15:04] LABS: Platelet Count 70 X10*3/uL (160-400)
[2022-08-30 15:05] LABS: SLIDE REVIEW MANUAL DIFF
[2022-08-30 15:10] LABS: Band Neutrophils Percent 7 % (3-5); Lymphocytes Absolute Manual 0.3 X10*3/uL (1.2-4.9); Lymphocytes Percent Manual 1 % (20-40); Monocytes Absolute Manual 1.3 X10*3/uL (0.1-1.2); Monocytes Percent Manual 5 % (2-11); Neutrophils Percent Manual 87 % (45-73); RBC Morphology NOTED
[2022-08-30 15:11] LABS: Acanthocytes 3+ (>5) /OIF; Platelet Estimate DECREASED (NORMAL)
[2022-08-30 15:12] LABS: Platelet Morphology Comment NORMAL
[2022-08-30 16:59] LABS: Lactic Acid 2.2 mmol/L (0.5-2.0)
[2022-08-30] MEDS: Morphine Sulfate 4 MG/ML CARTRIDGE IVPUSH (17:07)
[2022-08-30] MEDS: Potassium Chloride Packet 20 MEQ PACKET 40 MEQ PO (17:07)
[2022-08-30] MEDS: 0.9 % Sodium Chloride 1,000 ML 999 ML IV ×2 (17:08)
[2022-08-30] MEDS: cefTRIAXone sodium 1 GM in 0.9 % Sodium Chloride 50 ML IV (17:08)
[2022-08-30 17:20] LABS: IDNOW Serial# 08D9AD1C; IDNOW Serial# BCCEAD1C; Influenza A Negative (Negative); Influenza B2 Negative (Negative)
[2022-08-30 17:21] LABS: COVID-19 Test Negative (Negative)
[2022-08-30 18:39] LABS: Reflex Lactate? Lactic Acid Added
[2022-08-30 19:39] LABS: ~Lactic Acid-LAB USE ONLY 1.4 mmol/L (0.5-2.0)
--- NOTE | 2022-08-30 20:27 | PC.NURSE ---
At 1900 Received Report from RNDanae about pts present condition, the reason for pt coming to the ED and what the care plan is in the ED.
--- NOTE | 2022-08-30 20:54 | PHA.MEDREC ---
Pharmacy Consult ? Medication Reconciliation Pharmacy has completed the medication reconciliation.Pt states he only takes methadone and a blood pressure medication of unknown name. The pharmacy he uses though has no record of a blood pressure medication in 4 months and he only got 30 days supply. When offered the name amlodipine and I asked if it was the one filled in April he said he doesn't take that. As I don't know what bp medication he takes I couldn't put one on the med rec. He also told the provider as I was entering the room that he gets 50 mg methadone from the clinic but the last time he got it was the 10th of last month .
[2022-08-30 21:29] VITALS: BP 138/81; PULSE 82; RESP 16; TEMP 36.5; O2SAT 94
[2022-08-30 21:41] LABS: INTERNATIONAL NORM RATIO 1.5 (0.9-1.1); Prothrombin Time 17.4 SEC (10.0-13.1)
[2022-08-30 21:49] LABS: CDiff Gene PCR NEGATIVE (Negative)
[2022-08-30] MEDS: Enoxaparin Sodium 40 MG/0.4 ML SYRINGE SUBCUT (22:46)
[2022-08-30] MEDS: traZODone HCL 50 MG TABLET PO (22:46)
[2022-08-30 23:51] VITALS: BP 152/86; PULSE 71; RESP 18; TEMP 36.8; O2SAT 97
[2022-08-31] MEDS: Morphine Sulfate 4 MG/ML CARTRIDGE IVPUSH (00:44)
[2022-08-31] MEDS: diphenhydrAMINE HCL 50 MG/ML VIAL IVPUSH (00:44)
[2022-08-31] MEDS: 0.9 % Sodium Chloride Flush 3 ML SYRINGE IVFLUSH ×3 (00:47→17:20)
[2022-08-31 04:00] VITALS: BP 112/62; PULSE 69; RESP 18; TEMP 36.9; O2SAT 94
[2022-08-31 05:53] LABS: MANUAL DIFF FLAG NO
[2022-08-31 05:57] LABS: Basophils Percent Auto 0.2 % (0-2); Eosinophils Absolute Auto 0.1 X10*3/uL (0.0-0.4); Eosinophils Percent Auto 0.5 % (0-4); Hematocrit 37.6 % (42.0-52.0); Hemoglobin 12.8 g/dl (14.0-18.0); Imm Gran Abs Auto 0.35 X10*3/uL (0.00-0.03); Lymphocytes Absolute Auto 2.2 X10*3/uL (1.2-4.9); Lymphocytes Percent Auto 12.1 % (20-40); Mean Corpuscular Hemoglobin 30.7 pg (27.0-33.0); Mean Corpuscular Volume 90.2 fL (80.0-98.0); Mean Platelet Volume 11.9 fL (9.4-12.4); Monocytes Absolute Auto 1.1 X10*3/uL (0.1-1.2); Neutrophils Absolute Auto 14.1 x10*3/uL (2.0-8.3); Neutrophils Percent Auto 79.2 % (45-73); Platelet Count 65 X10*3/uL (160-400); Red Blood Count 4.17 X10*6/uL (4.60-5.80); Red Cell Distribution Width 14.5 % (11.0-16.0); White Blood Count 17.8 X10*3/uL (4.8-10.8)
[2022-08-31 06:30] LABS: Anion Gap 8 (12-20); Blood Urea Nitrogen 19 mg/dL (9-16); Calcium 7.7 mg/dL (8.4-10.2); Carbon Dioxide 25 mmol/L (22-29); Chloride 112 mmol/L (96-108); Creatinine Clr Calc Pharmacy 94.1; Estimated Glomerular Filt Rate > 60; Glucose Random 98 mg/dL (60-115); Potassium 2.5 mmol/L (3.3-5.1); Sodium 142 mmol/L (135-145)
[2022-08-31 06:56] VITALS: BP 148/75; PULSE 70; RESP 18; TEMP 36.6; O2SAT 92
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
[2022-08-31] MEDS: ondansetron HCL 4 MG/2 ML VIAL IVPUSH (08:54)
[2022-08-31] MEDS: Potassium Chloride Packet 20 MEQ PACKET 40 MEQ PO ×2 (09:06→13:05)
[2022-08-31] MEDS: Morphine Sulfate 2 MG/ML CARTRIDGE IVPUSH ×4 (09:32→22:05)
[2022-08-31 12:37] LABS: Adenovirus F 40/41 Not Detected (Not Detect.); Astrovirus Not Detected (Not Detect.); Campylobacter Not Detected (Not Detect.); Cryptosporidium Not Detected (Not Detect.); Cyclospora cayetanensis Not Detected (Not Detect.); E. coli EAEC Not Detected (Not Detect.); E. coli EPEC Not Detected (Not Detect.); E. coli ETEC Not Detected (Not Detect.); E. coli STEC Not Detected (Not Detect.); Entamoeba histolytica Not Detected (Not Detect.); Giardia lamblia Not Detected (Not Detect.); Norovirus GI/GII Not Detected (Not Detect.); Plesiomonas shigelloides Not Detected (Not Detect.); Rotavirus A Not Detected (Not Detect.); Salmonella Not Detected (Not Detect.); Sapovirus Not Detected (Not Detect.); Shigella sp./EIEC Not Detected (Not Detect.); Vibrio Not Detected (Not Detect.); Vibrio Cholerae Not Detected (Not Detect.); Yersinia enterocolitica Not Detected (Not Detect.)
--- NOTE | 2022-08-31 13:34 | HE.PHANOTE ---
Methadone Maintenance Clinic Verification Form [facility] methadone dose 50 mg . Last dose August 05 2022
[2022-08-31 15:32] VITALS: BP 125/66; PULSE 71; RESP 18; TEMP 37.1; O2SAT 92
[2022-08-31 20:00] VITALS: BP 159/80; PULSE 68; RESP 18; TEMP 36.5; O2SAT 95
[2022-08-31] MEDS: Enoxaparin Sodium 40 MG/0.4 ML SYRINGE SUBCUT (22:04)
[2022-09-01] MEDS: diphenhydrAMINE HCL 50 MG/ML VIAL 25 MG IVPUSH (00:17)
[2022-09-01] MEDS: 0.9 % Sodium Chloride Flush 3 ML SYRINGE IVFLUSH ×2 (00:18→09:47)
--- NOTE | 2022-09-01 01:17 | PC.NURSE ---
patient on full liquid diet, with multiple episodes diarrhea with incontinence. no nausea/vomiting.
[2022-09-01] MEDS: Morphine Sulfate 2 MG/ML CARTRIDGE IVPUSH (03:47)
[2022-09-01 03:51] VITALS: BP 130/78; PULSE 84; RESP 16; TEMP 36.8; O2SAT 96
[2022-09-01 06:31] LABS: MANUAL DIFF FLAG NO
[2022-09-01 06:50] LABS: Basophils Percent Auto 0.3 % (0-2); Eosinophils Absolute Auto 0.2 X10*3/uL (0.0-0.4); Eosinophils Percent Auto 1.8 % (0-4); Hematocrit 38.8 % (42.0-52.0); Imm Gran Abs Auto 0.11 X10*3/uL (0.00-0.03); Imm Gran Pct Auto 1.1 % (0.0-0.4); Lymphocytes Percent Auto 19.6 % (20-40); Mean Corpuscular HGB Conc 33.5 g/dl (31.0-36.0); Mean Corpuscular Hemoglobin 30.9 pg (27.0-33.0); Mean Corpuscular Volume 92.2 fL (80.0-98.0); Mean Platelet Volume 12.2 fL (9.4-12.4); Monocytes Absolute Auto 0.6 X10*3/uL (0.1-1.2); Monocytes Percent Auto 5.7 % (2-11); Neutrophils Absolute Auto 7.4 x10*3/uL (2.0-8.3); Neutrophils Percent Auto 71.5 % (45-73); Red Blood Count 4.21 X10*6/uL (4.60-5.80); Red Cell Distribution Width 14.6 % (11.0-16.0); White Blood Count 10.3 X10*3/uL (4.8-10.8)
[2022-09-01 06:51] LABS: Platelet Count 63 X10*3/uL (160-400)
[2022-09-01 07:07] LABS: Anion Gap 9 (12-20); Blood Urea Nitrogen 11 mg/dL (9-16); Calcium 7.7 mg/dL (8.4-10.2); Carbon Dioxide 22 mmol/L (22-29); Chloride 112 mmol/L (96-108); Creatinine Clr Calc Pharmacy 99.2; Estimated Glomerular Filt Rate > 60; Glucose Random 65 mg/dL (60-115); Potassium 3.3 mmol/L (3.3-5.1); Sodium 140 mmol/L (135-145)
[2022-09-01 07:49] VITALS: BP 141/81; PULSE 66; RESP 18; TEMP 36.4; O2SAT 91
[2022-09-01] MEDS: methADONE HCl 20 MG/2 ML ORAL.CONC 50 MG PO (09:47)
[2022-09-01] MEDS: Loperamide HCl 2 MG CAPSULE 4 MG PO (09:47)
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
--- NOTE | 2022-09-01 11:09 | PM.DS ---
DS: Providers Provider Date of Service: 09/01/22 Date of admission: 08/30/22 21:50 Primary care physician: [facility] Consults: 08/30/22 21:07 Consult to General Surgery Stat Consulting Provider: [facility] General Surgeons Reason for consultation: abd pain nasea vomiting DS: Diagnosis Discharge Diagnosis (1) Nausea & vomiting: Status: Acute (2) Diarrhea: Status: Acute (3) Abdominal pain: Status: Acute (4) Coagulopathy: Status: Acute (5) Leukocytosis: Status: Acute DS: Summary Hospital Course Hospital Course: HPI: 62-year-old male with past medical history of diabetes, hepatitis-C, paroxysmal AFib, opioid use disorder on methadone, HLD, liver cirrhosis, recently section 35, comes into the hospital with complaints of right quadrant abdominal pain,? nausea, vomitingas well as diarrhea as well as left hip pain after falling about a week ago.? Patient reports his symptoms started about? for past 2 days, patient has had more than 5 episodes of diarrhea, watery liquid, nonbloody.? Has chills with no fever, denies any urinary symptoms.? No headache or change in vision, no weakness numbness or tingling, no dizziness, no chest pain, no shortness of breath, no lower extremity edema.? No shortness of breath. On arrival to the ED patient hemodynamically stable with no significant abnormal vitals Labs are significant for WBC count of 25.5, INR of 1.5, potassium of 3, lactic of 2.2, stool studies pending, C diff negative Abdominal pelvic CT shows study that is mid by motion, and lack of IV contrast but liver morphology suggestive of cirrhosis, splenomegaly, distended small bowel loops, some degree of bowel obstruction, umbilical hernia, multiple compression deformities in the spine which appear to be significantly worse compared to previous study in 2020 patient will be admitted for further management hospital course: patient was admitted for symptomatic control. Stool studies negative. Leukocytosis improved without intervention. Patient with significant improvement in symptoms including diarrhea prior to discharge. All symptoms likely due to viral gastroenteritis which has been resolved prior to discharge. Status at Discharge Functional status at discharge: independent ambulation Overall status at discharge: patient is back to baseline Time Spent with Patient Time attestation: Total time managing care of this patient today ____ minutes. Discharge coordination time: Less than 30 minutes Quality: Safe Use of Opioids Does Pt have an Active Cancer Diagnosis on the Problem List?: No Quality: Stroke Does the patient have a stroke diagnosis?: No Physical Exam Vital Signs: Vital Signs: Last Vital Signs Temp 97.5 F 09/01/22 07:49 Pulse 66 09/01/22 07:49 Resp 18 09/01/22 07:49 BP 141/81 H 09/01/22 07:49 Pulse Ox 91 L 09/01/22 07:49 O2 Del Method Room Air 09/01/22 07:49 BMI result Body Mass Index 26.6 Const:?? General: cooperati ve and no acute di stress? Orientatio n/consciousness: p atient oriented x3 Eyes:?? General: appearanc e normal, both eye s and all related structures Resp:?? Effort & Inspectio n: normal respirat ory effort? Auscul tation: clear to a uscultation bilate rally Cardio:?? Rate: regular rate ? Rhythm: regular rhythm GI:?? Other: ?abdomen n ontender,? no rebo und or guarding ? Palpation (GI): So ft to palpation? A uscultation: sherif l bowel sounds Skin:?? General skin exam: no rashes or lesi ons noted Neuro:?? General: patient o riented x3? Cognit ion (Neuro): sherif l cognition Extrem:?? General: Yes sherif l to inspection an d Yes no pedal sky jean DS: Data Data Completed and Pending Completed studies during hospitalization [Text1]: Procedures Insertion of Infusion Device into Superior Vena Cava, Percutaneous Approach (04/17/22) Reposition Right Upper Femur with Intramedullary Internal Fixation Device, Percutaneous Approach (04/17/22) Ultrasonography of Superior Vena Cava, Guidance (04/17/22) Labs on day of discharge: Laboratory Results - last 24 hr 08/30/22 09/01/22 09/01/22 20:52 05:32 05:32 WBC 10.3 RBC 4.21 L Hgb 13.0 L Hct 38.8 L MCV 92.2 MCH 30.9 MCHC 33.5 RDW 14.6 Plt Count 63 L MPV 12.2 Immature Gran % (Auto) 1.1 H Neut % (Auto) 71.5 Lymph % (Auto) 19.6 L [place] % (Auto) 5.7 Eos % (Auto) 1.8 Baso % (Auto) 0.3 Lymph # (Auto) 2.0 [place] # (Auto) 0.6 Eos # (Auto) 0.2 Baso # (Auto) 0.0 Abs Immat Gran (auto) 0.11 H Absolute Neuts (auto) 7.4 Absolute Nucleated RBC 0.000 Nucleated RBC % (auto) 0.0 Sodium 140 Potassium 3.3 D Chloride 112 H Carbon Dioxide 22 Anion Gap 9 L BUN 11 Creatinine 0.74 Estim Creat Clear Calc 99.2 Estimated GFR > 60 Random Glucose 65 Calcium 7.7 L Stl C. cayetanensis PCR Not Detected Stool Rotavirus A PCR Not Detected Stl Adenov F 40/41 PCR Not Detected Stool Astrovirus (PCR) Not Detected Stool Campylobacter PCR Not Detected Stool Cryptosporidium PCR Not Detected Stl Sh Tox Pr E STEC PCR Not Detected Stool E coli O157 PCR Not applicable Stl Enterotoxigenic E PCR Not Detected Stool EPEC (PCR) Not Detected Stool EAEC (PCR) Not Detected Stl E. histolytica PCR Not Detected Stool Giardia Lamblia PCR Not Detected Stl P. shigelloides PCR Not Detected Stool Salmonella PCR Not Detected Stool Sapovirus (PCR) Not Detected Stl Shigella/EIEC PCR Not Detected St Y.enterocolitica PCR Not Detected Stool Vibrio (PCR) Not Detected Stl Vibrio cholerae PCR Not Detected Stl Norovirus GI/GII PCR Not Detected Preliminary micro results at discharge 08/30/22 16:41 Blood Culture - Preliminary Blood - Venous No growth after 24 hours. 08/30/22 16:37 Blood Culture - Preliminary Blood - Venous No growth after 24 hours. Imaging Chest x-ray: Radiologist's impression: ITS Impressions Hip/Pelvis X-Ray 08/30/22 14:43 IMPRESSION: Stable appearance of metallic hardware in the left hip transfixing an old fracture of the left femoral neck. Abdomen/Pelvis CT 08/30/22 15:23 IMPRESSION: Study limited by motion and lack of IV contrast. Abnormal liver with morphology suggestive of cirrhosis. Mild splenomegaly and some ascites. There are distended small bowel loops. Some degree of bowel obstruction could be present. There is a midline umbilical hernia. Multiple compression deformities in the spine which appears significantly worsened when compared to lateral view of the lumbar spine 07/10/20 Fleischner guidelines were followed. Abdomen Ultrasound 08/30/22 17:16 IMPRESSION: 1. Cirrhotic liver morphology with small volume of ascites. 2. Mild dilatation of the common bile duct, nonspecific but likely related with post cholecystectomy state. Discharge Plan Discharge Anticipated Discharge Date/Time: 09/01/22 11:36 Patient Disposition: Home, Self-Care Discharge Diagnosis: viral gastroenteritis Referrals: [place],[facility] [Primary Care Provider] - 1 Week Discharge Medications: Continued methadone 10 mg/mL Syringe 50 mg PO DAILY (DME) [facility] See Rx Instructions .ROUTE .MEDSUPPLY Qty: 1 0RF Rx Instructions: As directed Discharge Orders: Discharge Order (Routine); Ordered 09/01/22 Ordered By: Gloria Bee Diet: Low salt diet Activity on Discharge: As tolerated Stand Alone Forms: Patient Portal Discharge page Care Plan Goals: low-salt diet. Maintain adequate hydration Health Concerns: cirrhosis of liver Tobacco use disorder Substance use disorder on methadone Plan of Treatment: follow-up with PCP within 1 week follow-up with Gastroenterology as an outpatient for liver cirrhosis Assessment: as above
== END 2022-09-01 14:26 | disposition home or self-care (01) | DRG 249 ==
LOC: HO.ED 21:08 → HO.EDOVER 21:55 → HO.S3 22:46
PROVIDERS: Physician Assistant; Admitting Provider Internal Medicine; Emergency Provider Emergency Medicine; PCP Internal Medicine; Visit Provider Student in an Organized Health Care Education/Training Program
DX: A08.4 Viral intestinal infection, unspecified (principal); D68.4 Acquired coagulation factor deficiency; K74.60 Unspecified cirrhosis of liver; E78.00 Pure hypercholesterolemia, unspecified; E87.6 Hypokalemia; D72.829 Elevated white blood cell count, unspecified; F11.20 Opioid dependence, uncomplicated; I48.0 Paroxysmal atrial fibrillation; F17.210 Nicotine dependence, cigarettes, uncomplicated; Z71.6 Tobacco abuse counseling; F19.10 Other psychoactive substance abuse, uncomplicated; Z20.822 Contact with and (suspected) exposure to COVID-19; Z88.0 Allergy status to penicillin; Z86.19 Personal history of other infectious and parasitic diseases
CPT/HCPCS: 36415; 73502; 74176; 76705; 80048; 80076; 83605; 83690; 83735; 85007; 85025; 85027; 85610; 87040; 87493; 87502; 87507; 87635; 99221; 99285; J0696; J1200; J1650; J2270; J2405

== ENCOUNTER 2022-09-09 09:53 | Emergency (ER) | payer MEDICAID, SELFPAY ==
[2022-09-09] VITALS (7 sets, daily range): BP systolic 150–189; BP diastolic 89–100; PULSE 65–84; RESP 14–17; TEMP 36.5; O2SAT 96–99; BMI 26.6
--- NOTE | ~2022-09-09 | US_ITS ---
EXAMINATION: US VENOUS ULTRASOUND WITH DOPPLER LOWER EXTREMITY, BILATERAL CLINICAL INFORMATION: Bilateral leg swelling COMPARISON: None available. TECHNIQUE: Ultrasound of the deep veins is performed from the hip to the calf with compression sonography and color and pulse Doppler assessment. Spectral analysis with color-flow imaging is performed. FINDINGS: RIGHT: There is normal venous compression and respiratory variation and augmented flow. The visualized common femoral vein, superficial femoral vein, profunda femoral vein, popliteal vein, and the trifurcation region shows no evidence of deep venous thrombosis. The peroneal veins are not visualized. There is no significant popliteal fossa cyst. LEFT: There is normal venous compression and respiratory variation and augmented flow. The visualized common femoral vein, superficial femoral vein, profunda femoral vein, popliteal vein, and the trifurcation region shows no evidence of deep venous thrombosis. The peroneal veins are not visualized. There is no significant popliteal fossa cyst. If the patient's symptoms persist, followup ultrasound in 5 days 7 days might be of value to exclude proximal propagation from a non-visualized calf vein. US/US venous duplex LE BI IMPRESSION: No DVT demonstrated in the bilateral lower extremity.
--- NOTE | 2022-09-09 10:09 | ED.GENADULT ---
HPI - General Adult General Chief complaint: Extremity Problem Stated complaint: ble swelling per ems Time Seen by Provider: 09/09/22 10:03 Source: patient, EMS and old records reviewed Mode of arrival: EMS Limitations: no limitations History of Present Illness HPI narrative: 62 yo male with history of untreated HIV, liver cirrhosis with ascites, polysubstance abuse previously on methadone, ongoing IVDA, hepatitis C, asthma, HTN, DM2, hx left hip fracture, multiple spinal compression fractures, paroxysmal afib not on anticoagulation due to medication noncompliance who presents to the ER from the streets for evaluation of worsening bilateral LE edema for the lasts 2 weeks, associated with generalized weakness and SOB. He states he has been living on [address] and not taking any of his medications. He reports pain in both of his lower extremities along with the swelling, it is making it difficult for him to ambulate. He is SOB with minimal exertion. He ambulates a little bit with his rollator walker. He is homeless. He was recently admitted to [facility] 08/31-09/01 for abdominal pain and leukocytosis, no source of infection identified. complaint: LE edema Onset (ago): week(s) (2) Location: left, right and lower extremity Radiation: proximal Severity: severe Quality: aching Pain Consistency: constant Relieving factors: none Exacerbating factors: movement Associated symptoms: chest pain, malaise, shortness of breath and weakness Treatments prior to arrival: none Related Data Home Medications Medication Instructions Recorded Confirmed methadone 10 mg/mL oral syringe 50 mg PO DAILY 05/13/22 (FOR ORAL USE ONLY) Previous Rx's Medication Instructions Recorded walker #1 ea 05/07/22 Allergies Allergy/AdvReac Type Severity Reaction Status Date / Time Penicillins [PENICILLINS] Allergy Unknown RASH Verified 09/09/22 10:19 Review of Systems Review of Systems: Yes all other systems are reviewed and are negative [facility] Past Medical History Medical History Diabetes High blood pressure High cholesterol Opioid use disorder PAF (paroxysmal atrial fibrillation) Social History Social History Household Members: Friend(s) Housing: Apartment Do you presently have visiting nurse or other home services: No Alcohol intake: former Patient Tobacco Use Status: Current everyday Tobacco user Tobacco use type: Cigarette Cigarettes Per Day: 6 Smoked in Last 30 Days: Yes Use of substances other than those prescribed or required for medical reasons: Yes Substance Use Type: Heroin Last Used Substance: Hours (ago) Advance Directives: Yes Advance Directives on File: Yes Advance Directives Date on File: 05/13/22 service: No Current occupational status: unemployed Physical Exam ED Vital Signs: Vital Signs - 24 hr 09/09/22 10:07 09/09/22 10:28 09/09/22 14:04 Temperature 97.7 F Pulse Rate 65 67 Respiratory Rate 16 16 16 Blood Pressure 159/100 H 168/96 H Pulse Oximetry 97 97 Oxygen Delivery Method Room Air Room Air BMI result Body Mass Index 26.6 Appearance: Alert. Oriented X3. No acute distress. Poorly kempt Head: normocephalic, atraumatic. Eyes: Pupils equal, round and reactive to light. ENT: Pharynx normal. No tonsillar swelling or exudate. poor dentition Neck: Normal inspection. Neck supple. CVS: Normal heart rate and rhythm. Pulses normal. Respiratory: No respiratory distress. Breath sounds normal. Abdomen: Rotund, Soft and tender throughout without rebound or guarding. normal active +BS x4 Skin: Skin warm and dry. Normal skin color. Normal skin turgor. No rashes. Extremities: 2+ lower extremity edema of the lower legs only with bilateral venous stasis changes and hyperpigmentation. no erythema. superficial excoriations to the left lower leg. No joint swelling. Neuro/psych: Oriented X 3. No motor deficit. No sensory deficit. CN II-XII intact. Normal speech and cognition. Course Reevaluation(s) Reevaluation #1: Physician observation started at 3pm. Patient placed in physician observation because patient is awaiting PT evaluation for possible short term rehab. At the time observation was started patient's vital signs were stable. Patient is alert and oriented. Neuro exam is non-focal. CV: RRR and lungs are clear. Will continue to monitor. Time: 15:04 Medical Decision Making Medical Decision Making MDM Narrative: 62 yo male with history of untreated HIV, liver cirrhosis with ascites, polysubstance abuse previously on methadone, ongoing IVDA, hepatitis C, asthma, HTN, DM2, hx left hip fracture, multiple spinal compression fractures, paroxysmal afib not on anticoagulation due to medication noncompliance who presents to the ER from the streets for evaluation of worsening bilateral LE edema for the lasts 2 weeks, associated with generalized weakness and SOB. No hx CHF. He has liver disease and likely 3rd spacing from decompensated liver cirrhosis. no gross anasarca on exam. LE dopplers ruled out DVT. His BNP 117. He has extremely limited mobility at baseline. He is homeless. He has substance abuse. He wound benefit from diuretics for management of fluid retention and his liver disease but he is noncompliant. will start lasix while in the ER, have PT and case management see him. placed in physician observation. Differential Diagnosis Differential Diagnoses: The differential diagnosis associated with the presentation includes acute CHF exacerbation, anasarca, 3rd spacing from decompensated liver disease, LE cellulitis, DVT Admission/Observation Consideration of admission/observation: Escalation of care including admission/observation considered Lab Data MDM Lab Attestation statement: I reviewed the patient's lab results. 09/09/22 12:05 09/09/22 11:46 Labs: Lab Results 09/09/22 09/09/22 09/09/22 Range/Units 10:42 11:46 11:55 WBC (4.8-10.8) X10*3/uL RBC (4.60-5.80) X10*6/uL Hgb (14.0-18.0) g/dl Hct (42.0-52.0) % MCV (80.0-98.0) fL MCH (27.0-33.0) pg MCHC (31.0-36.0) g/dl RDW (11.0-16.0) % Plt Count (160-400) X10*3/uL MPV (9.4-12.4) fL Immature Gran % (Auto) (0.0-0.4) % Neut % (Auto) (45-73) % Lymph % (Auto) (20-40) % [place] % (Auto) (2-11) % Eos % (Auto) (0-4) % Baso % (Auto) (0-2) % Lymph # (Auto) (1.2-4.9) X10*3/uL [place] # (Auto) (0.1-1.2) X10*3/uL Eos # (Auto) (0.0-0.4) X10*3/uL Baso # (Auto) (0.0-0.2) X10*3/uL Abs Immat Gran (auto) (0.00-0.03) X10*3/uL Absolute Neuts (auto) (2.0-8.3) x10*3/uL Absolute Nucleated RBC (0.0-0.012) X10*3/uL Nucleated RBC % (auto) (0.0-0.2) /100WBC Sodium 139 (135-145) mmol/L Potassium 4.2 D (3.3-5.1) mmol/L Chloride 108 (96-108) mmol/L Carbon Dioxide 25 (22-29) mmol/L Anion Gap 10 L (12-20) BUN 19 H (9-16) mg/dL Creatinine 1.00 (0.5-1.4) mg/dL Estim Creat Clear Calc 73.4 Estimated GFR > 60 Random Glucose 85 (60-115) mg/dL Calcium 8.1 L (8.4-10.2) mg/dL Magnesium 1.8 (1.6-2.6) mg/dL Total Bilirubin 1.3 H (0.0-1.0) mg/dL Direct Bilirubin 0.5 (0.0-0.5) mg/dL AST 28 (5-37) U/L ALT 18 (0-40) U/L Alkaline Phosphatase 128 H (39-117) U/L Total Creatine Kinase 34 L (38-174) U/L B-Natriuretic Peptide (<100) pg/mL Total Protein 7.2 (6.5-8.0) g/dL Albumin 2.8 L (3.5-5.0) g/dL TSH 1.14 (0.32-4.0) uIU/mL Urine Color Yellow Urine Appearance Clear Urine pH 7.5 (5.0-9.0) Ur Specific [place] 1.015 (1.005-1.025) Urine Protein Negative (Neg-Trace) mg/dL Urine Glucose (UA) Negative (Negative) mg/dL Urine Ketones Negative (Negative) mg/dL Urine Blood Negative (Negative) Urine Nitrite Negative (Negative) Ur Leukocyte Esterase Negative (Negative) Urine Opiates Screen (Not Detect) Urine Fentanyl Screen (Not Detect) Ur Barbiturates Screen (Not Detect) Ur Phencyclidine Scrn (Not Detect) Ur Amphetamines Screen (Not Detect) U Benzodiazepines Scrn (Not Detect) Urine Cocaine Screen (Not Detect) U Marijuana (THC) Screen (Not Detect) Ethyl Alcohol < 10 mg/dL 09/09/22 09/09/22 09/09/22 Range/Units 11:55 12:05 12:05 WBC 5.9 (4.8-10.8) X10*3/uL RBC 4.34 L (4.60-5.80) X10*6/uL Hgb 13.5 L (14.0-18.0) g/dl Hct 40.2 L (42.0-52.0) % MCV 92.6 (80.0-98.0) fL MCH 31.1 (27.0-33.0) pg MCHC 33.6 (31.0-36.0) g/dl RDW 15.3 (11.0-16.0) % Plt Count 119 L D (160-400) X10*3/uL MPV 10.7 (9.4-12.4) fL Immature Gran % (Auto) 0.3 (0.0-0.4) % Neut % (Auto) 63.9 (45-73) % Lymph % (Auto) 25.1 (20-40) % [place] % (Auto) 8.4 (2-11) % Eos % (Auto) 2.0 (0-4) % Baso % (Auto) 0.3 (0-2) % Lymph # (Auto) 1.5 (1.2-4.9) X10*3/uL [place] # (Auto) 0.5 (0.1-1.2) X10*3/uL Eos # (Auto) 0.1 (0.0-0.4) X10*3/uL Baso # (Auto) 0.0 (0.0-0.2) X10*3/uL Abs Immat Gran (auto) 0.02 (0.00-0.03) X10*3/uL Absolute Neuts (auto) 3.8 (2.0-8.3) x10*3/uL Absolute Nucleated RBC 0.000 (0.0-0.012) X10*3/uL Nucleated RBC % (auto) 0.0 (0.0-0.2) /100WBC Sodium (135-145) mmol/L Potassium (3.3-5.1) mmol/L Chloride (96-108) mmol/L Carbon Dioxide (22-29) mmol/L Anion Gap (12-20) BUN (9-16) mg/dL Creatinine (0.5-1.4) mg/dL Estim Creat Clear Calc Estimated GFR Random Glucose (60-115) mg/dL Calcium (8.4-10.2) mg/dL Magnesium (1.6-2.6) mg/dL Total Bilirubin (0.0-1.0) mg/dL Direct Bilirubin (0.0-0.5) mg/dL AST (5-37) U/L ALT (0-40) U/L Alkaline Phosphatase (39-117) U/L Total Creatine Kinase (38-174) U/L B-Natriuretic Peptide 117 H (<100) pg/mL Total Protein (6.5-8.0) g/dL Albumin (3.5-5.0) g/dL TSH (0.32-4.0) uIU/mL Urine Color Urine Appearance Urine pH (5.0-9.0) Ur Specific [place] (1.005-1.025) Urine Protein (Neg-Trace) mg/dL Urine Glucose (UA) (Negative) mg/dL Urine Ketones (Negative) mg/dL Urine Blood (Negative) Urine Nitrite (Negative) Ur Leukocyte Esterase (Negative) Urine Opiates Screen Not Detected (Not Detect) Urine Fentanyl Screen POSITIVE H (Not Detect) Ur Barbiturates Screen Not Detected (Not Detect) Ur Phencyclidine Scrn Not Detected (Not Detect) Ur Amphetamines Screen Not Detected (Not Detect) U Benzodiazepines Scrn Not Detected (Not Detect) Urine Cocaine Screen POSITIVE H (Not Detect) U Marijuana (THC) Screen Not Detected (Not Detect) Ethyl Alcohol mg/dL Independent Interpretation I performed an independent interpretation of an: Ultrasound Interpretation: no DVT appreciated Radiology Impression Discussion of test interpretation with radiology: I have reviewed the radiologist's reading. Radiologist Impression: EXAMINATION:? US VENOUS ULTRASOUND WITH DOPPLER LOWER EXTREMITY, BILATERAL CLINICAL INFORMATION:? Bilateral leg swelling COMPARISON:? None available. TECHNIQUE: Ultrasound of the deep veins is performed from the hip to the calf with compression sonography and color and pulse Doppler assessment. Spectral analysis with color-flow imaging is performed. FINDINGS: RIGHT: There is normal venous compression and respiratory variation and augmented flow. The visualized common femoral vein, superficial femoral vein, profunda femoral vein, popliteal vein, and the trifurcation region shows no evidence of deep venous thrombosis. The peroneal veins are not visualized. There is no significant popliteal fossa cyst. LEFT: There is normal venous compression and respiratory variation and augmented flow. The visualized common femoral vein, superficial femoral vein, profunda femoral vein, popliteal vein, and the trifurcation region shows no evidence of deep venous thrombosis. The peroneal veins are not visualized. There is no significant popliteal fossa cyst.? If the patient's symptoms persist, followup ultrasound in 5 days 7 days might be of value to exclude proximal propagation from a non-visualized calf vein. US/US venous duplex LE BI IMPRESSION: No DVT demonstrated in the bilateral lower extremity. Independent Historian Clinical information obtained from an independent historian. History obtained from or confirmed by: EMS External Record Review External record reviewed: Inpatient record, Outpatient record, Prior outpatient labs and Prior outpatient radiology Prescription Management I considered prescription management with: Other (diuretics) Chronic Conditions Patient?s care impacted by: Other (liver disease, polysubstance abuse) Social Determinants Patient?s care significantly limited by Social Determinants of Health including: Inadequate housing, Alcoholism and drug addiction in family and Other Social Determinant of Health Critical Care Time Critical Care Time Critical Care Time: No Discharge Plan Discharge Clinical Impression: Bilateral edema of lower extremity, Polysubstance abuse Patient Disposition: Still a Patient Prescriptions: No Action methadone 10 mg/mL Syringe 50 mg PO DAILY (DME) manpreet Boyd See Rx Instructions .ROUTE .MEDSUPPLY Qty: 1 0RF Rx Instructions: As directed
--- NOTE | 2022-09-09 10:33 | PC.NURSE ---
Pt on stretcher, airway open and patent, no obvious signs of distress, equal chest rise and fall, no difficulty/labored breathing. Pt a&ox4. Skin color normal for ethnicity, warm, and dry. Pt sclera notably jaundice. Pupils pin point. Lung sounds reveal wheezing in upper right lung. Left lung sounds clear. Bowel sounds present and active all alvares. Abdomen soft, pt reports tenderness upon palpation in the upper middle area. Pt has significant pitting edema of both legs, pt rates pain 10/10. Pt reports that he hasn't taken his medications for a-fib since the last time he was here, which was about a week ago.
[2022-09-09 11:14] LABS: Ethanol < 10 mg/dL
[2022-09-09 11:31] LABS: TSH reflex Free T4 1.14 uIU/mL (0.32-4.0)
[2022-09-09 12:10] LABS: MANUAL DIFF FLAG NO
[2022-09-09 12:12] LABS: Appearance Urine Clear; Color Urine Yellow; Glucose Urine UA Negative (Negative); Leukocyte Esterase Urine Negative (Negative); Nitrite Urine Negative (Negative); PH 7.5 (5.0-9.0); Specific Gravity - Urine 1.015 (1.005-1.025); Urine Blood Negative (Negative); Urine Ketones Negative (Negative); Urine Protein Negative (Neg-Trace)
[2022-09-09 12:12] LABS: Alanine Aminotransferase 18 U/L (0-40); Albumin Level 2.8 g/dL (3.5-5.0); Alkaline Phosphatase 128 U/L (39-117); Anion Gap 10 (12-20); Aspartate Amino Transferase 28 U/L (5-37); Bilirubin Direct 0.5 mg/dL (0.0-0.5); Bilirubin Total 1.3 mg/dL (0.0-1.0); Blood Urea Nitrogen 19 mg/dL (9-16); Calcium 8.1 mg/dL (8.4-10.2); Carbon Dioxide 25 mmol/L (22-29); Chloride 108 mmol/L (96-108); Creatinine Clr Calc Pharmacy 73.4; Estimated Glomerular Filt Rate > 60; Glucose Random 85 mg/dL (60-115); Magnesium 1.8 mg/dL (1.6-2.6); Potassium 4.2 mmol/L (3.3-5.1); Sodium 139 mmol/L (135-145); Total Protein 7.2 g/dL (6.5-8.0)
[2022-09-09 12:13] LABS: Basophils Percent Auto 0.3 % (0-2); Eosinophils Absolute Auto 0.1 X10*3/uL (0.0-0.4); Hematocrit 40.2 % (42.0-52.0); Hemoglobin 13.5 g/dl (14.0-18.0); Imm Gran Abs Auto 0.02 X10*3/uL (0.00-0.03); Imm Gran Pct Auto 0.3 % (0.0-0.4); Lymphocytes Absolute Auto 1.5 X10*3/uL (1.2-4.9); Lymphocytes Percent Auto 25.1 % (20-40); Mean Corpuscular HGB Conc 33.6 g/dl (31.0-36.0); Mean Corpuscular Hemoglobin 31.1 pg (27.0-33.0); Mean Corpuscular Volume 92.6 fL (80.0-98.0); Mean Platelet Volume 10.7 fL (9.4-12.4); Monocytes Absolute Auto 0.5 X10*3/uL (0.1-1.2); Monocytes Percent Auto 8.4 % (2-11); Neutrophils Absolute Auto 3.8 x10*3/uL (2.0-8.3); Neutrophils Percent Auto 63.9 % (45-73); Platelet Count 119 X10*3/uL (160-400); Red Blood Count 4.34 X10*6/uL (4.60-5.80); Red Cell Distribution Width 15.3 % (11.0-16.0); White Blood Count 5.9 X10*3/uL (4.8-10.8)
[2022-09-09 12:22] LABS: Amphetamine Screen Urine Not Detected (Not Detect); Barbiturates, Urine Not Detected (Not Detect); Benzodiazepines Screen Urine Not Detected (Not Detect); Cannabinoid Screen Urine Not Detected (Not Detect); Cocaine Screen Urine POSITIVE (Not Detect); Fentanyl, urine POSITIVE (Not Detect); Opiate Screen Urine Not Detected (Not Detect); Phencyclidine Screen Urine Not Detected (Not Detect)
[2022-09-09 12:32] LABS: B Type Natriuretic Peptide 117 pg/mL (<100)
[2022-09-09] MEDS: Furosemide 20 MG TABLET PO (15:44)
[2022-09-09 15:55] LABS: COVID-19 Test Negative (Negative); IDNOW Serial# BCCEAD1C
--- NOTE | 2022-09-09 16:14 | PHA.MEDREC ---
Pharmacy Consult ? Medication Reconciliation Pharmacy has completed the medication reconciliation. Pt states he should be on blood pressure medication (amlodipine 2.5mg per claim history) but has not gotten it at the pharmacy since April. Also states that he does not go to a methadone clinic but got 50mg here with us last week. Verified last dose of 50mg on 09/01/22.
--- NOTE | 2022-09-09 17:19 | MHC.CM.ED ---
Addendum entered by Mounika Nguyen 09/09/22 20:35: CM again attempted to meet with patient. Pt roused to name. Did not want to participate in CM interview. CM told pt that PT would see him in the morning and asked if he would like CM to look for STR for him. Pt uses a rollator walker. Pt stated whatever and promptly closed his eyes and went to sleep. Pt is known to [facility] and CM. Was last admitted from 08/31-09/01 and discharged to [facility] without services. At that time, patient had a cane. Pt has HCP on file. Jero Mathis, son, . Pt is covid negative. Do not believe the patient is vaccinated against Covid 19. Pt uses methadone. Pt has PHHX of untreated HIV, liver cirrhosis, opioid use disorder, ongoing IVDA, polysubstance use, DM2, HTN compression spinal fx and Hx L hip fracture. Pt has Medicaid. Will place referrals for detention care at facilities that accept methadone. PT is pending. Pt did refuse to participate in PT evaluation today. CM will follow for discharge planning. Addendum entered by Mounika Nguyen 09/09/22 20:03: Pt continues to sleep. Will continue to monitor. Original Note: Pt sleeping. Will meet with patient to review d/c planning when patient wakes. Pt refused to meet with PT, stating too much pain. PT will attempt to evaluate patient in the morning. CM following for discharge planning.
--- NOTE | 2022-09-09 23:00 | PC.NURSE ---
This technical writer assumed care of Pt at 1900. Pt laying in stretcher, reports chronic 8/10 bilateral leg pain and hip pain. BLL edema and redness noted. Vader and PO fluids given per request. Pt using urinal at bedside. Pt able to ambulate with walker and staff assist to BR.
[2022-09-10 06:54] VITALS: RESP 18
[2022-09-10 07:26] VITALS: BP 151/77; PULSE 76; RESP 14; TEMP 37.1; O2SAT 96
[2022-09-10 09:29] VITALS: BP 152/89; PULSE 82; RESP 18; TEMP 36.3; O2SAT 95
[2022-09-10] MEDS: amLODIPine Besylate 2.5 MG TABLET PO (09:35)
[2022-09-10] MEDS: Furosemide 20 MG TABLET PO (09:35)
--- NOTE | 2022-09-10 09:57 | PC.NURSE ---
pt requesting methadone dosage. states he rec'd methadone on his last visit 08/31 and has not been dosed in the clinic for several months. verona reyes contacted, will round on pt.
--- NOTE | 2022-09-10 10:21 | MHC.RECOVRN ---
This medical underwriter met w/ patient, patient requesting MTD. Patient reports last dose here on 08/31/22. Patient reports currently feeling irritability, anxiousness, bodyaches, t/w observed teary eyes and runny nose. Vicky Zeng [employer]ER aware.
[2022-09-10] MEDS: Naloxone HCl Nasal TAKE HOME 4 MG SPRAY NOSTRILALT (10:33)
[2022-09-10] MEDS: methADONE HCl 20 MG/2 ML ORAL.CONC PO (10:33)
== END 2022-09-10 10:54 | disposition home or self-care (01) ==
PROVIDERS: Physician Assistant; Emergency Provider Student in an Organized Health Care Education/Training Program
DX: R60.0 Localized edema (principal); F11.10 Opioid abuse, uncomplicated; F14.10 Cocaine abuse, uncomplicated; R06.02 Shortness of breath; Z20.822 Contact with and (suspected) exposure to COVID-19; Z20.828 Contact with and (suspected) exposure to other viral communicable diseases; Z79.899 Other long term (current) drug therapy
CPT/HCPCS: 36415; 80048; 80076; 80307; 81003; 82550; 83735; 83880; 84443; 85025; 85610; 85730; 87635; 93970; 99284

== ENCOUNTER 2022-09-12 12:05 | Emergency (ER) | payer MEDICAID, SELFPAY ==
[2022-09-12 12:09] VITALS: BP 180/92; PULSE 106; O2SAT 94
[2022-09-12 12:23] VITALS: BP 149/99; PULSE 76; RESP 18; TEMP 37.2; O2SAT 96; BMI 29.5
--- NOTE | 2022-09-12 12:43 | PC.NURSE ---
Pt changed into hospital attire, belongings in
--- NOTE | 2022-09-12 13:09 | PC.NURSE ---
Pt walker at nurses station with band on it
--- NOTE | 2022-09-12 15:58 | ED.GENADULT ---
HPI - General Adult General Chief complaint: ETOH/Substance Use Stated complaint: heroine use no narcan given per ems Time Seen by Provider: 09/12/22 12:50 Source: patient Mode of arrival: EMS History of Present Illness HPI narrative: 62-year-old male who is brought in by EMS he denies any alcohol or heroin use. He has no acute complaints. Related Data Home Medications Medication Instructions Recorded Confirmed methadone 10 mg/mL oral syringe 50 mg PO DAILY 05/13/22 (FOR ORAL USE ONLY) amlodipine 2.5 mg tablet 2.5 mg PO DAILY 09/09/22 09/09/22 Previous Rx's Medication Instructions Recorded walker #1 ea 05/07/22 Allergies Allergy/AdvReac Type Severity Reaction Status Date / Time Penicillins [PENICILLINS] Allergy Unknown RASH Verified 09/09/22 10:19 Review of Systems Review of Systems: Pertinent positives and negatives as stated in HPI [facility] Past Medical History Source: nursing notes reviewed Medical History Diabetes High blood pressure High cholesterol Opioid use disorder PAF (paroxysmal atrial fibrillation) Social History Social History Household Members: Friend(s) Housing: Apartment Do you presently have visiting nurse or other home services: No Alcohol intake: never Patient Tobacco Use Status: Current everyday Tobacco user Tobacco use type: Cigarette Cigarettes Per Day: 6 Substance Use Type: Crack/Cocaine and Heroin Advance Directives: Yes Advance Directives on File: Yes Advance Directives Date on File: 05/13/22 service: No Current occupational status: unemployed Physical Exam ED Vital Signs: Vital Signs - 24 hr 09/12/22 12:23 Temperature 99.0 F Pulse Rate 76 Respiratory Rate 18 Blood Pressure 149/99 H Pulse Oximetry 96 Oxygen Delivery Method Room Air BMI result Body Mass Index 29.5 VITAL SIGNS: Reviewed. GENERAL: Chronically ill, appears older than stated age, in no acute distress. HEAD: Normocephalic/atraumatic EYES: PERRLA, EOMI intact without pain, no nystagmus/pallor/icterus noted EARS: Ext canals without abnormality, TMs non-bulging and non-erythematous NOSE: Nares patent bilateral OROPHARYNX: no oral lesions noted, posterior pharynx clear NECK: Supple, no adenopathy LUNGS: Normal breath sounds. No adventitious sounds or accessory muscle use. SpO2<96> CARDIOVASCULAR: Regular rate and rhythm without noted murmurs, no JVD significant chronic lower extremity edema ABDOMEN: Soft, non-tender, non-distended with bowel sounds. MUSCULOSKELETAL: No tenderness, deformities, or effusions noted on gross inspection. EXTREMITIES: No cyanosis, clubbing or edema. SKIN: Inspection of the skin reveals no rashes NEUROLOGIC: Alert and oriented x 4. Strength and sensation to light touch were grossly intact x 4. Medical Decision Making Medical Decision Making [facility] Narrative: 62-year-old male with history and clinical presentation of chronic polysubstance use disorder. Clearly has underlying liver dysfunction with low albumin which contributes to the bilateral lower extremity chronic swelling and thickening. He had extensive workup on 09/09 without acute findings to suggest DVT your cellulitis. Will wrap lower extremities today in his temp to help swelling and lower extremity discomfort on ambulation. He is otherwise discharged home in stable condition. Differential Diagnosis Please see the discussion above Discharge Plan Discharge Clinical Impression: Swelling of both lower extremities, Polysubstance use disorder Patient Disposition: Home, Self-Care Instructions: Polysubstance Abuse (ED), Leg Edema (ED) Additional Instructions: Return to the ER for any worsening symptoms. Prescriptions: No Action methadone 10 mg/mL Syringe 50 mg PO DAILY (DME) walker Misc See Rx Instructions .ROUTE .MEDSUPPLY Qty: 1 0RF Rx Instructions: As directed amlodipine 2.5 mg tablet 2.5 mg PO DAILY Referrals: [facility] [Primary Care Provider] -
== END 2022-09-12 16:16 | disposition home or self-care (01) ==
PROVIDERS: Emergency Provider Student in an Organized Health Care Education/Training Program
DX: R60.0 Localized edema (principal); F19.10 Other psychoactive substance abuse, uncomplicated; M79.605 Pain in left leg; M79.604 Pain in right leg; E11.9 Type 2 diabetes mellitus without complications; I10 Essential (primary) hypertension; E78.5 Hyperlipidemia, unspecified; I48.0 Paroxysmal atrial fibrillation; F11.20 Opioid dependence, uncomplicated; F17.210 Nicotine dependence, cigarettes, uncomplicated; Z79.899 Other long term (current) drug therapy
CPT/HCPCS: 99282

== ENCOUNTER 2022-09-15 15:55 | Emergency (ER) | payer MEDICAID, SELFPAY ==
[2022-09-15 16:02] VITALS: BP 140/77; PULSE 99; RESP 18; TEMP 36.6; O2SAT 99
[2022-09-15 16:10] VITALS: BP 140/77; BP 164/98; PULSE 110; PULSE 94; RESP 18; TEMP 37.1; O2SAT 96; O2SAT 98; BMI 30.6
--- NOTE | 2022-09-15 16:16 | ED_ITS ---
HPI - Overdose General Chief Complaint: Overdose Stated Complaint: FOUND ON SIDEWALK S/P 4 BAGS OF HEROIN,NARCAN GIVE Time Seen by Provider: 09/15/22 16:14 Source: patient Mode of arrival: EMS Limitations: no limitations History of Present Illness HPI Narrative: Patient with History of substance abuse snort heroin took 1 bag as usual today was found unresponsive on the sidewalk was given Narcan 4 mg. Patient also complaining of chronic leg swelling which is going on for years no fever no chills patient seen here 09/09 had a venous Doppler done for the legs which was negative been here multiple times for same patient is homeless complaint: accidental overdose Related Data Home Medications Medication Instructions Recorded Confirmed methadone 10 mg/mL oral syringe 50 mg PO DAILY 05/13/22 (FOR ORAL USE ONLY) amlodipine 2.5 mg tablet 2.5 mg PO DAILY 09/09/22 09/09/22 Previous Rx's Medication Instructions Recorded walker #1 ea 05/07/22 doxycycline hyclate 100 mg tablet 100 mg PO BID #20 tabs 09/15/22 Allergies Allergy/AdvReac Type Severity Reaction Status Date / Time Penicillins [PENICILLINS] Allergy Unknown RASH Verified 09/09/22 10:19 Review of Systems Review of Systems: Yes all other systems are reviewed and are negative PMFSH Past Medical History Medical History Diabetes High blood pressure High cholesterol Opioid use disorder PAF (paroxysmal atrial fibrillation) Social History Social History Household Members: Friend(s) Housing: Apartment Do you presently have visiting nurse or other home services: No Alcohol intake: former Patient Tobacco Use Status: Current everyday Tobacco user Tobacco use type: Cigarette Cigarettes Per Day: 6 Smoked in Last 30 Days: Yes Substance Use Type: Heroin Substance Use Frequency: Chronic Longstanding Last Used Substance: Just Prior to Admission Any prior treatment program specific to substance use: No Advance Directives: Yes Advance Directives on File: Yes Advance Directives Date on File: 09/02/22 service: No Current occupational status: unemployed Physical Exam Vital Signs: Vital Signs: Last Vital Signs Temp 98.8 F 09/15/22 16:10 Pulse 94 09/15/22 16:10 Resp 18 09/15/22 16:10 BP 140/77 H 09/15/22 16:10 Pulse Ox 96 09/15/22 16:10 O2 Del Method Room Air 09/15/22 16:10 BMI result Body Mass Index 30.6 Appearance: Alert. Oriented X3. No acute distress. Eyes: PERRLA, No Nystagmus ENT: Pharynx normal. Oral Mucosa moist Neck: Normal inspection. Neck supple. CVS: Normal heart rate and rhythm. Pulses normal. Respiratory: No respiratory distress. Equal air entry bilateral, no wheezing/rales/rhonchi Abdomen: Soft and nontender. Bowel sounds are present, no mass palpable, no CVA tenderness Skin: Skin warm and dry. Normal skin color. Normal skin turgor. Extremities: Bilateral leg edema with erythema Neuro: Oriented X 3. No motor deficit. No sensory deficit.No cerebellar signs , cranial nerves II-XII intact Medications Administered Discontinued Medications Generic Name Dose Route Start Last Admin Trade Name Freq PRN Reason Stop Dose Admin Doxycycline Monohydrate 100 mg 09/15/22 16:57 09/15/22 17:14 Doxycycline Monohydrate 100 Mg Capsule PO 09/15/22 16:58 100 mg ONCE ONE Administration Medical Decision Making Medical Decision Making [facility] Narrative: Patient's substance abuse frequent ED visits does not want to go to detox discharge patient home advised to follow with detox as outpatient Lab Data [facility] Lab Attestation statement: I reviewed the patient's lab results. Labs: Lab Results 09/15/22 Range/Units 17:38 Urine Opiates Screen Not Detected (Not Detect) Urine Fentanyl Screen POSITIVE H (Not Detect) Ur Barbiturates Screen Not Detected (Not Detect) Ur Phencyclidine Scrn Not Detected (Not Detect) Ur Amphetamines Screen Not Detected (Not Detect) U Benzodiazepines Scrn Not Detected (Not Detect) Urine Cocaine Screen POSITIVE H (Not Detect) U Marijuana (THC) Screen Not Detected (Not Detect) Discharge Plan Discharge Clinical Impression: Polysubstance abuse, Leg edema, Cellulitis Patient Disposition: Home, Self-Care Instructions: Cellulitis (ED), Leg Edema (ED), Polysubstance Abuse (ED) Additional Instructions: Stop taking heroin and cocaine Keep your legs elevated Antibiotics as advised Follow your PCP if not better Prescriptions: New doxycycline hyclate 100 mg tablet 100 mg PO BID Qty: 20 0RF No Action methadone 10 mg/mL Syringe 50 mg PO DAILY (DME) walker Mislexx See Rx Instructions .ROUTE .MEDSUPPLY Qty: 1 0RF Rx Instructions: As directed amlodipine 2.5 mg tablet 2.5 mg PO DAILY Interventions: ED Discharge Assessment Last Done: 09/15/22 18:53 Discharge Date/Time: 09/15/22 19:05
--- NOTE | 2022-09-15 16:16 | PC.NURSE ---
Alert and oriented. Brought in by [facility] after being found down on sidewalk. 4 mg of narcan. states only uses heroin and used 1 bag today. assisted in changing patient over to hospital gown and locking up personal belongings. VSS. stated no to be placed on the monitor to monitor heart. Bilateral legs red, swollen, with dried scabs. States 10/10 pain in legs. no sob noted, denies chest pain. States has no where to live and has to walk alot and that is why his legs are swollen. Denies SI or HI , states it was an accident.
[2022-09-15] MEDS: Doxycycline Monohydrate 100 MG CAPSULE PO (17:14)
--- NOTE | 2022-09-15 17:34 | PC.NURSE ---
Alert and oriented. Clam and cooperative. voiding into bedside urinal. States only has pain in legs. No sob or chest pain reported.
[2022-09-15 17:59] LABS: Amphetamine Screen Urine Not Detected (Not Detect); Barbiturates, Urine Not Detected (Not Detect); Benzodiazepines Screen Urine Not Detected (Not Detect); Cannabinoid Screen Urine Not Detected (Not Detect); Cocaine Screen Urine POSITIVE (Not Detect); Fentanyl, urine POSITIVE (Not Detect); Opiate Screen Urine Not Detected (Not Detect); Phencyclidine Screen Urine Not Detected (Not Detect)
--- NOTE | 2022-09-15 18:53 | PC.NURSE ---
Patient alert and oriented. reviewed discharge paperwork with patient who verbalized understanding of the important of taking po doxy for his legs.
--- NOTE | 2022-09-15 19:11 | PC.NURSE ---
[id number] no apparent distress discharge instructions given and explained assumed care of pt when already discharged
== END 2022-09-15 19:05 | disposition home or self-care (01) ==
PROVIDERS: Emergency Provider Internal Medicine
DX: T40.1X1A Poisoning by heroin, accidental (unintentional), initial encounter (principal); R60.0 Localized edema; Y92.9 Unspecified place or not applicable; F17.210 Nicotine dependence, cigarettes, uncomplicated; Z71.6 Tobacco abuse counseling; Z79.899 Other long term (current) drug therapy
CPT/HCPCS: 80307; 99284

== ENCOUNTER 2022-10-23 18:01 | Emergency (ER) | payer MEDICAID, SELFPAY ==
--- NOTE | ~2022-10-23 | XR_ITS ---
EXAMINATION: XR SHOULDER, RIGHT CLINICAL INFORMATION: Fall pain COMPARISON: None available. TECHNIQUE: AP external rotation, Grashey, scapular Y, and axillary views of the right shoulder. FINDINGS: There is impaction fracture of the right humeral neck. Humeral head mildly subluxed, adjacent glenoid to process and scapula are intact. Adjacent clavicle and acromioclavicular joints are intact. Included ribs and lungs are clear. XR/XR shoulder RT min 2V IMPRESSION: * Impacted fracture of the right humeral neck. * Mild subluxation of the humeral head.
--- NOTE | ~2022-10-23 | XR_ITS ---
EXAMINATION: XR HIP, RIGHT , AP pelvis CLINICAL INFORMATION: Fall pain COMPARISON: Prior x-ray 08/30/2022. TECHNIQUE: Frontal and lateral views of the hip acquired. , AP pelvis FINDINGS: There is no evidence of acute fracture or dislocation. Screws in the right femoral head and neck remain in place intact. Left femur sebastien in place unchanged. There are mild degenerative arthritic changes of the hip evident by sclerotic changes of the acetabular roof and narrowing of the joint space. Mild degenerative changes of the symphysis pubis. Mild degenerative changes of the SI joints. Adjacent pubic rami are intact. Surrounding soft tissues are unremarkable. XR/XR hip RT min 2V IMPRESSION: * No radiographic evidence of acute fracture. * Mild degenerative arthritis. * Hardware remain intact.
--- NOTE | ~2022-10-23 | CT_ITS ---
EXAMINATION: CT HEAD WITHOUT CONTRAST CT CERVICAL SPINE WITHOUT CONTRAST CLINICAL INFORMATION: Intoxicated. Fall. Pain. COMPARISON: Thoracic spine radiographs from 03/12/2011. TECHNIQUE: Contiguous axial imaging was performed from the skull base to vertex without intravenous administration of contrast. Contiguous axial imaging was performed from the upper chest through the skull base without intravenous administration of contrast. Coronal and sagittal reformats were obtained at the acquisition workstation. This CT examination was performed using dose optimization techniques as appropriate, variously including the following: *Automated exposure control. *Adjustment of mA and/or kV according to patient size (this includes techniques or standardized protocols for targeted exams where dose is matched to indication/reason for exam; i.e. extremities or head). *Use of iterative reconstruction technique. DLP: 1094 mGy-cm FINDINGS: Head: There is no evidence of acute intracranial hemorrhage or edematous territorial infarction. Koehler-white matter differentiation is preserved. Scattered and partially confluent hypoattenuation in the periventricular and deep white matter are consistent with moderate microangiopathy. The ventricles are normal in morphology and size. No evidence for obstructive hydrocephalus. No abnormal mass effect or midline shift. No extra-axial fluid collections. No acute soft tissue or osseous abnormalities. Mild mucosal thickening of the paranasal sinuses. The mastoid air cells and middle ear cavities are clear. Multifocal odontogenic enamel erosions and periapical lucencies. Cervical Spine: The atlantooccipital and atlantoaxial articulations remain well aligned. Partial straightening of the normal cervical lordosis. Mild right convex curvature of the cervical spine. Otherwise, there is anatomic alignment of the vertebral bodies and posterior elements. There is age indeterminate compression deformity of the superior endplate of T2 with sclerotic changes (15% loss of vertebral body height). No overt perivertebral edema associated with this deformity. No evidence of additional acute fracture or subluxation. The vertebral body heights are maintained. Advanced degenerative disc disease at C4-C5 and C5-C6. Moderate degenerative disc disease at all additional levels. Facet and uncovertebral joint arthropathy leads osseous encroachment on the neural foramina from C3-C6. There is no prevertebral soft tissue swelling. The thyroid gland and remaining cervical soft tissues are within normal limits. Periapical lucency associated with the maxillary right sided molars. Moderate centrilobular and paraseptal emphysema of the visualized lung apices. CT/CT cervical spine wo IV con IMPRESSION: 1. No evidence of acute intracranial hemorrhage or edematous territorial infarction. Moderate underlying microangiopathy and generalized cerebral volume loss. 2. Age-indeterminate compression deformity of the superior endplate of T2. No overt perivertebral edema associated with this deformity to strongly suggest acuity. 3. Otherwise, no evidence of acute fracture or traumatic subluxation of the cervical spine. 4. Moderate multilevel degenerative spondyloarthropathy of the cervical spine. 5. Emphysema.
[2022-10-23 18:15] VITALS: BP 170/96; PULSE 96; RESP 18; TEMP 36.8; O2SAT 96; BMI 28.2
[2022-10-23 18:26] VITALS: BP 160/100; PULSE 96; O2SAT 88
--- NOTE | 2022-10-23 18:41 | ECG_ITS ---
Test Reason : FALL Blood Pressure : / mmHG Vent. Rate : 096 BPM Atrial Rate : 096 BPM P-R Int : 174 ms QRS Dur : 096 ms QT Int : 398 ms P-R-T Axes : 057 038 087 degrees QTc Int : 502 ms Normal sinus rhythm Minimal voltage criteria for LVH, may be normal variant ( Earl product ) Cannot rule out Inferior infarct (cited on or before 21-APR-2022) Prolonged QT Abnormal ECG When compared with ECG of 25-APR-2022 20:50, No significant change was found Referred By: Abida Jordan Electronically Signed By:Alan Oropeza
[2022-10-23 19:05] VITALS: BP 128/80; PULSE 77; RESP 18; TEMP 36.9
[2022-10-23 19:24] LABS: MANUAL DIFF FLAG NO
[2022-10-23 19:41] LABS: Basophils Percent Auto 0.5 % (0-2); Eosinophils Absolute Auto 0.1 X10*3/uL (0.0-0.4); Eosinophils Percent Auto 0.6 % (0-4); Hematocrit 38.3 % (42.0-52.0); Hemoglobin 13.1 g/dl (14.0-18.0); Imm Gran Abs Auto 0.08 X10*3/uL (0.00-0.03); Imm Gran Pct Auto 0.9 % (0.0-0.4); Lymphocytes Absolute Auto 1.3 X10*3/uL (1.2-4.9); Lymphocytes Percent Auto 15.3 % (20-40); Mean Corpuscular HGB Conc 34.2 g/dl (31.0-36.0); Mean Corpuscular Hemoglobin 31.6 pg (27.0-33.0); Mean Corpuscular Volume 92.5 fL (80.0-98.0); Mean Platelet Volume 10.7 fL (9.4-12.4); Monocytes Absolute Auto 1.4 X10*3/uL (0.1-1.2); Monocytes Percent Auto 15.4 % (2-11); Neutrophils Absolute Auto 5.9 x10*3/uL (2.0-8.3); Neutrophils Percent Auto 67.3 % (45-73); Platelet Count 142 X10*3/uL (160-400); Red Blood Count 4.14 X10*6/uL (4.60-5.80); Red Cell Distribution Width 13.8 % (11.0-16.0); White Blood Count 8.8 X10*3/uL (4.8-10.8)
[2022-10-23 19:48] LABS: Alanine Aminotransferase 30 U/L (0-40); Alkaline Phosphatase 130 U/L (39-117); Anion Gap 9 (12-20); Aspartate Amino Transferase 31 U/L (5-37); Bilirubin Direct 1.3 mg/dL (0.0-0.5); Bilirubin Total 2.6 mg/dL (0.0-1.0); Blood Urea Nitrogen 22 mg/dL (9-16); Calcium 8.8 mg/dL (8.4-10.2); Carbon Dioxide 26 mmol/L (22-29); Chloride 101 mmol/L (96-108); Creatinine Clr Calc Pharmacy 91.1; Estimated Glomerular Filt Rate > 60; Ethanol < 10 mg/dL; Glucose Random 104 mg/dL (60-115); Magnesium 1.9 mg/dL (1.6-2.6); Potassium 3.7 mmol/L (3.3-5.1); Sodium 132 mmol/L (135-145); Total Protein 7.8 g/dL (6.5-8.0)
[2022-10-23 20:52] VITALS: BP 154/85; PULSE 98; RESP 20; TEMP 36.6; O2SAT 93
[2022-10-23 21:21] LABS: Amphetamine Screen Urine Not Detected (Not Detect); Barbiturates, Urine Not Detected (Not Detect); Benzodiazepines Screen Urine Not Detected (Not Detect); Cannabinoid Screen Urine Not Detected (Not Detect); Cocaine Screen Urine POSITIVE (Not Detect); Fentanyl, urine POSITIVE (Not Detect); Opiate Screen Urine POSITIVE (Not Detect); Phencyclidine Screen Urine Not Detected (Not Detect)
--- NOTE | 2022-10-23 21:45 | ED.FALL ---
HPI - Fall General Chief Complaint: Fall Stated Complaint: FALL Time Seen by Provider: 10/23/22 18:20 Source: patient Mode of arrival: EMS Limitations: no limitations History of Present Illness HPI Narrative: Patient comes to the emergency room via EMS complaining of right shoulder pain. Patient states that he had 3 falls today. Patient denies hitting his head or losing consciousness. Patient is barely able to give any history, patient is very somnolent, patient looks like he is intoxicated/high. Patient admits to using heroin today. Patient denies headache or neck pain, mostly complaining of right shoulder pain. Related Data Home Medications Medication Instructions Recorded Confirmed methadone 10 mg/mL oral syringe 50 mg PO DAILY 05/13/22 (FOR ORAL USE ONLY) amlodipine 2.5 mg tablet 2.5 mg PO DAILY 09/09/22 09/09/22 Previous Rx's Medication Instructions Recorded walker #1 ea 05/07/22 doxycycline hyclate 100 mg tablet 100 mg PO BID #20 tabs 09/15/22 ibuprofen 600 mg tablet 600 mg PO Q6H PRN fever or pain 10/23/22 #20 tabs Allergies Allergy/AdvReac Type Severity Reaction Status Date / Time Penicillins [PENICILLINS] Allergy Unknown RASH Verified 09/09/22 10:19 Review of Systems Review of Systems: Constitutional : No Weight loss, No Fever, No Chills, No Night Sweats, No Fatigue, No Malaise ENT/Mouth : No Hearing loss, No Ear Pain, No Nasal Congestion, No Sinus Pain, No Hoarseness, No sore throat, No Rhinorrhea, No Swallowing Difficulty Eyes: No Eye Pain, No Swelling, No Redness, No Foreign Body, No Discharge, No Vision Changes Cardiovascular : No Chest Pain, No SOB, No Dyspnea on Exertion, No Orthopnea, No Edema, No Palpitations Respiratory : No Cough, No Sputum, No Wheezing, No Smoke Exposure, No Dyspnea Gastrointestinal : No Nausea, No Vomiting, No Diarrhea, No Constipation, No abdominal Pain, No Hematochezia, No Melena Genitourinary : no irregular bleeding, No Dysuria, No Urinary Frequency, No Hematuria, No Urinary Incontinence, No Urgency, No Flank Pain, No Urinary Flow Changes, No Hesitancy Musculoskeletal : Complaining of right shoulder pain, No Myalgias, No Joint Swelling Skin : No Skin Lesions, No rash Neuro : No Weakness, No Numbness, No Paresthesias, No Loss of Consciousness, No Dizziness, No Headache Psych : No Anxiety/Panic, No Depression, No SI/HI/AH/VH, No Social Issues, Heme/Lymph: No Bruising, No Bleeding,No Lymphadenopathy Endocrine : No Polyuria, No Polydipsia, No Temperature Intolerance [facility] Past Medical History Medical History Diabetes High blood pressure High cholesterol Opioid use disorder PAF (paroxysmal atrial fibrillation) Polysubstance abuse Social History Social History Household Members: Friend(s) Housing: Apartment Do you presently have visiting nurse or other home services: No Alcohol intake: current Alcohol intake frequency: a few times a week Alcohol type: beer Patient Tobacco Use Status: Current everyday Tobacco user Tobacco use type: Cigarette Cigarettes Per Day: 6 Smoked in Last 30 Days: Yes Use of substances other than those prescribed or required for medical reasons: Yes Substance Use Type: Heroin Substance Use Frequency: Chronic Longstanding Last Used Substance: Just Prior to Admission Any prior treatment program specific to substance use: No Advance Directives: Yes Advance Directives on File: Yes Advance Directives Date on File: 09/02/22 service: No Current occupational status: unemployed Physical Exam Vital Signs: Vital Signs: Last Vital Signs Temp 97.8 F 10/23/22 20:52 Pulse 98 10/23/22 20:52 Resp 20 10/23/22 20:52 BP 154/85 H 10/23/22 20:52 Pulse Ox 93 10/23/22 20:52 O2 Del Method Room Air 10/23/22 20:52 O2 Flow Rate 2 10/23/22 20:52 Oxygen Flow Rate 2 10/23/22 18:15 BMI result Body Mass Index 28.2 Const: Other: Appearance: Alert. Oriented X3. Somnolent but easily arousable Eyes: Pupils equal, round and reactive to light. ENT: Pharynx normal. Neck: Normal inspection. Neck supple. No lymph nodes noted. No crepitus CVS: Normal heart rate and rhythm. Pulses normal. Normal S1 and S2 Respiratory: No respiratory distress. Breath sounds normal. No Wheezing. No rales Abdomen: Soft and nontender. No rigidity. No distention. Skin: Skin warm and dry. Normal skin color. Normal skin turgor. Extremities: Patient able to flex and extend the wrist and the elbow but unable to abduct the right arm due to pain at the shoulder. Neuro: Oriented X 3. No motor deficit. No sensory deficit. Moving all extremities. No slurred speech. CN 2 through 12 grossly intact Psych: calm, cooperative, normal affect Course Course Course Narrative: -we will obtain imaging of head neck, shoulder -all labs pending Medical Decision Making Medical Decision Making [facility] Narrative: -my interpretation of x-ray of the shoulder shows no fracture of the right humeral neck. Patient was given a sling. -admission is being considered. Patient has social issues including homelessness. -I discussed the patient with orthopedics on-call, agrees with plan, sling and follow-up with orthopedics -at this time, patient is still high/intoxicated. Reviewing patient's labs, my interpretation, urine toxicology positive for fentanyl, opiates and cocaine -my interpretation of CT scan of the head: No acute abnormality/intracranial bleed -at this time, patient is intoxicated, somnolent, unable to make any decisions. When patient is sober/awake, will reassess if patient needs case management/physical therapy. -sign-out given to Dr. Clint tellez Differential Diagnosis Differential Diagnoses: The differential diagnosis associated with the presentation includes (Humeral fracture, shoulder dislocation, rotator cough tear, bursitis. Acute Intracranial bleed, concussion) Admission/Observation Consideration of admission/observation: Escalation of care including admission/observation considered Consult Healthcare Provider Management of the patient was discussed with: Information Strategist Lab Data [facility] Lab Attestation statement: I reviewed the patient's lab results. 10/23/22 19:20 10/23/22 19:20 Labs: Lab Results 10/23/22 10/23/22 10/23/22 Range/Units 19:20 19:20 21:03 WBC 8.8 (4.8-10.8) X10*3/uL RBC 4.14 L (4.60-5.80) X10*6/uL Hgb 13.1 L (14.0-18.0) g/dl Hct 38.3 L (42.0-52.0) % MCV 92.5 (80.0-98.0) fL MCH 31.6 (27.0-33.0) pg MCHC 34.2 (31.0-36.0) g/dl RDW 13.8 (11.0-16.0) % Plt Count 142 L (160-400) X10*3/uL MPV 10.7 (9.4-12.4) fL Immature Gran % (Auto) 0.9 H (0.0-0.4) % Neut % (Auto) 67.3 (45-73) % Lymph % (Auto) 15.3 L (20-40) % [place] % (Auto) 15.4 H (2-11) % Eos % (Auto) 0.6 (0-4) % Baso % (Auto) 0.5 (0-2) % Lymph # (Auto) 1.3 (1.2-4.9) X10*3/uL [place] # (Auto) 1.4 H (0.1-1.2) X10*3/uL Eos # (Auto) 0.1 (0.0-0.4) X10*3/uL Baso # (Auto) 0.0 (0.0-0.2) X10*3/uL Abs Immat Gran (auto) 0.08 H (0.00-0.03) X10*3/uL Absolute Neuts (auto) 5.9 (2.0-8.3) x10*3/uL Absolute Nucleated RBC 0.000 (0.0-0.012) X10*3/uL Nucleated RBC % (auto) 0.0 (0.0-0.2) /100WBC Sodium 132 L (135-145) mmol/L Potassium 3.7 (3.3-5.1) mmol/L Chloride 101 (96-108) mmol/L Carbon Dioxide 26 (22-29) mmol/L Anion Gap 9 L (12-20) BUN 22 H (9-16) mg/dL Creatinine 0.91 (0.5-1.4) mg/dL Estim Creat Clear Calc 91.1 Estimated GFR > 60 Random Glucose 104 (60-115) mg/dL Calcium 8.8 D (8.4-10.2) mg/dL Magnesium 1.9 (1.6-2.6) mg/dL Total Bilirubin 2.6 H (0.0-1.0) mg/dL Direct Bilirubin 1.3 H (0.0-0.5) mg/dL AST 31 (5-37) U/L ALT 30 (0-40) U/L Alkaline Phosphatase 130 H (39-117) U/L Total Protein 7.8 (6.5-8.0) g/dL Albumin 3.0 L (3.5-5.0) g/dL Urine Opiates Screen POSITIVE H (Not Detect) Urine Fentanyl Screen POSITIVE H (Not Detect) Ur Barbiturates Screen Not Detected (Not Detect) Ur Phencyclidine Scrn Not Detected (Not Detect) Ur Amphetamines Screen Not Detected (Not Detect) U Benzodiazepines Scrn Not Detected (Not Detect) Urine Cocaine Screen POSITIVE H (Not Detect) U Marijuana (THC) Screen Not Detected (Not Detect) Ethyl Alcohol < 10 mg/dL Independent Interpretation I performed an independent interpretation of an: CT Scan Radiology Impression Discussion of test interpretation with radiology: I have reviewed the radiologist's reading. Radiologist Impression: FINDINGS: Head: There is no evidence of acute intracranial hemorrhage or edematous territorial infarction. Koehler-white matter differentiation is preserved. Scattered and partially confluent hypoattenuation in the periventricular and deep white matter are consistent with moderate microangiopathy. The ventricles are normal in morphology and size. No evidence for obstructive hydrocephalus. No abnormal mass effect or midline shift. No extra-axial fluid collections. No acute soft tissue or osseous abnormalities. Mild mucosal thickening of the paranasal sinuses. The mastoid air cells and middle ear cavities are clear. Multifocal odontogenic enamel erosions and periapical lucencies. Cervical Spine: The atlantooccipital and atlantoaxial articulations remain well aligned. Partial straightening of the normal cervical lordosis. Mild right convex curvature of the cervical spine. Otherwise, there is anatomic alignment of the vertebral bodies and posterior elements. There is age indeterminate compression deformity of the superior endplate of T2 with sclerotic changes (15% loss of vertebral body height). No overt perivertebral edema associated with this deformity. No evidence of additional acute fracture or subluxation. The vertebral body heights are maintained. Advanced degenerative disc disease at C4-C5 and C5-C6. Moderate degenerative disc disease at all additional levels. Facet and uncovertebral joint arthropathy leads osseous encroachment on the neural foramina from C3-C6. There is no prevertebral soft tissue swelling. The thyroid gland and remaining cervical soft tissues are within normal limits. Periapical lucency associated with the maxillary right sided molars. Moderate centrilobular and paraseptal emphysema of the visualized lung apices. CT/CT head/brain wo IV con IMPRESSION: 1.? No evidence of acute intracranial hemorrhage or edematous territorial infarction. Moderate underlying microangiopathy and generalized cerebral volume loss. 2.? Age-indeterminate compression deformity of the superior endplate of T2. No overt perivertebral edema associated with this deformity to strongly suggest acuity. 3.? Otherwise, no evidence of acute fracture or traumatic subluxation of the cervical spine. 4.? Moderate multilevel degenerative spondyloarthropathy of the cervical spine. 5.? Emphysema. FINDINGS: There is impaction fracture of the right humeral neck. Humeral head mildly subluxed, adjacent glenoid to process and scapula are intact. Adjacent clavicle and acromioclavicular joints are intact. Included ribs and lungs are clear.? XR/XR shoulder RT min 2V IMPRESSION: ? *? Impacted fracture of the right humeral neck. ? *? Mild subluxation of the humeral head. FINDINGS: There is no evidence of acute fracture or dislocation. Screws in the right femoral head and neck remain in place intact. Left femur sebastien in place unchanged. There are mild degenerative arthritic changes of the hip evident by sclerotic changes of the acetabular roof and narrowing of the joint space. Mild degenerative changes of the symphysis pubis. Mild degenerative changes of the SI joints.? Adjacent pubic rami are intact. Surrounding soft tissues are unremarkable. XR/XR hip RT min 2V IMPRESSION: ? *? No radiographic evidence of acute fracture. ? *? Mild degenerative arthritis. ? *? Hardware remain intact. ? Prescription Management I considered prescription management with: Pain Medication (Since patient has a fracture, considering discharging the patient with tramadol. However, unclear of patient's disposition at this time) Chronic Conditions Patient?s care impacted by: Other (Substance abuse) Social Determinants Homeless Discharge Plan Discharge Clinical Impression: Closed fracture of neck of right humerus, Polysubstance abuse Patient Disposition: Still a Patient Instructions: Arm Fracture in Adults (ED) Additional Instructions: Please follow-up with your primary care physician tomorrow. If you have any worsening or new symptoms, please return to the emergency room or call 911 Prescriptions: New ibuprofen 600 mg tablet 600 mg PO Q6H PRN (Reason: fever or pain) Qty: 20 0RF No Action methadone 10 mg/mL Syringe 50 mg PO DAILY (DME) manpreet Boyd See Rx Instructions .ROUTE .MEDSUPPLY Qty: 1 0RF Rx Instructions: As directed amlodipine 2.5 mg tablet 2.5 mg PO DAILY doxycycline hyclate 100 mg tablet 100 mg PO BID Qty: 20 0RF Referrals: Silvia Alba PA-C [Physician Lamp [employer]er] - 10/24/22
--- NOTE | 2022-10-23 22:46 | MHC.CM.ED ---
CM received consult from Dr. Jordan. Attempted to meet with patient with cantilever crane operator. Pt very somnolent, unable to stay awake for complete interview. Pt is well know to CM , with 3 recent ED visits in August for heroin/narcan. Pt has longstanding hx of IVDA and polysubstance abuse. Pt has frequent falls. Pt has been on methadone, states he is on suboxone, but then cannot tell CM where and again falls asleep. Was getting his methadone at [facility]. States he is homeless. Denies heroin use. Tox screen positive for opiates, fentanyl and cocaine. Pt has impacted R humeral neck fx. Per ortho, sling and f/u outpatient. HCP on file. PCP at [facility]. PT is pending. Uses a walker. D/C plan:Pending PT evaluation. Probable STR. Will place referrals. Expect patient will be difficult to place due to active drug abuse. CM following for discharge planning.
[2022-10-23 23:00] VITALS: BP 121/88; PULSE 83; RESP 16; TEMP 36.7; O2SAT 95
[2022-10-24 03:44] VITALS: BP 144/80; PULSE 72; RESP 15; TEMP 36.6; O2SAT 98
--- NOTE | 2022-10-24 03:45 | MHC.EDTECH ---
this pct just assumed care of patient ,pt was incontinent of urine ,care given ,pt was position with pillows ,belongings list done ,vitals sign taken ,pt vitals are stable .
--- NOTE | 2022-10-24 04:20 | MHC.EDTECH ---
PATIENT WAS ASSISTED TO USE THE URINAL ,PT VOID 400 ML .
--- NOTE | 2022-10-24 05:19 | PC.NURSE ---
patient in bed with eyes closed patient showing no distress at this time patient will continue to be monitored for safety
[2022-10-24 06:00] VITALS: BP 118/68; PULSE 72; RESP 20; TEMP 36.8; O2SAT 97
--- NOTE | 2022-10-24 06:23 | MHC.EDTECH ---
PATIENT AWAKE IN BED ,0600 VITALS TAKEN AND IS STABLE ,PT VOID 250 ML ,HAD A SANDWICH AND DRANK A CAN OF JOSE LUIS GLENROY ,CALL PELAEZ WITHIN REACH ,WILL CONTINUE TO MONITOR FOR SAFETY .
[2022-10-24 08:21] LABS: COVID-19 Test Negative (Negative); IDNOW Serial# 08D9AD1C
[2022-10-24 10:05] VITALS: BP 138/78; PULSE 74; RESP 12; TEMP 36.9; O2SAT 95
--- NOTE | 2022-10-24 10:09 | PC.NURSE ---
Pt alert, reuested food, given tuna sandwhich, water and juice.
--- NOTE | 2022-10-24 11:29 | PHA.MEDREC ---
Pharmacy Consult ? Medication Reconciliation Pharmacy has completed the medication reconciliation. Spoke to patient to confirm meds. Patient states they take methadone at an unknown dose and blood pressure medication, but doesn't know the dose or name for the BP meds and claims they get it at a [facility]. Patient states they take suboxone 4mg, gabapentin 100mg TID, and temazepam 15mg PM which PDMP verifies. Left BP medication on claim history unconfirmed because patient cannot confirm nor remembers where they were getting the medication.
--- NOTE | 2022-10-24 11:54 | MHC.RECOVRN ---
Met with pt in ED18 after request from CM. Pt laying in bed, drowsy, wakes to voice and needs to be awoken frequently during conversation. Pt reports using 1 bag heroin, [place], daily. Pt reports he is no longer taking methadone and is taking Suboxone. Pt reports he last took Suboxone 2 days ago. Per [facility], pt has been prescribed Suboxone, 4 mg daily, since 09/24/22. Most recently, pt filled prescription on 10/17 for a 14 day supply, 4 mg daily. Pt unable to engage in further conversation regarding substance use due to drowsiness. CM aware. Discussed with Vicky Zeng APRN.
--- NOTE | 2022-10-24 12:53 | MHC.CM.ED ---
Patient remains in ER. Physical therapy eval is pending. Patient was seen by Recovery Team. Patient's last Suboxone prescription was from Tatum Lin NP. Patient left [facility] on 10/18. Referral broadcasted throughout the entire [facility] at this time to all facilities that accept [facility] and can accommodate Suboxone patients. Continue to monitor for d/c needs.
[2022-10-24 13:06] VITALS: BP 137/79; PULSE 78; RESP 15; TEMP 36.8; O2SAT 92
[2022-10-24] MEDS: Buprenorphine/Naloxone 4/1 mg FILM 1 FILM BUCCAL (13:38)
--- NOTE | 2022-10-24 13:50 | PC.NURSE ---
Pt son called to speak with Pt.
[2022-10-24] MEDS: Gabapentin 100 MG CAPSULE PO ×2 (14:10→21:14)
[2022-10-24 14:11] VITALS: BP 136/83; PULSE 74; RESP 14; TEMP 37.1; O2SAT 94
--- NOTE | 2022-10-24 15:03 | PC.NURSE ---
Pt currently resting, no apparent pain or discomfort noted.
[2022-10-24 17:31] VITALS: BP 145/79; PULSE 76; RESP 15; TEMP 37.2; O2SAT 92
--- NOTE | 2022-10-24 17:38 | PC.NURSE ---
pt provided snack, continues to rest quietly in room with call harvey in reach
--- NOTE | 2022-10-24 21:11 | PC.NURSE ---
Report given to Overflow RN. Pt waiting transport
[2022-10-24] MEDS: Temazepam 15 MG CAPSULE PO (21:14)
--- NOTE | 2022-10-24 21:32 | MHC.CM.ED ---
Awaiting PT assessment. Pt would not participate today. [facility] may consider, but patient signed out AMA. Waiting on 4 other facilities for response. No bed offers. CM following for discharge planning.
[2022-10-25 05:44] VITALS: BP 142/80; PULSE 73; RESP 19; TEMP 36.8; O2SAT 92
[2022-10-25 06:00] VITALS: BP 159/91; PULSE 76; RESP 18; TEMP 36.9; O2SAT 94
[2022-10-25 09:40] VITALS: PULSE 76; O2SAT 94
[2022-10-25] MEDS: Gabapentin 100 MG CAPSULE PO ×3 (10:52→20:31)
[2022-10-25] MEDS: Buprenorphine/Naloxone 4/1 mg FILM 1 FILM BUCCAL (10:52)
[2022-10-25 14:00] VITALS: BP 151/81; PULSE 80; RESP 18; TEMP 36.3; O2SAT 95
[2022-10-25 15:43] VITALS: BP 159/89; PULSE 84; RESP 20; TEMP 37.2; O2SAT 96
--- NOTE | 2022-10-25 20:04 | PC.NURSE ---
Assumed care at 7 am. Patient alert, drowsy, oriented x4, reports depression, but not SI, says his nephew recently of overdose and he is homeless. Patient up to work with PT and then refused to get OOB with nursing. Patient reported 10/10 pain over entire body. Patient with hx of substance abuse on suboxone with recent positive tox screen, and VENTILATING EQUIPMENT INSTALLER notified and ordered tylenol, which patient refused, saying he cannot have it because of his liver, and patient has cirrhosis per VENTILATING EQUIPMENT INSTALLER (not listed in history yet), which patient confirms, and per VENTILATING EQUIPMENT INSTALLER patient can have up to 2 G of tylenol, but patient refused, VENTILATING EQUIPMENT INSTALLER aware, and no other orders available for patient. Patient ate well. Voids in urinal.
[2022-10-25 22:00] VITALS: BP 137/85; PULSE 79; RESP 20; TEMP 36.2; O2SAT 95
[2022-10-25] MEDS: Temazepam 15 MG CAPSULE PO (22:01)
[2022-10-25] MEDS: Acetaminophen 325 MG TABLET 650 MG PO (22:45)
--- NOTE | 2022-10-25 23:52 | MHC.EDTECH ---
THIS PCT ASSUMED CARE OF PT AT 2300 ,PATIENT AWAKE WATCHING TELEVISION ,APPLE JUICE GIVEN ,CALL PELAEZ WITHIN REACH .
--- NOTE | 2022-10-26 02:25 | PC.NURSE ---
Assumed care for patient at 1900. Patient reports 02/04 headache. Physician notified, Tylenol 650 mg po ordered/administered with good effect. Patient repositioned and sleeping at present, call harvey within reach.
[2022-10-26 06:40] VITALS: BP 151/94; PULSE 65; RESP 16; TEMP 36.2; O2SAT 95
[2022-10-26] MEDS: Gabapentin 100 MG CAPSULE PO ×3 (08:42→21:19)
[2022-10-26] MEDS: Buprenorphine/Naloxone 4/1 mg FILM 1 FILM BUCCAL (08:42)
--- NOTE | 2022-10-26 10:39 | PC.NURSE ---
pt was request for the food, after breakfast quietly laying in his bed watching TV. no issues. will monitor for any changes.
--- NOTE | 2022-10-26 11:33 | PC.NURSE ---
assumed care of pt at 1100, pt sitting up quietly in bed, calm and cooperative at this time.
--- NOTE | 2022-10-26 13:27 | PC.NURSE ---
pt reporting discomfort in bed, assisted with repositioning, pt given pillows to assist in supporting arm, declined to use the sling as instructed. pt ate 100% of lunch independently, denies any needs at this time.
[2022-10-26 14:00] VITALS: BP 162/83; PULSE 76; RESP 18; TEMP 36.6; O2SAT 94
--- NOTE | 2022-10-26 14:46 | PC.NURSE ---
pt medicated for 10/10 right shoulder pain.
[2022-10-26] MEDS: Temazepam 15 MG CAPSULE PO (21:18)
--- NOTE | 2022-10-26 21:53 | PC.NURSE ---
Pt repositioned in bed. Refusing to wear sling at this time. Placed pillows underneath shoulder and elbow to stabilize arm. Medicated per JUN. Resting comfortably watching tv in bed.
[2022-10-27 05:34] VITALS: BP 132/83; PULSE 71; RESP 17; TEMP 36.4; O2SAT 95
[2022-10-27 06:00] VITALS: TEMP 36
[2022-10-27] MEDS: Gabapentin 100 MG CAPSULE PO ×3 (07:43→20:10)
[2022-10-27] MEDS: Buprenorphine/Naloxone 4/1 mg FILM 1 FILM BUCCAL (07:44)
[2022-10-27 13:59] VITALS: BP 142/90; PULSE 72; RESP 16; TEMP 36; O2SAT 96
--- NOTE | 2022-10-27 17:14 | PC.NURSE ---
Pt resting comfortably. Refusing sling. Awaiting rehab placement
[2022-10-27] MEDS: Temazepam 15 MG CAPSULE PO ×2 (20:10)
[2022-10-27 21:13] VITALS: BP 138/82; PULSE 82; RESP 17; TEMP 37.1; O2SAT 94
[2022-10-28 06:00] VITALS: BP 115/82; PULSE 78; RESP 16; TEMP 36.6; O2SAT 95
[2022-10-28] MEDS: Gabapentin 100 MG CAPSULE PO (08:13)
[2022-10-28] MEDS: Buprenorphine/Naloxone 4/1 mg FILM 1 FILM BUCCAL (08:14)
--- NOTE | 2022-10-28 10:45 | PC.NURSE ---
Pt requesting to speak with telehealth case manager. Radha Anne notified.
[2022-10-28 12:12] VITALS: BP 141/79; PULSE 79; RESP 16; TEMP 36.9; O2SAT 93
--- NOTE | 2022-10-28 12:45 | MHC.CM.ED ---
Patient remains in ER overflow. Patient left [facility] on 10/18. T/W is trying to confirm if they can accept patient back. Still waiting to hear. Patient requesting to see CM. T/W met with patient. Above information provided to patient. Patient states he needs to leave to pay for the room he rents. Patient aware he would have to sign out AMA for that. Patient requesting to leave AMA. Ai EASON aware. Continue to monitor for d/c needs.
== END 2022-10-28 15:52 | disposition left against medical advice (07) ==
PROVIDERS: Physician Assistant Medical; Emergency Provider Emergency Medicine
DX: S42.301A Unspecified fracture of shaft of humerus, right arm, initial encounter for closed fracture (principal); W19.XXXA Unspecified fall, initial encounter; Y93.9 Activity, unspecified; Y92.9 Unspecified place or not applicable; Y99.9 Unspecified external cause status; F19.20 Other psychoactive substance dependence, uncomplicated; F11.20 Opioid dependence, uncomplicated; E11.9 Type 2 diabetes mellitus without complications; Z79.899 Other long term (current) drug therapy
CPT/HCPCS: 36415; 70450; 72125; 73030; 73502; 80048; 80076; 80307; 83735; 85025; 87635; 93005; 97162; 99285

== ENCOUNTER 2022-12-05 10:42 | Outpatient (REF) | payer MEDICAID, SELFPAY ==
[2022-12-05 15:16] LABS: Hematocrit 44.1 % (42.0-52.0); Hemoglobin 14.7 g/dl (14.0-18.0); Mean Corpuscular HGB Conc 33.3 g/dl (31.0-36.0); Monocytes Percent Auto 8.8 % (2-11); PLT CLUMP 1; Red Cell Distribution Width 14.4 % (11.0-16.0); SCAN SMEAR FLAG 1
[2022-12-05 15:18] LABS: Basophils Percent Auto 0.7 % (0-2); Eosinophils Absolute Auto 0.2 X10*3/uL (0.0-0.4); Eosinophils Percent Auto 4.1 % (0-4); Imm Gran Abs Auto 0.01 X10*3/uL (0.00-0.03); Imm Gran Pct Auto 0.2 % (0.0-0.4); Lymphocytes Percent Auto 33.1 % (20-40); MANUAL DIFF FLAG SCAN; Mean Corpuscular Hemoglobin 30.9 pg (27.0-33.0); Mean Corpuscular Volume 92.8 fL (80.0-98.0); Mean Platelet Volume 11.1 fL (9.4-12.4); Monocytes Absolute Auto 0.5 X10*3/uL (0.1-1.2); Neutrophils Absolute Auto 3.2 x10*3/uL (2.0-8.3); Neutrophils Percent Auto 53.1 % (45-73); Red Blood Count 4.75 X10*6/uL (4.60-5.80)
[2022-12-05 15:29] LABS: Platelet Count 105 X10*3/uL (160-400); White Blood Count 5.9 X10*3/uL (4.8-10.8)
[2022-12-05 15:33] LABS: Estimated Average Glucose 85 mg/dL; Hemoglobin A1c % 4.6 %
[2022-12-05 15:54] LABS: Anion Gap 13 (12-20)
[2022-12-05 16:05] LABS: Alanine Aminotransferase 39 U/L (0-40); Albumin Level 3.2 g/dL (3.5-5.0); Alkaline Phosphatase 146 U/L (39-117); Aspartate Amino Transferase 44 U/L (5-37); Bilirubin Total 0.9 mg/dL (0.0-1.0); Blood Urea Nitrogen 13 mg/dL (9-16); Calcium 8.9 mg/dL (8.4-10.2); Carbon Dioxide 23 mmol/L (22-29); Chloride 108 mmol/L (96-108); Cholesterol 109 mg/dL; Estimated Glomerular Filt Rate > 60; Glucose Fasting 80 mg/dL (60-99); HDL Cholesterol 39 mg/dL; LDL Cholesterol Calculated 61 mg/dl; Potassium 3.7 mmol/L (3.3-5.1); Sodium 140 mmol/L (135-145); Total Protein 7.9 g/dL (6.5-8.0); Triglycerides 49 mg/dL
[2022-12-05 16:36] LABS: Creatinine Urine 104.38 mg/dL; Microalbum/Creatinine Ratio Ur 8.6 ug/mg cr
[2022-12-05 16:57] LABS: Prostate Specific Antigen 0.25 ng/mL (<0.05-4.0)
[2022-12-05 17:01] LABS: TSH reflex Free T4 1.48 uIU/mL (0.32-4.0)
[2022-12-05 18:54] LABS: SLIDE REVIEW VERIFIED
[2022-12-06 03:25] LABS: ~HepC Num1 12.15 S/CO (0.00-0.79); ~Hepatitis C Antibody Reactive (Nonreactive)
[2022-12-10 19:03] LABS: HIV RNA PCR Qn Copies Not Detected Copies/mL; HIV RNA PCR Qn Log Copies Not Detected Log cps/mL
[2022-12-11 12:43] LABS: HCV Log PCR 4.83 Log IU/mL (NOT DETECTED); HepC Viral Load 68000 IU/mL (NOT DETECTED)
== END 2022-12-05 10:43 | disposition home or self-care (01) ==
LOC: HO.CHCLDS 10:42
PROVIDERS: Visit Provider Internal Medicine
DX: Z12.5 Encounter for screening for malignant neoplasm of prostate (principal); Z11.4 Encounter for screening for human immunodeficiency virus [HIV]; I10 Essential (primary) hypertension
CPT/HCPCS: 36415; 80053; 80061; 82043; 83036; 84153; 84443; 85025; 86803; 87522; 87536; 87900

== ENCOUNTER 2023-03-11 09:34 | Outpatient (AMB) | payer MEDICAID, SELFPAY ==
--- NOTE | 2023-03-11 09:36 | MHC.OFFVIS ---
Intake Vital Signs 03/11/23 09:44 Height 5 ft 7 in Weight 166 lb 3.657 oz BMI 26.0 BP 120/82 Blood Pressure Location Lt brachial Position Sitting Intake Visit Reasons: umbilical hernia Intake Note: Patient is seen in office for evaluation and treatment of an umbilical hernia. Patient c/o: feels a lump on the umbilical area, onset over 2 yrs, has increase in size, admits to constipation, denies nausea, vomit, diarrhea Correctional Counselor/Case Manager Required: No Accompanied by: Self / Same As Patient Allergies Penicillins [PENICILLINS] Allergy (Unknown, Verified 03/11/23 09:41) RASH Medication List - Last Reconciled 03/11/23 by Barry Thibodeaux MD amlodipine 2.5 mg PO DAILY buprenorphine-naloxone 4-1 mg (Suboxone) 1 film buccal Q24H carvedilol 6.25 mg PO BID gabapentin 100 mg PO TID ibuprofen 600 mg PO Q6H PRN methadone 50 mg PO DAILY temazepam 15 mg PO BEDTIME walker As directed HPI HPI Comments History of Present Illness Details 62-year-old male patient presenting with a 2-3 year history of an umbilical hernia. 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 Initially this was quite painful but now is not so painful. He does note that the hernia has increased in size significantly especially with lifting. He denies nausea and vomiting but does report constipation. The lump does reduce when lying down. He denies a previous history of surgery in this location. He is requesting repair of this umbilical hernia. [facility] Medical History (Updated 03/11/23 @ 10:02 by Barry Thibodeaux MD) Hepatitis C Polysubstance abuse PAF (paroxysmal atrial fibrillation) Opioid use disorder High cholesterol Diabetes High blood pressure Surgical History (Updated 03/11/23 @ 09:42 by JANEEN Miller) History of hip surgery History of cholecystectomy Social History Household Members: Friend(s) Housing: Apartment Do you presently have visiting nurse or other home services: No Alcohol intake: current Alcohol intake frequency: a few times a week Alcohol type: beer Patient Tobacco Use Status: Current everyday Tobacco user Tobacco use type: Cigarette Cigarettes Per Day: 6 Substance Use Type: Heroin Advance Directives Date on File: 09/02/22 service: No Current occupational status: unemployed Review of Systems Const All systems reviewed & are unremarkable except as noted in HPI and below GI Denies abdominal pain, Reports constipation, Denies nausea and Denies vomiting Skin/Breast Details: Scarring in arms bilaterally from IV drug use Reports change in pigmentation Physical Exam Vital Signs: Last Vital Signs BP 120/82 03/11/23 09:44 BMI result Body Mass Index 26.0 Const General: cooperative and no acute distress Nutritional Appearance: well nourished Orientation/consciousness: patient oriented x3 Limitations: no limitations HEENT Head: Yes normocephalic and Yes atraumatic Ears: hearing grossly normal bilaterally Resp Effort & Inspection: normal respiratory effort, no audible wheezes, no cough and no respiratory distress Cardio Jugular venous distension: no JVD GI Other: Large umbilical hernia measuring approximately 4 cm in diameter, easily reducible with light pressure. No tenderness to palpation. Inspection: Yes normal to inspection Skin Other: Warm, dry, no rash Neuro General: patient oriented x3 Extrem General: Yes no clubbing, cyanosis or edema Assessment & Plan Assessment & Plan (1) Umbilical hernia without obstruction and without gangrene: Code(s): K42.9 - Umbilical hernia without obstruction or gangrene Plan 62-year-old male patient presenting with a gradually enlarging umbilical hernia. On examination the patient is found to have a reducible umbilical hernia with no tenderness to palpation. This measures approximately 4 cm in diameter. I recommended repair with mesh of the umbilical hernia. After discussion of the procedure, risks, and alternatives, he consents to the surgery. This will be scheduled at his convenience as a short-stay surgery. Coding Level of Care Code New Pt Level 4 (55393) Diagnoses Umbilical hernia without obstruction and without gangrene K42.9
[2023-03-11 09:44] VITALS: BP 120/82; BMI 26.0
== END 2023-03-11 10:10 | disposition home or self-care (01) ==
PROVIDERS: Visit Provider Surgery
DX: K42.9 Umbilical hernia without obstruction or gangrene (principal)
CPT/HCPCS: 99204

== ENCOUNTER → 2023-03-11 09:34 | Outpatient (BNVA) | payer MEDICAID, SELFPAY | PROVIDERS: Visit Provider Surgery | DX: K42.9 Umbilical hernia without obstruction or gangrene (principal) | CPT/HCPCS: 99202 ==

== ENCOUNTER 2023-05-05 11:49 | Outpatient (AMB) | payer MEDICAID, SELFPAY ==
[2023-05-05 12:41] VITALS: BP 120/80; PULSE 76; BMI 26.5
--- NOTE | 2023-05-05 12:41 | MHC.OFFVIS ---
Intake Vital Signs 05/05/23 12:41 Height 5 ft 7 in Weight 169 lb 5.04 oz BMI 26.5 BP 120/80 Blood Pressure Location Lt brachial Position Sitting Pulse 76 Pulse Source Pulse Oximeter Intake Visit Reasons: PIE CUTTER/Dr. Juarez/[facility] f/u Knowledge Architect Required: No Allergies Penicillins [PENICILLINS] Allergy (Unknown, Verified 05/05/23 12:44) RASH Medication List - Last Reconciled 05/05/23 by Alan Oropeza MD amlodipine 5 mg PO QAM aspirin 1 tab PO QAM atorvastatin 40 mg PO QAM buprenorphine-naloxone 4-1 mg (Suboxone) 1 film buccal Q24H carvedilol 6.25 mg PO BID gabapentin 100 mg PO TID ibuprofen 600 mg PO Q6H PRN losartan 100 mg PO QAM pantoprazole 20 mg PO QAM sertraline mg PO temazepam 15 mg PO BEDTIME walker As directed HPI HPI Comments History of Present Illness Details [age] year gentleman who is here for follow-up. He was seen in the hospital in March 2022 when he presented with fall and left hip fracture. He underwent surgery at that time. He had accelerated idioventricular rhythm. He was using heroin and cocaine at that time. Subsequent to that he broke his right hip and was at [facility]. Since then he had stopped using drugs and is currently on Suboxone. He is saying he walks independently and has no exertional issues currently. During his admission in March 2022 he had echocardiogram performed which showed some wall motion abnormalities and low normal ejection fraction. His blood pressure is well controlled currently on amlodipine, carvedilol and losartan. He should continue same medication for now. He is on baby aspirin and atorvastatin. [facility] Medical History (Updated 05/05/23 @ 13:01 by Alan Oropeza MD) Hepatitis C Polysubstance abuse PAF (paroxysmal atrial fibrillation) Opioid use disorder High cholesterol Diabetes High blood pressure Surgical History History of hip surgery History of cholecystectomy Social History Household Members: Friend(s) Housing: Apartment Do you presently have visiting nurse or other home services: No Alcohol intake: current Alcohol intake frequency: a few times a week Alcohol type: beer Comment: patient refusing alarm and camera Patient Tobacco Use Status: Current everyday Tobacco user Tobacco use type: Cigarette Cigarettes Per Day: 6 Substance Use Type: Heroin Advance Directives Date on File: 09/02/22 service: No Current occupational status: unemployed Review of Systems ENT Reports dizziness Card Denies chest pain, Denies chest pain at rest, Denies chest pain with activity, Denies rapid heart rate, Denies pedal edema, Denies edema, Denies leg edema, Denies lightheadedness, Denies palpitations, Denies dyspnea, Denies dyspnea on exertion and Denies orthopnea Resp Denies cough, Denies dyspnea and Denies dyspnea on exertion GI Denies hematochezia and Denies change in stool character Musc Denies abnormal gait, Reports limited range of motion, Reports muscle cramps, Denies muscle weakness, Denies numbness, Denies radiating pain into limb, Denies stiffness and Denies tingling Neuro Denies abnormal gait, Reports dizziness, Denies numbness and Denies tingling Endo Denies palpitations Physical Exam Vital Signs: Last Vital Signs Pulse 76 05/05/23 12:41 BP 120/80 05/05/23 12:41 BMI result Body Mass Index 26.5 GENERAL APPEARANCE: in no acute distress, pleasant. NECK: no carotid bruit, no jugular venous distention. SKIN: no suspicious lesions, warm and dry. HEART: no murmurs, regular rate and rhythm. LUNGS: clear to auscultation bilaterally. ABDOMEN: soft, nontender. EXTREMITIES: no edema. PERIPHERAL PULSES: equal. NEUROLOGIC: No gross deficits, AAO X 3 Assessment & Plan Assessment & Plan (1) Essential hypertension: Code(s): I10 - Essential (primary) hypertension (2) Cardiomyopathy: Code(s): I42.9 - Cardiomyopathy, unspecified Plan Pleasant 62-year-old gentleman who is here for follow-up. He was seen in the hospital in March 2022 when he presented with fall and left hip fracture. He had echocardiography performed at that time which showed wall motion abnormalities and EF of 50-55%. He was actively using heroin at that time. Since then he has been through rehab and is currently using Suboxone and has stopped using drugs. Blood pressure control is good. We will repeat another echocardiogram for him and reassess the ejection fraction. If EF is low and he continues to have wall motion abnormalities then he needs ischemic evaluation. He may need hernia repair. He is intermediate risk for perioperative cardiovascular complications. We will be doing further testing based on echocardiography. Thank you for allowing me to participate in the care of your patient. Please feel free to contact me if you have any questions. Coding Level of Care Code Est Pt Level 4 (91205) Diagnoses Essential hypertension I10 Cardiomyopathy I42.9
== END 2023-05-05 13:09 | disposition home or self-care (01) ==
PROVIDERS: Visit Provider Internal Medicine Cardiovascular Disease
DX: I10 Essential (primary) hypertension (principal); I42.9 Cardiomyopathy, unspecified
CPT/HCPCS: 99214

== ENCOUNTER → 2023-05-05 11:49 | Outpatient (BNVA) | payer MEDICAID, SELFPAY | PROVIDERS: Visit Provider Internal Medicine Cardiovascular Disease | DX: I10 Essential (primary) hypertension (principal); I42.9 Cardiomyopathy, unspecified; F11.20 Opioid dependence, uncomplicated | CPT/HCPCS: 99212 ==

== ENCOUNTER 2023-08-15 10:44 | Outpatient (AMB) | payer MEDICAID, SELFPAY ==
--- NOTE | 2023-08-15 08:02 | MHC.OFFVIS ---
Intake Visit Reasons: Current Smoker Allergies Penicillins [PENICILLINS] Allergy (Unknown, Verified 05/05/23 12:44) RASH HPI HPI Current Smoker: Details: Initial visit for this 63yo smoker with a 60PYH. Patient has been smoking since age 17 for 46years. Max 2ppd x 30 years - now down to 1/4ppd. . Denies marijuana use. Denies second hand smoke exposure. 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 . Denies known family history of lung cancer. Denies personal history of cancers. Denies chest CT in last year. . Denies recent travel outside the [place]. Denies recent respiratory illness or recent hospitalization for respiratory issues. Denies testing positive for COVID. Denies receiving COVID Vaccine. . Denies fever, chills, new/worsening cough, hemoptysis, hoarseness or dysphagia. Denies significant chest pain, significant dyspnea or unintentional weight loss. Patient Lung Cancer Screening Questionnaire reviewed with patient by provider. . Shared Decision Making Completed. Patient meets criteria. Discussed in detail with patient, the risk vs benefit of LDCT screening. Patient consents to proceed with scan. Discussed smoking cessation. [facility] Medical History (Updated 08/15/23 @ 10:57 by Natalia Bass PA-C) Nicotine dependence, cigarettes, uncomplicated Hepatitis C Polysubstance abuse PAF (paroxysmal atrial fibrillation) Opioid use disorder High cholesterol Diabetes High blood pressure Surgical History (Updated 08/15/23 @ 11:06 by Natalia Bass PA-C) History of hip surgery History of cholecystectomy Social History (Updated 08/15/23 @ 10:57 by Natalia Bass PA-C) Household Members: Friend(s) Housing: Apartment Do you presently have visiting nurse or other home services: No Alcohol intake: current Alcohol intake frequency: a few times a week Alcohol type: beer Comment: patient refusing alarm and camera Patient Tobacco Use Status: Current everyday Tobacco user Tobacco use type: Cigarette Cigarettes Per Day: 6 Years Smoked: (onset 17yo, max 2ppd, now 1/4ppd - 60pyh) Substance Use Type: Heroin Advance Directives Date on File: 09/02/22 service: No Current occupational status: unemployed Assessment & Plan Assessment & Plan (1) Nicotine dependence, cigarettes, uncomplicated: Comment: (current smoker - onset 17yo, max 2ppd, now 1/4ppd - 60pyh) Code(s): F17.210 - Nicotine dependence, cigarettes, uncomplicated Category: Medical Plan: - SDM visit completed today in office. - Patient meets criteria for LDCT for lung cancer screening purposes and is asymptomatic. - Smoking cessation counseling offered. Patients can always call [phone]. - Will arrange for a LDCT scan of the chest for screening purposes at [facility]. - Risks, benefits, and alternatives were discussed in detail and the patient agrees to proceed. - Risks discussed include but are not limited to: radiation exposure, anxiety during testing and while awaiting results, false negatives, false positives and possibility of additional intervention such as further imaging or surgical procedures for benign disease. - Benefits are obviously detection of lung cancer at an early stage which can lead to improved outcomes. - Discussed the importance of screening program compliance with adherence to yearly LDCT scan as scheduled - or sooner interval scans for personalized screening regimen. - Discussed follow up plan. Our office will send a letter discussing results and if needed set up phone call and office visit based on CT findings. - Patient educated on results categorization and the management decisions for suspicious findings potentially found on the screening LDCT scan. Any patient with a Lung RADS score of 3 or 4 will be reviewed by a multidisciplinary team at [facility] to form a plan of action in regards to scan findings. - If further work up is warranted for a suspicious lung finding this will be followed by the Lung Cancer Screening program in conjunction with the Thoracic Surgery Department at [facility]. - A copy of the office note and LDCT will be sent to the patient's PCP - as well as documentation on any associated further plans of care. - Incidental findings on LDCT are the PCP's responsibility. These findings are indicated with an S finding on the LDCT Assessment. A note discussing the findings will be sent to the PCP who is then responsible for further management. - All questions answered.?
== END 2023-08-15 11:02 | disposition home or self-care (01) ==
PROVIDERS: Referring Provider Internal Medicine; Visit Provider Physician Assistant Medical
DX: F17.210 Nicotine dependence, cigarettes, uncomplicated (principal)
CPT/HCPCS: G0296

== ENCOUNTER 2023-08-15 11:04 | Outpatient (REF) | payer MEDICAID, SELFPAY ==
--- NOTE | ~2023-08-15 | CT_ITS ---
EXAMINATION: CT CHEST SCREENING CLINICAL INFORMATION: Current smoker. One pack per day x30 years. COMPARISON: CT abdomen and pelvis 08/30/2022. TECHNIQUE: Multidetector volumetric noncontrast CT imaging of the chest was obtained on a Siemens Somatom scanner using low dose technique. Additional 2D coronal and sagittal reformatted images and axial 3D maximum intensity projection (MIP) images are generated on the CT workstation. This CT examination was performed using dose optimization techniques as appropriate, variously including the following: *Automated exposure control *Adjustment of mA and/or kV according to patient size (this includes techniques or standardized protocols for targeted exams where dose is matched to indication/reason for exam; i.e. extremities or head) *Use of iterative reconstruction technique DLP: 63.9 mGy-cm CTDIvol: 1.81 mGy FINDINGS: LUNGS: Mild emphysematous changes are present. Diffuse mild bronchial thickening is seen. The lungs are otherwise clear with no evidence of inflammation or concerning nodules. MEDIASTINUM: The mediastinum is normal. CORONARY ARTERY CALCIFICATION: None visualized on this study. PLEURA: There is no pleural effusion. No pleural mass or thickening. AXILLA: No lymphadenopathy. UPPER ABDOMEN: The liver has a cirrhotic appearance with a nodular border. Patient status post cholecystectomy with pneumobilia. There is splenomegaly with the spleen measuring 15.7 cm in greatest length. OSSEOUS STRUCTURES: Marked compression fractures in the lumbar spine are seen and unchanged when compared to 08/30/2022 with anterior collapse of T11, compression superior endplate of T12, marked compression fracture of L1 with superior endplate compression of L3. No underlying pathologic osseous lesion is seen. CT/CT lung screening IMPRESSION: No evidence of malignancy. Incidental findings described above. ASSESSMENT: Lung-RADS category 1: Negative RECOMMENDATION: Routine annual low-dose CT screening in 12 months.
== END 2023-08-15 11:05 | disposition home or self-care (01) ==
LOC: HO.CT 11:04
PROVIDERS: Visit Provider Nurse Practitioner Family
DX: Z12.2 Encounter for screening for malignant neoplasm of respiratory organs (principal); F17.210 Nicotine dependence, cigarettes, uncomplicated
CPT/HCPCS: 71271; G0296

== ENCOUNTER → 2023-08-25 13:51 | Outpatient (REF) | payer MEDICAID, SELFPAY ==
--- NOTE | 2023-08-25 13:54 | CA_ITS ---
Transthoracic Echocardiogram Patient (Last, First, Middle): Justice Mathis, Gender: Male Date of : 1960 Age: 63 Procedure Date: 08/25/2023 Procedure Type: Transthoracic Echocardiogram Location: OP Height: 170.18 cm Weight: 77.11 kg BSA: 1.89 m2 Heart Rate: bpm BP: 138 / 80 mmHg Service Porter: Referring MD: Alan Oropeza MD [employer] System Administrator: Alan Oropeza MD Symptoms: I42.9 - Cardiomyopathy, unspecified Study Quality: Good ECG Rhythm: Sinus Conclusions: - Normal left ventricular size and systolic function. There is mildly increased left ventricular wall thickness. The visually estimated ejection fraction is between 55-60%. - Elevated filling pressures. - The basal inferior segment is hypokinetic. - Normal right ventricular cavity size and systolic function. - Normal right atrial pressure. Severe pulmonary hypertension is present. - There is mild dilatation of the ascending aorta measuring 3.50 cm. Findings Left Ventricle Normal left ventricular size and systolic function. There is mildly increased left ventricular wall thickness. The visually estimated ejection fraction is between 55-60%. There is evidence of regional wall motion abnormalities. Abnormal diastolic function is noted. Spectral Doppler is indicative of an impaired relaxation filling pattern. Elevated filling pressures. Wall Motion Rest Echo Findings The basal inferior segment is hypokinetic. Right Ventricle Normal right ventricular cavity size and systolic function. Atria The left atrium is mildly dilated. Aortic Valve Normal aortic valve structure and function. There is no aortic valve stenosis. There is trace (trivial) aortic valve regurgitation. Mitral Valve The mitral valve appears normal. There is no mitral valve regurgitation. There is no mitral valve stenosis. Pulmonic Valve The pulmonic valve is likely normal. Tricuspid Valve Normal tricuspid valve structure. There is trace tricuspid valve regurgitation. The right ventricular systolic pressure is 65 mmHg. Normal right atrial pressure. Severe pulmonary hypertension is present. Great Vessels There is mild dilatation of the ascending aorta measuring 3.50 cm. Venous The inferior vena cava is normal in size and collapses greater than 50% with inspiration. Pericardium/Pleural There is no evidence of pericardial effusion. Prior Study Comparison Changes noted compared to prior study dated: 04/22/2022. EF 55-60%, basal inferior hypokinesis (previously see apical lateral and anterolateral HK not noted), elevated filling pressures. Severe pulmonary hypertension. Measurements 2D Linear Measurements IVSd: 1.34 0.6-0.9/0.6-1.0 cm LVIDd: 5.02 3.9-5.3/4.2-5.9 cm LVIDd Index: 2.66 2.4-3.2/2.2-3.1 cm/m2 LVIDs: 3.37 2.0-3.6 cm LVPWd: 1.27 0.7-1.1 cm Ao Root: 3.60 2.1-3.5 cm LA Diam: 4.30 2.7-3.8/3.0-4.0 cm LAIDs Index: 2.28 1.5-2.3 cm/m2 LV Mass: 330.40 67-162/88-224 g LV Mass Index: 174.81 43-95/49-115 g/m2 LVOT Diam: 2.10 3.0+(-)1.3 cm 2D Systolic Function EF 4C: 57.80 >55% EF 2C: 56.90 >55% EF BiP: 55.50 >55% Mitral Valve MV Pk E: 0.55 MV PK A: 0.94 MV Decel Time: 177.00 E/A: 0.60 E'Lateral: 4.46 E'Medial: 3.26 E/E' Med: 17.00 E/E' Lat: 12.40 PHT: 52.00 MVA PHT: 4.23 Decel Lewis: 3.13 Aortic Valve AoV Pk Rafa: 1.73 AoV Mn Rafa: 1.12 AoV VTI: 0.40 AoV Pk Grad: 12.00 Aov Mn Grad: 6.00 DORENE Cont.VTI: 1.38 LVOT LVOT Pk Rafa: 0.78 LVOT Mn Rafa: 0.43 LVOT VTI: 0.16 LVOT Pk Grad: 2.00 LVOT Mn Grad: 1.00 LVOT Diam: 2.10 LVOT Area: 3.46 Diastolic Function MV Pk E: 0.55 MV Pk A: 0.94 E/A: 0.60 E'Medial: 3.26 E/E' Med: 17.00 E' Laterial: 4.46 E/E' Lat: 12.40 Right Ventricle TAPSE (mm): 27.00 TVS' Rafa: 15.00 Tricuspid Valve TR Pk Rafa: 3.93 TR Pk Grad: 62.00 RA Press: 3.00 RVSP: 65.00 Great Vessels Aorta Ao Root-2D: 3.60 2.0-3.7 cm Ao Asc: 3.50 2.1-3.4 cm Pulmonary Valve PV Pk Rafa: 0.91 Peak PV Grad: 3.00 Updated in Other Vendor System with Status of Final Alan Oropeza MD electronically signed on 08/27/2023 12:49:50 PM with status of Final
== END ==
LOC: HO.CARD 13:51
PROVIDERS: Visit Provider Internal Medicine Cardiovascular Disease
DX: I42.9 Cardiomyopathy, unspecified (principal)
CPT/HCPCS: 93306

== ENCOUNTER → 2023-08-25 13:54 | Outpatient (BNV) | payer MEDICAID, SELFPAY | PROVIDERS: Visit Provider Internal Medicine Cardiovascular Disease | DX: I36.1 Nonrheumatic tricuspid (valve) insufficiency (principal); I27.20 Pulmonary hypertension, unspecified; R93.1 Abnormal findings on diagnostic imaging of heart and coronary circulation | CPT/HCPCS: 93306 ==

== ENCOUNTER 2023-09-10 14:08 | Outpatient (AMB) | payer MEDICAID, SELFPAY ==
[2023-09-10 14:29] VITALS: BP 130/70; PULSE 79; O2SAT 99; BMI 28.7
--- NOTE | 2023-09-10 14:29 | A.OFFVIS_ITS ---
Vital Signs 09/10/23 14:29 Height 5 ft 7 in Weight 183 lb BMI 28.7 BP 130/70 Blood Pressure Location Lt brachial Position Sitting Pulse 79 Pulse Source Pulse Oximeter Pulse Oximetry (%) 99 Oxygen Delivery Method Room Air Intake Visit Reasons: f/up-per KM Allergies Penicillins [PENICILLINS] Allergy (Unknown, Verified 05/05/23 12:44) RASH HPI Comments Details: 63-year-old male presents today for a follow-up. He had an echocardiogram done to assess heart function. He reports he has been doing well. He denies chest cheyanne ns, dizziness, or palpitations. He reports he does get some tightness when he breaths. He still smokes about 5-6 cigarettes on average a day. He uses cocaine occasionally. [facility] Medical History (Updated 09/11/23 @ 09:27 by Maggie Johns NP) Polysubstance abuse SOB (shortness of breath) Pulmonary hypertension Nicotine dependence, cigarettes, uncomplicated Hepatitis C PAF (paroxysmal atrial fibrillation) Opioid use disorder High cholesterol Diabetes High blood pressure Surgical History History of hip surgery History of cholecystectomy Social History Household Members: Friend(s) Housing: Apartment Do you presently have visiting nurse or other home services: No Alcohol intake: current Alcohol intake frequency: a few times a week Alcohol type: beer Comment: patient refusing alarm and camera Patient Tobacco Use Status: Current everyday Tobacco user Tobacco use type: Cigarette Cigarettes Per Day: 6 Years Smoked: (onset 17yo, max 2ppd, now 1/4ppd - 60pyh) Substance Use Type: Heroin Advance Directives Date on File: 09/02/22 service: No Current occupational status: unemployed Review of Systems Const Denies weakness ENT Denies dizziness Card Denies chest pain, Denies chest pain with activity, Denies syncope, Denies rapid heart rate, Denies pedal edema, Denies edema, Denies leg edema, Denies lightheadedness, Denies palpitations, Denies dyspnea, Denies dyspnea on exertion and Denies orthopnea Resp Denies cough, Denies dyspnea and Denies dyspnea on exertion GI Denies hematochezia and Denies change in stool character Musc Denies abnormal gait, Denies muscle cramps, Denies muscle weakness, Denies numbness, Denies radiating pain into limb and Denies tingling Neuro Denies abnormal gait, Denies dizziness, Denies syncope, Denies numbness, Denies tingling and Denies weakness Endo Denies palpitations Physical Exam Vital Signs: Last Vital Signs Pulse 79 09/10/23 14:29 BP 130/70 09/10/23 14:29 Pulse Ox 99 09/10/23 14:29 Oxygen Delivery Method Room Air 09/10/23 14:29 BMI result Body Mass Index 28.7 Results Reviewed Results Reviewed: Echo Conclusions: - Normal left ventricular size and systolic function. There is mildly increased left ventricular wall thickness. The visually estimated ejection fraction is between 55-60%. - Elevated filling pressures. - The basal inferior segment is hypokinetic. - Normal right ventricular cavity size and systolic function. - Normal right atrial pressure. Severe pulmonary hypertension is present. - There is mild dilatation of the ascending aorta measuring 3.50 cm. Assessment & Plan Assessment & Plan (1) Pulmonary hypertension: Code(s): I27.20 - Pulmonary hypertension, unspecified Category: Medical Plan: Severe pulmonary hypertension on echocardiogram. Patient is a smoker and polysubstance abuse. Will refer to pulmonary for evaulation. (2) SOB (shortness of breath): Code(s): R06.02 - Shortness of breath Category: Medical Plan: as above. (3) Nicotine dependence, cigarettes, uncomplicated: Comment: (current smoker - onset 17yo, max 2ppd, now 1/4ppd - 60pyh) Code(s): F17.210 - Nicotine dependence, cigarettes, uncomplicated Category: Medical Plan: Strongly advised to quit smoking. (4) Polysubstance abuse: Code(s): F19.10 - Other psychoactive substance abuse, uncomplicated Category: Medical Plan: strongly advised to avoid illicit drugs. Orders: Referrals Pulmonary Medicine Referral F17.210 - Nicotine dependence, cigarettes, uncomplicated, I27.20 - Pulmonary hypertension, unspecified, R06.02 - Shortness of breath Coding Level of Care Code Est Pt Level 3 (69069) Diagnoses Pulmonary hypertension I27.20 SOB (shortness of breath) R06.02 Nicotine dependence, cigarettes, uncomplicated F17.210 Polysubstance abuse F19.10
== END 2023-09-10 15:03 | disposition home or self-care (01) ==
PROVIDERS: PCP Internal Medicine; Visit Provider Nurse Practitioner
DX: I27.20 Pulmonary hypertension, unspecified (principal); R06.02 Shortness of breath; F17.210 Nicotine dependence, cigarettes, uncomplicated; F19.10 Other psychoactive substance abuse, uncomplicated
CPT/HCPCS: 99213

== ENCOUNTER → 2023-09-10 14:08 | Outpatient (BNVA) | payer MEDICAID, SELFPAY | PROVIDERS: Visit Provider Nurse Practitioner | DX: I27.20 Pulmonary hypertension, unspecified (principal); R06.02 Shortness of breath; F19.10 Other psychoactive substance abuse, uncomplicated; F17.210 Nicotine dependence, cigarettes, uncomplicated | CPT/HCPCS: 99212 ==

== ENCOUNTER 2023-10-07 12:58 | Outpatient (AMB) | payer MEDICAID, SELFPAY ==
[2023-10-07 13:02] VITALS: PULSE 80; O2SAT 93; BMI 27.6
--- NOTE | 2023-10-07 13:02 | A.OFFVIS_ITS ---
Vital Signs 10/07/23 13:02 Height 5 ft 7 in Weight 176 lb BMI 27.6 Pulse 80 Pulse Source Pulse Oximeter Pulse Oximetry (%) 93 Oxygen Delivery Method Room Air Intake Visit Reasons: Pulmonary hypertension Kidney Trimmer Required: No Allergies Penicillins [PENICILLINS] Allergy (Unknown, Verified 10/07/23 13:03) RASH HPI Comments Details: The patient is here for pulmonary evaluation. The patient is a 63-year-old gentleman history of polysubstance abuse and still actively using, liver cirrhosis, tobacco dependency presenting with worsening shortness of breath found to have severe pulmonary hypertension. The patient has been monitored by Cardiology. The patient has been complaining of worsening shortness of breath. Moderate severity with activity. He does have a rescue inhaler that he uses as needed with partial improvement. The patient does smoke cigarettes. Although he is cut down significantly. He had a recent echocardiogram in 08/16/2023 which I personally reviewed with him. His EF is now improved to 60%. Although he has severe pulmonary hypertension. He denies any blood clot history although his daughter had a blood clot. The patient also has daytime drowsiness. His Fulton score is elevated 03/21. We did talk about the differential pulmonary hypertension. In his case most likely related to his liver with portal pulmonary hypertension. Although with substance abuse HIV is also in differential. Connective tissue disease is also in differential. Will go ahead and request blood work at this time. The patient needs to have pulmonary function studies in addition to an overnight oximetry. We will re-evaluate after the breathing studies. I which point we will decide if he is a candidate for vasodilator therapy. [facility] Medical History (Updated 10/07/23 @ 23:17 by Seymour Villatoro MD) Polysubstance abuse SOB (shortness of breath) Pulmonary hypertension Nicotine dependence, cigarettes, uncomplicated Hepatitis C PAF (paroxysmal atrial fibrillation) Opioid use disorder High cholesterol Diabetes High blood pressure Surgical History History of hip surgery History of cholecystectomy Social History Household Members: Friend(s) Housing: Apartment Do you presently have visiting nurse or other home services: No Alcohol intake: current Alcohol intake frequency: a few times a week Alcohol type: beer Comment: patient refusing alarm and camera Patient Tobacco Use Status: Current everyday Tobacco user Tobacco use type: Cigarette Cigarettes Per Day: 6 Years Smoked: (onset 17yo, max 2ppd, now 1/4ppd - 60pyh) Substance Use Type: Heroin Advance Directives Date on File: 09/02/22 service: No Current occupational status: unemployed Review of Systems Const Denies fever(s) Eyes Reports no additional complaints ENT Reports no additional complaints Card Denies chest pain, Reports leg edema and Reports dyspnea on exertion Resp Reports dyspnea on exertion and Denies wheezing GI Reports as per HPI Musc Reports abnormal gait and Reports myalgias Neuro Reports abnormal gait Aller/Immun Denies wheezing Physical Exam Vital Signs: Last Vital Signs Pulse 80 10/07/23 13:02 Pulse Ox 93 10/07/23 13:02 Oxygen Delivery Method Room Air 10/07/23 13:02 BMI result Body Mass Index 27.6 Const General: comfortable HEENT Head: Yes normocephalic Neck Neck: Yes supple Chest Chest palpation & inspection: normal inspection of the chest Resp Effort & Inspection: normal respiratory effort Auscultation: no wheezes and diminished lung sounds Cardio Heart sounds: S1 normal heart sound present, S2 normal heart sound present and Abnormal heart opening sounds loud S2 GI Palpation (GI): Soft to palpation Skin General skin exam: no rashes or lesions noted Extrem General: No cyanosis and Yes edema Results Reviewed Results Reviewed: personally reviewed CT chest 07/2023 with emphysema and chronic bronchitis [place] [id number] CT Scan Report Signed Patient: Justice Mathis MR#: [id number] : 1960 Acct:[id number] Age/Sex: 63 / M ADM Date: 08/15/23 Loc: HO.CT Attending Dr: Abida Alejandro NP Ordering Physician: Abida Alejandro NP Date of Service: 08/15/23 Procedure(s): CT lung screening Accession Number(s): [id number] cc: Abida Alejandro NP~ EXAMINATION: CT CHEST SCREENING CLINICAL INFORMATION: Current smoker. One pack per day x30 years. COMPARISON: CT abdomen and pelvis 08/30/2022. TECHNIQUE: Multidetector volumetric noncontrast CT imaging of the chest was obtained on a Siemens Somatom scanner using low dose technique. Additional 2D coronal and sagittal reformatted images and axial 3D maximum intensity projection (MIP) images are generated on the CT workstation. This CT examination was performed using dose optimization techniques as appropriate, variously including the following: *Automated exposure control *Adjustment of mA and/or kV according to patient size (this includes techniques or standardized protocols for targeted exams where dose is matched to indication/reason for exam; i.e. extremities or head) *Use of iterative reconstruction technique DLP: 63.9 mGy-cm CTDIvol: 1.81 mGy FINDINGS: LUNGS: Mild emphysematous changes are present. Diffuse mild bronchial thickening is seen. The lungs are otherwise clear with no evidence of inflammation or concerning nodules. MEDIASTINUM: The mediastinum is normal. CORONARY ARTERY CALCIFICATION: None visualized on this study. PLEURA: There is no pleural effusion. No pleural mass or thickening. AXILLA: No lymphadenopathy. UPPER ABDOMEN: The liver has a cirrhotic appearance with a nodular border. Patient status post cholecystectomy with pneumobilia. There is splenomegaly with the spleen measuring 15.7 cm in greatest length. OSSEOUS STRUCTURES: Marked compression fractures in the lumbar spine are seen and unchanged when compared to 08/30/2022 with anterior collapse of T11, compression superior endplate of T12, marked compression fracture of L1 with superior endplate compression of L3. No underlying pathologic osseous lesion is seen. CT/CT lung screening IMPRESSION: No evidence of malignancy. Incidental findings described above. ASSESSMENT: Lung-RADS category 1: Negative RECOMMENDATION: Routine annual low-dose CT screening in 12 months. 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 Code(s): I27.20 - Pulmonary hypertension, unspecified Category: Medical (2) SOB (shortness of breath): Code(s): R06.02 - Shortness of breath Category: Medical (3) Nicotine dependence, cigarettes, uncomplicated: Comment: (current smoker - onset 17yo, max 2ppd, now 1/4ppd - 60pyh) Code(s): F1.210 - Nicotine dependence, cigarettes, uncomplicated Category: Medical (4) Cirrhosis: Code(s): K74.60 - Unspecified cirrhosis of liver Category: Medical Qualifiers: Hepatic cirrhosis type: other cirrhosis Qualified Code(s): K74.69 - Other cirrhosis of liver (5) Polysubstance abuse: Code(s): F19.10 - Other psychoactive substance abuse, uncomplicated Category: Medical Plan Bloodwork Start Anoro daily continue CAREN as needed Overnight oximetry PFTs consider VQ study Brief walking oximetry done; does not qualify for oxygen supplementation F/U 2-3 months Orders: Orders Scleroderma 70 Antibody Today I27.20 - Pulmonary hypertension, unspecified Basic Metabolic Panel Today I27.20 - Pulmonary hypertension, unspecified HIV Ab/Ag Today I27.20 - Pulmonary hypertension, unspecified PFT pulmonary function test Today I27.20 - Pulmonary hypertension, unspecified, R06.02 - Shortness of breath Overnight Pulse Oximetry Today I27.20 - Pulmonary hypertension, unspecified, R06.02 - Shortness of breath Complete Blood Count Auto Diff Today I27.20 - Pulmonary hypertension, unspecified D Dimer High Sensitivity Today I27.20 - Pulmonary hypertension, unspecified Erythrocyte Sedimentation Rate Today I27.20 - Pulmonary hypertension, unspecified Venous Blood Gas Today I27.20 - Pulmonary hypertension, unspecified Medications: New umeclidinium-vilanterol 62.5-25 mcg/actuation (Anoro Ellipta) 1 inh inhalation DAILY 60 ea 11RF J44.89 - Other specified chronic obstructive pulmonary disease Coding Level of Care Code New Pt Level 5 (96789) Diagnoses Pulmonary hypertension I27.20 SOB (shortness of breath) R06.02 Nicotine dependence, cigarettes, uncomplicated F17.210 Other cirrhosis of liver K74.69 Hepatic cirrhosis type: other cirrhosis Polysubstance abuse F19.10 Time Spent (min) 60
== END 2023-10-07 13:23 | disposition home or self-care (01) ==
PROVIDERS: PCP Internal Medicine; Visit Provider Hospitalist
DX: I27.20 Pulmonary hypertension, unspecified (principal); R06.02 Shortness of breath; F17.210 Nicotine dependence, cigarettes, uncomplicated; K74.69 Other cirrhosis of liver; F19.10 Other psychoactive substance abuse, uncomplicated
CPT/HCPCS: 99205

== ENCOUNTER → 2023-10-07 12:58 | Outpatient (BNVA) | payer MEDICAID, SELFPAY | PROVIDERS: PCP Internal Medicine; Visit Provider Hospitalist | DX: I27.20 Pulmonary hypertension, unspecified (principal); R06.02 Shortness of breath; K74.69 Other cirrhosis of liver; F19.10 Other psychoactive substance abuse, uncomplicated; F17.210 Nicotine dependence, cigarettes, uncomplicated | CPT/HCPCS: 99202 ==

== ENCOUNTER 2024-01-21 13:27 | Outpatient (AMB) | payer MEDICAID, SELFPAY ==
[2024-01-21 13:41] VITALS: BP 148/68; PULSE 75; BMI 30.4
--- NOTE | 2024-01-21 13:41 | A.OFFVIS_ITS ---
Vital Signs 01/21/24 13:41 01/21/24 14:08 Height 5 ft 7 in Weight 194 lb 0.108 oz BMI 30.4 BP 148/68 H 138/70 Blood Pressure Location Lt brachial Lt brachial Position Sitting Sitting Pulse 75 Pulse Source Monitor Intake Visit Reasons: 4mth f/up-km pt Allergies Penicillins [PENICILLINS] Allergy (Unknown, Verified 10/07/23 13:03) RASH Medication List - Last Reconciled 01/21/24 by Maggie Johns NP amlodipine 5 mg PO QAM aspirin 1 tab PO QAM atorvastatin 40 mg PO QAM buprenorphine-naloxone 4-1 mg (Suboxone) 1 film buccal Q24H carvedilol 6.25 mg PO BID gabapentin 100 mg PO TID ibuprofen 600 mg PO Q6H PRN losartan 100 mg PO QAM pantoprazole 20 mg PO QAM sertraline mg PO temazepam 15 mg PO BEDTIME umeclidinium-vilanterol 62.5-25 mcg/actuation (Anoro Ellipta) 1 inh inhalation DAILY walker As directed HPI Comments Details: [employer] old male presents today for follow-up. He reports since last visit he has had 2 episodes of chest pains. He was cooking and he got a couple seconds which was pressure like sensation in his chest. He reports he has otherwise been doing well. He has cut back to smoking only 1-3 cigarettes per day but unfortunately still uses cocaine occasionally. He denies any palpitations ot dizziness. He is seeing pulmonary for his shortness of breath. [facility] Medical History (Updated 01/22/24 @ 13:41 by Maggie Johns NP) Prolonged QT interval Chest pain Polysubstance abuse SOB (shortness of breath) Pulmonary hypertension Nicotine dependence, cigarettes, uncomplicated Hepatitis C PAF (paroxysmal atrial fibrillation) Opioid use disorder High cholesterol Diabetes High blood pressure Surgical History History of hip surgery History of cholecystectomy Social History Household Members: Friend(s) Housing: Apartment Do you presently have visiting nurse or other home services: No Alcohol intake: current Alcohol intake frequency: a few times a week Alcohol type: beer Comment: patient refusing alarm and camera Patient Tobacco Use Status: Current everyday Tobacco user Tobacco use type: Cigarette Cigarettes Per Day: 6 Years Smoked: (onset 17yo, max 2ppd, now 1/4ppd - 60pyh) Substance Use Type: Heroin Advance Directives Date on File: 09/02/22 service: No Current occupational status: unemployed Review of Systems Const Denies weakness ENT Denies dizziness Card Denies chest pain, Denies chest pain with activity, Denies syncope, Denies rapid heart rate, Denies pedal edema, Denies edema, Denies leg edema, Denies lightheadedness, Denies palpitations, Denies dyspnea, Denies dyspnea on exertion and Denies orthopnea Resp Denies cough, Denies dyspnea and Denies dyspnea on exertion GI Denies hematochezia and Denies change in stool character Musc Denies abnormal gait, Denies muscle cramps, Denies muscle weakness, Denies numbness, Denies radiating pain into limb and Denies tingling Neuro Denies abnormal gait, Denies dizziness, Denies syncope, Denies numbness, Denies tingling and Denies weakness Endo Denies palpitations Physical Exam Vital Signs: Last Vital Signs Pulse 75 01/21/24 13:41 BP 138/70 01/21/24 14:08 BMI result Body Mass Index 30.4 Office Procedures EKG Details: EKG today. Normal sinus rhythm. Left posterior fascicular block. Can not rule out inferior infarct, age undetermined. Prolonged QT. Rate 75 bpm. QRS 92ms. QTc 509 ms. [place] 136 ms. [id number], Complete Assessment & Plan Assessment & Plan (1) SOB (shortness of breath): Code(s): R06.02 - Shortness of breath Category: Medical (2) Chest pain: Code(s): R07.9 - Chest pain, unspecified Category: Medical (3) Nicotine dependence, cigarettes, uncomplicated: Comment: (current smoker - onset 17yo, max 2ppd, now 1/4ppd - 60pyh) Code(s): F17.210 - Nicotine dependence, cigarettes, uncomplicated Category: Medical (4) Prolonged QT interval: Code(s): R94.31 - Abnormal electrocardiogram [ECG] [EKG] Category: Medical Plan Encouraged for complete smoking cessation. EKG shows a prolonged QT. which he has had in the past intermittently. Patient is on methadone. Patient is strongly advised to avoid cocaine completely. We will do pharmacological stress test to rule out ischemia due to chest pains. He has seen pulmonology related to his shortness of breath. Emergency care for symptoms if needed. Orders: Orders CA lexiscan stress w rajiv 01/21/24 R06.02 - Shortness of breath, R07.9 - Chest pain, unspecified NM cardiolite stress test 01/21/24 R06.02 - Shortness of breath, R07.9 - Chest pain, unspecified Coding Level of Care Code Est Pt Level 4 (60786) Diagnoses SOB (shortness of breath) R06.02 Chest pain R07.9 Nicotine dependence, cigarettes, uncomplicated F17.210 Prolonged QT interval R94.31 CPT Codes EKG - CPT: 12633-[id number], Complete ([id number])
[2024-01-21 14:08] VITALS: BP 138/70
== END 2024-01-21 14:38 | disposition home or self-care (01) ==
PROVIDERS: PCP Internal Medicine; Visit Provider Nurse Practitioner
DX: R06.02 Shortness of breath (principal); R07.9 Chest pain, unspecified; F17.210 Nicotine dependence, cigarettes, uncomplicated; R94.31 Abnormal electrocardiogram [ECG] [EKG]
CPT/HCPCS: 93010; 99214

== ENCOUNTER → 2024-01-21 13:27 | Outpatient (BNVA) | payer MEDICAID, SELFPAY | PROVIDERS: PCP Internal Medicine; Visit Provider Nurse Practitioner | DX: R07.9 Chest pain, unspecified (principal); R06.02 Shortness of breath; I44.5 Left posterior fascicular block; R94.31 Abnormal electrocardiogram [ECG] [EKG]; F17.210 Nicotine dependence, cigarettes, uncomplicated | CPT/HCPCS: 93005; 99212 ==

== ENCOUNTER 2024-02-05 10:53 | Outpatient (REF) | payer MEDICAID, SELFPAY ==
[2024-02-05 12:58] LABS: MANUAL DIFF FLAG NO
[2024-02-05 13:03] LABS: Basophils Absolute Auto 0.1 X10*3/uL (0.0-0.2); Basophils Percent Auto 0.7 % (0-2); Eosinophils Absolute Auto 0.2 X10*3/uL (0.0-0.4); Eosinophils Percent Auto 2.6 % (0-4); Hematocrit 44.2 % (42.0-52.0); Hemoglobin 14.9 g/dl (14.0-18.0); Imm Gran Abs Auto 0.02 X10*3/uL (0.00-0.03); Imm Gran Pct Auto 0.3 % (0.0-0.4); Lymphocytes Absolute Auto 3.1 X10*3/uL (1.2-4.9); Lymphocytes Percent Auto 40.5 % (20-40); Mean Corpuscular HGB Conc 33.7 g/dl (31.0-36.0); Mean Corpuscular Hemoglobin 30.8 pg (27.0-33.0); Mean Corpuscular Volume 91.5 fL (80.0-98.0); Mean Platelet Volume 10.9 fL (9.4-12.4); Monocytes Absolute Auto 0.6 X10*3/uL (0.1-1.2); Monocytes Percent Auto 8.3 % (2-11); Neutrophils Absolute Auto 3.6 x10*3/uL (2.0-8.3); Neutrophils Percent Auto 47.6 % (45-73); Platelet Count 121 X10*3/uL (160-400); Red Blood Count 4.83 X10*6/uL (4.60-5.80); Red Cell Distribution Width 13.2 % (11.0-16.0); White Blood Count 7.6 X10*3/uL (4.8-10.8)
[2024-02-05 13:12] LABS: INTERNATIONAL NORM RATIO 1.1 (0.9-1.1); Prothrombin Time 12.8 SEC (10.9-12.4)
[2024-02-05 13:16] LABS: Alanine Aminotransferase 35 U/L (0-40); Albumin Level 3.3 g/dL (3.5-5.0); Alkaline Phosphatase 94 U/L (39-117); Aspartate Amino Transferase 43 U/L (5-37); Bilirubin Direct 0.3 mg/dL (0.0-0.5); Bilirubin Total 0.9 mg/dL (0.0-1.0); Estimated Glomerular Filt Rate > 60; Total Protein 7.8 g/dL (6.5-8.0)
[2024-02-06 08:19] LABS: HBS Num1 204.01 mIU/mL (0-7.99); HBc Num1 0.37 S/CO (0.00-0.79); HIV AB/AG Nonreactive (Nonreactive); HIV Num 1 0.78 S/CO (0.00-0.99); Hepatitis B Core Antibody Nonreactive (Nonreactive); Hepatitis B Surface Antigen Negative (Negative); ~Hepatitis B Surface Antibody REACTIVE (Nonreactive)
[2024-02-06 08:22] LABS: Hepatitis A Antibody IgG REACTIVE (Nonreactive); ~Hepatitis A Antibody IgG 9.99 S/CO (0.00-0.99)
[2024-02-07 14:24] LABS: HCV Log PCR 5.09 Log IU/mL (NOT DETECTED); HepC Viral Load 124000 IU/mL (NOT DETECTED)
[2024-02-09 13:23] LABS: Hepatitis C Genotype 1b
[2024-02-11 17:09] LABS: FIB-ALT 30 U/L (9-46); FIB-Alpha-2-Macroglobulin 291 mg/dL (106-279); FIB-Apolipoprotein A1 121 mg/dL (94-176); FIB-GGT 70 U/L (3-70); FIB-Haptoglobin 66 mg/dL (43-212); FIB-Total Bilirubin 0.5 mg/dL (0.2-1.2); Liver Fibrosis Score 0.71; Liver Fibrosis Stage F3; Nec Inflam Act Grade A0-A1; Nec Inflam Act Score 0.24; Reference ID 5155505
== END 2024-02-05 10:54 | disposition home or self-care (01) ==
LOC: HO.HHCL 10:53
PROVIDERS: Visit Provider Family Medicine
DX: B18.2 Chronic viral hepatitis C (principal)
CPT/HCPCS: 36415; 80076; 81596; 82565; 85025; 85610; 86704; 86706; 86708; 87340; 87389; 87522; 87902